=== PATIENT | female | born 1945 | race African-American/Black ===

== ENCOUNTER → 2018-01-24 | Outpatient (CLI) | payer MEDICARE, OTHER | LOC: HRSP 13:49 | PROVIDERS: ATTEND Specialist | DX: J44.9 Chronic obstructive pulmonary disease, unspecified (principal); R09.02 Hypoxemia; R06.00 Dyspnea, unspecified | CPT/HCPCS: 94060; 94726; 94729 ==

== ENCOUNTER 2018-04-10 17:54 | Inpatient (IN) | payer MEDICARE, MEDICAID ==
[2018-04-10] VITALS (7 sets, daily range): BP systolic 147–222; BP diastolic 67–115; PULSE 74–100; RESP 15–30; TEMP 98.8; O2SAT 93–100
[~2018-04-10] VITALS: Ht 167.6 cm; Wt 116.4 kg
[2018-04-10] MEDS ORDERED: HYDR25TA5 PO (18:05)
[2018-04-10] MEDS ORDERED: MECL-62 PO (18:05)
[2018-04-10] MEDS ORDERED: METF1000 PO (18:05)
[2018-04-10] MEDS ORDERED: ENOX100I SQ (18:05)
[2018-04-10] MEDS ORDERED: METO25TA3 PO (18:05)
[2018-04-10] MEDS ORDERED: OMEP40CA2 (18:05)
[2018-04-10] MEDS ORDERED: COLC1CAP3 PO (18:05)
[2018-04-10] MEDS ORDERED: AMLO2.5T PO (18:05)
[2018-04-10] MEDS ORDERED: LOSA100T PO (18:05)
[2018-04-10] MEDS ORDERED: LORazepam 2 MG/ML VIAL ONE (18:38)
--- NOTE | 2018-04-10 18:54 | PD ---
HPI Chief Complaint: Seizure Time Seen by Provider: 17:56 Travel History International Travel<30 days: No (unable to obtain) Contact w/Intl Traveler<30days: No Traveled to known affect area: No History of Present Illness HPI The patient was seen and examined in the presence of the nurse. This patient is brought in by paramedics after experiencing a seizure at home. This was witnessed by her daughter. She arrives appearing postictal and can provide no history or review of systems. According to the history provided H this is a first seizure and she has no history of this and takes no medications for it. She cannot provide any history or review of systems. PFSH Past Medical History Cardiovascular Problems: Yes High Cholesterol: Yes Diabetes: Yes Patient Takes Glucophage: Yes Hypertension: Yes Tetanus Vaccination: Unknown Past Surgical History Surgical History: Unable to Obtain Other Surgery: Yes (ivc filter) Social History Alcohol Use: No (unable to obtain) Tobacco Use: No (unable to obtain) Substance Use: No (unable to obtain) Allergies-Medications (Allergen,Severity, Reaction): Coded Allergies: Penicillins (Verified Allergy, Unknown, 04/10/18) Reported Meds & Prescriptions Reported Meds & Active Scripts Active Reported Omeprazole 40 Mg Cap 40 Mg Hydrochlorothiazide 25 Mg Tab 25 Mg PO Losartan (Losartan Potassium) 100 Mg Tab 100 Mg PO DAILY Meclizine (Meclizine HCl) 25 Mg Tab 25 Mg PO DIRECTED PRN Colchicine 0.6 Mg Cap 0.6 Mg PO Enoxaparin Inj (Enoxaparin Sodium) 100 Mg/Ml Syr 100 Mg SQ Amlodipine (Amlodipine Besylate) 2.5 Mg Tab 2.5 Mg PO DAILY Metoprolol Tartrate 25 Mg Tab 25 Mg PO Metformin (Metformin HCl) 1,000 Mg Tab 1,000 Mg PO BIDPC Review of Systems ROS Limitations: Clinical Condition, Unresponsive Physical Exam Narrative GENERAL: Well-nourished, well-developed patient in no apparent distress. SKIN: Focused skin assessment reveals no rash and nodules. Skin is Warm and dry. HEAD: Atraumatic. Normocephalic. EYES: Pupils equal and round. No scleral icterus. No injection or drainage. ENT: No nasal bleeding or discharge. Mucous membranes pink and moist. NECK: Trachea midline. No JVD. CARDIOVASCULAR: Regular rate and rhythm. No murmur appreciated. RESPIRATORY: No accessory muscle use. Clear to auscultation. Breath sounds equal bilaterally. GASTROINTESTINAL: Abdomen soft, non-tender, nondistended. Hepatic and splenic margins not palpable. MUSCULOSKELETAL: No obvious deformities. No clubbing. No cyanosis. No edema. NEUROLOGICAL: Obtunded, does not follow commands. Impossible to test motor strength or sensation given her limited participation. She looks postictal PSYCHIATRIC: Impossible to test mood and affect; insight and judgment poor . Data Data Last Documented VS Vital Signs Date Time Temp Pulse Resp B/P (MAP) Pulse Ox O2 Delivery O2 Flow Rate FiO2 04/10/18 18:44 100 30 222/115 (150) 100 Non-Rebreather 15.00 04/10/18 17:55 98.8 Orders Orders Lorazepam Inj (Ativan Inj) (04/10/18 18:38) Lorazepam Inj (Ativan Inj) (04/10/18 19:00) Iv Access Insert/Monitor (04/10/18 18:48) Complete Blood Count With Diff (04/10/18 18:48) Comprehensive Metabolic Panel (04/10/18 18:48) Ct Brain W/O Iv Contrast(Rout) (04/10/18 ) Drug Screen, Random Urine (04/10/18 18:48) Alcohol (Ethanol) (04/10/18 18:48) MDM Medical Decision Making Medical Screen Exam Complete: Yes Emergency Medical Condition: Yes Medical Record Reviewed: Yes Differential Diagnosis Postictal state, new onset seizure, intracranial hemorrhage Narrative Course I have reviewed the patient's electronic medical record. I have ordered extensive workup. I gave her 2 mg IV Ativan. 2 IVs are placed. On oxygen mask she saturates at 99% at this time Is checked out to Dr. Bhakta at 7 PM Tha Jones MD Apr 10, 2018 18:54
[2018-04-10] MEDS ORDERED: LORazepam 2 MG/ML VIAL IV PUSH ONE (19:00)
--- NOTE | 2018-04-10 19:18 | PD ---
Physical Exam Date Seen by Provider: Apr 10, 2018 Time Seen by Provider: 19:12 Narrative Accepted in transfer of care from Dr. Jones GENERAL: Well-developed well-nourished obese female in no acute respiratory distress with nonrebreather mask in place GCS 5 after Ativan 2 mg IV SKIN: Warm and dry. HEAD: Normocephalic. EYES: No scleral icterus. Bilateral pupils equal 3 mm round reactive to light no injection or drainage. NECK: Supple, trachea midline. No JVD or lymphadenopathy. CARDIOVASCULAR: Regular rate and rhythm without murmurs, gallops, or rubs. RESPIRATORY: Breath sounds equal bilaterally. No accessory muscle use. GASTROINTESTINAL: Abdomen soft, non-tender, nondistended. Data Data Last Documented VS Vital Signs Date Time Temp Pulse Resp B/P (MAP) Pulse Ox O2 Delivery O2 Flow Rate FiO2 04/10/18 18:44 100 30 222/115 (150) 100 Non-Rebreather 15.00 04/10/18 17:55 98.8 Orders Orders Lorazepam Inj (Ativan Inj) (04/10/18 18:38) Lorazepam Inj (Ativan Inj) (04/10/18 19:00) Iv Access Insert/Monitor (04/10/18 18:48) Complete Blood Count With Diff (04/10/18 18:48) Comprehensive Metabolic Panel (04/10/18 18:48) Ct Brain W/O Iv Contrast(Rout) (04/10/18 ) Drug Screen, Random Urine (04/10/18 18:48) Alcohol (Ethanol) (04/10/18 18:48) Lorazepam Inj (Ativan Inj) (04/10/18 19:30) Fosphenytoin Inj (Cerebyx Inj) (04/10/18 20:00) Nicardipine Inj (Cardene Inj) (04/10/18 20:00) Etomidate Inj (Amidate Inj) (04/10/18 20:15) Midazolam Inj (Versed Inj) (04/10/18 20:15) Rocuronium Inj (Zemuron Inj) (04/10/18 20:15) Succinylcholine Inj (Quelicin Inj) (04/10/18 20:09) Midazolam Inj (Versed Inj) (04/10/18 20:19) Propofol 500 Mg/50 Ml Inj (Diprivan 500 (04/10/18 20:21) Protamine Sulfate Inj (Protamine Sulfate (04/10/18 20:30) Admit To Inpatient (04/10/18 ) Code Status (04/10/18 20:20) Vital Signs (Adult) RIGOBERTO.Q1H (04/10/18 20:20) Activity Bed Rest (04/10/18 20:20) Elevate Head Of Bed (04/10/18 20:20) Neuro Checks . ORDERED (04/10/18 20:20) Intake + Output Q1H (04/10/18 20:20) Bedside Glucose RIGOBERTO.BGM (04/10/18 20:20) Insert Ng Tube (04/10/18 20:20) Diet Npo (04/11/18 Breakfast) Sodium Chlor 0.9% 1000 Ml Inj (Ns 1000 M (04/10/18 20:20) Sodium Chloride 0.9% Flush (Ns Flush) (04/10/18 20:30) Sodium Chloride 0.9% Flush (Ns Flush) (04/10/18 21:00) Lansoprazole Odt (Prevacid Odt) (04/11/18 09:00) Artificial Tears Opth Soln (Tears Natura (04/11/18 09:00) Ondansetron Inj (Zofran Inj) (04/10/18 20:30) Albuterol-Ipratropium Neb (Duoneb Neb) (04/11/18 00:00) Albuterol Neb (Albuterol Neb) (04/10/18 20:30) Complete Blood Count With Diff (04/11/18 04:00) Comprehensive Metabolic Panel (04/11/18 04:00) Creatine Kinase (Cpk) (04/11/18 06:00) Troponin I (04/10/18 20:20) Troponin I (04/11/18 02:20) Act Partial Throm Time (Ptt) (04/11/18 04:00) Prothrombin Time / Inr (Pt) (04/11/18 04:00) Magnesium (Mg) (04/11/18 04:00) Phosphorus (Po4) (04/11/18 04:00) Chest, Single Ap (04/11/18 ) Electrocardiogram (04/10/18 ) Portable Eeg (04/10/18 ) Type Photography Supervisor / Telemetry RIGOBERTO.Q8H (04/10/18 20:20) Scd Bilateral/Knee High RGIOBERTO.BID (04/10/18 20:20) Pharmacologic Contraindication (04/10/18 20:20) ^ Initiate Protocol (04/10/18 20:20) Instruction (04/10/18 20:20) Nursing Information ([facility] [place] Nursing Inform (04/10/18 20:30) Chlorhexidine 2% Cloth (Chlorhexidine 2% (04/11/18 04:00) Chlorhexidine 2% Cloth (Chlorhexidine 2% (04/10/18 20:30) Mrsa Pcr Surveillance (04/10/18 20:20) Docusate Sodium-Senna (Breanna-Colace) (04/10/18 21:00) Magnesium Hydroxide Liq (Milk Of Magnesi (04/10/18 20:30) Sennosides (Senokot) (04/10/18 20:30) Bisacodyl Supp (Dulcolax Supp) (04/10/18 20:30) Lactulose Liq (Lactulose Liq) (04/10/18 20:30) Elevate Head Of Bed (04/10/18 20:20) Chlorhexidine 0.12% Liq (Peridex 0.12% L (04/11/18 08:00) Oral Hygiene Kit (04/11/18 00:00) Resp Ventilation- Pressure (04/10/18 ) Restraints Non-Violent RIGOBERTO.Q3H (04/10/18 20:20) Ventilator Weaning Readiness RIGOBERTO.DAILY@0800 (04/10/18 20:20) Arterial Blood Gas (Abg) (04/11/18 06:00) Propofol 1000 Mg/100 Ml Inj (Diprivan 10 (04/10/18 20:30) Fentanyl Drip (Fentanyl Drip) (04/10/18 20:30) Inpatient Certification (04/10/18 ) Labs Laboratory Tests Test 04/10/18 19:16 White Blood Count 10.3 TH/MM3 Red Blood Count 4.24 MIL/MM3 Hemoglobin 12.7 GM/DL Hematocrit 39.2 % Mean Corpuscular Volume 92.6 FL Mean Corpuscular Hemoglobin 30.1 PG Mean Corpuscular Hemoglobin Concent 32.5 % Red Cell Distribution Width 14.2 % Platelet Count 154 TH/MM3 Mean Platelet Volume 11.9 FL Neutrophils (%) (Auto) 52.8 % Lymphocytes (%) (Auto) 34.1 % Monocytes (%) (Auto) 8.5 % Eosinophils (%) (Auto) 3.9 % Basophils (%) (Auto) 0.7 % Neutrophils # (Auto) 5.4 TH/MM3 Lymphocytes # (Auto) 3.5 TH/MM3 Monocytes # (Auto) 0.9 TH/MM3 Eosinophils # (Auto) 0.4 TH/MM3 Basophils # (Auto) 0.1 TH/MM3 CBC Comment DIFF FINAL Differential Comment Blood Urea Nitrogen 21 MG/DL Creatinine 1.20 MG/DL Random Glucose 177 MG/DL Total Protein 8.7 GM/DL Albumin 3.8 GM/DL Calcium Level 10.0 MG/DL Alkaline Phosphatase 101 U/L Aspartate Amino Transf (AST/SGOT) 46 U/L Alanine Aminotransferase (ALT/SGPT) 37 U/L Total Bilirubin 0.3 MG/DL Sodium Level 139 MEQ/L Potassium Level 4.1 MEQ/L Chloride Level 101 MEQ/L Carbon Dioxide Level 26.7 MEQ/L Anion Gap 11 MEQ/L Estimat Glomerular Filtration Rate 54 ML/MIN Ethyl Alcohol Level LESS THAN 3 MG/DL MDM Medical Record Reviewed: Yes Supervised Visit with LUKE: No Interpretation(s) Last Impressions Head CT 04/10/18 0000 Signed Impressions: CONCLUSION: 1. There is acute intra-axial hemorrhage in the right frontal lobe measuring u p to 3.1 cm with surrounding vasogenic edema. There is very mild local mass eff ect with approximately 3 mm of [id number] midline shift anteriorly. 2. Chronic brain findings include mild generalized atrophy and chronic appeari ng periventricular white matter change. 3. The above findings were telephoned to Dr. Bhakta at 7:58 PM. CBC & BMP Diagram 04/10/18 19:16 Total Protein 8.7 H, Albumin 3.8, Calcium Level 10.0, Alkaline Phosphatase 101, Aspartate Amino Transf (AST/SGOT) 46 H, Alanine Aminotransferase (ALT/SGPT) 37, Total Bilirubin 0.3 Vital Signs Date Time Temp Pulse Resp B/P (MAP) Pulse Ox O2 Delivery O2 Flow Rate FiO2 04/10/18 18:44 100 30 222/115 (150) 100 Non-Rebreather 15.00 04/10/18 18:06 90 20 69 Room Air 04/10/18 17:55 98.8 94 15 196/87 [phone]) 93 Differential Diagnosis Accepted in transfer of care from Dr. Jones; please refer to his dictation Narrative Course Accepted in transfer of care from Dr. Jones; follow up CT labs and disposition It is 7:13 PM patient's daughter Dulce Fofana is at the bedside reports patient has a history of diabetes hypertension dyslipidemia prior sepsis PE DVT Vanesa filter currently on Lovenox twice daily and this is new onset seizure. According to the patient daughter the patient's son spoke to her around 2:30 PM and patient was reportedly fine and daughter came to visit her mother at approximately 5:20 PM found her sitting in the dark and a stair unresponsive to verbal or tactile stimulation so the daughter immediately called EMS upon tax services manager arrival patient reportedly had approximately 4 generalized tonic-clonic seizures and then patient was transported from the house. Upon arrival here daughter states that patient was witnessed to have approximately 2 minute episode of seizure activity and patient did receive 2 mg of Ativan IV. According to daughter patient has been compliant with her medications gives herself her medications low-salt by herself and is very independent. Patient has had no recent febrile illness but has had some earache and a cough. No known fever. No known trauma or injury. According to the patient's daughter she is a full code and does NOT have any prior advanced directive for DO NOT RESUSCITATE or DO NOT INTUBATE. @ 7:27 BP_: 179/[address] appearing post ictal E 4, V: 1; M: 4; Ativan 2 mg ordered to go with RN w/ patient to be administered prn recurrent TC seizure Patient has returned from CT did receive Ativan [address] due to agitation and inability obtained study due to patient's movement not because of seizure activity additional 1 mg Ativan held and not administered. Call placed from radiologist identifies patient has an acute right frontal intra-axial hemorrhage 3 cm; call placed to neurosurgery Dr. Parson who will see the patient in consultation is aware patient is already received Ativan and fosphenytoin is on a nicardipine infusion to keep blood pressure less than 140/90 and plan for intubation request patient to be admitted to offset printer to [facility] does not recall recommend mannitol at this time; call placed to offset printer discussed with Dr. Yanet Holt is at bedside is aware patient is in the process of being prepared for intubation at this time patient is awake answers questions appropriately yes no notes are name acknowledges that she has been diagnosed with a bleed in her head and seizure and is aware of plan for intubation. Patient has good right- sided direct service provider strength and movement of the right lower extremity demonstrates neglect for the left upper extremity and left lower extremity no display of direct service provider strength or movement of the left foot to command but does spontaneously move left upper extremity and left lower extremity. Patient intubated emergently using etomidate 20 mg IV rocuronium 70 mg IV and Versed 2.5 mg IV please refer to procedure note stat post chest x-ray ordered; Dr. Holt at bedside reports he will enter remaining orders for this patient and is except patient to ICU Postintubation x-ray shows tip of endotracheal tube at the tristan endotracheal tube reposition to 22 cm had been secured at 24 cm; repeat chest x-ray post repositioning of endotracheal tube ordered 9 PM family at bedside daughter is aware of imaging study results diagnosis and plan for admission to [facility] to the offset printer with consult to neurosurgery. Critical Care Narrative Aggregate critical care time was 35 minutes. Time to perform other separately billable procedures was not included in the critical care time. My time did not include minutes spent treating any other patients simultaneously or on activities that did not directly contribute to the patient's treatment. The services I provided to this patient were to treat and/or prevent clinically significant deterioration that could result in: Status epilepticus, expanding intracranial bleed, anoxic encephalopathy, I provided critical care services requiring my management, as noted below: Chart data review, documentation time, medication orders and management, vital sign assessments/reviewing monitor data, ordering and reviewing lab tests, ordering and interpreting/reviewing x-rays and diagnostic studies, care of the patient and discussion of the patient with the admitting physicians. Procedures Procedure Narrative Emergently the following procedure was performed: INTUBATION: The patient was put in optimal position for the procedure. Rapid sequence intubation was initiated by me using 20 milligrams of etomidate IV and 70 milligrams of rocuronium IV and 2.5 mg of Versed IV. The patient was intubated with a 8-0 cuffed endotracheal tube. Tube placement was confirmed by visualization of the tube and balloon passing through the cords, capnometry and subsequent chest x-ray. Breath sounds were equal and well aerated bilaterally postintubation. No breath sounds over stomach. Patient tolerated procedure well. Physician Communication Physician Communication @ 7:[address] Pan patient has acute hemorrhage right frontal lobe 3 cm inside with no significant midline shift or herniation appears to be intra-axial; call placed to Dr. Parson neurosurgeon signals collection technician; discussed with Dr Holt Diagnosis Primary Impression: Right frontal intra-axial hemorrhage Additional Impressions: Essential hypertension New onset seizure Admitting Information Admitting Physician Requests: Admit Debbie Bhakta MD Apr 10, 2018 19:18
[2018-04-10] MEDS ORDERED: LORazepam 2 MG/ML VIAL IV PUSH PRN (19:30)
[2018-04-10 19:44] LABS: AUTOMATED NEUTROPHIL # 5.4 TH/MM3 (1.8-7.7); BASOPHIL # 0.1 TH/MM3 (0-0.2); BASOPHIL % 0.7 % (0.0-2.0); EOSINOPHIL # 0.4 TH/MM3 (0-0.4); EOSINOPHIL % 3.9 % (0.0-4.0); HEMATOCRIT 39.2 % (35.0-46.0); HEMOGLOBIN 12.7 GM/DL (11.6-15.3); LYMPH % 34.1 % (9.0-44.0); LYMPHOCYTE # 3.5 TH/MM3 (1.0-4.8); MEAN CELL VOLUME 92.6 FL (80.0-100.0); MEAN CORPUSCULAR HEMOGLOBIN 30.1 PG (27.0-34.0); MEAN CORPUSCULAR HGB CONC 32.5 % (32.0-36.0); MEAN PLATELET VOLUME 11.9 FL (7.0-11.0); MONO % 8.5 % (0.0-8.0); MONOCYTE # 0.9 TH/MM3 (0-0.9); NEUT % 52.8 % (16.0-70.0); PLATELET COUNT 154 TH/MM3 (150-450); RED BLOOD COUNT 4.24 MIL/MM3 (4.00-5.30); RED CELL DISTRIBUTION WIDTH 14.2 % (11.6-17.2); WHITE BLOOD COUNT 10.3 TH/MM3 (4.0-11.0)
[2018-04-10] MEDS ORDERED: niCARdipine INJ 25 MG in SODIUM CHLOR 0.9% 250 ML INJ 250 ML IV PRN (20:00)
[2018-04-10] MEDS ORDERED: FOSPHENYTOIN INJ 1,500 MGPE in SODIUM CHLORIDE 0.9% INJ 100 ML IV ONE (20:00)
--- NOTE | 2018-04-10 20:01 | RADRPT ---
EXAM DATE: 04/10/2018 7:54 PM EDT AGE/SEX: 73 years / Female INDICATIONS: Seizure lasting 5-8 minutes. CLINICAL DATA: This is the patient's initial encounter. Patient reports that signs and symptoms have been present for 1 day and indicates a pain score of Nonresponsive. MEDICAL/SURGICAL HISTORY: Hypertension. Diabetes. IVC Filter placement. RADIATION DOSE: 56.35 CTDI (mGy) ; Patient motion COMPARISON: No prior exams available for comparison. TECHNIQUE: CT of the head without contrast. Using automated exposure control and adjustment of the mA and/or kV according to patient size, radiation dose was kept as low as reasonably achievable to ob tain optimal diagnostic quality images. FINDINGS: Cerebrum: There is mild generalized atrophy and ventricles are normal given the degree of atrophy. M ild periventricular white matter change is present. There are acute intra-axial blood products in th e right frontal lobe measuring 3.1 x 2.7 cm. There is surrounding vasogenic edema. No other acute blo od products are present. There is no downward herniation. Minimal midline shift is present anteriorly measuring approximately 3 mm. Posterior Fossa: The cerebellum and brainstem demonstrate no acute abnormality. The 4th ventricle is midline. The cerebellopontine angle is within normal limits. Extracranial: There is a mucous retention cyst in the right maxillary sinus Skull: The calvaria is intact. No skull fracture. CONCLUSION: 1. There is acute intra-axial hemorrhage in the right frontal lobe measuring up to 3.1 cm with surro unding vasogenic edema. There is very mild local mass effect with approximately 3 mm of [id number] midline shift anteriorly. 2. Chronic brain findings include mild generalized atrophy and chronic appearing periventricular whi te matter change. 3. The above findings were telephoned to Dr. Bhakta at 7:58 PM. Electronically signed by: David Sandra MD 04/10/2018 7:59 PM EDT
[2018-04-10 20:06] LABS: ALBUMIN 3.8 GM/DL (3.4-5.0); AST (GOT) 46 U/L (15-37); BICARBONATE 26.7 MEQ/L (21.0-32.0); BLOOD UREA NITROGEN 21 MG/DL (7-18); CHLORIDE 101 MEQ/L (98-107); GLOMERULAR FILTRATION RATE 54 ML/MIN (>89); GLUCOSE,RANDOM 177 MG/DL (74-106); SODIUM (NA) 139 MEQ/L (136-145)
[2018-04-10 20:07] LABS: ALT (GPT) 37 U/L (10-53)
[2018-04-10 20:09] LABS: ALKALINE PHOSPHATASE 101 U/L (45-117); TOTAL BILIRUBIN ADULT 0.3 MG/DL (0.2-1.0); TOTAL PROTEIN 8.7 GM/DL (6.4-8.2)
[2018-04-10] MEDS ORDERED: SUCCINYLCHOLINE CHLORIDE 200 MG/10 ML VIAL ONE (20:09)
[2018-04-10] MEDS ORDERED: ETOMIDATE 20 MG/10 ML VIAL IV PUSH ONE (20:15)
[2018-04-10] MEDS ORDERED: ROCURONIUM INJ 100 MG/10 ML VIAL IV ONE (20:15)
[2018-04-10] MEDS ORDERED: MIDAZOLAM HCL 5 MG/5 ML VIAL IV PUSH ONE (20:15)
[2018-04-10] MEDS ORDERED: MIDAZOLAM HCL 5 MG/ML VIAL (1 ML) ONE (20:19)
[2018-04-10] MEDS ORDERED: PROPOFOL 500 MG/50 ML INJ 50 ML ONE (20:21)
[2018-04-10] MEDS ORDERED: CHLORHEXIDINE GLUCONATE 2 % 1 PACK (2 CLOTHS) TOP PRN (20:30)
[2018-04-10] MEDS ORDERED: MAGNESIUM OXIDE 400 MG TAB PO PRN (20:30)
[2018-04-10] MEDS ORDERED: POTASSIUM CHLORIDE 25 MEQ EFFERVESCENT TAB PO PRN (20:30)
[2018-04-10] MEDS ORDERED: ONDANSETRON HCL 4 MG/2 ML VIAL IV PUSH PRN (20:30)
[2018-04-10] MEDS ORDERED: MAGNESIUM HYDROXIDE SUSP 30 ML CUP PO PRN (20:30)
[2018-04-10] MEDS ORDERED: POTASSIUM CHLOR 20 MEQ PREMIX 100 ML IV PRN ×2 (20:30)
[2018-04-10] MEDS ORDERED: SODIUM CHLORIDE 0.9% FLUSH 10 ML FLUSH IV FLUSH PRN ×2 (20:30→23:00)
[2018-04-10] MEDS ORDERED: POTASSIUM PHOSPHATE MONOBASIC 500 MG TAB PO/TUBE PRN (20:30)
[2018-04-10] MEDS ORDERED: POTASSIUM PHOSPHATE INJ 30 MMOL in SODIUM CHLOR 0.9% 250 ML INJ 250 ML IV PRN (20:30)
[2018-04-10] MEDS ORDERED: MAGNESIUM SULFATE INJ 2 GM in SODIUM CHLORIDE 0.9% INJ 96 ML IV PRN (20:30)
[2018-04-10] MEDS ORDERED: RESP: ALBUTEROL 2.5 MG/3 ML NEB (PRN) INH (20:30)
[2018-04-10] MEDS ORDERED: POTASSIUM PHOSPHATE MONOBASIC 500 MG TAB PO PRN (20:30)
[2018-04-10] MEDS ORDERED: BISACODYL 10 MG SUPP RECTAL PRN (20:30)
[2018-04-10] MEDS ORDERED: MAGNESIUM SULFATE INJ 4 GM in SODIUM CHLORIDE 0.9% INJ 92 ML IV PRN (20:30)
[2018-04-10] MEDS ORDERED: NURSING INFORMATION XX SCH (20:30)
[2018-04-10] MEDS ORDERED: SENNOSIDES 8.6 MG TAB PO PRN (20:30)
[2018-04-10] MEDS ORDERED: PROTAMINE SULFATE 50 MG/5 ML VIAL IV PUSH ONE (20:30)
[2018-04-10] MEDS ORDERED: LACTULOSE SYRUP 20 GM/30 ML CUP PO PRN (20:30)
[2018-04-10] MEDS ORDERED: POTASSIUM CHLOR 40 MEQ PREMIX 100 ML IV PRN ×2 (20:30)
[2018-04-10] MEDS ORDERED: DEXTROSE 50% IN WATER 50 ML VIAL(D50) IV PUSH PRN (20:30)
[2018-04-10] MEDS ORDERED: GLUCAGON 1 MG/ML VIAL OTHER PRN (20:30)
[2018-04-10] MEDS ORDERED: SODIUM PHOSPHATE INJ 30 MMOL in SODIUM CHLOR 0.9% 250 ML INJ 240 ML IV PRN (20:30)
--- NOTE | 2018-04-10 20:34 | HHI.HP ---
HPI Service Critical Care Medicine Primary Care Physician Jim Vázquez M.D. Admission Diagnosis Right frontal intra-axial hemorrhage Diagnosis: (1) Right frontal intra-axial hemorrhage Diagnosis: Principal (2) Essential hypertension Diagnosis: Principal (3) Acute respiratory failure Diagnosis: Principal (4) New onset seizure Diagnosis: Principal (5) Gastroesophageal reflux disease Diagnosis: Secondary (6) Diabetes mellitus Diagnosis: Secondary (7) BMI 40.0-44.9, adult Diagnosis: Principal (8) Hyperlipidemia Diagnosis: Secondary (9) Chronic anticoagulation Diagnosis: Principal Chief Complaint: Admission with seizure with right frontal intra-axial hemorrhage Travel History International Travel<30 Days: No (unable to obtain) Contact w/Intl Traveler <30 Da: No Traveled to Known Affected Are: No History of Present Illness This is a 73-year-old AA female. Admission 04/10/2018. Please note no family is available and all information is obtained by reviewing the medical record from ED physician. Past medical history includes hypertension, hyperlipidemia, gastroesophageal disease, diabetes mellitus, elevated BMI and gout. 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 She presented to [facility] with the following history. At approximately 2:30 PM and patient was reportedly fine and daughter came to visit her mother. Then at approximately 5:20 PM found her sitting in the dark by the stair unresponsive. EMS upon grove worker arrival patient reportedly had approximately 4 generalized tonic-clonic seizures and then patient was transported from the house. Upon arrival here daughter states that patient was witnessed to have approximately 2 minute episode of seizure activity and patient did receive 2 mg of lorazepam IV. According to daughter patient has been compliant with her medications gives herself her medications low-salt by herself and is very independent. after being found home by daughter with new onset seizure. No prior history of seizure activity. Denies any trauma at home to the brain. CT brain revealed 3.1 cm right frontal intra-axial hemorrhage with a 3 mm right to left shift. She received 2 mg lorazepam IV 1 was loaded with fosphenytoin 1 g. Neurosurgery was consulted/Dr. Parson. Recommended blood pressure control with inpatient admission to ICU with consultation to neurosurgery. Patient was intubated in the ED by physician after receiving etomidate and rocuronium... Review of Systems ROS Limitations: Intubated Past Family Social History Allergies: Coded Allergies: Penicillins (Verified Allergy, Unknown, 6/7/18) Past Medical History Chronic anticoagulation Essential hypertension Hyperlipidemia Gastroesophageal reflux disease Diabetes mellitus Elevated BMI Gout Past Surgical History IVC filter Total hip replacement 2 Reported Medications Metoprolol tartrate 25 mg by mouth twice daily Amlodipine 2.5 mg by mouth daily Losartan 100 mg by mouth daily Enoxaparin 100 mg subcu twice daily Metformin 1000 mg by mouth twice daily colchicine 0.6 mg by mouth daily Omeprazole 40 mg mouth daily Meclizine 25 mg every 6 hours as needed Active Ordered Medications Reviewed in EMR Family History Not defined/unknown. Son-in-law at bedside did not know Social History Unknown alcohol, tobacco or IV drug use per son-in-law at bedside Physical Exam Vital Signs Vital Signs Date Time Temp Pulse Resp B/P (MAP) Pulse Ox O2 Delivery O2 Flow Rate FiO2 04/10/18 18:44 100 30 222/115 (150) 100 Non-Rebreather 15.00 04/10/18 18:06 90 20 69 Room Air 04/10/18 17:55 98.8 94 15 196/87 (123) 93 Physical Exam GENERAL: 73-year-old AA female currently resting in bed orotracheally intubated SKIN: Warm and dry. HEAD: Atraumatic. Normocephalic. EYES: Pupils equal and round about 3 mm bilaterally reactive to. Disconjugate gaze to left.. No scleral icterus. No injection or drainage. ENT: No nasal bleeding or discharge. Mucous membranes pink and moist. NECK: Trachea midline. No JVD. CARDIOVASCULAR: Regular rate and rhythm. S1, S2. No S4. Without murmur RESPIRATORY: Diminished. Symmetrical excursion. Breath sounds equal bilaterally. GASTROINTESTINAL: Abdomen soft, non-tender, obese. Hypoactive bowel sounds appreciated. MUSCULOSKELETAL: Extremities trace bilateral lower extremity nonpitting edema. No obvious deformities. NEUROLOGICAL: Alert intubation, arousable. GCS 9. [id number]. Spontaneous movement right and upper lower extremity. Did not move left upper extremity for me but did for ED physician. Withdrew to left lower extremity. Current with positive cough and gag. Positive corneal reflex. Laboratory Laboratory Tests Test 04/10/18 19:16 White Blood Count 10.3 Red Blood Count 4.24 Hemoglobin 12.7 Hematocrit 39.2 Mean Corpuscular Volume 92.6 Mean Corpuscular Hemoglobin 30.1 Mean Corpuscular Hemoglobin Concent 32.5 Red Cell Distribution Width 14.2 Platelet Count 154 Mean Platelet Volume 11.9 Neutrophils (%) (Auto) 52.8 Lymphocytes (%) (Auto) 34.1 Monocytes (%) (Auto) 8.5 Eosinophils (%) (Auto) 3.9 Basophils (%) (Auto) 0.7 Neutrophils # (Auto) 5.4 Lymphocytes # (Auto) 3.5 Monocytes # (Auto) 0.9 Eosinophils # (Auto) 0.4 Basophils # (Auto) 0.1 CBC Comment DIFF FINAL Differential Comment Blood Urea Nitrogen 21 Creatinine 1.20 Random Glucose 177 Total Protein 8.7 Albumin 3.8 Calcium Level 10.0 Alkaline Phosphatase 101 Aspartate Amino Transf (AST/SGOT) 46 Alanine Aminotransferase (ALT/SGPT) 37 Total Bilirubin 0.3 Sodium Level 139 Potassium Level 4.1 Chloride Level 101 Carbon Dioxide Level 26.7 Anion Gap 11 Estimat Glomerular Filtration Rate 54 Ethyl Alcohol Level LESS THAN 3 Result Diagram: 04/10/18191504/10/18 1916 Imaging Last Impressions Head CT 04/10/18 0000 Signed Impressions: CONCLUSION: 1. There is acute intra-axial hemorrhage in the right frontal lobe measuring u p to 3.1 cm with surrounding vasogenic edema. There is very mild local mass eff ect with approximately 3 mm of [id number] midline shift anteriorly. 2. Chronic brain findings include mild generalized atrophy and chronic appeari ng periventricular white matter change. 3. The above findings were telephoned to Dr. Bhakta at 7:58 PM. Septic Shock Reassessment Septic shock perfusion: reassessment completed Caprini VTE Risk Assessment Caprini VTE Risk Assessment: Mod/High Risk (score >= 2) VTE Pharm Contraindication: Active bleeding Caprini Risk Assessment Model Point Value = 1 Point Value = 2 Point Value = 3 Point Value = 5 Age 41-60 Minor surgery BMI > 25 kg/m2 Swollen legs Varicose veins or History of unexplained or recurrent spontaneous Oral contraceptives or hormone replacement Sepsis (< 1 month) Serious lung disease, including pneumonia (< 1 month) Abnormal pulmonary function Acute myocardial infarction Congestive heart failure (< 1 month) History of inflammatory bowel disease Medical patient at bed rest Age 61-74 Arthroscopic surgery Major open surgery (> 45 min) Laparoscopic surgery (> 45 min) Malignancy Confined to bed (> 72 hours) Immobilizing plaster cast Central venous access Age >= 75 History of VTE Family history of VTE Factor V Leiden Prothrombin [id number] Lupus anticoagulant Anticardiolipin antibodies Elevated serum homocysteine Heparin-induced thrombocytopenia Other congenital or acquired thrombophilia Stroke (< 1 month) Elective arthroplasty Hip, pelvis, or leg fracture Acute spinal cord injury (< 1 month) Prophylaxis Regimen Total Risk Factor Score Risk Level Prophylaxis Regimen 0-1 Low Early ambulation 2 Moderate Order ONE of the following: *Sequential Compression Device (SCD) *Heparin 5000 units SQ BID 3-4 Higher Order ONE of the following medications: *Heparin 5000 units SQ TID *Enoxaparin/Lovenox 40 mg SQ daily (WT < 150 kg, CrCl > 30 mL/min) *Enoxaparin/Lovenox 30 mg SQ daily (WT < 150 kg, CrCl > 10-29 mL/min) *Enoxaparin/Lovenox 30 mg SQ BID (WT < 150 kg, CrCl > 30 mL/min) AND/OR *Sequential Compression Device (SCD) 5 or more Highest Order ONE of the following medications: *Heparin 5000 units SQ TID (Preferred with Epidurals) *Enoxaparin/Lovenox 40 mg SQ daily (WT < 150 kg, CrCl > 30 mL/min) *Enoxaparin/Lovenox 30 mg SQ daily (WT < 150 kg, CrCl > 10-29 mL/min) *Enoxaparin/Lovenox 30 mg SQ BID (WT < 150 kg, CrCl > 30 mL/min) AND *Sequential Compression Device (SCD) Assessment and Plan Assessment and Plan Neuro/Psych: Acute right frontal intra-axial hemorrhage 3.1 cm at the right to left shift of 3 mm New onset seizure Currently on propofol/fentanyl drips for sedation/analgesia while intubated Goal of RA SS -2 Daily sedation vacation Acetaminophen 650 mg by tube every 6 hours as needed fever Follow-up brain CT in a.m. 04/11 Neurosurgery/Dr. Parson to follow Keep systolic blood pressure was 140 Replacement 2% saline at 40 cc an hour with serial sodiums every 6 hours No mannitol per neurosurgery Seizure with fosphenytoin 100 mg every 8 hours. Loaded in ED. Check phenytoin level in a.m. EEG ordered CV: Essential hypertension Hyperlipidemia Currently on nicardipine drip to keep systolic blood pressure less than 140 As needed labetalol On home metoprolol 25 mg twice daily, amlodipine 2.5 mg a day, hydrochlorthiazide 20 mg daily losartan 100 mg daily. Follow-up on EKG Resp: Acute respiratory failure [facility] / Ventilator bundle Albuterol/ipratropium aerosols every 6 hours with albuterol aerosols every 2 hours as needed dyspnea Spontaneous breathing trials when clinically indicated Follow-up on post intubation chest x-ray and ABG GI: Gastroesophageal reflux disease Elevated AST N.p.o. status NGT to LIWS Lansoprazole 30 mg daily for GI prophylaxis. On omeprazole 40 mg daily at home Docusate sodium/senna 1 tablet twice daily for bowel regimen : Krishna catheter has been placed for accurate I's and O's in a critically ill patient Endo: Diabetes mellitus History of gout Holding metformin thousand grams twice daily/home medication Novulog medium protocol Accu-Cheks every 6 hours to maintain euglycemia Holding colchicine 0.6 mg. Resume clinically indicated Renal: Acute kidney injury? Versus chronic kidney disease stage III a baseline Monitor urine output Accurate I's and O's Avoid nephrotoxic medications Follow-up on creatinine in a.m. 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 Holding anticoagulation in light of acute brain hemorrhage ID: Monitor for signs and symptomatology of infection MSK: Elevated BMI Weight loss encouraged PT evaluate and treat FEN: Replace electrolytes as clinically indicated Access -Utilize peripheral IV. Central line if indicated Prophylaxis -GI -lansoprazole -DVT -SCD/holding pharmacological prophylaxis light of acute right frontal intracranial hemorrhage Level 3 H&P Code Status Full code Discussed Condition With ED physician Dr. Bhakta. Care plan discussed and all questions answered Problem Qualifiers (1) Acute respiratory failure: Qualified Codes: J96.00 - Acute respiratory failure, unspecified whether with hypoxia or hypercapnia (2) Gastroesophageal reflux disease: Qualified Codes: K21.9 - Gastro-esophageal reflux disease without esophagitis (3) Diabetes mellitus: Qualified Codes: E11.8 - Type 2 diabetes mellitus with unspecified complications (4) Hyperlipidemia: Qualified Codes: E78.5 - Hyperlipidemia, unspecified Ty Holt MD Apr 10, 2018 20:34
[2018-04-10] MEDS: PROPOFOL 1000 MG/100 ML INJ 100 ML IV PRN (20:39)
[2018-04-10] MEDS ORDERED: PILL SPLITTER OTHER PRN (20:45)
[2018-04-10] MEDS: DOCUSATE SODIUM 50 MG/SENNA 8.6 MG TAB PO SCH (21:00)
[2018-04-10] MEDS ORDERED: SODIUM CHLORIDE 0.9% FLUSH 10 ML FLUSH IV FLUSH SCH (21:00)
--- NOTE | 2018-04-10 21:03 | RADRPT ---
EXAM DATE: 04/10/2018 8:55 PM EDT AGE/SEX: 73 years / Female INDICATIONS: Post intubation. CLINICAL DATA: This is the patient's initial encounter. Patient reports that signs and symptoms have been present for 1 day and indicates a pain score of Nonresponsive. MEDICAL/SURGICAL HISTORY: Hypercholesterolemia. Hypertension. Diabetes. . IVC Filter. Right h ip replacement. COMPARISON: [facility], XR CHEST PA AND LAT, 01/17/2018. . FINDINGS: Portable AP expiratory view of the chest demonstrates a normal-sized cardiac silhouette. Distal tip o f the endotracheal tube is not well visualized but is estimated to measure approximately 1.8 cm from the tristan. NG tube courses beyond the GE junction. Multiple EKG lines overlie the patient. Lungs are underinflated with mild right basilar airspace opacity. No pneumothorax is identified. There is oste oarthritis at the left glenohumeral joint. CONCLUSION: 1. The distal tip of the endotracheal tube is not well visualized but is estimated to measure 1.8 cm from the tristan. 2. There is mild right basilar airspace opacity, which could represent atelectasis given the expirat ory technique. Airspace consolidation could also have this appearance. Electronically signed by: David Sandra MD 04/10/2018 9:01 PM EDT
[2018-04-10] MEDS ORDERED: ACETAMINOPHEN 650 MG/20.3 ML UDC PO PRN (21:15)
--- NOTE | 2018-04-10 21:23 | RADRPT ---
EXAM DATE: 04/10/2018 9:20 PM EDT AGE/SEX: 73 years / Female INDICATIONS: Post intubation. CLINICAL DATA: This is the patient's sequela encounter. Patient reports that signs and symptoms have been present for 1 day and indicates a pain score of Nonresponsive. MEDICAL/SURGICAL HISTORY: . Hypercholesterolemia. Hypertension. Diabetes. Non-responsive. IV C Filter. Right hip replacement. COMPARISON: [facility] [place]ST SINGLE AP, 04/10/2018. . FINDINGS: Portable AP view of the chest is rotated and mildly degraded by motion artifact. Cardiac silhouette s ize is within normal limits. Endotracheal tube distal tip measures 4 cm from the tristan and nasogastr ic tube courses beyond the GE junction. No pneumothorax or definite pulmonary abnormality is identifi ed. There is osteoarthritis at the left glenohumeral joint. CONCLUSION: 1. Endotracheal tube tip measures 4 cm from the tristan. 2. Exam quality degraded by rotation and motion. Lungs demonstrate no definite abnormality. Electronically signed by: David Sandra MD 04/10/2018 9:21 PM EDT
--- NOTE | 2018-04-10 21:52 | PD.CONS ---
HPI Consult Requested By Primary Care Physician Jim Vázquez M.D. History of Present Illness Chief Complaint: Admission with seizure with right frontal intra-axial hemorrhage This is a 73-year-old Black female. with history includes hypertension, hyperlipidemia, gastroesophageal disease, diabetes mellitus, elevated BMI and gout. 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 She presented to [facility] with altered mental status. At approximately 5:20 PM found her sitting in the dark by the stair unresponsive. EMS upon hairspring inspector arrival patient reportedly had approximately 4 generalized tonic-clonic seizures and then patient was transported from the house. Upon arrival here daughter states that patient was witnessed to have approximately 2 minute episode of seizure activity and patient did receive 2 mg of lorazepam IV. According to daughter patient has been compliant with her medications. No prior history of seizure activity. Denies any trauma at home to the brain. CT brain revealed 3.1 cm right frontal intra-axial hemorrhage with a 3 mm right to left shift. She received 2 mg lorazepam IV 1 was loaded with fosphenytoin 1 g. Neurosurgery consultation was requestedThe patient was intubated in the ED by physician for airway protection and acute respiratory failure Past Family Social History Allergies: Coded Allergies: Penicillins (Verified Allergy, Unknown, 04/10/18) Past Medical History Chronic anticoagulation Essential hypertension Hyperlipidemia Gastroesophageal reflux disease Diabetes mellitus Elevated BMI Gout Past Surgical History IVC filter Total hip replacement 2 Reported Medications Metoprolol tartrate 25 mg by mouth twice daily Amlodipine 2.5 mg by mouth daily Losartan 100 mg by mouth daily Enoxaparin 100 mg subcu twice daily Metformin 1000 mg by mouth twice daily colchicine 0.6 mg by mouth daily Omeprazole 40 mg mouth daily Meclizine 25 mg every 6 hours as needed Family History unknown. Social History Unknown alcohol, tobacco or IV drug use per son-in-law at bedside Physical Exam Vital Signs Vital Signs Date Time Temp Pulse Resp B/P (MAP) Pulse Ox O2 Delivery O2 Flow Rate FiO2 04/10/18 21:33 100 04/10/18 21:00 100 100 04/10/18 20:50 74 16 147/67 (93) 100 Ventilator 6/7/18 20:48 100 04/10/18 20:20 100 100 04/10/18 18:44 100 30 222/115 (150) 100 Non-Rebreather 15.00 04/10/18 18:06 90 20 69 Room Air 04/10/18 17:55 98.8 94 15 196/87 (123) 93 Physical Exam GENERAL: 73-year-old AA female currently resting in bed orotracheally intubated SKIN: Warm and dry. HEAD: Atraumatic. Normocephalic. EYES: Pupils equal and round about 3 mm bilaterally reactive to. Disconjugate gaze to left.. No scleral icterus. No injection or drainage. ENT: No nasal bleeding or discharge. Mucous membranes pink and moist. NECK: Trachea midline. No JVD. CARDIOVASCULAR: Regular rate and rhythm. S1, S2. No S4. Without murmur RESPIRATORY: Diminished. Symmetrical excursion. Breath sounds equal bilaterally. GASTROINTESTINAL: Abdomen soft, non-tender, obese. Hypoactive bowel sounds appreciated. MUSCULOSKELETAL: Extremities trace bilateral lower extremity nonpitting edema. No obvious deformities. NEUROLOGICAL: Alert intubation, arousable. GCS 9. [id number]. Spontaneous movement right and upper lower extremity. Did not move left upper extremity for me but did for ED physician. Withdrew to left lower extremity. Current with positive cough and gag. Positive corneal reflex. Laboratory Laboratory Tests Test 04/10/18 19:16 04/10/18 20:54 04/10/18 20:58 White Blood Count 10.3 Red Blood Count 4.24 Hemoglobin 12.7 Hematocrit 39.2 Mean Corpuscular Volume 92.6 Mean Corpuscular Hemoglobin 30.1 Mean Corpuscular Hemoglobin Concent 32.5 Red Cell Distribution Width 14.2 Platelet Count 154 Mean Platelet Volume 11.9 Neutrophils (%) (Auto) 52.8 Lymphocytes (%) (Auto) 34.1 Monocytes (%) (Auto) 8.5 Eosinophils (%) (Auto) 3.9 Basophils (%) (Auto) 0.7 Neutrophils # (Auto) 5.4 Lymphocytes # (Auto) 3.5 Monocytes # (Auto) 0.9 Eosinophils # (Auto) 0.4 Basophils # (Auto) 0.1 CBC Comment DIFF FINAL Differential Comment Blood Urea Nitrogen 21 Creatinine 1.20 Random Glucose 177 Total Protein 8.7 Albumin 3.8 Calcium Level 10.0 Alkaline Phosphatase 101 Aspartate Amino Transf (AST/SGOT) 46 Alanine Aminotransferase (ALT/SGPT) 37 Total Bilirubin 0.3 Sodium Level 139 Potassium Level 4.1 Chloride Level 101 Carbon Dioxide Level 26.7 Anion Gap 11 Estimat Glomerular Filtration Rate 54 Ethyl Alcohol Level LESS THAN 3 Blood Gas Puncture Site LT RADIAL Blood Gas Patient Temperature 98.6 Blood Gas HCO3 27 Blood Gas Base Excess 1.5 Blood Gas Oxygen Saturation 97 Arterial Blood pH 7.33 Arterial Blood Partial Pressure CO2 52 Arterial Blood Partial Pressure O2 135 Arterial Blood Oxygen Content 17.6 Arterial Blood Carboxyhemoglobin 0.9 Arterial Blood Methemoglobin 0.5 Blood Gas Hemoglobin 12.7 Oxygen Delivery Device VENT Blood Gas Ventilator Setting COMMENT Blood Gas Inspired Oxygen 100 Result Diagram: 04/10/18191504/10/181915 Attending Statement (1) Right frontal intra-axial hemorrhage Diagnosis: Principal (2) Essential hypertension Diagnosis: Principal (3) Acute respiratory failure Diagnosis: Principal (4) New onset seizure Diagnosis: Principal (5) Gastroesophageal reflux disease Diagnosis: Secondary (6) Diabetes mellitus Diagnosis: Secondary (7) BMI 40.0-44.9, adult Diagnosis: Principal (8) Hyperlipidemia Diagnosis: Secondary (9) Chronic anticoagulation Diagnosis: Principal I reviewed her clinical and radiological studies Chest X-Ray 04/11/18 0000 Signed Impressions: CONCLUSION: Support apparatus unchanged. Stable bilateral airspace disease, left greater th an right. Chest X-Ray 04/10/18 2250 Signed Impressions: CONCLUSION: Support apparatus in good position. Patchy airspace disease in both lungs. Head CT 04/10/18 0000 Signed Impressions: CONCLUSION: 1. There is acute intra-axial hemorrhage in the right frontal lobe measuring u p to 3.1 cm with surrounding vasogenic edema. There is very mild local mass eff ect with approximately 3 mm of [id number] midline shift anteriorly. 2. Chronic brain findings include mild generalized atrophy and chronic appeari ng periventricular white matter change. 3. The above findings were telephoned to Dr. Bhakta at 7:58 PM. Chest X-Ray 04/10/18 0000 Signed Impressions: CONCLUSION: 1. Endotracheal tube tip measures 4 cm from the tristan. 2. Exam quality degraded by rotation and motion. Lungs demonstrate no definite abnormality. Chest X-Ray 04/10/18 0000 Signed Impressions: CONCLUSION: 1. The distal tip of the endotracheal tube is not well visualized but is estim ated to measure 1.8 cm from the tristan. 2. There is mild right basilar airspace opacity, which could represent atelect asis given the expiratory technique. Airspace consolidation could also have thi s appearance. Acute right frontal intra-axial hemorrhage 3.1 cm at the right to left shift of 3 mm New onset seizure Currently on propofol/fentanyl drips for sedation/analgesia while intubated Goal of RA SS -2 Daily sedation vacation Acetaminophen 650 mg by tube every 6 hours as needed fever Follow-up brain CT in a.m. 04/11 Neurosurgery/Dr. Parson to follow Keep systolic blood pressure was 140 Replacement 2% saline at 40 cc an hour with serial sodiums every 6 hours No mannitol per neurosurgery Seizure with fosphenytoin 100 mg every 8 hours. Loaded in ED. Check phenytoin level in a.m. EEG ordered CV: Essential hypertension Hyperlipidemia Currently on nicardipine drip to keep systolic blood pressure less than 140 As needed labetalol On home metoprolol 25 mg twice daily, amlodipine 2.5 mg a day, hydrochlorthiazide 20 mg daily losartan 100 mg daily. Follow-up on EKG Resp: Acute respiratory failure [facility] 16/525/ Ventilator bundle Albuterol/ipratropium aerosols every 6 hours with albuterol aerosols every 2 hours as needed dyspnea Spontaneous breathing trials when clinically indicated Follow-up on post intubation chest x-ray and ABG GI: Gastroesophageal reflux disease Elevated AST N.p.o. status NGT to LIWS Lansoprazole 30 mg daily for GI prophylaxis. On omeprazole 40 mg daily at home Docusate sodium/senna 1 tablet twice daily for bowel regimen : Krishna catheter has been placed for accurate I's and O's in a critically ill patient Endo: Diabetes mellitus History of gout Holding metformin thousand grams twice daily/home medication Novulog medium protocol Accu-Cheks every 6 hours to maintain euglycemia Holding colchicine 0.6 mg. Resume clinically indicated Renal: Acute kidney injury? Versus chronic kidney disease stage III a baseline Monitor urine output Accurate I's and O's Avoid nephrotoxic medications Follow-up on creatinine in a.m. 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 Holding anticoagulation in light of acute brain hemorrhage ID: Monitor for signs and symptomatology of infection MSK: Elevated BMI Weight loss encouraged PT evaluate and treat FEN: Replace electrolytes as clinically indicated Access -Utilize peripheral IV. Central line if indicated Prophylaxis -GI -lansoprazole -DVT -SCD/holding pharmacological prophylaxis light of acute right frontal intracranial hemorrhage Caprini VTE Risk Assessment: Mod/High Risk (score >= 2) VTE Pharm Contraindication: Active bleeding Caprini Risk Assessment Model Point Value = 1 Point Value = 2 Point Value = 3 Point Value = 5 Age 41-60 Minor surgery BMI > 25 kg/m2 Swollen legs Varicose veins or History of unexplained or recurrent spontaneous Oral contraceptives or hormone replacement Sepsis (< 1 month) Serious lung disease, including pneumonia (< 1 month) Abnormal pulmonary function Acute myocardial infarction Congestive heart failure (< 1 month) History of inflammatory bowel disease Medical patient at bed rest Age 61-74 Arthroscopic surgery Major open surgery (> 45 min) Laparoscopic surgery (> 45 min) Malignancy Confined to bed (> 72 hours) Immobilizing plaster cast Central venous access Age >= 75 History of VTE Family history of VTE Factor V Leiden Prothrombin [id number] Lupus anticoagulant Anticardiolipin antibodies Elevated serum homocysteine Heparin-induced thrombocytopenia Other congenital or acquired thrombophilia Stroke (< 1 month) Elective arthroplasty Hip, pelvis, or leg fracture Acute spinal cord injury (< 1 month) Prophylaxis Regimen Total Risk Factor Score Risk Level Prophylaxis Regimen 0-1 Low Early ambulation 2 Moderate Order ONE of the following: *Sequential Compression Device (SCD) *Heparin 5000 units SQ BID 3-4 Higher Order ONE of the following medications: *Heparin 5000 units SQ TID *Enoxaparin/Lovenox 40 mg SQ daily (WT < 150 kg, CrCl > 30 mL/min) *Enoxaparin/Lovenox 30 mg SQ daily (WT < 150 kg, CrCl > 10-29 mL/min) *Enoxaparin/Lovenox 30 mg SQ BID (WT < 150 kg, CrCl > 30 mL/min) AND/OR *Sequential Compression Device (SCD) 5 or more Highest Order ONE of the following medications: *Heparin 5000 units SQ TID (Preferred with Epidurals) *Enoxaparin/Lovenox 40 mg SQ daily (WT < 150 kg, CrCl > 30 mL/min) *Enoxaparin/Lovenox 30 mg SQ daily (WT < 150 kg, CrCl > 10-29 mL/min) *Enoxaparin/Lovenox 30 mg SQ BID (WT < 150 kg, CrCl > 30 mL/min) AND *Sequential Compression Device (SCD) Harrison Parson MD Apr 10, 2018 21:52
[2018-04-10] MEDS ORDERED: SODIUM CHLORIDE 23.4% INJ 188 MEQ in SODIUM CHLOR 0.9% 1000 ML INJ 1,000 ML IV SCH (22:00)
[2018-04-10] MEDS: RESP: ALBUTEROL 2.5 MG/IPRATROPIUM 0.5 MG NEB (SCH) INH (22:00)
[2018-04-10] MEDS: FOSPHENYTOIN SODIUM 100 MG PE/2 ML VIAL IV SCH (22:25)
[2018-04-10] MEDS: SODIUM CHLOR 0.9% 1000 ML INJ 1,000 ML IV SCH (22:26)
[2018-04-10 22:28] LABS: INTERNATIONAL NORMALIZED RATIO 1.1 RATIO; PROTHROMBIN TIME - PATIENT 11.3 SEC (9.8-11.6)
[2018-04-10] MEDS ORDERED: NOREPINEPHRINE 4 MG/4 ML AMP ONE (22:33)
--- NOTE | 2018-04-10 22:53 | PD.PROCEDR ---
Procedure Note Procedure DATE: 04/10/2018 CENTRAL LINE PLACEMENT: Left internal jugular vein. Ultrasound-guided INDICATION: Central venous access CONSENT Informed consent for procedure was obtained. DESCRIPTION OF THE PROCEDURE The patient was placed in supine position. The skin was cleansed with Chloraprep. Additional barrier precautions included large sterile drape, sterile gloves, sterile gown, face mask, and hat. 1 % lidocaine was used for local anesthesia. Under direct ultrasound guidance and on initial attempt, the vein was accessed with an introducer needle. The guide wire was advanced and the tract was dilated. Using Seldinger technique a 7 Burmese 20 cm antimicrobial coated triple-lumen catheter was advanced to a depth of 20 centimeters. The guide wire was removed. All ports had good return of dark venous blood and flushed easily with saline. The central line was secured with 2.0 silk secondary to body habitus/StatLock not adequately securing central line. A sterile dressing with antibiotic disc was applied. ESTIMATED BLOOD LOSS: Minimal COMPLICATIONS: No apparent complications. STAT chest x-ray pending at time of dictation Ty Holt MD Apr 10, 2018 22:53
[2018-04-10] MEDS ORDERED: MIDAZOLAM 100 MG/100 ML INJ 100 ML IV PRN (23:00)
[2018-04-10] MEDS ORDERED: TERBUTALINE INJ 1 MG/ML AMP SQ PRN (23:00)
[2018-04-10] MEDS: fentaNYL DRIP 250 ML IV PRN (23:10)
[2018-04-10] MEDS: 3% SALINE INJ 500 ML IV SCH (23:10)
[2018-04-10] MEDS: NOREPINEPHRINE INJ 4 MG in SODIUM CHLOR 0.9% 250 ML INJ 246 ML IV PRN (23:11)
[2018-04-10] MEDS: CHLORHEXIDINE GLUCONATE 2 % 1 PACK (2 CLOTHS) TOP SCH (23:11)
--- NOTE | 2018-04-10 23:36 | RADRPT ---
EXAM DATE: 04/10/2018 11:16 PM EDT AGE/SEX: 73 years / Female INDICATIONS: Confirm central line placement. CLINICAL DATA: This is the patient's initial encounter. Patient reports that signs and symptoms have been present for 1 day and indicates a pain score of Nonresponsive. MEDICAL/SURGICAL HISTORY: Hypercholesterolemia. Hypertension. Diabetes. . IVC Filter. Right h ip replacement. COMPARISON: No prior exams available for comparison. FINDINGS: Endotracheal tube in good position. NG enters stomach. Left central line in superior vena cava. Patch y airspace disease in both lungs. No significant effusion. No pneumothorax. CONCLUSION: Support apparatus in good position. Patchy airspace disease in both lungs. Electronically signed by: Jarrod Barr MD 04/10/2018 11:35 PM EDT
[2018-04-11] VITALS (24 sets, daily range): BP systolic 109–172; BP diastolic 48–70; PULSE 73–102; RESP 16–19; TEMP 98.6–102.3; O2SAT 94–100
[2018-04-11] MEDS ORDERED: RESP: ALBUTEROL 2.5 MG/IPRATROPIUM 0.5 MG NEB (SCH) INH
[2018-04-11] MEDS: INSULIN ASPART SUPPLEMENTAL SCALE SQ SCH ×6 (01:16→21:15)
[2018-04-11] MEDS: RESP: ALBUTEROL 2.5 MG/IPRATROPIUM 0.5 MG NEB (SCH) INH ×4 (03:09→19:57)
[2018-04-11] MEDS: PROPOFOL 1000 MG/100 ML INJ 100 ML IV PRN ×3 (04:15→23:03)
[2018-04-11 04:18] LABS: AUTOMATED NEUTROPHIL # 9.5 TH/MM3 (1.8-7.7); BASOPHIL # 0.1 TH/MM3 (0-0.2); BASOPHIL % 0.8 % (0.0-2.0); EOSINOPHIL % 0.2 % (0.0-4.0); HEMATOCRIT 36.3 % (35.0-46.0); HEMOGLOBIN 11.8 GM/DL (11.6-15.3); LYMPH % 18.4 % (9.0-44.0); LYMPHOCYTE # 2.4 TH/MM3 (1.0-4.8); MEAN CELL VOLUME 91.2 FL (80.0-100.0); MEAN CORPUSCULAR HEMOGLOBIN 29.8 PG (27.0-34.0); MEAN CORPUSCULAR HGB CONC 32.6 % (32.0-36.0); MEAN PLATELET VOLUME 10.4 FL (7.0-11.0); MONO % 8.1 % (0.0-8.0); MONOCYTE # 1.1 TH/MM3 (0-0.9); NEUT % 72.5 % (16.0-70.0); PLATELET COUNT 185 TH/MM3 (150-450); RED BLOOD COUNT 3.98 MIL/MM3 (4.00-5.30); RED CELL DISTRIBUTION WIDTH 14.3 % (11.6-17.2); WHITE BLOOD COUNT 13.1 TH/MM3 (4.0-11.0)
[2018-04-11 04:34] LABS: INTERNATIONAL NORMALIZED RATIO 1.2 RATIO; PROTHROMBIN TIME - PATIENT 11.7 SEC (9.8-11.6)
--- NOTE | 2018-04-11 05:01 | RADRPT ---
EXAM DATE: 04/11/2018 4:51 AM EDT AGE/SEX: 73 years / Female INDICATIONS: Short of breath. CLINICAL DATA: This is the patient's subsequent encounter. Patient reports that signs and symptoms h ave been present for 2 days and indicates a pain score of Nonresponsive. MEDICAL/SURGICAL HISTORY: Non-responsive. Non-responsive. COMPARISON: C, CHEST SINGLE AP, 04/10/2018. . FINDINGS: Endotracheal tube, nasogastric tube and left central line unchanged. Patchy bilateral airspace diseas e, left greater than right is also stable. Small left effusion. No pneumothorax. CONCLUSION: Support apparatus unchanged. Stable bilateral airspace disease, left greater than right. Electronically signed by: Jarrod Barr MD 04/11/2018 4:59 AM EDT
[2018-04-11 05:06] LABS: ALBUMIN 3.3 GM/DL (3.4-5.0); ALKALINE PHOSPHATASE 85 U/L (45-117); ALT (GPT) 31 U/L (10-53); AST (GOT) 39 U/L (15-37); BICARBONATE 24.4 MEQ/L (21.0-32.0); BLOOD UREA NITROGEN 16 MG/DL (7-18); CALCIUM 8.7 MG/DL (8.5-10.1); CHLORIDE 104 MEQ/L (98-107); CHOLESTEROL 137 MG/DL (120-200); CHOLESTEROL/ HDL RATIO 2.52 RATIO; CREATININE 1.14 MG/DL (0.50-1.00); GLOMERULAR FILTRATION RATE 57 ML/MIN (>89); GLUCOSE,RANDOM 213 MG/DL (74-106); HDL CHOLESTEROL 54.2 MG/DL (40.0-60.0); LDL CHOLESTEROL 55 MG/DL (0-99); PHENYTOIN (DILANTIN) 13.9 MCG/ML (10.0-20.0); PHOSPHORUS 2.3 MG/DL (2.5-4.9); SODIUM (NA) 140 MEQ/L (136-145); TOTAL BILIRUBIN ADULT 0.5 MG/DL (0.2-1.0); TOTAL PROTEIN 7.8 GM/DL (6.4-8.2); TRIGLYCERIDES 137 MG/DL (42-150)
[2018-04-11] MEDS: FOSPHENYTOIN SODIUM 100 MG PE/2 ML VIAL IV SCH ×3 (05:33→20:53)
[2018-04-11] MEDS: NOREPINEPHRINE INJ 4 MG in SODIUM CHLOR 0.9% 250 ML INJ 246 ML IV PRN (06:18)
[2018-04-11] MEDS: CHLORHEXIDINE 0.12% (ORAL KIT) 15 ML CUP MT SCH ×2 (08:00→20:00)
[2018-04-11] MEDS: SODIUM CHLOR 0.9% 1000 ML INJ 1,000 ML IV SCH (08:15)
[2018-04-11] MEDS: amLODIPine BESYLATE 5 MG TAB PO SCH (09:00)
[2018-04-11] MEDS: DOCUSATE SODIUM 50 MG/SENNA 8.6 MG TAB PO SCH (09:00)
[2018-04-11] MEDS: LANSOPRAZOLE SOLUTAB 30 MG TAB G-TUBE SCH (09:00)
[2018-04-11] MEDS: ARTIFICIAL TEARS OPTH SOLN 15 ML BTL EACH EYE SCH ×3 (09:00→17:47)
[2018-04-11] MEDS: SODIUM CHLORIDE 0.9% FLUSH 10 ML FLUSH IV FLUSH SCH (09:00)
--- NOTE | 2018-04-11 09:19 | RADRPT ---
EXAM DATE: 04/11/2018 9:02 AM EDT AGE/SEX: 73 years / Female INDICATIONS: F/U frontal hemorrhage. CLINICAL DATA: This is the patient's subsequent encounter. Patient reports that signs and symptoms h ave been present for 1 day and indicates a pain score of Nonresponsive. MEDICAL/SURGICAL HISTORY: Cardiovascular disease. Hypertension. Diabetes mellitus type I. . RADIATION DOSE: 56.35 CTDI (mGy) COMPARISON: [facility] [place], 04/10/2018. . TECHNIQUE: CT of the head without contrast. Using automated exposure control and adjustment of the mA and/or kV according to patient size, radiation dose was kept as low as reasonably achievable to ob tain optimal diagnostic quality images. FINDINGS: Right frontal lobe intraparenchymal hemorrhage has enlarged measures 3.4 cm, it measured 3.1 cm maxim um dimension on the prior study from one day ago. There is mild surrounding vasogenic edema and mass effect on the anterior falx. Chronic changes of the right maxillary sinus are again seen and there ar e no other changes. CONCLUSION: 1. Enlarging right frontal lobe hemorrhage with very mild mass effect on the anterior falx. Electronically signed by: Florencio Moncada MD 04/11/2018 9:18 AM EDT
[2018-04-11] MEDS ORDERED: GADODIAMIDE PF 287 MG/ML 5 ML VIAL (for RAD MRI) IV PUSH ONE (10:46)
[2018-04-11] MEDS ORDERED: LIDOCAINE 1%/EPINEPHrine 1:100,000 SOLN 30 ML VIAL ONE (11:03)
[2018-04-11] MEDS ORDERED: BACITRACIN OPHT OINT 3.5 GM TUBO ONE (11:03)
[2018-04-11] MEDS ORDERED: VANCOMYCIN HCL 1000 MG VIAL ONE (11:03)
[2018-04-11] MEDS ORDERED: THROMBIN (TOPICAL) 5,000 UNIT VIAL ONE (11:03)
[2018-04-11] MEDS ORDERED: MICROFIBRILLAR COLLAGEN HEMOSTAT 70 X 35 MM BANDAGE ONE (11:03)
[2018-04-11] MEDS ORDERED: levETIRAcetam 500 MG/5 ML VIAL IV ONE (11:04)
[2018-04-11] MEDS ORDERED: MANNITOL INJ 0 ML ONE (11:04)
[2018-04-11] MEDS ORDERED: FUROSEMIDE 40 MG/4 ML VIAL ONE (11:04)
[2018-04-11] MEDS ORDERED: GELFOAM SIZE 100 ONE (11:04)
[2018-04-11] MEDS ORDERED: GENTAMICIN SULFATE 80 MG/2 ML VIAL ONE (11:04)
--- NOTE | 2018-04-11 11:09 | RADRPT ---
EXAM DATE: 04/11/2018 10:53 AM EDT AGE/SEX: 73 years / Female INDICATIONS: Mass. Bleed. Seizure. CLINICAL DATA: This is the patient's initial encounter. Patient reports that signs and symptoms have been present for 1 day and indicates a pain score of 0/10. MEDICAL/SURGICAL HISTORY: Hypertension. Diabetes mellitus type II. IVC Filter placement. Bilat eral hip replacement. COMPARISON: [facility] [place], [place] BRAIN W/O CONTRAST, 04/11/2018.. . TECHNIQUE: Multiplanar, multisequence examination of the brain was performed without and with 25 ml O mniscan (gadodiamide) contrast as a single exam dose. FINDINGS: Again seen is an intraparenchymal hemorrhage involving the right frontal lobe. This measures 4.0 x 2. 8 x 2.7 cm. It is heterogeneous in signal. No underlying mass appreciated. There is a small focus of blooming artifact involving the left frontal lobe adjacent to the anterior horn suggesting a small fo cus of intraparenchymal hemorrhage involving the contralateral frontal lobe. This is occult on the ot her imaging. Periventricular high FLAIR signal involving both cerebral hemispheres. No diffusion-weig hted abnormality. Ventricles are normal in size. Fluid signal within the mastoid air cells bilaterall y but more pronounced on the right. Mucosal thickening with small air-fluid level within the right ma xillary sinus. Remaining paranasal sinuses are clear.. Orbital structures are unremarkable. CONCLUSION: 1. 4 cm intraparenchymal hemorrhage involving the right frontal lobe without underlying mass. 2. Tiny focus of blooming artifact involving the left frontal lobe likely relating to a small focus of intraparenchymal hemorrhage on that side. 3. Chronic small vessel ischemic change. 4. Fluid signal within the mastoid air cells bilaterally. Clinical evaluation for any signs of acute mastoiditis suggested. 5. Right maxillary sinusitis. Electronically signed by: Romeo Betancur MD 04/11/2018 11:08 AM EDT
--- NOTE | 2018-04-11 11:20 | RADRPT ---
EXAM DATE: 04/11/2018 10:50 AM EDT AGE/SEX: 73 years / Female INDICATIONS: Seizures. Bleed. Mass. CLINICAL DATA: This is the patient's initial encounter. Patient reports that signs and symptoms have been present for 1 day and indicates a pain score of 0/10. MEDICAL/SURGICAL HISTORY: Hypertension. Diabetes mellitus type II. IVC Filter placement. COMPARISON: No prior exams available for comparison. TECHNIQUE: 3D [id number] MRA was performed. Source images, multiplanar STS MIP, and 3D volum e MIP reconstructions were reviewed. FINDINGS: Anterior circulation: Internal carotid arteries have a normal appearance without significant narrowin g. A1 segments are symmetric. Anterior cerebral arteries and middle cerebral arteries demonstrate sym metric flow related enhancement. There is mild leftward deviation of the anterior cerebral artery bra nches secondary to the mass effect from the right frontal lobe hemorrhage. Posterior circulation: Vertebral arteries are symmetric. Basilar artery demonstrates no significant n arrowing or aneurysm. There are posterior communicating arteries bilaterally. Posterior cerebral erasmo lina are symmetric. CONCLUSION: Intracranial arterial vasculature has a normal appearance. Electronically signed by: David Sandra MD 04/11/2018 11:18 AM EDT
[2018-04-11] MEDS ORDERED: ceFAZolin 2 GM PREMIX 50 ML ONE (14:03)
--- NOTE | 2018-04-11 14:04 | MG ---
cc: Pietro Dacosta MD, PhD DATE OF STUDY: 04/11/2018 REFERRING PHYSICIAN: [id number] TECHNIQUE: This is a 17-channel EEG. DESCRIPTION: The background rhythm is comprised of a relatively slow rhythm in the theta frequency at 5-6 Hz. Amplitude is 10-20 microvolts. Occasional muscle artifact is identified. There are no epileptiform discharges. There are no lateralizing features present. Later in the tracing, there does appear to be some sleep activity in terms of sleep spindles. Photic stimulation was done, but no significant driving response was elicited. INTERPRETATION: Mildly abnormal study, consistent with a mild to moderate encephalopathy. Pietro Dacosta MD, PhD TORSTEN/THOMAS , 01:50 PM , 02:02 PM
--- NOTE | 2018-04-11 14:40 | PD.OP ---
Operative Report Date of Surgery: Apr 11, 2018 Preoperative Diagnosis: Intracerebral hemorrhage Postoperative Diagnosis: Intracerebral hemorrhage Procedure: Left frontal ruth hole, placement of intracranial pressure monitor Anesthesia: general Surgeon: Harrison Parson Lens Silverer(s): ARETHA Operation and Findings: Right frontal ruth hole, placement of bur hole with placement of intracranial pressure monitor. Anesthesia: Local Surgeon: Harrison Parson Lens Silverer(s): ARETHA Operation and Findings: INDICATIONS FOR THE PROCEDURE The patient is an adult, 73 year old female who was brought to [facility] with an intracerebral emorrhage. She was seizing and comatose CT of the brain showed a large right frontal intracerebral hematoma. Placement of ICP monitor was indicated as recommended by the [employer] DETAILS OF THE SURGICAL PROCEDURE The left frontal area was shaved, prepped and draped in the usual sterile fashion. An entry point was selected behind the hairline, approximately 30 mm lateral to the midline. The incision was infiltrated with 1% lidocaine with epinephrine 1:100,000 dilution. A small incision was made with a 15 blade down to the level of the periosteum. Using a twist drill a ruth hole was made. The dura was opened with a blunt stylet, and a [place] bolt was secured to the bone. A fiberoptic transducer was calibrated according to the pot fluxer's instructions, and advanced into the parenchyma of the frontal lobe through the bolt. An intracranial pressure of 8 mmHg was achieved with a good waveform. A Betadine sterile dressing was applied. The patient tolerated the procedure well. There were no intraoperative complications. Blood loss was minimal. Harrison Parson MD Apr 11, 2018 14:39
[2018-04-11] MEDS ORDERED: BISACODYL 10 MG SUPP RECTAL PRN (14:45)
[2018-04-11] MEDS ORDERED: MAGNESIUM SULFATE INJ 4 GM in SODIUM CHLORIDE 0.9% INJ 100 ML IV PRN (14:45)
[2018-04-11] MEDS ORDERED: MORPHINE SULFATE 4 MG/ML INJ IV PUSH PRN ×2 (14:45)
[2018-04-11] MEDS ORDERED: CALCIUM GLUCONATE 10% 1 GM/10 ML VIAL IV PRN (14:45)
[2018-04-11] MEDS ORDERED: ACETAMINOPHEN/HYDROcodone 325 MG/10 MG TAB PO PRN ×2 (14:45)
[2018-04-11] MEDS ORDERED: ONDANSETRON ODT 4 MG TAB PO PRN (14:45)
[2018-04-11] MEDS ORDERED: POTASSIUM CHLOR 20 MEQ PREMIX 100 ML IV PRN (14:45)
[2018-04-11] MEDS ORDERED: ATOR40TA16 PO (14:46)
[2018-04-11] MEDS ORDERED: VENTAER INH (14:46)
[2018-04-11] MEDS ORDERED: FURO40TA PO (14:46)
--- NOTE | 2018-04-11 15:26 | EKG ---
Date Performed: 04/10/2018 Time Performed: 21:05:46 PTAGE: 73 years EKG: Sinus rhythm POSSIBLE LEFT ATRIAL ENLARGEMENT LEFT VENTRICULAR HYPERTROPHY AND ST-T CHANGE ABNORMAL ECG NO PREVIOUS TRACING DOCTOR: Gamal Corona Interpretating Date/Time 04/11/2018 15:24:26
[2018-04-11] MEDS: ceFAZolin 2 GM PREMIX 50 ML IV SCH ×2 (16:34→23:58)
[2018-04-11] MEDS: NS + KCL 20 MEQ INJ 1,000 ML IV SCH (16:34)
[2018-04-11 16:36] LABS: HEMOGLOBIN A1C 7.9 % (4.3-6.0)
--- NOTE | 2018-04-11 17:05 | PD.OP ---
Operative Report Date of Surgery: Apr 11, 2018 Preoperative Diagnosis: Right frontal intracerebral hematoma Postoperative Diagnosis: Right frontal intracerebral hematoma Procedure: Right frontal craniotomy, evacuation of intracerebral hematoma Anesthesia: general Surgeon: Harrison Parson School Office Assistant(s): Pricila Gates Operation and Findings: INDICATIONS FOR THE SURGICAL PROCEDURE Ms Amaya is a 73-year-old female who presented with altered mental status and epileptic seizures, as well as mental status changes with coma. She was found to have a large intracerebral hemorrhage on her right frontal lobe causing mass-effect. A surgical decompression was recommended as the most appropriate form of treatment. I have discussed with her family the details including the dsxc-xe-[id number] details of the surgical procedure, its indications, alternatives, risks, and potential complications. Risks and potential complications include, but are not limited to, infection, blood loss, CSF leak, partial or complete loss of sight in one or both eyes, paresis, paralysis, permanent pain or difficulty swallowing, loss of bowel or bladder function, complications from anesthesia, blood clot, stroke , myocardial infarction, or even . They understood. All the questions were answered. No guarantees were given. They provided informed consent DETAILS OF THE SURGICAL PROCEDURE Ms Amaya was endotracheally intubated and mechanically ventilated. A Krishna catheter, bilateral LEONARDO hose and sequential compression devices were placed and kept throughout the procedure. She was positioned supine on a 3080 table over a soft mattress. The head was placed on a gel doughnut. All pressure points were carefully padded with egg crate mattress. The eyes were tapped shut after ointment was applied by the anesthesiologist to prevent corneal abrasion. A Boyd hugger was placed over the exposed lower body to maintain control of the core body temperature. The frontotemporal parietal area was shaved, prepped and draped in the usual sterile fashion. A standard inverted question sandra incision was outlined on the right scalp and infiltrated with 1% lidocaine with epinephrine. The skin incision was made with a #10 blade down to the level of the periosteum in the frontoparietal region and to the temporalis fascia in the temporal region. Rhett clips were applied to the scalp. Using a Bovie, the temporalis fascia and muscle were incised and a subperiosteal dissection was performed reflecting the scalp flap anteriorly. The scalp was covered with a moist sponge and held in position using fish hooks. The TPS Marcus Ryan was brought to the field and a bur hole was made in the fronto temporal region using the craniotome attachment. Then, using the footplate attachment, a right frontalotemporoparietal craniotomy flap was elevated. The dura was bulging, tense with underlying mass effect. The dura was opened with a 15 blade and metzembaun sissors and retracted with 4-0 Neurolon sutures attached to the fascia. A large intracerebral hematoma was readily localized using an angiocath. At this point of the procedure the operative microscope was draped in the usual sterile fashion and brought to the field. The rest of the surgical procedure was performed using microdissection technique with the exception of the closure. Under the operative microscope a small corticotomy was performed and the mass was ressected using microsurgical dissection technique, with the micro-bipolar forceps, microscissors, micro-suction, and gentle irrigation. The specimen was sent to the lab for histological analysis. Appropriate hemostasis was then secured using the bipolar manual writer. A 7mm drain was left in the hematoma cavity and externalized through a stab incision. Then the incision was again irrigated with saline solution. The dural edges were tacked to the bone. The craniotomy flap was then repositioned and secured in place using plates and screws. A 7 millimeter Jett-Sellers drain was then left in the subgaleal space and externalized through a separate stab incision. The incision was then closed in layers. 0 Vicryl in interrupted sutures were used to close the temporalis fascia. The galea was closed with interrupted 3- 0 Vicryl. David were applied to the skin. The drain was secured with a 3-0 nylon. At the end of the procedure, the sponge, needle and instrument counts were all correct. Estimated blood loss was less than 80-100 cc. No blood transfusion was given. No intraoperative complications occurred. The patient received prophylactic antibiotics. The patient was then transferred to the recovery room in stable condition. Harrison Parson MD Apr 11, 2018 17:05
[2018-04-11 17:33] LABS: CALCIUM 8.2 MG/DL (8.5-10.1); CREATININE 1.14 MG/DL (0.50-1.00); MAGNESIUM 1.9 MG/DL (1.5-2.5)
--- NOTE | 2018-04-11 18:04 | HHI.CCPN ---
Subjective Remarks/Hospital Course Hospital Course: This is a 73-year-old AA female. Admission 04/10/2018. Please note no family is available and all information is obtained by reviewing the medical record from ED physician. Past medical history includes hypertension, hyperlipidemia, gastroesophageal disease, diabetes mellitus, elevated BMI and gout. 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 She presented to [facility] with the following history. At approximately 2:30 PM and patient was reportedly fine and daughter came to visit her mother. Then at approximately 5:20 PM found her sitting in the dark by the stair unresponsive. EMS upon manager diabetes arrival patient reportedly had approximately 4 generalized tonic-clonic seizures and then patient was transported from the house. Upon arrival here daughter states that patient was witnessed to have approximately 2 minute episode of seizure activity and patient did receive 2 mg of lorazepam IV. According to daughter patient has been compliant with her medications gives herself her medications low-salt by herself and is very independent. after being found home by daughter with new onset seizure. No prior history of seizure activity. Denies any trauma at home to the brain. CT brain revealed 3.1 cm right frontal intra-axial hemorrhage with a 3 mm right to left shift. She received 2 mg lorazepam IV 1 was loaded with fosphenytoin 1 g. Neurosurgery was consulted/Dr. Parson. Recommended blood pressure control with inpatient admission to ICU with consultation to neurosurgery. Patient was intubated in the ED by physician after receiving etomidate and rocuronium... Subjective: 04/11: remains on the vent, in critical condition. hypoxic. Objective Vital Signs Date Time Temp Pulse Resp B/P (MAP) Pulse Ox O2 Delivery O2 Flow Rate FiO2 04/11/18 15:55 95 50 04/11/18 08:00 84 04/11/18 06:18 120/58 04/11/18 04:00 98.6 17 04/10/18 20:50 Ventilator 04/10/18 18:44 15.00 Intake and Output 04/11/18 04/11/18 04/12/18 08:00 16:00 00:00 Intake Total 1204 ml 710 ml Output Total 1900 ml 450 ml Balance -696 ml 260 ml Result Diagram: 04/11/18 0400 04/11/18 1310 Other Results Laboratory Tests Test 04/10/18 20:54 04/11/18 04:17 Blood Gas Puncture Site LT RADIAL LT RADIAL Blood Gas Patient Temperature 98.6 98.6 Blood Gas HCO3 27 mmol/L (22-26) 26 mmol/L (22-26) Blood Gas Base Excess 1.5 mmol/L (-2-2) 1.5 mmol/L (-2-2) Blood Gas Oxygen Saturation 97 % (90-100) 96 % (90-100) Arterial Blood pH 7.33 (7.380-7.420) 7.39 (7.380-7.420) Arterial Blood Partial Pressure CO2 52 mmHg (38-42) 44 mmHg (38-42) Arterial Blood Partial Pressure O2 135 mmHG (61-120) 95 mmHg (61-120) Arterial Blood Oxygen Content 17.6 Vol % (12.0-20.0) 15.9 Vol % (12.0-20.0) Arterial Blood Carboxyhemoglobin 0.9 % (0-4) 1.0 % (0-4) Arterial Blood Methemoglobin 0.5 % (0-2) 1.1 % (0-2) Blood Gas Hemoglobin 12.7 G/DL (12.0-16.0) 11.8 G/DL (12.0-16.0) Oxygen Delivery Device VENT VENTILATOR Blood Gas Ventilator Setting COMMENT PRVC/AC Blood Gas Inspired Oxygen 100 % 60 % Imaging Last Impressions Head CT 04/10/18 0000 Signed Impressions: CONCLUSION: 1. There is acute intra-axial hemorrhage in the right frontal lobe measuring u p to 3.1 cm with surrounding vasogenic edema. There is very mild local mass eff ect with approximately 3 mm of pwycv-yu-[id number] midline shift anteriorly. 2. Chronic brain findings include mild generalized atrophy and chronic appeari ng periventricular white matter change. 3. The above findings were telephoned to Dr. Bhakta at 7:58 PM. Objective Remarks GENERAL: 73-year-old AA female currently resting in bed orotracheally intubated SKIN: Warm and dry. HEAD: bolt exits from head, wrapped in Kerlix. EYES: Pupils equal and round about 3 mm bilaterally reactive to. Disconjugate gaze to left.. No scleral icterus. No injection or drainage. ENT: No nasal bleeding or discharge. Mucous membranes pink and moist. NECK: Trachea midline. No JVD. CARDIOVASCULAR: Regular rate and rhythm. sinus. RESPIRATORY: Diminished. Symmetrical excursion. Breath sounds equal bilaterally. GASTROINTESTINAL: Abdomen soft, non-tender, obese. no guarding. MUSCULOSKELETAL: Extremities trace bilateral lower extremity nonpitting edema. No obvious deformities. NEUROLOGICAL: Alert intubation, arousable. GCS 9. [id number]. Spontaneous movement right and upper lower extremity. Withdrew to left lower extremity. Current with positive cough and gag. Positive corneal reflex. A/P Assessment and Plan Neuro/Psych: Acute right frontal intra-axial hemorrhage 3.1 cm at the right to left shift of 3 mm New onset seizure Currently on propofol/fentanyl drips for sedation/analgesia while intubated Goal of RASS -2 Daily sedation vacation Acetaminophen 650 mg by tube every 6 hours as needed fever Follow-up brain CT in a.m. 04/11: slight increase in frontal hemorrhage Neurosurgery/Dr. Parson to follow Keep systolic blood pressure < 140 Replacement 2% saline at 40 cc an hour with serial sodiums every 6 hours No mannitol per neurosurgery Seizure with fosphenytoin 100 mg every 8 hours. Loaded in ED. phenytoin level 13. CV: Hypertensive Emergency Hyperlipidemia Currently on nicardipine drip to keep systolic blood pressure less than 140 As needed labetalol On home metoprolol 25 mg twice daily, amlodipine 2.5 mg a day, hydrochlorthiazide 20 mg daily losartan 100 mg daily. Follow-up on EKG Resp: Acute hypoxic and hypercarbic respiratory failure [facility] 16/525/ Ventilator bundle Albuterol/ipratropium aerosols every 6 hours with albuterol aerosols every 2 hours as needed dyspnea Spontaneous breathing trials when clinically indicated repeat ABG. increase PEEP to 10 change I:E to 1:1.5 GI: Gastroesophageal reflux disease Elevated AST N.p.o. status NGT to LIWS Lansoprazole 30 mg daily for GI prophylaxis. On omeprazole 40 mg daily at home Docusate sodium/senna 1 tablet twice daily for bowel regimen : Krishna catheter has been placed for accurate I's and O's in a critically ill patient Endo: Diabetes mellitus History of gout Holding metformin thousand grams twice daily/home medication Novulog medium protocol Accu-Cheks every 6 hours to maintain euglycemia Holding colchicine 0.6 mg. Resume clinically indicated Renal: Acute kidney injury? 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 Holding anticoagulation in light of acute brain hemorrhage ID: Monitor for signs and symptomatology of infection MSK: Elevated BMI Weight loss encouraged PT evaluate and treat FEN: Replace electrolytes as clinically indicated Access -Utilize peripheral IV. Central line if indicated Prophylaxis -GI -lansoprazole -DVT -SCD/holding pharmacological prophylaxis light of acute right frontal intracranial hemorrhage OVERALL IMPRESSION: critically ill from spontaneous intraparenchymal hemorrhage and acute hypoxemia which is clearly life-threatening. minimal improvements and evidence of expanding hemorrhage. continue aggressive blood pressure management and increase mean airway pressures on the vent to achieve improved oxygenation. Critical care time: 31 minutes, exclusive of separately billable procedures. Mulugeta Baer MD Apr 11, 2018 18:03
[2018-04-11] MEDS: 3% SALINE INJ 500 ML IV SCH (18:38)
[2018-04-11] MEDS: fentaNYL DRIP 250 ML IV PRN (18:38)
[2018-04-11 20:48] LABS: BICARBONATE 24.5 MEQ/L (21.0-32.0); CALCIUM 8.4 MG/DL (8.5-10.1); CREATININE 1.18 MG/DL (0.50-1.00)
[2018-04-11] MEDS: DOCUSATE SODIUM 100 MG CAP PO SCH (20:53)
[2018-04-12] VITALS (15 sets, daily range): BP systolic 112–135; BP diastolic 54–72; PULSE 72–88; RESP 16–24; TEMP 98.2–99.5; O2SAT 100
[2018-04-12] MEDS: INSULIN ASPART SUPPLEMENTAL SCALE SQ SCH ×5 (00:03→16:00)
[2018-04-12 00:31] LABS: AUTOMATED NEUTROPHIL # 7.5 TH/MM3 (1.8-7.7); BASOPHIL % 0.3 % (0.0-2.0); EOSINOPHIL % 0.1 % (0.0-4.0); HEMATOCRIT 31.9 % (35.0-46.0); HEMOGLOBIN 10.6 GM/DL (11.6-15.3); LYMPH % 11.2 % (9.0-44.0); MEAN CORPUSCULAR HEMOGLOBIN 30.5 PG (27.0-34.0); MEAN CORPUSCULAR HGB CONC 33.2 % (32.0-36.0); MONO % 7.9 % (0.0-8.0); MONOCYTE # 0.7 TH/MM3 (0-0.9); NEUT % 80.5 % (16.0-70.0); PLATELET COUNT 147 TH/MM3 (150-450); RED BLOOD COUNT 3.47 MIL/MM3 (4.00-5.30); RED CELL DISTRIBUTION WIDTH 14.3 % (11.6-17.2); WHITE BLOOD COUNT 9.3 TH/MM3 (4.0-11.0)
[2018-04-12] MEDS: levETIRAcetam INJ 500 MG in SODIUM CHLORIDE 0.9% INJ 100 ML IV SCH ×2 (02:23→14:13)
[2018-04-12] MEDS: NS + KCL 20 MEQ INJ 1,000 ML IV SCH ×2 (02:23→10:33)
[2018-04-12] MEDS: CHLORHEXIDINE GLUCONATE 2 % 1 PACK (2 CLOTHS) TOP SCH (02:25)
[2018-04-12] MEDS: RESP: ALBUTEROL 2.5 MG/IPRATROPIUM 0.5 MG NEB (SCH) INH ×4 (03:42→21:05)
[2018-04-12] MEDS: PROPOFOL 1000 MG/100 ML INJ 100 ML IV PRN ×4 (04:03→20:42)
[2018-04-12 04:46] LABS: AUTOMATED NEUTROPHIL # 6.4 TH/MM3 (1.8-7.7); BASOPHIL % 0.3 % (0.0-2.0); EOSINOPHIL % 0.1 % (0.0-4.0); HEMATOCRIT 30.6 % (35.0-46.0); HEMOGLOBIN 10.2 GM/DL (11.6-15.3); LYMPH % 17.5 % (9.0-44.0); LYMPHOCYTE # 1.6 TH/MM3 (1.0-4.8); MEAN CELL VOLUME 91.4 FL (80.0-100.0); MEAN CORPUSCULAR HEMOGLOBIN 30.5 PG (27.0-34.0); MEAN CORPUSCULAR HGB CONC 33.4 % (32.0-36.0); MEAN PLATELET VOLUME 10.4 FL (7.0-11.0); MONO % 10.1 % (0.0-8.0); MONOCYTE # 0.9 TH/MM3 (0-0.9); PLATELET COUNT 138 TH/MM3 (150-450); RED BLOOD COUNT 3.35 MIL/MM3 (4.00-5.30); WHITE BLOOD COUNT 8.9 TH/MM3 (4.0-11.0)
[2018-04-12 05:03] LABS: BICARBONATE 22.9 MEQ/L (21.0-32.0); CALCIUM 8.6 MG/DL (8.5-10.1)
[2018-04-12] MEDS: FOSPHENYTOIN SODIUM 100 MG PE/2 ML VIAL IV SCH ×2 (06:47→14:12)
[2018-04-12] MEDS: CHLORHEXIDINE 0.12% (ORAL KIT) 15 ML CUP MT SCH ×2 (08:00→20:00)
[2018-04-12] MEDS: ARTIFICIAL TEARS OPTH SOLN 15 ML BTL EACH EYE SCH ×3 (08:46→17:31)
[2018-04-12] MEDS: ceFAZolin 2 GM PREMIX 50 ML IV SCH (08:46)
[2018-04-12] MEDS: PANTOPRAZOLE SOD 40 MG DELAYED RELEASE TAB PO SCH (08:47)
[2018-04-12] MEDS: PANTOPRAZOLE SODIUM 40 MG VIAL IVP SCH (08:47)
[2018-04-12] MEDS: amLODIPine BESYLATE 5 MG TAB PO SCH (08:47)
[2018-04-12] MEDS: DOCUSATE SODIUM 100 MG CAP PO SCH ×2 (08:47→21:00)
[2018-04-12] MEDS: LANSOPRAZOLE SOLUTAB 30 MG TAB G-TUBE SCH (08:48)
[2018-04-12] MEDS: SODIUM CHLORIDE 0.9% FLUSH 10 ML FLUSH IV FLUSH SCH (08:48)
[2018-04-12] MEDS: NOREPINEPHRINE INJ 4 MG in SODIUM CHLOR 0.9% 250 ML INJ 246 ML IV PRN ×2 (09:00→18:23)
--- NOTE | 2018-04-12 09:00 | RADRPT ---
EXAM DATE: 04/12/2018 8:51 AM EDT AGE/SEX: 73 years / Female INDICATIONS: Bilateral leg swelling. CLINICAL DATA: This is the patient's initial encounter. Patient reports that signs and symptoms have been present for 2 days and indicates a pain score of Nonresponsive. MEDICAL/SURGICAL HISTORY: Hypercholesterolemia. Hypertension. Diabetes. . Right hip replaceme nt x2. IVC filter. COMPARISON: No prior exams available for comparison. TECHNIQUE: Venous ultrasound of both lower extremities was performed from the inguinal ligament to t he proximal calf. Real-time, color Doppler and spectral tracing, compression and augmentation techni ques were used. FINDINGS: On the right, the common femoral vein, greater saphenous vein, popliteal and peroneal veins are paten t as well as the right iliac vein. The femoral vein is not clearly visualized due to soft tissue swel ling and body habitus. The posterior tibial vein is also not clearly seen. On the left, the posterior tibial vein is not clearly visualized. The popliteal, peroneal, iliac, common femoral, greater saphe nous vein, and femoral veins are patent. CONCLUSION: 1. Visualized veins are patent without evidence for DVT. 2. The right femoral and posterior tibial vein and the left posterior tibial vein are not clearly vi sualized. Electronically signed by: Jorge A Self MD 04/12/2018 8:59 AM EDT
[2018-04-12] MEDS: 3% SALINE INJ 500 ML IV SCH (10:24)
[2018-04-12] MEDS: fentaNYL DRIP 250 ML IV PRN (14:09)
--- NOTE | 2018-04-12 21:32 | HHI.CCPN ---
Subjective Remarks/Hospital Course Hospital Course: This is a 73-year-old AA female. Admission 04/10/2018. Please note no family is available and all information is obtained by reviewing the medical record from ED physician. Past medical history includes hypertension, hyperlipidemia, gastroesophageal disease, diabetes mellitus, elevated BMI and gout. 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 She presented to [facility] with the following history. At approximately 2:30 PM and patient was reportedly fine and daughter came to visit her mother. Then at approximately 5:20 PM found her sitting in the dark by the stair unresponsive. EMS upon junior web designer arrival patient reportedly had approximately 4 generalized tonic-clonic seizures and then patient was transported from the house. Upon arrival here daughter states that patient was witnessed to have approximately 2 minute episode of seizure activity and patient did receive 2 mg of lorazepam IV. According to daughter patient has been compliant with her medications gives herself her medications low-salt by herself and is very independent. after being found home by daughter with new onset seizure. No prior history of seizure activity. Denies any trauma at home to the brain. CT brain revealed 3.1 cm right frontal intra-axial hemorrhage with a 3 mm right to left shift. She received 2 mg lorazepam IV 1 was loaded with fosphenytoin 1 g. Neurosurgery was consulted/Dr. Parson. Recommended blood pressure control with inpatient admission to ICU with consultation to neurosurgery. Patient was intubated in the ED by physician after receiving etomidate and rocuronium... Subjective: 04/11: remains on the vent, in critical condition. hypoxic. 04/12: hypoxia somewhat improving. following commands on the vent. per nsgy, can wean to extubate soon. some edema likely contributing to poor neuro exam, although slow improvements. Objective Vital Signs Date Time Temp Pulse Resp B/P (MAP) Pulse Ox O2 Delivery O2 Flow Rate FiO2 04/12/18 18:23 80 111/49 04/12/18 16:18 100 60 04/12/18 16:00 98.6 24 04/10/18 20:50 Ventilator 04/10/18 18:44 15.00 Intake and Output 04/12/18 04/12/18 04/13/18 08:00 16:00 00:00 Intake Total 1715 ml 50 ml 0 ml Output Total 830 ml 810 ml Balance 885 ml 50 ml -810 ml Result Diagram: 04/12/18 0410 04/12/18 1940 Imaging Last Impressions Head CT 04/10/18 0000 Signed Impressions: CONCLUSION: 1. There is acute intra-axial hemorrhage in the right frontal lobe measuring u p to 3.1 cm with surrounding vasogenic edema. There is very mild local mass eff ect with approximately 3 mm of rqdiu-dz-nrex midline shift anteriorly. 2. Chronic brain findings include mild generalized atrophy and chronic appeari ng periventricular white matter change. 3. The above findings were telephoned to Dr. Bhakta at 7:58 PM. Objective Remarks GENERAL: 73-year-old AA female currently resting in bed orotracheally intubated SKIN: Warm and dry. HEAD: bolt exits from head, wrapped in Kerlix. EYES: Pupils equal and round about 3 mm bilaterally reactive to. Disconjugate gaze to left.. No scleral icterus. No injection or drainage. ENT: No nasal bleeding or discharge. Mucous membranes pink and moist. NECK: Trachea midline. No JVD. CARDIOVASCULAR: Regular rate and rhythm. sinus. RESPIRATORY: Diminished. Symmetrical excursion. Breath sounds equal bilaterally. GASTROINTESTINAL: Abdomen soft, non-tender, obese. no guarding. MUSCULOSKELETAL: Extremities trace bilateral lower extremity nonpitting edema. No obvious deformities. NEUROLOGICAL: Alert intubation, arousable. Spontaneous movement right and upper lower extremity. Withdrew to left lower extremity. follows intermittent commands. Current with positive cough and gag. Positive corneal reflex. A/P Assessment and Plan Neuro/Psych: Acute right frontal intra-axial hemorrhage 3.1 cm at the right to left shift of 3 mm New onset seizure Currently on propofol/fentanyl drips for sedation/analgesia while intubated Goal of RASS -2 Daily sedation vacation Acetaminophen 650 mg by tube every 6 hours as needed fever Follow-up brain CT in a.m. 04/11: slight increase in frontal hemorrhage Neurosurgery/Dr. Parson to follow Keep systolic blood pressure < 140 Replacement 2% saline at 40 cc an hour with serial sodiums every 6 hours No mannitol per neurosurgery Seizure with fosphenytoin 100 mg every 8 hours. Loaded in ED. phenytoin level 13. CV: Hypertensive Emergency Hyperlipidemia Currently on nicardipine drip to keep systolic blood pressure less than 140 As needed labetalol On home metoprolol 25 mg twice daily, amlodipine 2.5 mg a day, hydrochlorthiazide 20 mg daily losartan 100 mg daily. Follow-up on EKG Resp: Acute hypoxic and hypercarbic respiratory failure Ventilator bundle Albuterol/ipratropium aerosols every 6 hours with albuterol aerosols every 2 hours as needed dyspnea Spontaneous breathing trials when clinically indicated slow weaning of mechanical ventilation. if fio2 improving, start SBTs tomorrow. GI: Gastroesophageal reflux disease Elevated AST start TF. Lansoprazole 30 mg daily for GI prophylaxis. On omeprazole 40 mg daily at home Docusate sodium/senna 1 tablet twice daily for bowel regimen : Krishna catheter has been placed for accurate I's and O's in a critically ill patient Endo: Diabetes mellitus History of gout Holding metformin thousand grams twice daily/home medication Novulog medium protocol Accu-Cheks every 6 hours to maintain euglycemia Holding colchicine 0.6 mg. Resume clinically indicated Renal: Acute kidney injury? 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 Holding anticoagulation in light of acute brain hemorrhage ID: Monitor for signs and symptomatology of infection MSK: Elevated BMI Weight loss encouraged PT evaluate and treat FEN: Replace electrolytes as clinically indicated Access -Utilize peripheral IV. Prophylaxis -GI -lansoprazole -DVT -SCD/holding pharmacological prophylaxis light of acute right frontal intracranial hemorrhage OVERALL IMPRESSION: critically ill from spontaneous intraparenchymal hemorrhage and acute hypoxemia which is clearly life-threatening. minimal improvements and evidence of expanding hemorrhage. continue aggressive blood pressure management and increase mean airway pressures on the vent to achieve improved oxygenation. Mulugeta Baer MD Apr 12, 2018 21:32
[2018-04-12] MEDS ORDERED: MIDAZOLAM 50 MG/50 ML INJ 50 ML IV PRN (23:45)
[2018-04-13] VITALS (18 sets, daily range): BP systolic 116–135; BP diastolic 58–63; PULSE 76–101; RESP 16; TEMP 97.6–100.8; O2SAT 100
[2018-04-13] MEDS: INSULIN ASPART SUPPLEMENTAL SCALE SQ SCH ×7 (00:04→20:00)
[2018-04-13] MEDS: NS + KCL 20 MEQ INJ 1,000 ML IV SCH ×3 (00:04→16:33)
[2018-04-13] MEDS: FOSPHENYTOIN SODIUM 100 MG PE/2 ML VIAL IV SCH ×3 (00:05→13:26)
[2018-04-13] MEDS: RESP: ALBUTEROL 2.5 MG/IPRATROPIUM 0.5 MG NEB (SCH) INH ×4 (03:25→20:06)
[2018-04-13] MEDS: fentaNYL DRIP 250 ML IV PRN (04:00)
[2018-04-13] MEDS: CHLORHEXIDINE GLUCONATE 2 % 1 PACK (2 CLOTHS) TOP SCH (04:00)
[2018-04-13 04:44] LABS: HEMATOCRIT 29.9 % (35.0-46.0); HEMOGLOBIN 9.9 GM/DL (11.6-15.3); MEAN CELL VOLUME 92.7 FL (80.0-100.0); MEAN CORPUSCULAR HEMOGLOBIN 30.7 PG (27.0-34.0); MEAN CORPUSCULAR HGB CONC 33.1 % (32.0-36.0); MEAN PLATELET VOLUME 9.7 FL (7.0-11.0); PLATELET COUNT 126 TH/MM3 (150-450); RED BLOOD COUNT 3.23 MIL/MM3 (4.00-5.30); RED CELL DISTRIBUTION WIDTH 14.8 % (11.6-17.2)
[2018-04-13 05:07] LABS: BICARBONATE 22.1 MEQ/L (21.0-32.0); CALCIUM 8.3 MG/DL (8.5-10.1)
[2018-04-13] MEDS: levETIRAcetam INJ 500 MG in SODIUM CHLORIDE 0.9% INJ 100 ML IV SCH ×2 (05:24→13:27)
[2018-04-13] MEDS: PROPOFOL 1000 MG/100 ML INJ 100 ML IV PRN ×2 (05:49→09:49)
[2018-04-13] MEDS: CHLORHEXIDINE 0.12% (ORAL KIT) 15 ML CUP MT SCH ×2 (08:00→20:00)
--- NOTE | 2018-04-13 08:31 | RADRPT ---
EXAM DATE: 04/13/2018 8:28 AM EDT AGE/SEX: 73 years / Female INDICATIONS: Aspiration. CLINICAL DATA: This is the patient's initial encounter. Patient reports that signs and symptoms have been present for 1 day and indicates a pain score of 0/10. MEDICAL/SURGICAL HISTORY: . : Hypercholesterolemia. Hypertension. Diabetes. . IVC Filter. Ri ght hip replacement. COMPARISON: C, CHEST SINGLE AP, 04/11/2018. . FINDINGS: Cardiomegaly. Endotracheal tube tip at the inferior margin of the clavicles. Enteric tube courses ez eath the diaphragm. Left jugular line tip overlies the expected location of the SVC. There is air bro nchogram formation in the left lower lobe. CONCLUSION: Left lower lobe airspace disease. Electronically signed by: Jorge A Self MD 04/13/2018 8:29 AM EDT
[2018-04-13] MEDS: ARTIFICIAL TEARS OPTH SOLN 15 ML BTL EACH EYE SCH ×3 (09:00→17:50)
[2018-04-13] MEDS: PANTOPRAZOLE SOD 40 MG DELAYED RELEASE TAB PO SCH (09:00)
[2018-04-13] MEDS: SODIUM CHLORIDE 0.9% FLUSH 10 ML FLUSH IV FLUSH SCH (09:00)
[2018-04-13] MEDS: LANSOPRAZOLE SOLUTAB 30 MG TAB G-TUBE SCH (09:50)
[2018-04-13] MEDS: PANTOPRAZOLE SODIUM 40 MG VIAL IVP SCH (09:50)
[2018-04-13] MEDS: DOCUSATE SODIUM 100 MG CAP PO SCH ×2 (09:50→21:00)
[2018-04-13] MEDS: amLODIPine BESYLATE 5 MG TAB PO SCH (09:51)
--- NOTE | 2018-04-13 09:56 | HHI.CCPN ---
Subjective Remarks/Hospital Course Hospital Course: This is a 73-year-old AA female. Admission 04/10/2018. Please note no family is available and all information is obtained by reviewing the medical record from ED physician. Past medical history includes hypertension, hyperlipidemia, gastroesophageal disease, diabetes mellitus, elevated BMI and gout. 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 She presented to [facility] with the following history. At approximately 2:30 PM and patient was reportedly fine and daughter came to visit her mother. Then at approximately 5:20 PM found her sitting in the dark by the stair unresponsive. EMS upon heater helper forge arrival patient reportedly had approximately 4 generalized tonic-clonic seizures and then patient was transported from the house. Upon arrival here daughter states that patient was witnessed to have approximately 2 minute episode of seizure activity and patient did receive 2 mg of lorazepam IV. According to daughter patient has been compliant with her medications gives herself her medications low-salt by herself and is very independent. after being found home by daughter with new onset seizure. No prior history of seizure activity. Denies any trauma at home to the brain. CT brain revealed 3.1 cm right frontal intra-axial hemorrhage with a 3 mm right to left shift. She received 2 mg lorazepam IV 1 was loaded with fosphenytoin 1 g. Neurosurgery was consulted/Dr. Parson. Recommended blood pressure control with inpatient admission to ICU with consultation to neurosurgery. Patient was intubated in the ED by physician after receiving etomidate and rocuronium... Subjective: 04/11: remains on the vent, in critical condition. hypoxic. 04/12: hypoxia somewhat improving. following commands on the vent. per nsgy, can wean to extubate soon. some edema likely contributing to poor neuro exam, although slow improvements. 04/13: following commands. however, remains hypoxic on 60% fio2. tube feeds initiated this AM and concern over aspiration of tube feeds out endotracheal tube. CXR demonstrates adequate placement of gastric tube and ETT. ICPs remain controlled, and appropriate hypernatremia. Objective Vital Signs Date Time Temp Pulse Resp B/P (MAP) Pulse Ox O2 Delivery O2 Flow Rate FiO2 04/13/18 07:23 100 60 04/13/18 06:00 81 04/13/18 04:00 97.6 16 133/61 (85) 04/10/18 20:50 Ventilator 6/7/18 18:44 15.00 Intake and Output 04/13/18 04/13/18 04/14/18 08:00 16:00 00:00 Intake Total 240 ml Output Total 695 ml Balance -455 ml Result Diagram: 04/13/18 0415 04/13/18 0415 Imaging Last Impressions Head CT 04/10/18 0000 Signed Impressions: CONCLUSION: 1. There is acute intra-axial hemorrhage in the right frontal lobe measuring u p to 3.1 cm with surrounding vasogenic edema. There is very mild local mass eff ect with approximately 3 mm of [id number] midline shift anteriorly. 2. Chronic brain findings include mild generalized atrophy and chronic appeari ng periventricular white matter change. 3. The above findings were telephoned to Dr. Bhakta at 7:58 PM. Objective Remarks GENERAL: 73-year-old AA female currently resting in bed orotracheally intubated SKIN: Warm and dry. HEAD: bolt exits from head, wrapped in Kerlix. EYES: Pupils equal and round about 3 mm bilaterally reactive to. Disconjugate gaze to left.. No scleral icterus. No injection or drainage. ENT: No nasal bleeding or discharge. Mucous membranes pink and moist. NECK: Trachea midline. No JVD. CARDIOVASCULAR: Regular rate and rhythm. sinus. RESPIRATORY: Diminished. Symmetrical excursion. Breath sounds equal bilaterally. GASTROINTESTINAL: Abdomen soft, non-tender, obese. no guarding. MUSCULOSKELETAL: Extremities trace bilateral lower extremity nonpitting edema. No obvious deformities. NEUROLOGICAL: Alert intubation, arousable. Spontaneous movement right and upper lower extremity. Withdrew to left lower extremity. follows intermittent commands. Current with positive cough and gag. Positive corneal reflex. A/P Assessment and Plan Neuro/Psych: Acute right frontal intra-axial hemorrhage 3.1 cm at the right to left shift of 3 mm New onset seizure Currently on propofol/fentanyl drips for sedation/analgesia while intubated Goal of RASS -2 Daily sedation vacation Acetaminophen 650 mg by tube every 6 hours as needed fever brain CT in a.m. 04/11: slight increase in frontal hemorrhage Neurosurgery/Dr. Parson to follow Keep systolic blood pressure < 140 Replacement 2% saline at 40 cc an hour with serial sodiums every 6 hours No mannitol per neurosurgery Seizure with fosphenytoin 100 mg every 8 hours. Loaded in ED. phenytoin level 13. CV: Hypertensive Emergency Hyperlipidemia As needed labetalol goal sbp < 140 On home metoprolol 25 mg twice daily, amlodipine 2.5 mg a day, hydrochlorthiazide 20 mg daily losartan 100 mg daily. Resp: Acute hypoxic and hypercarbic respiratory failure Ventilator bundle Albuterol/ipratropium aerosols every 6 hours with albuterol aerosols every 2 hours as needed dyspnea start SBTs. hypoxia concerning, possible aspiration, although afebrile with normal wbc. will avoid abx. aggressive suctioning. have increased PEEP. slow weaning of mechanical ventilation. wean fio2 for goal spo2 > 90% GI: Gastroesophageal reflux disease Elevated AST increase bowel regimen. can still safely trickle tube feeds. Lansoprazole 30 mg daily for GI prophylaxis. On omeprazole 40 mg daily at home Docusate sodium/senna 1 tablet twice daily for bowel regimen : does not require mayo catheter. Endo: Diabetes mellitus History of gout Holding metformin 1000mg twice daily/home medication Novulog medium protocol Accu-Cheks every 6 hours to maintain euglycemia Holding colchicine 0.6 mg. Resume clinically indicated Renal: Acute kidney injury? 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 Holding anticoagulation in light of acute brain hemorrhage ID: Monitor for signs and symptomatology of infection MSK: Elevated BMI Weight loss encouraged PT evaluate and treat FEN: Replace electrolytes as clinically indicated Access -Utilize peripheral IV. Prophylaxis -GI -lansoprazole -DVT -SCD/holding pharmacological prophylaxis light of acute right frontal intracranial hemorrhage OVERALL IMPRESSION: critically ill from spontaneous intraparenchymal hemorrhage and acute hypoxemia which is clearly life-threatening. minimal improvements and evidence of expanding hemorrhage. continue aggressive blood pressure management and increase mean airway pressures on the vent to achieve improved oxygenation. Critical care time: 31 minutes, exclusive of separately billable procedures. Mulugeta Baer MD Apr 13, 2018 09:56
--- NOTE | 2018-04-13 12:52 | HHI.NSPN ---
History Chief Complaint: Unable to obtain due to patient's clinical condition. Interval History 04/10: Admission with seizure with right frontal intra-axial hemorrhage This is a 73-year-old Black female. with history includes hypertension, hyperlipidemia, gastroesophageal disease, diabetes mellitus, elevated BMI and gout. 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 She presented to [facility] with altered mental status. At approximately 5:20 PM found her sitting in the dark by the stair unresponsive. EMS upon casino runner arrival patient reportedly had approximately 4 generalized tonic-clonic seizures and then patient was transported from the house. Upon arrival here daughter states that patient was witnessed to have approximately 2 minute episode of seizure activity and patient did receive 2 mg of lorazepam IV. According to daughter patient has been compliant with her medications. No prior history of seizure activity. Denies any trauma at home to the brain. CT brain revealed 3.1 cm right frontal intra-axial hemorrhage with a 3 mm right to left shift. She received 2 mg lorazepam IV 1 was loaded with fosphenytoin 1 g. Neurosurgery consultation was requestedThe patient was intubated in the ED by physician for airway protection and acute respiratory failure 04/11: To OR for a right frontal craniotomy, evacuation of intracerebral hematoma. Post-operatively to [facility] for further monitoring and care. 04/13: This afternoon the patient is asleep when seen. She opens her eyes to voice. She is intubated and mechanically ventilated. She does have propofol infusing for sedation. She moved the upper extremities to command and the lower extremities in anticipation of the command. The surgical scalp dressing and ICP monitoring bolt are in place. Her ICP was in the teens. Her son did say that she may be placed on CPAP later today. Exam Results 04/11/18 04/11/18 04/12/18 04/12/18 04/13/18 04/13/18 06:00 18:00 06:00 18:00 06: 18:00 Intake Total 1334 ml 710 ml 1815 ml 50 ml 240 ml Output Total 1900 ml 2235 ml 830 ml 810 ml 695 ml Balance -566 ml -1525 ml 985 ml -760 ml -455 ml Intake Oral 0 ml 0 ml 0 ml 0 ml IV Total 1324 ml 560 ml 1815 ml 50 ml Tube Feeding 40 ml Other 10 ml 150 ml 0 ml 0 ml 200 ml Output Urine Total 1800 ml 2050 ml 500 ml 650 ml 650 ml Stool Total 0 ml 0 ml 0 ml 0 ml Gastric Drainage Total 100 ml 150 ml 250 ml 100 ml 0 ml Drainage Total 35 ml 80 ml 60 ml 45 ml # Bowel Movements 0 Vital Signs Date Time Temp Pulse Resp B/P (MAP) Pulse Ox O2 Delivery O2 Flow Rate FiO2 04/13/18 11:14 100 50 04/13/18 07:23 100 60 04/13/18 06:00 81 04/13/18 04:44 100 60 04/13/18 04:00 60 04/13/18 04:00 97.6 88 16 133/61 (85) 100 04/13/18 04:00 88 04/13/18 02:24 100 60 04/13/18 02:00 80 04/13/18 00:00 97.7 83 16 116/59 (78) 100 04/13/18 00:00 83 04/13/18 00:00 60 04/12/18 22:00 88 04/12/18 21:30 100 60 04/12/18 20:00 98.7 77 16 135/64 (87) 100 04/12/18 20:00 77 04/12/18 20:00 60 04/12/18 18:23 80 111/49 04/12/18 18:00 80 04/12/18 16:18 100 60 04/12/18 16:00 60 04/12/18 16:00 98.6 72 24 125/54 (77) 100 04/12/18 16:00 72 04/12/18 14:00 74 04/12/18 12:00 60 04/12/18 12:00 98.5 72 16 112/72 (85) 100 04/12/18 12:00 72 04/12/18 10:00 77 04/12/18 09:03 100 60 04/12/18 09:00 74 107/58 04/12/18 08:00 72 04/12/18 08:00 98.2 72 16 126/70 (88) 100 04/12/18 08:00 60 04/12/18 06:00 75 04/12/18 04:00 99.1 75 16 117/61 (79) 100 04/12/18 04:00 60 04/12/18 04:00 75 04/12/18 02:00 75 04/12/18 00:00 77 04/12/18 00:00 99.5 77 16 129/66 (87) 100 04/12/18 00:00 70 04/11/18 23:58 100 70 04/11/18 22:00 81 04/11/18 20:00 85 04/11/18 20:00 102.3 85 16 127/59 (81) 100 04/11/18 20:00 80 04/11/18 19:53 100 80 04/11/18 19:35 102.3 85 16 127/59 (81) 100 04/11/18 18:37 93 117/50 6 18:35 97 16 118/51 (73) 100 04/11/18 18:00 97 04/11/18 17:35 102 16 164/50 (88) 95 18 16:35 99.9 94 19 160/48 (85) 97 04/11/18 16:00 60 04/11/18 16:00 99.9 94 19 164/50 (88) 97 04/11/18 16:00 94 04/11/18 15:55 95 50 04/11/18 15:35 84 16 172/54 (93) 94 04/11/18 11:26 98 50 04/11/18 10:15 100 100 04/11/18 10:00 82 04/11/18 08:45 100 100 04/11/18 08:00 98.9 84 16 109/70 (83) 99 04/11/18 08:00 60 04/11/18 08:00 84 04/11/18 07:25 100 50 04/11/18 06:18 79 120/58 04/11/18 06:00 80 04/11/18 04:44 99 60 04/11/18 04:00 98.6 88 17 139/69 (92) 100 04/11/18 04:00 60 04/11/18 04:00 88 04/11/18 03:45 88 139/68 04/11/18 02:00 73 6/8/18 01:35 99 60 04/11/18 00:00 99.6 80 16 115/49 (71) 98 04/11/18 00:00 80 04/11/18 00:00 60 04/10/18 23:11 90 121/60 04/10/18 23:00 60 04/10/18 22:19 04/10/18 22:12 96 60 04/10/18 22:00 100 100 04/10/18 21:33 100 04/10/18 21:00 100 100 04/10/18 20:50 74 16 147/67 (93) 100 Ventilator 04/10/18 20:48 100 04/10/18 20:20 100 100 04/10/18 18:44 100 30 222/115 (150) 100 Non-Rebreather 15.00 04/10/18 18:06 90 20 69 Room Air 04/10/18 17:55 98.8 94 15 196/87 (123) 93 Physical Examination GENERAL: The patient is asleep but opens her eyes to voice. She is intubated and on PRVC settings. She has propofol 25 mcg/kg/min for sedation. Fentanyl is infusing at 100 mcg/hr for pain control. No apparent distress. HEAD: Normocephalic, atraumatic. Intact surgical dressing to scalp w/ICP monitoring bolt in place. PERRLA 2-3 mm. Orally intubated. OGT. MUSCULOSKELETAL: Moves BUE to command & BLE in anticipation of command. No obvious clubbing or deformities. NEUROLOGICAL: Asleep but opens eyes to voice. PERRLA 2-3 mm. Nonverbal, intubated. Moves BUE extremities to command & BLE in anticipation of command. ICP range 11 to 17 mm Hg w/good waverform when seen. Lab, Micro, Other Results Recent Impressions Chest X-Ray 04/13/18 0000 Signed Impressions: CONCLUSION: Left lower lobe airspace disease. Lower Extremity Ultrasound 04/12/18 0000 Signed Impressions: On the right, the common femoral vein, greater saphenous vein, popliteal and pe roneal veins are patent as well as the right iliac vein. The femoral vein is no t clearly visualized due to soft tissue swelling and body habitus. The posterio r tibial vein is also not clearly seen. On the left, the posterior tibial vein is not clearly visualized. The popliteal, peroneal, iliac, common femoral, grea ter saphenous vein, and femoral veins are patent. CONCLUSION: 1. Visualized veins are patent without evidence for DVT. 2. The right femoral and posterior tibial vein and the left posterior tibial v ein are not clearly visualized. Brain MRI 04/11/18 0903 Signed Impressions: CONCLUSION: 1. 4 cm intraparenchymal hemorrhage involving the right frontal lobe without u nderlying mass. 2. Tiny focus of blooming artifact involving the left frontal lobe likely rela ting to a small focus of intraparenchymal hemorrhage on that side. 3. Chronic small vessel ischemic change. 4. Fluid signal within the mastoid air cells bilaterally. Clinical evaluation for any signs of acute mastoiditis suggested. 5. Right maxillary sinusitis. Head CT 04/11/18 0800 Signed Impressions: CONCLUSION: 1. Enlarging right frontal lobe hemorrhage with very mild mass effect on the a nterior falx. Head Magnetic Resonance Angiography 04/11/18 0000 Signed Impressions: CONCLUSION: Intracranial arterial vasculature has a normal appearance. Chest X-Ray 04/11/18 0000 Signed Impressions: CONCLUSION: Support apparatus unchanged. Stable bilateral airspace disease, left greater th an right. Chest X-Ray 04/10/18 2250 Signed Impressions: CONCLUSION: Support apparatus in good position. Patchy airspace disease in both lungs. Laboratory Tests Test 04/10/18 19:16 04/10/18 20:54 04/10/18 20:58 04/10/18 21:04 White Blood Count 10.3 TH/MM3 Red Blood Count 4.24 MIL/MM3 Hemoglobin 12.7 GM/DL Hematocrit 39.2 % Mean Corpuscular Volume 92.6 FL Mean Corpuscular Hemoglobin 30.1 PG Mean Corpuscular Hemoglobin Concent 32.5 % Red Cell Distribution Width 14.2 % Platelet Count 154 TH/MM3 Mean Platelet Volume 11.9 FL Neutrophils (%) (Auto) 52.8 % Lymphocytes (%) (Auto) 34.1 % Monocytes (%) (Auto) 8.5 % Eosinophils (%) (Auto) 3.9 % Basophils (%) (Auto) 0.7 % Neutrophils # (Auto) 5.4 TH/MM3 Lymphocytes # (Auto) 3.5 TH/MM3 Monocytes # (Auto) 0.9 TH/MM3 Eosinophils # (Auto) 0.4 TH/MM3 Basophils # (Auto) 0.1 TH/MM3 CBC Comment DIFF FINAL Differential Comment Blood Urea Nitrogen 21 MG/DL Creatinine 1.20 MG/DL Random Glucose 177 MG/DL Total Protein 8.7 GM/DL Albumin 3.8 GM/DL Calcium Level 10.0 MG/DL Alkaline Phosphatase 101 U/L Aspartate Amino Transf (AST/SGOT) 46 U/L Alanine Aminotransferase (ALT/SGPT) 37 U/L Total Bilirubin 0.3 MG/DL Sodium Level 139 MEQ/L Potassium Level 4.1 MEQ/L Chloride Level 101 MEQ/L Carbon Dioxide Level 26.7 MEQ/L Anion Gap 11 MEQ/L Estimat Glomerular Filtration Rate 54 ML/MIN Ethyl Alcohol Level LESS THAN 3 MG/DL Blood Gas Puncture Site LT RADIAL Blood Gas Patient Temperature 98.6 Blood Gas HCO3 27 mmol/L Blood Gas Base Excess 1.5 mmol/L Blood Gas Oxygen Saturation 97 % Arterial Blood pH 7.33 Arterial Blood Partial Pressure CO2 52 mmHg Arterial Blood Partial Pressure O2 135 mmHG Arterial Blood Oxygen Content 17.6 Vol % Arterial Blood Carboxyhemoglobin 0.9 % Arterial Blood Methemoglobin 0.5 % Blood Gas Hemoglobin 12.7 G/DL Oxygen Delivery Device VENT Blood Gas Ventilator Setting COMMENT Blood Gas Inspired Oxygen 100 % Troponin I LESS THAN 0.02 NG/ML Prothrombin Time 11.3 SEC Prothromb Time International Ratio 1.1 RATIO Activated Partial Thromboplast Time 27.5 SEC Fibrinogen 368 mg/dL Test 04/10/18 21:52 04/10/18 22:15 04/11/18 00:51 04/11/18 04:00 Urine Opiates Screen NEG Urine Barbiturates Screen NEG Urine Amphetamines Screen NEG Urine Benzodiazepines Screen POS Urine Cocaine Screen NEG Urine Cannabinoids Screen NEG Nasal Screen MRSA (PCR) MRSA NOT DETECTED Sodium Level 139 MEQ/L 140 MEQ/L White Blood Count 13.1 TH/MM3 Red Blood Count 3.98 MIL/MM3 Hemoglobin 11.8 GM/DL Hematocrit 36.3 % Mean Corpuscular Volume 91.2 FL Mean Corpuscular Hemoglobin 29.8 PG Mean Corpuscular Hemoglobin Concent 32.6 % Red Cell Distribution Width 14.3 % Platelet Count 185 TH/MM3 Mean Platelet Volume 10.4 FL Neutrophils (%) (Auto) 72.5 % Lymphocytes (%) (Auto) 18.4 % Monocytes (%) (Auto) 8.1 % Eosinophils (%) (Auto) 0.2 % Basophils (%) (Auto) 0.8 % Neutrophils # (Auto) 9.5 TH/MM3 Lymphocytes # (Auto) 2.4 TH/MM3 Monocytes # (Auto) 1.1 TH/MM3 Eosinophils # (Auto) 0.0 TH/MM3 Basophils # (Auto) 0.1 TH/MM3 CBC Comment DIFF FINAL Differential Comment Prothrombin Time 11.7 SEC Prothromb Time International Ratio 1.2 RATIO Activated Partial Thromboplast Time 25.4 SEC Blood Urea Nitrogen 16 MG/DL Creatinine 1.14 MG/DL Random Glucose 213 MG/DL Total Protein 7.8 GM/DL Albumin 3.3 GM/DL Calcium Level 8.7 MG/DL Phosphorus Level 2.3 MG/DL Magnesium Level 1.0 MG/DL Alkaline Phosphatase 85 U/L Aspartate Amino Transf (AST/SGOT) 39 U/L Alanine Aminotransferase (ALT/SGPT) 31 U/L Lactate Dehydrogenase 255 U/L Total Bilirubin 0.5 MG/DL Potassium Level 3.4 MEQ/L Chloride Level 104 MEQ/L Carbon Dioxide Level 24.4 MEQ/L Anion Gap 12 MEQ/L Estimat Glomerular Filtration Rate 57 ML/MIN Hemoglobin A1c 7.9 % Serum Osmolality 301 MOSM/KG Lactic Acid Level 2.5 mmol/L Ammonia 16 MCMOL/L Total Creatine Kinase 673 U/L Creatine Kinase MB 3.7 NG/ML Creatine Kinase MB % 0.5 % Troponin I 0.30 NG/ML Triglycerides Level 137 MG/DL Cholesterol Level 137 MG/DL LDL Cholesterol 55 MG/DL HDL Cholesterol 54.2 MG/DL Cholesterol/HDL Ratio 2.52 RATIO Amylase Level 50 U/L Thyroid Stimulating Hormone 3rd Gen 1.390 uIU/ML Phenytoin (Dilantin) Level 13.9 MCG/ML Test 04/11/18 04:17 04/11/18 13:10 04/11/18 18:14 04/11/18 19:20 Blood Gas Puncture Site LT RADIAL ART LINE Blood Gas Patient Temperature 98.6 98.6 Blood Gas HCO3 26 mmol/L 24 mmol/L Blood Gas Base Excess 1.5 mmol/L -0.4 mmol/L Blood Gas Oxygen Saturation 96 % 97 % Arterial Blood pH 7.39 7.38 Arterial Blood Partial Pressure CO2 44 mmHg 42 mmHg Arterial Blood Partial Pressure O2 95 mmHg 124 mmHg Arterial Blood Oxygen Content 15.9 Vol % 15.1 Vol % Arterial Blood Carboxyhemoglobin 1.0 % 1.0 % Arterial Blood Methemoglobin 1.1 % 1.1 % Blood Gas Hemoglobin 11.8 G/DL 11.0 G/DL Oxygen Delivery Device VENTILATOR VENTILATOR Blood Gas Ventilator Setting PRVC/AC Blood Gas Inspired Oxygen 60 % 90 % Blood Urea Nitrogen 13 MG/DL 12 MG/DL Creatinine 1.14 MG/DL 1.18 MG/DL Random Glucose 151 MG/DL 219 MG/DL Calcium Level 8.2 MG/DL 8.4 MG/DL Magnesium Level 1.9 MG/DL Sodium Level 142 MEQ/L 143 MEQ/L Potassium Level 3.7 MEQ/L 4.2 MEQ/L Chloride Level 107 MEQ/L 108 MEQ/L Carbon Dioxide Level 24.0 MEQ/L 24.5 MEQ/L Anion Gap 11 MEQ/L 11 MEQ/L Estimat Glomerular Filtration Rate 57 ML/MIN 55 ML/MIN Test 04/12/18 00:16 04/12/18 04:10 04/12/18 11:58 04/12/18 19:40 White Blood Count 9.3 TH/MM3 8.9 TH/MM3 Red Blood Count 3.47 MIL/MM3 3.35 MIL/MM3 Hemoglobin 10.6 GM/DL 10.2 GM/DL Hematocrit 31.9 % 30.6 % Mean Corpuscular Volume 92.0 FL 91.4 FL Mean Corpuscular Hemoglobin 30.5 PG 30.5 PG Mean Corpuscular Hemoglobin Concent 33.2 % 33.4 % Red Cell Distribution Width 14.3 % 14.0 % Platelet Count 147 TH/MM3 138 TH/MM3 Mean Platelet Volume 10.0 FL 10.4 FL Neutrophils (%) (Auto) 80.5 % 72.0 % Lymphocytes (%) (Auto) 11.2 % 17.5 % Monocytes (%) (Auto) 7.9 % 10.1 % Eosinophils (%) (Auto) 0.1 % 0.1 % Basophils (%) (Auto) 0.3 % 0.3 % Neutrophils # (Auto) 7.5 TH/MM3 6.4 TH/MM3 Lymphocytes # (Auto) 1.0 TH/MM3 1.6 TH/MM3 Monocytes # (Auto) 0.7 TH/MM3 0.9 TH/MM3 Eosinophils # (Auto) 0.0 TH/MM3 0.0 TH/MM3 Basophils # (Auto) 0.0 TH/MM3 0.0 TH/MM3 CBC Comment DIFF FINAL DIFF FINAL Differential Comment Sodium Level 144 MEQ/L 145 MEQ/L 147 MEQ/L 147 MEQ/L Blood Urea Nitrogen 11 MG/DL Creatinine 1.00 MG/DL Random Glucose 142 MG/DL Calcium Level 8.6 MG/DL Potassium Level 3.9 MEQ/L Chloride Level 112 MEQ/L Carbon Dioxide Level 22.9 MEQ/L Anion Gap 10 MEQ/L Estimat Glomerular Filtration Rate 66 ML/MIN Test 04/13/18 04:15 White Blood Count 9.0 TH/MM3 Red Blood Count 3.23 MIL/MM3 Hemoglobin 9.9 GM/DL Hematocrit 29.9 % Mean Corpuscular Volume 92.7 FL Mean Corpuscular Hemoglobin 30.7 PG Mean Corpuscular Hemoglobin Concent 33.1 % Red Cell Distribution Width 14.8 % Platelet Count 126 TH/MM3 Mean Platelet Volume 9.7 FL Blood Urea Nitrogen 8 MG/DL Creatinine 1.00 MG/DL Random Glucose 139 MG/DL Calcium Level 8.3 MG/DL Sodium Level 148 MEQ/L Potassium Level 4.1 MEQ/L Chloride Level 117 MEQ/L Carbon Dioxide Level 22.1 MEQ/L Anion Gap 9 MEQ/L Estimat Glomerular Filtration Rate 66 ML/MIN Medical Decision Making Impression and Plan Impression: Postoperative Diagnosis: Right frontal intracerebral hematoma Right frontal craniotomy, evacuation of intracerebral hematoma The patient is doing fairly well when seen. She opened her eyes to voice. She followed commands w/the upper extremities and the lower extremities in anticipation of the command. Her ICPs were in the teens. Sodium 148 this morning. Plan: Primary & critical care management per Pumper Gager. Neuro checks. Stat CT brain for any decline in neuro status. Hold pharmacologic DVT prophylaxis. Mechanical DVT prophylaxis. Physical & Occupational Therapy eval & tx. Seizure prophylaxis w/levetiracetam & fosphenytoin. Stress ulcer prophylaxis. 3% hypertonic saline. Jaylon Lafleur Apr 13, 2018 12:52
[2018-04-13] MEDS: POLYETHYLENE GLYCOL 17 GM PKG PO SCH (13:23)
[2018-04-13] MEDS: LACTULOSE SYRUP 20 GM/30 ML CUP PO SCH (13:24)
[2018-04-13] MEDS: 3% SALINE INJ 500 ML IV SCH (18:40)
[2018-04-13] MEDS: MAGNESIUM HYDROXIDE SUSP 30 ML CUP PO SCH (21:00)
[2018-04-14] VITALS (19 sets, daily range): BP systolic 110–180; BP diastolic 58–86; PULSE 1–98; RESP 16; TEMP 98.6–99.3; O2SAT 96–100
[2018-04-14] MEDS: LACTULOSE SYRUP 20 GM/30 ML CUP PO SCH ×3 (00:06→17:28)
[2018-04-14] MEDS: POLYETHYLENE GLYCOL 17 GM PKG PO SCH ×3 (00:06→20:43)
[2018-04-14] MEDS: DOCUSATE SODIUM 50 MG/SENNA 8.6 MG TAB PO SCH ×2 (00:07→08:21)
[2018-04-14] MEDS: FOSPHENYTOIN SODIUM 100 MG PE/2 ML VIAL IV SCH ×3 (00:08→14:00)
[2018-04-14] MEDS: CHLORHEXIDINE GLUCONATE 2 % 1 PACK (2 CLOTHS) TOP SCH (00:08)
[2018-04-14] MEDS: levETIRAcetam INJ 500 MG in SODIUM CHLORIDE 0.9% INJ 100 ML IV SCH ×2 (02:00→14:00)
[2018-04-14] MEDS: PROPOFOL 1000 MG/100 ML INJ 100 ML IV PRN ×5 (02:20→20:56)
[2018-04-14] MEDS: NS + KCL 20 MEQ INJ 1,000 ML IV SCH ×2 (02:33→15:51)
[2018-04-14] MEDS: RESP: ALBUTEROL 2.5 MG/IPRATROPIUM 0.5 MG NEB (SCH) INH ×4 (02:42→20:02)
--- NOTE | 2018-04-14 03:57 | RADRPT ---
EXAM DATE: 04/14/2018 3:47 AM EDT AGE/SEX: 73 years / Female INDICATIONS: Congestion. CLINICAL DATA: This is the patient's subsequent encounter. Patient reports that signs and symptoms h ave been present for 4 - 6 days and indicates a pain score of Nonresponsive. MEDICAL/SURGICAL HISTORY: . Hypercholesterolemia. Hypertension. Diabetes. . IVC Filter None. COMPARISON: [facility] [place], CHEST SINGLE AP, 04/13/2018. . FINDINGS: Single AP view of the chest. Endotracheal tube, nasogastric tube and left IJ central venous catheter remain in place. Patchy opacity left lung base unchanged. Mild patchy opacity now seen in the right l laury base. No evidence of pleural effusion or pneumothorax. Cardiomediastinal silhouette unchanged. CONCLUSION: Persistent mild patchy left lung base opacity. New mild patchy right lung base opacity. Electronically signed by: Maged Monroy MD 04/14/2018 3:55 AM EDT
[2018-04-14 05:03] LABS: HEMOGLOBIN 9.8 GM/DL (11.6-15.3); MEAN CELL VOLUME 93.5 FL (80.0-100.0); MEAN CORPUSCULAR HEMOGLOBIN 30.5 PG (27.0-34.0); MEAN CORPUSCULAR HGB CONC 32.7 % (32.0-36.0); PLATELET COUNT 127 TH/MM3 (150-450); RED BLOOD COUNT 3.21 MIL/MM3 (4.00-5.30); WHITE BLOOD COUNT 7.2 TH/MM3 (4.0-11.0)
[2018-04-14 05:15] LABS: BICARBONATE 22.7 MEQ/L (21.0-32.0); CALCIUM 8.4 MG/DL (8.5-10.1); CREATININE 0.92 MG/DL (0.50-1.00)
[2018-04-14] MEDS: INSULIN ASPART SUPPLEMENTAL SCALE SQ SCH ×6 (05:53→20:52)
[2018-04-14] MEDS: fentaNYL DRIP 250 ML IV PRN (06:49)
[2018-04-14] MEDS: CHLORHEXIDINE 0.12% (ORAL KIT) 15 ML CUP MT SCH ×2 (08:00→20:43)
[2018-04-14] MEDS: PANTOPRAZOLE SOD 40 MG DELAYED RELEASE TAB PO SCH (08:13)
[2018-04-14] MEDS: LANSOPRAZOLE SOLUTAB 30 MG TAB G-TUBE SCH (08:21)
[2018-04-14] MEDS: amLODIPine BESYLATE 5 MG TAB PO SCH (08:21)
[2018-04-14] MEDS: DOCUSATE SODIUM 100 MG CAP PO SCH ×2 (08:21→20:43)
[2018-04-14] MEDS: MAGNESIUM HYDROXIDE SUSP 30 ML CUP PO SCH (08:21)
[2018-04-14] MEDS: SODIUM CHLORIDE 0.9% FLUSH 10 ML FLUSH IV FLUSH SCH (08:22)
[2018-04-14] MEDS: BISACODYL 10 MG SUPP RECTAL SCH (08:22)
[2018-04-14] MEDS: PANTOPRAZOLE SODIUM 40 MG VIAL IVP SCH (08:22)
[2018-04-14] MEDS: ARTIFICIAL TEARS OPTH SOLN 15 ML BTL EACH EYE SCH ×3 (08:22→17:22)
--- NOTE | 2018-04-14 09:50 | HHI.NSPN ---
(Mary Grace Roman) Note Status Status: Progress Note (Mary Grace Roman) Interval History Interval History This is a 73-year-old Black female. with history includes hypertension, hyperlipidemia, gastroesophageal disease, diabetes mellitus, elevated BMI and gout. 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 She presented to [facility] with altered mental status. At approximately 5:20 PM found her sitting in the dark by the stair unresponsive. EMS upon hardware engineer arrival patient reportedly had approximately 4 generalized tonic-clonic seizures and then patient was transported from the house. Upon arrival here daughter states that patient was witnessed to have approximately 2 minute episode of seizure activity and patient did receive 2 mg of lorazepam IV. According to daughter patient has been compliant with her medications. No prior history of seizure activity. Denies any trauma at home to the brain. CT brain revealed 3.1 cm right frontal intra-axial hemorrhage with a 3 mm right to left shift. She received 2 mg lorazepam IV 1 was loaded with fosphenytoin 1 g. Neurosurgery consultation was requestedThe patient was intubated in the ED by physician for airway protection and acute respiratory failure Ms. Amaya underwent a right frontal craniotomy for evacuation of hemorrhagic mass, and with placement of ICP monitor 04/11/18. 04/14: intubated, mildly sedated but opens eyes when stimulated, followed simple commands. ICPs controlled. (Mary Grace Roman) Labs, Micro, & Vital Signs Results Date Time Temp Pulse Resp B/P (MAP) Pulse Ox O2 Delivery O2 Flow Rate FiO2 04/14/18 08:28 98 40 04/14/18 06:00 76 04/14/18 04:00 82 04/14/18 04:00 99.3 80 16 131/86 (101) 99 04/14/18 04:00 40 04/14/18 03:00 99 40 04/14/18 02:00 80 04/14/18 00:24 100 40 04/14/18 00:00 40 04/14/18 00:00 98.8 79 16 110/58 (75) 100 04/14/18 00:00 80 04/13/18 22:00 80 04/13/18 20:04 100 40 04/13/18 20:00 60 04/13/18 20:00 98.4 86 16 119/58 (78) 100 04/13/18 20:00 82 04/13/18 18:00 101 04/13/18 16:00 40 04/13/18 16:00 80 04/13/18 16:00 100.4 80 16 135/63 (87) 100 04/13/18 15:24 100 40 04/13/18 15:24 40 04/13/18 14:00 76 04/13/18 12:00 99.6 78 16 124/63 (83) 100 04/13/18 12:00 78 04/13/18 12:00 60 04/13/18 11:14 100 50 04/13/18 10:00 82 Constitutional Vital Signs Date Time Temp Pulse Resp B/P (MAP) Pulse Ox O2 Delivery O2 Flow Rate FiO2 04/14/18 08:28 98 40 04/14/18 06:00 76 04/14/18 04:00 82 04/14/18 04:00 99.3 80 16 131/86 (101) 99 04/14/18 04:00 40 04/14/18 03:00 99 40 04/14/18 02:00 80 04/14/18 00:24 100 40 04/14/18 00:00 40 04/14/18 00:00 98.8 79 16 110/58 (75) 100 04/14/18 00:00 80 04/13/18 22:00 80 04/13/18 20:04 100 40 04/13/18 20:00 60 04/13/18 20:00 98.4 86 16 119/58 (78) 100 04/13/18 20:00 82 04/13/18 18:00 101 04/13/18 16:00 40 04/13/18 16:00 80 04/13/18 16:00 100.4 80 16 135/63 (87) 100 04/13/18 15:24 100 40 04/13/18 15:24 40 04/13/18 14:00 76 04/13/18 12:00 99.6 78 16 124/63 (83) 100 04/13/18 12:00 78 04/13/18 12:00 60 04/13/18 11:14 100 50 04/13/18 10:00 82 (Mary Grace Roman) Review of Systems ROS Limitations: Intubated (Mary Grace Roman) Physical Exam Ms. Amaya is intubated and mildly sedated She opens eyes and followed few simple commands. Cranial Nerves: Pupils equal ICP monitor in place, ICPs controlled Wound clean and dry, TIFFANIE drains in place. Motor: squeezed both hands and moved both legs to commands (Mary Grace Roman) Medications Current Medications Current Medications Medications (Trade) Dose Ordered Sig/J Carlos Route PRN Reason Start Time Stop Time Status Last Admin Dose Admin Lorazepam (Ativan Inj) 2 mg ONCE PRN IV PUSH SEIZURES 04/10/18 19:30 04/10/18 20:01 Nicardipine HCl 25 mg/Sodium Chloride 260 ml @ 52 mls/hr TITRATE PRN IV Blood pressure management 04/10/18 20:00 04/11/18 18:37 Lansoprazole (Prevacid Odt) 30 mg DAILY G-TUBE 04/11/18 09:00 04/14/18 08:21 Artificial Tears (Tears Naturale Opth Soln) 1 drop TID EACH EYE 04/11/18 09:00 04/14/18 08:22 Albuterol Sulfate (Albuterol Neb) 2.5 mg Q2HR NEB PRN INH SOB/WHEEZING 04/10/18 20:30 Miscellaneous Information ([facility]) 1 [id number] XX 04/10/18 20:30 04/10/18 20:30 Chlorhexidine Gluconate (Chlorhexidine 2% Cloth) 3 pack Taper DAILY@04 TOP 04/11/18 04:00 04/07/19 03:59 04/14/18 00:08 Chlorhexidine Gluconate (Chlorhexidine 2% Cloth) 3 pack UNSCH PRN TOP HYGIENIC CARE 04/10/18 20:30 Sennosides (Senokot) 17.2 mg Q12H PRN PO Moderate constipation 04/10/18 20:30 Bisacodyl (Dulcolax Supp) 10 mg DAILY PRN RECTAL SEVERE CONSITIPATION 04/10/18 20:30 Chlorhexidine Gluconate (Peridex 0.12% Liq) 15 ml BID@08,20 MT 04/11/18 08:00 04/14/18 08:00 Propofol 100 ml @ 3.6 mls/hr TITRATE PRN IV SEDATION 04/10/18 20:30 04/14/18 08:20 Fentanyl Citrate 250 ml @ 5 mls/hr TITRATE PRN IV SEDATION 04/10/18 20:30 04/14/18 06:49 Potassium Chloride 100 ml @ 50 mls/hr Q2H PRN IV For Potassium 2.8 - 3.2 mEq/L 04/10/18 20:30 Potassium Chloride 100 ml @ 50 mls/hr Q2H PRN IV For Potassium 2.8 - 3.2 mEq/L 04/10/18 20:30 Potassium Bicarb/ Potassium Chloride (K-Lyte Cl Eff) 50 meq UNSCH PRN PO For Potassium 3.3 - 3.5 mEq/L 04/10/18 20:30 Potassium Chloride 100 ml @ 25 mls/hr UNSCH PRN IV For Potassium 3.3 - 3.5 mEq/L 04/10/18 20:30 Potassium Chloride 100 ml @ 50 mls/hr Q2H PRN IV For Potassium 3.3 - 3.5 mEq/L 04/10/18 20:30 Magnesium Sulfate 4 gm/Sodium Chloride 100 ml @ 50 mls/hr UNSCH PRN IV For Magnesium 0.9 - 1.1 mg/dL 04/10/18 20:30 04/11/18 06:38 Magnesium Oxide (Mag-Ox) 800 mg UNSCH PRN PO For Magnesium 1.2 - 1.6 mg/dL 04/10/18 20:30 Magnesium Sulfate 2 gm/Sodium Chloride 100 ml @ 50 mls/hr UNSCH PRN IV For Magnesium 1.2 - 1.6 mg/dL 04/10/18 20:30 Potassium Phosphate (K-Phos) 2,000 mg Q4H PRN PO For Phosphorus < 2.5 mg/dL 04/10/18 20:30 Sodium Phosphate 30 mmol/Sodium Chloride 250 ml @ 42 mls/hr UNSCH PRN IV For Phosphorus < 2.5 mg/dL 04/10/18 20:30 Potassium Phosphate (K-Phos) 2,000 mg UNSCH PRN PO/TUBE SEE LABEL COMMENTS 04/10/18 20:30 Potassium Phosphate 30 mmol/ Sodium Chloride 260 ml @ 42 mls/hr UNSCH PRN IV SEE LABEL COMMENTS 04/10/18 20:30 04/11/18 06:38 Dextrose (D50w (Vial) Inj) 50 ml UNSCH PRN IV PUSH HYPOGLYCEMIA-SEE COMMENTS 04/10/18 20:30 Glucagon (Glucagon Inj) 1 mg UNSCH PRN OTHER HYPOGLYCEMIA-SEE COMMENTS 04/10/18 20:30 Insulin Aspart (NovoLOG SUPPLEMENTAL SCALE) 1 Q4HR SQ 04/11/18 00:00 04/14/18 08:00 Fosphenytoin Sodium (Cerebyx Inj) 100 mgpe Q8HR IV 04/10/18 22:00 04/14/18 05:53 Labetalol HCl (Trandate Inj) 10 mg Q1HR PRN IV PUSH SBP>140, DBP>90, HR>65 04/10/18 20:30 Amlodipine Besylate (Norvasc) 2.5 mg DAILY PO 04/11/18 09:00 04/14/18 08:21 Miscellaneous (Pill Splitter) 1 ea UNSCH PRN OTHER SEE LABEL COMMENTS 04/10/18 20:45 Albuterol/ Ipratropium (Duoneb Neb) 1 ampule Q6HR NEB INH 04/10/18 22:00 04/14/18 08:28 Sodium Chloride 500 ml @ 30 mls/hr CONTINUOUS IV 04/10/18 22:30 04/13/18 18:40 Sodium Chloride (NS Flush) DAILY IV FLUSH 04/11/18 09:00 04/14/18 08:22 Sodium Chloride (NS Flush) UNSCH PRN IV FLUSH SEE PROTOCOL 04/10/18 23:00 Norepinephrine Bitartrate 4 mg/ Sodium Chloride 250 ml @ 7.5 mls/hr TITRATE PRN IV Blood pressure management 04/10/18 23:00 04/12/18 18:23 Terbutaline Sulfate (Brethine Inj) 1 mg UNSCH PRN SQ For Extravasation 04/10/18 23:00 Potassium Chloride/Sodium Chloride 1,000 ml @ 100 mls/hr Q10H IV 04/11/18 14:33 04/14/18 02:33 Levetriacetam 500 mg/Sodium Chloride 105 ml @ 400 mls/hr Q12H IV 04/12/18 02:00 04/14/18 02:00 Docusate Sodium (Colace) 100 mg BID PO 04/11/18 21:00 04/14/18 08:21 Pantoprazole Sodium (Protonix) 40 mg DAILY PO 04/12/18 09:00 Pantoprazole Sodium (Protonix Inj) 40 mg DAILY IVP 04/12/18 09:00 04/14/18 08:22 Ondansetron HCl (Zofran Odt) 4 mg Q6H PRN PO NAUSEA OR VOMITING 04/11/18 14:45 Calcium Gluconate (Calcium Gluconate Inj) 1 gm UNSCH PRN IV SEE LABEL COMMENTS 04/11/18 14:45 Potassium Chloride 100 ml @ 50 mls/hr UNSCH PRN IV POTASSIUM LESS THAN 4 04/11/18 14:45 Magnesium Sulfate 4 gm/Sodium Chloride 108 ml @ 108 mls/hr UNSCH PRN IV MAGNESIUM LESS THAN 2 04/11/18 14:45 Morphine Sulfate (Morphine Inj) 2 mg Q2H PRN IV PUSH PAIN SCALE 1 TO 6 04/11/18 14:45 Morphine Sulfate (Morphine Inj) 4 mg Q2H PRN IV PUSH PAIN SCALE 7 TO 10 04/11/18 14:45 04/11/18 16:57 Acetaminophen (Tylenol) 650 mg Q4H PRN PO TEMPERATURE > 101.5 F 04/11/18 14:45 Lactulose (Lactulose Liq) 30 ml BID PO 04/13/18 11:00 04/14/18 08:21 Magnesium Hydroxide (Milk Of Magnesia Liq) 30 ml Q12H PO 04/13/18 21:00 04/14/18 08:21 Polyethylene Glycol (Miralax) 17 gm BID PO 04/13/18 10:00 04/14/18 08:21 Bisacodyl (Dulcolax Supp) 10 mg DAILY RECTAL 04/14/18 09:00 04/14/18 08:22 Senna/Docusate Sodium (Breanna-Colace) 2 tab BID PO 04/13/18 21:00 04/14/18 08:21 (Mary Grace Roman) Medical Decision Making MDM Remarks 73 y/o female presented with AMS and seizures, CT brain revealed 3.1 cm right frontal intra-axial hemorrhage with a 3 mm right to left shift. MRI Brain w/wo contrast showed no underlying mass, MRA Head unremarkable Ms. Amaya underwent a right frontal craniotomy for evacuation of hemorrhagic mass, and with placement of ICP monitor 04/11/18 EEG 04/11/18 reports no epileptiform discharges, mild to moderate encephalopathy (Mary Grace Roman) Plan Plan Remarks ICP monitor removed, obtain f/u CT Brain today cont neuro check f/u pathology AEDs, seizure precautions cont critical care management (Mary Grace Roman) Attending Statement The exam, history, and the medical decision-making described in the above note were completed with the assistance of the mid-level provider. I reviewed and agree with the findings presented. I attest that I had a [id number] encounter with the patient on the same day, and personally performed and documented my assessment and findings in the medical record. (Harrison Parson MD) Mary Grace Roman Apr 14, 2018 09:50 Harrison Parson MD Apr 16, 2018 08:53
[2018-04-14] MEDS ORDERED: ROCURONIUM INJ 100 MG/10 ML VIAL IV ONE (12:00)
[2018-04-14] MEDS ORDERED: DEXAMETHASONE SOD PHOS 4 MG/ML VIAL IV ONE (12:00)
[2018-04-14] MEDS ORDERED: PROPOFOL 200 MG/20 ML AMP IV ONE (12:00)
[2018-04-14] MEDS ORDERED: PHENYLEPH/NS 1000 MCG/10 ML SYR IV ONE (12:00)
[2018-04-14] MEDS ORDERED: LIDOCAINE HCL 1% PF 5 ML SYRINGE OTHER ONE (12:00)
[2018-04-14] MEDS ORDERED: SODIUM CHLORID 0.9% 500 ML INJ 500 ML IV ONE (12:00)
[2018-04-14] MEDS: 3% SALINE INJ 500 ML IV SCH (13:13)
--- NOTE | 2018-04-14 15:23 | RADRPT ---
EXAM DATE: 04/14/2018 3:17 PM EDT AGE/SEX: 73 years / Female INDICATIONS: Follow up bleed CLINICAL DATA: This is the patient's initial encounter. Patient reports that signs and symptoms have been present for 1 week and indicates a pain score of Nonresponsive. MEDICAL/SURGICAL HISTORY: Hypertension. Diabetes. IVC Filter placement. Craniotomy. RADIATION DOSE: 56.35 CTDI (mGy) [place] [facility] [place]. . TECHNIQUE: CT of the head without contrast. Using automated exposure control and adjustment of the mA and/or kV according to patient size, radiation dose was kept as low as reasonably achievable to ob tain optimal diagnostic quality images. FINDINGS: Surgical drain evident right orbital frontal region. Interval improvement with no residual hemorrhage . Ventricular size is appropriate Posterior fossa unremarkable midline fourth ventricle. There are no extra-axial fluid collections appreciated. CONCLUSION: 1. Interval improvement following drainage of a right orbital frontal hemorrhage. 2. Ventricular size is appropriate. 3. No extra-axial fluid remains. Electronically signed by: Miles Ruffin MD 04/14/2018 3:22 PM EDT
[2018-04-14] MEDS: LABETALOL HCL 100 MG/20 ML VIAL IV PUSH PRN ×2 (16:10→17:22)
[2018-04-14] MEDS ORDERED: METHYLNALTREXONE BROMIDE 12 MG/0.6 ML VIAL SQ ONE (17:00)
[2018-04-14] MEDS ORDERED: MINERAL OIL EMULSION 55% PO ONE (17:00)
[2018-04-14] MEDS ORDERED: GLYCERIN ADULT 2 GM SUPP RECTAL ONE (17:00)
--- NOTE | 2018-04-14 17:07 | HHI.CCPN ---
Subjective Remarks/Hospital Course This is a 73-year-old AA female. Admission 04/10/2018. Please note no family is available and all information is obtained by reviewing the medical record from ED physician. Past medical history includes hypertension, hyperlipidemia, gastroesophageal disease, diabetes mellitus, elevated BMI and gout. 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 She presented to [facility] with the following history. At approximately 2:30 PM and patient was reportedly fine and daughter came to visit her mother. Then at approximately 5:20 PM found her sitting in the dark by the stair unresponsive. EMS upon felt washing machine tender arrival patient reportedly had approximately 4 generalized tonic-clonic seizures and then patient was transported from the house. Upon arrival here daughter states that patient was witnessed to have approximately 2 minute episode of seizure activity and patient did receive 2 mg of lorazepam IV. According to daughter patient has been compliant with her medications gives herself her medications low-salt by herself and is very independent. after being found home by daughter with new onset seizure. No prior history of seizure activity. Denies any trauma at home to the brain. CT brain revealed 3.1 cm right frontal intra-axial hemorrhage with a 3 mm right to left shift. She received 2 mg lorazepam IV 1 was loaded with fosphenytoin 1 g. Neurosurgery was consulted/Dr. Parson. Recommended blood pressure control with inpatient admission to ICU with consultation to neurosurgery. Patient was intubated in the ED by physician after receiving etomidate and rocuronium... 04/11: remains on the vent, in critical condition. hypoxic. 04/12: hypoxia somewhat improving. following commands on the vent. per nsgy, can wean to extubate soon. some edema likely contributing to poor neuro exam, although slow improvements. 04/13: following commands. however, remains hypoxic on 60% fio2. tube feeds initiated this AM and concern over aspiration of tube feeds out endotracheal tube. CXR demonstrates adequate placement of gastric tube and ETT. ICPs remain controlled, and appropriate hypernatremia. Subjective: 04/14: Repeat CT brain today revealed improved right frontal intrapedicle hemorrhage. Patient status post right bur hole for ICP monitoring. T-max 100.9. Currently 99. Objective Vital Signs Date Time Temp Pulse Resp B/P (MAP) Pulse Ox O2 Delivery O2 Flow Rate FiO2 04/14/18 15:45 98 40 04/14/18 10:00 78 04/14/18 08:00 99.0 16 115/75 (88) 04/10/18 20:50 Ventilator 04/10/18 18:44 15.00 Intake and Output 04/14/18 04/14/18 04/14/18 07:59 15:59 23:59 Intake Total 800 ml Output Total 110 ml 0 ml Balance 690 ml 0 ml Result Diagram: 04/14/18 0430 04/14/18 1330 Imaging Last Impressions Head CT 04/14/18 0000 Signed Impressions: CONCLUSION: 1. Interval improvement following drainage of a right orbital frontal hemorrha ge. 2. Ventricular size is appropriate. 3. No extra-axial fluid remains. Chest X-Ray 04/14/18 Signed Impressions: CONCLUSION: Persistent mild patchy left lung base opacity. New mild patchy right lung base opacity. Lower Extremity Ultrasound 04/12/18 Signed Impressions: On the right, the common femoral vein, greater saphenous vein, popliteal and pe roneal veins are patent as well as the right iliac vein. The femoral vein is no t clearly visualized due to soft tissue swelling and body habitus. The posterio r tibial vein is also not clearly seen. On the left, the posterior tibial vein is not clearly visualized. The popliteal, peroneal, iliac, common femoral, grea ter saphenous vein, and femoral veins are patent. CONCLUSION: 1. Visualized veins are patent without evidence for DVT. 2. The right femoral and posterior tibial vein and the left posterior tibial v ein are not clearly visualized. Brain MRI 04/11/18 0903 Signed Impressions: CONCLUSION: 1. 4 cm intraparenchymal hemorrhage involving the right frontal lobe without u nderlying mass. 2. Tiny focus of blooming artifact involving the left frontal lobe likely rela ting to a small focus of intraparenchymal hemorrhage on that side. 3. Chronic small vessel ischemic change. 4. Fluid signal within the mastoid air cells bilaterally. Clinical evaluation for any signs of acute mastoiditis suggested. 5. Right maxillary sinusitis. Head Magnetic Resonance Angiography 04/11/18 0000 Signed Impressions: CONCLUSION: Intracranial arterial vasculature has a normal appearance. Objective Remarks GENERAL: 73-year-old AA female currently resting in bed orotracheally intubated SKIN: Warm and dry. HEAD: bolt exits from head, wrapped in Kerlix. EYES: Pupils equal and round about 3 mm bilaterally reactive to. Disconjugate gaze to left.. No scleral icterus. No injection or drainage. ENT: No nasal bleeding or discharge. Mucous membranes pink and moist. NECK: Trachea midline. No JVD. CARDIOVASCULAR: Regular rate and rhythm. sinus. RESPIRATORY: Diminished. Symmetrical excursion. Breath sounds equal bilaterally. GASTROINTESTINAL: Abdomen soft, non-tender, obese. no guarding. MUSCULOSKELETAL: Extremities trace bilateral lower extremity nonpitting edema. No obvious deformities. NEUROLOGICAL: Alert intubation, arousable. Spontaneous movement right and upper lower extremity. Withdrew to left lower extremity. follows intermittent commands. Current with positive cough and gag. Positive corneal reflex. Urinary Catheter: No Assessment to: Continue Vascular Central Line Catheter: No Assessment to: Continue A/P Assessment and Plan Neuro/Psych: Acute right frontal intra-axial hemorrhage 3.1 cm at the right to left shift of 3 mm New onset seizure Status post right frontal craniotomy 04/11 with right bur hole with ICP monitor placement Currently on propofol drip at 30 mcg/kg/min/fentanyl drips at 100 mcg an hour for sedation/analgesia while intubated Goal of RASS -2 Daily sedation vacation Acetaminophen 650 mg by tube every 6 hours as needed fever brain CT in a.m. 04/11: slight increase in frontal hemorrhage. Brain CT 6 abdomen reveals improvement/status post evacuation hematoma Neurosurgery/Dr. Parson to follow Keep systolic blood pressure < 140 Replacement 3% saline currently at 10 cc an hour No mannitol per neurosurgery Seizure with fosphenytoin 100 mg every 8 hours. Loaded in ED. phenytoin level 13. Currently discontinued Switch to levetiracetam 500 IV twice daily EEG 04/11 revealed moderate encephalopathy. No epileptiform activity TIFFANIE -120 cc SS CV: Hypertensive Emergency Hyperlipidemia As needed labetalol and nicardipine drip goal sbp < 140 On home metoprolol tartrate 25 mg twice daily, amlodipine 2.5 mg a day, hydrochlorthiazide 25 mg daily losartan 100 mg daily. Resume amlodipine 2.5 mg daily and losartan 100 mg daily. Resume furosemide 40 mg daily Resp: Acute hypoxic and hypercarbic respiratory failure PRVC 16/600/1.3/10/40 Ventilator bundle Albuterol/ipratropium aerosols every 6 hours with albuterol aerosols every 2 hours as needed dyspnea start SBTs. hypoxia concerning, possible aspiration, although afebrile with normal wbc. will avoid abx. aggressive suctioning. have increased PEEP. slow weaning of mechanical ventilation. wean fio2 for goal spo2 > 90% GI: Gastroesophageal reflux disease Elevated AST increase bowel regimen. Currently on vital high-protein goal 70 cc an hour. Currently Jevity 1.5 at 30 cc an hour Lansoprazole 30 mg daily for GI prophylaxis. On omeprazole 40 mg daily at home Docusate sodium/senna 1 tablet twice daily for bowel regimen. Add polythene glycol 17 g twice daily and lactulose 30 cc 4 times daily. 1 dose of methylnaltrexone 12 mg subcu 1 and mineral oil 30 cc 1 now. Check KUB : does not require mayo catheter. Endo: Diabetes mellitus History of gout Holding metformin 1000mg twice daily/home medication Novulog medium protocol Accu-Cheks every 6 hours to maintain euglycemia Holding colchicine 0.6 mg. Resume clinically indicated Renal: Acute kidney injury? 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 Holding anticoagulation in light of acute brain hemorrhage ID: Monitor for signs and symptomatology of infection MSK: Elevated BMI Weight loss encouraged PT evaluate and treat FEN: Hypernatremia Replace electrolytes as clinically indicated Access -Utilize peripheral IV. Prophylaxis -GI -lansoprazole -DVT -SCD/holding pharmacological prophylaxis light of acute right frontal intracranial hemorrhage Critical care time: 31 minutes, exclusive of separately billable procedures. Ty Holt MD Apr 14, 2018 17:07
--- NOTE | 2018-04-14 20:56 | RADRPT ---
EXAM DATE: 04/14/2018 8:26 PM EDT AGE/SEX: 73 years / Female INDICATIONS: Abdominal distention. CLINICAL DATA: This is the patient's initial encounter. Patient reports that signs and symptoms have been present for 4 - 6 days and indicates a pain score of Nonresponsive. MEDICAL/SURGICAL HISTORY: . Hypertension. Diabetes . IVC Filter placement. Craniotomy COMPARISON: No prior exams available for comparison. FINDINGS: The bowel gas is nonspecific. There are no signs of obstruction or free air for technique. No definite calcified stones are identified for technique. NG tube is present with tip in the stomac h. Total hip arthroplasty is seen on the right. CONCLUSION: Unremarkable study. Electronically signed by: Florencio Moncada MD 04/14/2018 8:54 PM EDT
[2018-04-15] VITALS (18 sets, daily range): BP systolic 113–176; BP diastolic 57–78; PULSE 78–100; RESP 16–17; TEMP 97.7–99.5; O2SAT 92–100
[2018-04-15] MEDS: LACTULOSE SYRUP 20 GM/30 ML CUP PO SCH ×4 (00:29→12:00)
[2018-04-15] MEDS: INSULIN ASPART SUPPLEMENTAL SCALE SQ SCH ×6 (00:29→20:00)
[2018-04-15] MEDS: PROPOFOL 1000 MG/100 ML INJ 100 ML IV PRN ×9 (00:51→22:54)
[2018-04-15] MEDS: levETIRAcetam INJ 500 MG in SODIUM CHLORIDE 0.9% INJ 100 ML IV SCH ×2 (01:51→13:18)
[2018-04-15] MEDS: RESP: ALBUTEROL 2.5 MG/IPRATROPIUM 0.5 MG NEB (SCH) INH ×4 (03:40→21:01)
--- NOTE | 2018-04-15 03:54 | RADRPT ---
EXAM DATE: 04/15/2018 3:42 AM EDT AGE/SEX: 73 years / Female INDICATIONS: Respiratory failure. CLINICAL DATA: This is the patient's subsequent encounter. Patient reports that signs and symptoms h ave been present for 1 week and indicates a pain score of Nonresponsive. MEDICAL/SURGICAL HISTORY: . Hypercholesterolemia. Hypertension. Diabetes. . IVC Filter None. COMPARISON: [facility] [place], CHEST SINGLE AP, 04/14/2018. . FINDINGS: Single AP view of the chest. Endotracheal tube, nasogastric tube, left IJ central venous catheter rem ain in place. Increased bilateral perihilar pulmonary opacity indicating increased pulmonary edema. C ardiac silhouette remains enlarged. No evidence of pleural effusion or pneumothorax. CONCLUSION: Increased bilateral perihilar pulmonary parenchymal opacity suggesting increased pulmonary edema. Electronically signed by: Maged Monroy MD 04/15/2018 3:52 AM EDT
[2018-04-15] MEDS: CHLORHEXIDINE GLUCONATE 2 % 1 PACK (2 CLOTHS) TOP SCH (04:00)
[2018-04-15 05:19] LABS: HEMATOCRIT 30.2 % (35.0-46.0); HEMOGLOBIN 9.9 GM/DL (11.6-15.3); MEAN CELL VOLUME 93.1 FL (80.0-100.0); MEAN CORPUSCULAR HEMOGLOBIN 30.5 PG (27.0-34.0); MEAN CORPUSCULAR HGB CONC 32.7 % (32.0-36.0); MEAN PLATELET VOLUME 10.2 FL (7.0-11.0); PLATELET COUNT 126 TH/MM3 (150-450); RED BLOOD COUNT 3.24 MIL/MM3 (4.00-5.30); RED CELL DISTRIBUTION WIDTH 14.9 % (11.6-17.2)
[2018-04-15 05:24] LABS: BICARBONATE 21.3 MEQ/L (21.0-32.0); CALCIUM 8.7 MG/DL (8.5-10.1); CREATININE 0.85 MG/DL (0.50-1.00); MAGNESIUM 1.7 MG/DL (1.5-2.5); PHOSPHORUS 2.1 MG/DL (2.5-4.9)
[2018-04-15] MEDS: 3% SALINE INJ 500 ML IV SCH (06:40)
[2018-04-15] MEDS: CHLORHEXIDINE 0.12% (ORAL KIT) 15 ML CUP MT SCH ×2 (08:00→20:00)
[2018-04-15] MEDS: LABETALOL HCL 100 MG/20 ML VIAL IV PUSH PRN ×2 (08:15→23:09)
[2018-04-15] MEDS: fentaNYL DRIP 250 ML IV PRN (08:21)
[2018-04-15] MEDS: DOCUSATE SODIUM 100 MG CAP PO SCH ×2 (09:00→20:19)
[2018-04-15] MEDS: BISACODYL 10 MG SUPP RECTAL SCH (09:00)
[2018-04-15] MEDS: ARTIFICIAL TEARS OPTH SOLN 15 ML BTL EACH EYE SCH ×3 (09:00→17:52)
[2018-04-15] MEDS: POLYETHYLENE GLYCOL 17 GM PKG PO SCH (09:00)
[2018-04-15] MEDS: amLODIPine BESYLATE 5 MG TAB PO SCH (09:24)
[2018-04-15] MEDS: LANSOPRAZOLE SOLUTAB 30 MG TAB G-TUBE SCH (09:24)
[2018-04-15] MEDS: LOSARTAN 50 MG TAB PO SCH (09:24)
[2018-04-15] MEDS: FUROSEMIDE 40 MG TAB PO SCH (09:25)
[2018-04-15] MEDS: SODIUM CHLORIDE 0.9% FLUSH 10 ML FLUSH IV FLUSH SCH (09:25)
--- NOTE | 2018-04-15 13:47 | HHI.CCPN ---
Subjective Remarks/Hospital Course This is a 73-year-old AA female. Admission 04/10/2018. Please note no family is available and all information is obtained by reviewing the medical record from ED physician. Past medical history includes hypertension, hyperlipidemia, gastroesophageal disease, diabetes mellitus, elevated BMI and gout. 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 She presented to [facility] with the following history. At approximately 2:30 PM and patient was reportedly fine and daughter came to visit her mother. Then at approximately 5:20 PM found her sitting in the dark by the stair unresponsive. EMS upon ceo arrival patient reportedly had approximately 4 generalized tonic-clonic seizures and then patient was transported from the house. Upon arrival here daughter states that patient was witnessed to have approximately 2 minute episode of seizure activity and patient did receive 2 mg of lorazepam IV. According to daughter patient has been compliant with her medications gives herself her medications low-salt by herself and is very independent. after being found home by daughter with new onset seizure. No prior history of seizure activity. Denies any trauma at home to the brain. CT brain revealed 3.1 cm right frontal intra-axial hemorrhage with a 3 mm right to left shift. She received 2 mg lorazepam IV 1 was loaded with fosphenytoin 1 g. Neurosurgery was consulted/Dr. Parson. Recommended blood pressure control with inpatient admission to ICU with consultation to neurosurgery. Patient was intubated in the ED by physician after receiving etomidate and rocuronium... 04/11: remains on the vent, in critical condition. hypoxic. 04/12: hypoxia somewhat improving. following commands on the vent. per nsgy, can wean to extubate soon. some edema likely contributing to poor neuro exam, although slow improvements. 04/13: following commands. however, remains hypoxic on 60% fio2. tube feeds initiated this AM and concern over aspiration of tube feeds out endotracheal tube. CXR demonstrates adequate placement of gastric tube and ETT. ICPs remain controlled, and appropriate hypernatremia. 04/14: Repeat CT brain today revealed improved right frontal intraparenchymal hemorrhage. Patient status post right bur hole for ICP monitoring. T-max 100.9. Currently 99. Subjective: 04/15: TIFFANIE x 2 was removed today. Currently on propofol 50 mcg/kg an hour and fentanyl drip at 250 mcg an hour. Follows commands. Worsening oxygenation status today. Coarse breath sounds with thick greenish secretions noted. Sample will be sent today. Objective Vital Signs Date Time Temp Pulse Resp B/P (MAP) Pulse Ox O2 Delivery O2 Flow Rate FiO2 04/15/18 11:36 98 40 04/15/18 10:00 78 04/15/18 08:00 97.7 16 176/78 (110) Intake and Output 04/15/18 04/15/18 04/16/18 08:00 16:00 00:00 Intake Total 860 ml Output Total 970 ml Balance -110 ml Result Diagram: 04/15/18 0430 04/15/18 1220 Imaging Last Impressions Chest X-Ray 04/15/18 0600 Signed Impressions: CONCLUSION: Increased bilateral perihilar pulmonary parenchymal opacity suggesting increase d pulmonary edema. Head CT 04/14/18 0000 Signed Impressions: CONCLUSION: 1. Interval improvement following drainage of a right orbital frontal hemorrha ge. 2. Ventricular size is appropriate. 3. No extra-axial fluid remains. Abdomen X-Ray 04/14/18 0000 Signed Impressions: CONCLUSION: Unremarkable study. Lower Extremity Ultrasound 04/12/18 0000 Signed Impressions: On the right, the common femoral vein, greater saphenous vein, popliteal and pe roneal veins are patent as well as the right iliac vein. The femoral vein is no t clearly visualized due to soft tissue swelling and body habitus. The posterio r tibial vein is also not clearly seen. On the left, the posterior tibial vein is not clearly visualized. The popliteal, peroneal, iliac, common femoral, grea ter saphenous vein, and femoral veins are patent. CONCLUSION: 1. Visualized veins are patent without evidence for DVT. 2. The right femoral and posterior tibial vein and the left posterior tibial v ein are not clearly visualized. Brain MRI 04/11/18 0903 Signed Impressions: CONCLUSION: 1. 4 cm intraparenchymal hemorrhage involving the right frontal lobe without u nderlying mass. 2. Tiny focus of blooming artifact involving the left frontal lobe likely rela ting to a small focus of intraparenchymal hemorrhage on that side. 3. Chronic small vessel ischemic change. 4. Fluid signal within the mastoid air cells bilaterally. Clinical evaluation for any signs of acute mastoiditis suggested. 5. Right maxillary sinusitis. Head Magnetic Resonance Angiography 6/8/18 0000 Signed Impressions: CONCLUSION: Intracranial arterial vasculature has a normal appearance. Objective Remarks GENERAL: 73-year-old AA female currently resting in bed orotracheally intubated SKIN: Warm and dry. HEAD: bolt exits from head, wrapped in Kerlix. EYES: Pupils equal and round about 3 mm bilaterally reactive to. Disconjugate gaze to left.. No scleral icterus. No injection or drainage. ENT: No nasal bleeding or discharge. Mucous membranes pink and moist. NECK: Trachea midline. No JVD. CARDIOVASCULAR: Regular rate and rhythm. sinus. RESPIRATORY: Diminished. Symmetrical excursion. Breath sounds equal bilaterally. GASTROINTESTINAL: Abdomen soft, non-tender, obese. no guarding. MUSCULOSKELETAL: Extremities trace bilateral lower extremity nonpitting edema. No obvious deformities. NEUROLOGICAL: Alert intubation, arousable. Spontaneous movement right and upper lower extremity. Withdrew to left lower extremity. follows intermittent commands. Current with positive cough and gag. Positive corneal reflex. Urinary Catheter: No Assessment to: Continue Vascular Central Line Catheter: Yes Assessment to: Continue Date of Insertion: Apr 10, 2018 Line: Central Venous Catheter Side: Left Location: Internal, Jugular A/P Assessment and Plan Neuro/Psych: Acute right frontal intra-axial hemorrhage 3.1 cm at the right to left shift of 3 mm New onset seizure Status post right frontal craniotomy 04/11 with right bur hole with ICP monitor placement Currently on propofol drip at 50 mcg/kg/min/fentanyl drips at 250 mcg an hour for sedation/analgesia while intubated Goal of RASS -2 Daily sedation vacation Acetaminophen 650 mg by tube every 6 hours as needed fever brain CT in a.m. 04/11: slight increase in frontal hemorrhage. Brain CT 6 abdomen reveals improvement/status post evacuation hematoma Neurosurgery/Dr. Parson to follow Keep systolic blood pressure < 140 Replacement 3% saline currently at 10 cc an hour No mannitol per neurosurgery Seizure with fosphenytoin 100 mg every 8 hours. Loaded in ED. phenytoin level 13. Currently discontinued Switch to levetiracetam 500 IV twice daily EEG 04/11 revealed moderate encephalopathy. No epileptiform activity TIFFANIE -85 cc SS removed 04/15 CV: Hypertensive Emergency Hyperlipidemia As needed labetalol and nicardipine drip goal sbp < 140 On home metoprolol tartrate 25 mg twice daily, amlodipine 2.5 mg a day, hydrochlorthiazide 25 mg daily losartan 100 mg daily. Resume amlodipine 2.5 mg daily and losartan 100 mg daily. Resume furosemide 40 mg daily 1 dose of Diuril today 500 mg IV 1 Resp: Acute hypoxic and hypercarbic respiratory failure [facility] 16/600/1.01/11/40 Ventilator bundle Albuterol/ipratropium aerosols every 6 hours with albuterol aerosols every 2 hours as needed dyspnea start SBTs. hypoxia concerning, possible aspiration, although afebrile with normal wbc. will avoid abx. aggressive suctioning. have increased PEEP. slow weaning of mechanical ventilation. wean fio2 for goal spo2 > 90% GI: Gastroesophageal reflux disease Elevated AST increase bowel regimen. Currently on vital high-protein goal 70 cc an hour. Lansoprazole 30 mg daily for GI prophylaxis. On omeprazole 40 mg daily at home Docusate sodium/senna 1 tablet twice daily for bowel regimen. Add polythene glycol 17 g twice daily and lactulose 30 cc 4 times daily. 1 dose of methylnaltrexone 12 mg subcu 1 and mineral oil 30 cc 1 now. Check KUB : does not require mayo catheter. Endo: Diabetes mellitus History of gout Holding metformin 1000mg twice daily/home medication Novulog medium protocol Accu-Cheks every 6 hours to maintain euglycemia Holding colchicine 0.6 mg. Resume clinically indicated Renal: Acute kidney injury? 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 Holding anticoagulation in light of acute brain hemorrhage ID: Monitor for signs and symptomatology of infection MSK: Elevated BMI Weight loss encouraged PT evaluate and treat FEN: Hypernatremia Replace electrolytes as clinically indicated Access -Utilize peripheral IV. Prophylaxis -GI -lansoprazole -DVT -SCD/holding pharmacological prophylaxis light of acute right frontal intracranial hemorrhage Critical care time: 32 minutes, exclusive of separately billable procedures. Ty Holt MD Apr 15, 2018 13:47
--- NOTE | 2018-04-15 14:12 | HHI.NSPN ---
(Mary Grace Roman) Note Status Status: Progress Note (Mary Grace Roman) Interval History Interval History This is a 73-year-old Black female. with history includes hypertension, hyperlipidemia, gastroesophageal disease, diabetes mellitus, elevated BMI and gout. 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 She presented to [facility] with altered mental status. At approximately 5:20 PM found her sitting in the dark by the stair unresponsive. EMS upon egg breaker arrival patient reportedly had approximately 4 generalized tonic-clonic seizures and then patient was transported from the house. Upon arrival here daughter states that patient was witnessed to have approximately 2 minute episode of seizure activity and patient did receive 2 mg of lorazepam IV. According to daughter patient has been compliant with her medications. No prior history of seizure activity. Denies any trauma at home to the brain. CT brain revealed 3.1 cm right frontal intra-axial hemorrhage with a 3 mm right to left shift. She received 2 mg lorazepam IV 1 was loaded with fosphenytoin 1 g. Neurosurgery consultation was requestedThe patient was intubated in the ED by physician for airway protection and acute respiratory failure Ms. Amaya underwent a right frontal craniotomy for evacuation of hemorrhagic mass, and with placement of ICP monitor 04/11/18. 04/14: intubated, mildly sedated but opens eyes when stimulated, followed simple commands. ICPs controlled. 04/15: intubated, sedated. nrs reports blood pressure elevates when sedation lowered. continues to follow commands (Mary Grace Roman) Labs, Micro, & Vital Signs Results Date Time Temp Pulse Resp B/P (MAP) Pulse Ox O2 Delivery O2 Flow Rate FiO2 04/15/18 14:00 81 04/15/18 12:00 82 04/15/18 12:00 40 04/15/18 12:00 98.9 82 17 135/63 (87) 94 04/15/18 11:36 98 40 04/15/18 10:00 78 04/15/18 09:32 100 40 04/15/18 08:00 97.7 100 16 176/78 (110) 92 04/15/18 08:00 96 04/15/18 08:00 40 04/15/18 06:00 86 04/15/18 04:00 85 04/15/18 04:00 99.5 85 16 160/71 (100) 96 04/15/18 04:00 40 04/15/18 03:41 95 40 04/15/18 02:00 81 04/15/18 00:01 97 40 04/15/18 00:00 98.8 79 16 113/59 (77) 98 04/15/18 00:00 40 04/15/18 00:00 79 04/14/18 22:00 81 04/14/18 20:02 97 35 04/14/18 20:00 40 04/14/18 20:00 98.7 81 16 142/70 (94) 96 04/14/18 20:00 81 04/14/18 18:00 76 04/14/18 16:00 40 04/14/18 16:00 99.2 98 16 180/81 (114) 97 04/14/18 16:00 98 04/14/18 15:45 98 40 04/14/18 15:00 100 100 Constitutional Vital Signs Date Time Temp Pulse Resp B/P (MAP) Pulse Ox O2 Delivery O2 Flow Rate FiO2 04/15/18 14:00 81 04/15/18 12:00 82 04/15/18 12:00 40 04/15/18 12:00 98.9 82 17 135/63 (87) 94 04/15/18 11:36 98 40 04/15/18 10:00 78 04/15/18 09:32 100 40 04/15/18 08:00 97.7 100 16 176/78 (110) 92 04/15/18 08:00 96 04/15/18 08:00 40 04/15/18 06:00 86 04/15/18 04:00 85 04/15/18 04:00 99.5 85 16 160/71 (100) 96 04/15/18 04:00 40 04/15/18 03:41 95 40 04/15/18 02:00 81 04/15/18 00:01 97 40 04/15/18 00:00 98.8 79 16 113/59 (77) 98 04/15/18 00:00 40 04/15/18 00:00 79 04/14/18 22:00 81 04/14/18 20:02 97 35 04/14/18 20:00 40 04/14/18 20:00 98.7 81 16 142/70 (94) 96 04/14/18 20:00 81 04/14/18 18:00 76 04/14/18 16:00 40 04/14/18 16:00 99.2 98 16 180/81 (114) 97 04/14/18 16:00 98 04/14/18 15:45 98 40 04/14/18 15:00 100 100 (Mary Grace Roman) Review of Systems ROS Limitations: Intubated (Mary Grace Roman) Physical Exam Ms. Amaya is intubated and sedated She opens eyes and followed few simple commands. Cranial Nerves: Pupils equal. Wound healing well, no redness, drainage, or other signs of infection, clean and dry, TIFFANIE drains in place. Motor: squeezed both hands and moved both legs to commands (Mary Grace Roman) Medications Current Medications Current Medications Medications (Trade) Dose Ordered Sig/J Carlos Route PRN Reason Start Time Stop Time Status Last Admin Dose Admin Lorazepam (Ativan Inj) 2 mg ONCE PRN IV PUSH SEIZURES 04/10/18 19:30 04/10/18 20:01 Nicardipine HCl 25 mg/Sodium Chloride 260 ml @ 52 mls/hr TITRATE PRN IV Blood pressure management 04/10/18 20:00 04/11/18 18:37 Lansoprazole (Prevacid Odt) 30 mg DAILY G-TUBE 04/11/18 09:00 04/15/18 09:24 Artificial Tears (Tears Naturale Opth Soln) 1 drop TID EACH EYE 04/11/18 09:00 04/15/18 13:00 Albuterol Sulfate (Albuterol Neb) 2.5 mg Q2HR NEB PRN INH SOB/WHEEZING 04/10/18 20:30 Miscellaneous Information ([facility] 1 [id number] XX 04/10/18 20:30 04/10/18 20:30 Chlorhexidine Gluconate (Chlorhexidine 2% Cloth) 3 pack Taper DAILY@04 TOP 04/11/18 04:00 04/07/19 03:59 04/15/18 04:00 Chlorhexidine Gluconate (Chlorhexidine 2% Cloth) 3 pack UNSCH PRN TOP HYGIENIC CARE 04/10/18 20:30 Sennosides (Senokot) 17.2 mg Q12H PRN PO Moderate constipation 04/10/18 20:30 Bisacodyl (Dulcolax Supp) 10 mg DAILY PRN RECTAL SEVERE CONSITIPATION 04/10/18 20:30 Chlorhexidine Gluconate (Peridex 0.12% Liq) 15 ml BID@08,20 MT 04/11/18 08:00 04/15/18 08:00 Propofol 100 ml @ 3.6 mls/hr TITRATE PRN IV SEDATION 04/10/18 20:30 04/15/18 07:01 Fentanyl Citrate 250 ml @ 5 mls/hr TITRATE PRN IV SEDATION 04/10/18 20:30 04/15/18 08:21 Potassium Chloride 100 ml @ 50 mls/hr Q2H PRN IV For Potassium 2.8 - 3.2 mEq/L 04/10/18 20:30 Potassium Chloride 100 ml @ 50 mls/hr Q2H PRN IV For Potassium 2.8 - 3.2 mEq/L 04/10/18 20:30 Potassium Bicarb/ Potassium Chloride (K-Lyte Cl Eff) 50 meq UNSCH PRN PO For Potassium 3.3 - 3.5 mEq/L 04/10/18 20:30 Potassium Chloride 100 ml @ 25 mls/hr UNSCH PRN IV For Potassium 3.3 - 3.5 mEq/L 04/10/18 20:30 Potassium Chloride 100 ml @ 50 mls/hr Q2H PRN IV For Potassium 3.3 - 3.5 mEq/L 04/10/18 20:30 Magnesium Sulfate 4 gm/Sodium Chloride 100 ml @ 50 mls/hr UNSCH PRN IV For Magnesium 0.9 - 1.1 mg/dL 04/10/18 20:30 04/11/18 06:38 Magnesium Oxide (Mag-Ox) 800 mg UNSCH PRN PO For Magnesium 1.2 - 1.6 mg/dL 04/10/18 20:30 Magnesium Sulfate 2 gm/Sodium Chloride 100 ml @ 50 mls/hr UNSCH PRN IV For Magnesium 1.2 - 1.6 mg/dL 04/10/18 20:30 Potassium Phosphate (K-Phos) 2,000 mg Q4H PRN PO For Phosphorus < 2.5 mg/dL 04/10/18 20:30 Sodium Phosphate 30 mmol/Sodium Chloride 250 ml @ 42 mls/hr UNSCH PRN IV For Phosphorus < 2.5 mg/dL 04/10/18 20:30 Potassium Phosphate (K-Phos) 2,000 mg UNSCH PRN PO/TUBE SEE LABEL COMMENTS 04/10/18 20:30 Potassium Phosphate 30 mmol/ Sodium Chloride 260 ml @ 42 mls/hr UNSCH PRN IV SEE LABEL COMMENTS 04/10/18 20:30 04/11/18 06:38 Dextrose (D50w (Vial) Inj) 50 ml UNSCH PRN IV PUSH HYPOGLYCEMIA-SEE COMMENTS 04/10/18 20:30 Glucagon (Glucagon Inj) 1 mg UNSCH PRN OTHER HYPOGLYCEMIA-SEE COMMENTS 04/10/18 20:30 Insulin Aspart (NovoLOG SUPPLEMENTAL SCALE) 1 Q4HR SQ 04/11/18 00:00 04/15/18 12:00 Labetalol HCl (Trandate Inj) 10 mg Q1HR PRN IV PUSH SBP>140, DBP>90, HR>65 04/10/18 20:30 04/15/18 08:15 Amlodipine Besylate (Norvasc) 2.5 mg DAILY PO 04/11/18 09:00 04/15/18 09:24 Miscellaneous (Pill Splitter) 1 ea UNSCH PRN OTHER SEE LABEL COMMENTS 04/10/18 20:45 Sodium Chloride 500 ml @ 30 mls/hr CONTINUOUS IV 04/10/18 22:30 04/15/18 06:40 Sodium Chloride (NS Flush) DAILY IV FLUSH 04/11/18 09:00 04/15/18 09:25 Sodium Chloride (NS Flush) UNSCH PRN IV FLUSH SEE PROTOCOL 04/10/18 23:00 Norepinephrine Bitartrate 4 mg/ Sodium Chloride 250 ml @ 7.5 mls/hr TITRATE PRN IV Blood pressure management 04/10/18 23:00 04/12/18 18:23 Terbutaline Sulfate (Brethine Inj) 1 mg UNSCH PRN SQ For Extravasation 04/10/18 23:00 Levetriacetam 500 mg/Sodium Chloride 105 ml @ 400 mls/hr Q12H IV 04/12/18 02:00 04/15/18 13:18 Docusate Sodium (Colace) 100 mg BID PO 04/11/18 21:00 04/14/18 20:43 Ondansetron HCl (Zofran Odt) 4 mg Q6H PRN PO NAUSEA OR VOMITING 04/11/18 14:45 Calcium Gluconate (Calcium Gluconate Inj) 1 gm UNSCH PRN IV SEE LABEL COMMENTS 04/11/18 14:45 Potassium Chloride 100 ml @ 50 mls/hr UNSCH PRN IV POTASSIUM LESS THAN 4 04/11/18 14:45 Magnesium Sulfate 4 gm/Sodium Chloride 108 ml @ 108 mls/hr UNSCH PRN IV MAGNESIUM LESS THAN 2 04/11/18 14:45 Acetaminophen (Tylenol) 650 mg Q4H PRN PO TEMPERATURE > 101.5 F 04/11/18 14:45 Polyethylene Glycol (Miralax) 17 gm BID PO 04/13/18 10:00 04/14/18 20:43 Bisacodyl (Dulcolax Supp) 10 mg DAILY RECTAL 04/14/18 09:00 04/14/18 08:22 Albuterol/ Ipratropium (Duoneb Neb) 1 ampule Q6HR NEB INH 04/14/18 22:00 04/15/18 09:26 Albuterol Sulfate (Albuterol Neb) 2.5 mg Q2HR NEB PRN NEB dyspnea 04/14/18 17:00 Lactulose (Lactulose Liq) 30 ml Q6HR PO 04/14/18 18:00 04/15/18 00:29 Furosemide (Lasix) 40 mg DAILY PO 04/15/18 09:00 04/15/18 09:25 Losartan Potassium (Cozaar) 100 mg DAILY PO 04/15/18 09:00 04/15/18 09:24 (Mary Grace Roman) Medical Decision Making MDM Remarks 73 y/o female presented with AMS and seizures, CT brain revealed 3.1 cm right frontal intra-axial hemorrhage with a 3 mm right to left shift. MRI Brain w/wo contrast showed no underlying mass, MRA Head unremarkable Ms. Amaya underwent a right frontal craniotomy for evacuation of hemorrhagic mass, and with placement of ICP monitor 04/11/18, ICP monitor removed 04/14/18 EEG 04/11/18 reports no epileptiform discharges, mild to moderate encephalopathy Head CT 04/14/18 Impressions: CONCLUSION: 1. Interval improvement following drainage of a right orbital frontal hemorrhage. 2. Ventricular size is appropriate. 3. No extra-axial fluid remains (Mary Grace Roman) Plan Plan Remarks f/u CT Brain reviewed, TIFFANIE drains x 2 removed, cont neuro check clear to start sedation and vent weaning per NRS standpoint f/u pathology cont AEDs, seizure precautions cont critical care management dw family in room clear to start Lovenox for dvt prophylaxis (Mary Grace Roman) Attending Statement The exam, history, and the medical decision-making described in the above note were completed with the assistance of the mid-level provider. I reviewed and agree with the findings presented. I attest that I had a [id number] encounter with the patient on the same day, and personally performed and documented my assessment and findings in the medical record. (Harrison Parson MD) Mary Grace Roman Apr 15, 2018 14:12 Harrison Parson MD Apr 16, 2018 15:02
[2018-04-15] MEDS: POTASSIUM PHOSPHATE/SODIUM PHOSPHATE 250 MG TAB PO ONE ×2 (14:30→20:18)
[2018-04-15] MEDS ORDERED: CHLOROTHIAZIDE SOD 500 MG VIAL IV ONE (14:45)
[2018-04-15] MEDS: RESP: SODIUM CHLORIDE 3% 4 ML NEB NEB SCH ×2 (16:00→21:02)
[2018-04-15] MEDS: MAGNESIUM SULFATE 1 GM PREMIX 100 ML IV SCH ×2 (16:21→17:52)
[2018-04-16] VITALS (19 sets, daily range): BP systolic 111–159; BP diastolic 25–102; PULSE 80–87; RESP 16–20; TEMP 98.9–100.4; O2SAT 92–98
[2018-04-16] MEDS: INSULIN ASPART SUPPLEMENTAL SCALE SQ SCH ×6 (00:25→20:00)
[2018-04-16] MEDS: levETIRAcetam INJ 500 MG in SODIUM CHLORIDE 0.9% INJ 100 ML IV SCH ×2 (01:08→13:47)
[2018-04-16] MEDS: LABETALOL HCL 100 MG/20 ML VIAL IV PUSH PRN (01:13)
[2018-04-16] MEDS: PROPOFOL 1000 MG/100 ML INJ 100 ML IV PRN ×9 (01:15→22:02)
[2018-04-16] MEDS: fentaNYL DRIP 250 ML IV PRN (02:06)
[2018-04-16] MEDS: RESP: ALBUTEROL 2.5 MG/IPRATROPIUM 0.5 MG NEB (SCH) INH ×4 (03:39→19:54)
[2018-04-16] MEDS: RESP: SODIUM CHLORIDE 3% 4 ML NEB NEB SCH ×4 (03:39→19:54)
[2018-04-16] MEDS: CHLORHEXIDINE GLUCONATE 2 % 1 PACK (2 CLOTHS) TOP SCH (03:48)
--- NOTE | 2018-04-16 05:18 | RADRPT ---
EXAM DATE: 04/16/2018 5:11 AM EDT AGE/SEX: 73 years / Female INDICATIONS: Shortness of breath. CLINICAL DATA: This is the patient's subsequent encounter. Patient reports that signs and symptoms h ave been present for 4 - 6 days and indicates a pain score of Nonresponsive. MEDICAL/SURGICAL HISTORY: . Hypercholesterolemia. Hypertension. Diabetes . Right hip replacem ent x2. IVC filter. COMPARISON: [facility] [place], CHEST SINGLE AP, 04/15/2018. . FINDINGS: Single AP view the chest. Endotracheal tube, nasogastric tube, left IJ central venous catheter remain in place. Persistent bilateral pulmonary opacity with perihilar predominance. No significant interva l change. No evidence of pleural effusion or pneumothorax. Cardiomediastinal silhouette unchanged. CONCLUSION: No significant interval change with persistent bilateral pulmonary opacity with perihilar predominanc e. Electronically signed by: Maged Monroy MD 04/16/2018 5:16 AM EDT
[2018-04-16 05:45] LABS: HEMATOCRIT 28.5 % (35.0-46.0); HEMOGLOBIN 9.4 GM/DL (11.6-15.3); MEAN CELL VOLUME 93.1 FL (80.0-100.0); MEAN CORPUSCULAR HEMOGLOBIN 30.8 PG (27.0-34.0); MEAN CORPUSCULAR HGB CONC 33.1 % (32.0-36.0); MEAN PLATELET VOLUME 9.4 FL (7.0-11.0); PLATELET COUNT 137 TH/MM3 (150-450); RED BLOOD COUNT 3.05 MIL/MM3 (4.00-5.30); RED CELL DISTRIBUTION WIDTH 14.9 % (11.6-17.2); WHITE BLOOD COUNT 6.5 TH/MM3 (4.0-11.0)
[2018-04-16 05:57] LABS: BICARBONATE 23.7 MEQ/L (21.0-32.0); CALCIUM 8.8 MG/DL (8.5-10.1); CREATININE 1.06 MG/DL (0.50-1.00); MAGNESIUM 1.8 MG/DL (1.5-2.5)
[2018-04-16 05:58] LABS: PHOSPHORUS 2.6 MG/DL (2.5-4.9)
[2018-04-16] MEDS: CHLORHEXIDINE 0.12% (ORAL KIT) 15 ML CUP MT SCH ×2 (08:52→20:00)
[2018-04-16] MEDS: LOSARTAN 50 MG TAB PO SCH (08:53)
[2018-04-16] MEDS: LANSOPRAZOLE SOLUTAB 30 MG TAB G-TUBE SCH (08:53)
[2018-04-16] MEDS: amLODIPine BESYLATE 5 MG TAB PO SCH (08:53)
[2018-04-16] MEDS: DOCUSATE SODIUM 100 MG CAP PO SCH ×2 (08:53→20:32)
[2018-04-16] MEDS: FUROSEMIDE 40 MG TAB PO SCH (08:53)
[2018-04-16] MEDS: ARTIFICIAL TEARS OPTH SOLN 15 ML BTL EACH EYE SCH ×3 (08:53→18:00)
[2018-04-16] MEDS: ENOXAPARIN SODIUM 40 MG/0.4 ML SYRINGE SQ SCH (08:54)
[2018-04-16] MEDS: BISACODYL 10 MG SUPP RECTAL SCH (08:54)
[2018-04-16] MEDS: SODIUM CHLORIDE 0.9% FLUSH 10 ML FLUSH IV FLUSH SCH (09:27)
--- NOTE | 2018-04-16 12:13 | HHI.CCPN ---
Subjective Remarks/Hospital Course This is a 73-year-old AA female. Admission 04/10/2018. Please note no family is available and all information is obtained by reviewing the medical record from ED physician. Past medical history includes hypertension, hyperlipidemia, gastroesophageal disease, diabetes mellitus, elevated BMI and gout. 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 She presented to [facility] with the following history. At approximately 2:30 PM and patient was reportedly fine and daughter came to visit her mother. Then at approximately 5:20 PM found her sitting in the dark by the stair unresponsive. EMS upon marketing designer arrival patient reportedly had approximately 4 generalized tonic-clonic seizures and then patient was transported from the house. Upon arrival here daughter states that patient was witnessed to have approximately 2 minute episode of seizure activity and patient did receive 2 mg of lorazepam IV. According to daughter patient has been compliant with her medications gives herself her medications low-salt by herself and is very independent. after being found home by daughter with new onset seizure. No prior history of seizure activity. Denies any trauma at home to the brain. CT brain revealed 3.1 cm right frontal intra-axial hemorrhage with a 3 mm right to left shift. She received 2 mg lorazepam IV 1 was loaded with fosphenytoin 1 g. Neurosurgery was consulted/Dr. Parson. Recommended blood pressure control with inpatient admission to ICU with consultation to neurosurgery. Patient was intubated in the ED by physician after receiving etomidate and rocuronium... 04/11: remains on the vent, in critical condition. hypoxic. 04/12: hypoxia somewhat improving. following commands on the vent. per nsgy, can wean to extubate soon. some edema likely contributing to poor neuro exam, although slow improvements. 04/13: following commands. however, remains hypoxic on 60% fio2. tube feeds initiated this AM and concern over aspiration of tube feeds out endotracheal tube. CXR demonstrates adequate placement of gastric tube and ETT. ICPs remain controlled, and appropriate hypernatremia. 04/14: Repeat CT brain today revealed improved right frontal intraparenchymal hemorrhage. Patient status post right bur hole for ICP monitoring. T-max 100.9. Currently 99. Subjective: 04/15: TIFFANIE x 2 was removed today. Currently on propofol 50 mcg/kg an hour and fentanyl drip at 250 mcg an hour. Follows commands. Worsening oxygenation status today. Coarse breath sounds with thick greenish secretions noted. Sample will be sent today. 04/16: CXR with diffuse interstitial edema. Tolerating weaning of PEEP to 8 but increased MAP still required. No new seizures. Objective Vital Signs Date Time Temp Pulse Resp B/P (MAP) Pulse Ox O2 Delivery O2 Flow Rate FiO2 04/16/18 10:00 87 04/16/18 09:02 93 40 04/16/18 08:00 99.0 20 111/25 (53) Intake and Output 04/16/18 04/16/18 04/16/18 07:59 15:59 23:59 Intake Total 2530 ml 90 ml Output Total 250 ml Balance 2280 ml 90 ml Result Diagram: 04/16/18 0504/16/18 05 Imaging Last Impressions Chest X-Ray 04/15/18 0600 Signed Impressions: CONCLUSION: Increased bilateral perihilar pulmonary parenchymal opacity suggesting increase d pulmonary edema. Head CT 04/14/18 0000 Signed Impressions: CONCLUSION: 1. Interval improvement following drainage of a right orbital frontal hemorrha ge. 2. Ventricular size is appropriate. 3. No extra-axial fluid remains. Abdomen X-Ray 04/14/18 0000 Signed Impressions: CONCLUSION: Unremarkable study. Lower Extremity Ultrasound 04/12/18 0000 Signed Impressions: On the right, the common femoral vein, greater saphenous vein, popliteal and pe roneal veins are patent as well as the right iliac vein. The femoral vein is no t clearly visualized due to soft tissue swelling and body habitus. The posterio r tibial vein is also not clearly seen. On the left, the posterior tibial vein is not clearly visualized. The popliteal, peroneal, iliac, common femoral, grea ter saphenous vein, and femoral veins are patent. CONCLUSION: 1. Visualized veins are patent without evidence for DVT. 2. The right femoral and posterior tibial vein and the left posterior tibial v ein are not clearly visualized. Brain MRI 04/11/18 0903 Signed Impressions: CONCLUSION: 1. 4 cm intraparenchymal hemorrhage involving the right frontal lobe without u nderlying mass. 2. Tiny focus of blooming artifact involving the left frontal lobe likely rela ting to a small focus of intraparenchymal hemorrhage on that side. 3. Chronic small vessel ischemic change. 4. Fluid signal within the mastoid air cells bilaterally. Clinical evaluation for any signs of acute mastoiditis suggested. 5. Right maxillary sinusitis. Head Magnetic Resonance Angiography 04/11/18 0000 Signed Impressions: CONCLUSION: Intracranial arterial vasculature has a normal appearance. Objective Remarks GENERAL: 73-year-old AA female currently resting in bed orotracheally intubated SKIN: Warm and dry. HEAD: bolt exits from head, wrapped in Kerlix. EYES: Pupils equal and round 2 mm bilaterally reactive to. Disconjugate gaze to left.. No scleral icterus. No injection or drainage. ENT: No nasal bleeding or discharge. Mucous membranes pink and moist. NECK: Trachea midline. Orally intubated. CARDIOVASCULAR: Regular rate and rhythm. sinus. No JVD. RESPIRATORY: Diminished. Symmetrical excursion. Breath sounds equal bilaterally. GASTROINTESTINAL: Abdomen soft, non-tender, obese. no guarding. BS active, no guarding. MUSCULOSKELETAL: Extremities trace bilateral lower extremity nonpitting edema. No obvious deformities. NEUROLOGICAL: Spontaneous movement right and upper lower extremity. Withdrew to left lower extremity. Positive cough and gag. Date of Insertion: Apr 10, 2018 Line: Central Venous Catheter Side: Left Location: Internal, Jugular A/P Assessment and Plan Neuro/Psych: Acute right frontal intra-axial hemorrhage 3.1 cm at the right to left shift of 3 mm New onset seizure Status post right frontal craniotomy 04/11 with right bur hole with ICP monitor placement Currently on propofol drip at 50 mcg/kg/min/fentanyl drips at 250 mcg an hour for sedation/analgesia while intubated Goal of RASS -2 Daily sedation vacation Acetaminophen 650 mg by tube every 6 hours as needed fever brain CT in a.m. 04/11: slight increase in frontal hemorrhage. Brain CT 6 abdomen reveals improvement/status post evacuation hematoma Neurosurgery/Dr. Parson to follow Keep systolic blood pressure < 140 Replacement 3% saline currently at 10 cc an hour No mannitol per neurosurgery Seizure with fosphenytoin 100 mg every 8 hours. Loaded in ED. phenytoin level 13. Currently discontinued Switch to levetiracetam 500 IV twice daily EEG 04/11 revealed moderate encephalopathy. No epileptiform activity TIFFANIE -85 cc SS removed 04/15 CV: Hypertensive Emergency Hyperlipidemia As needed labetalol and nicardipine drip goal sbp < 140 On home metoprolol tartrate 25 mg twice daily, amlodipine 2.5 mg a day, hydrochlorthiazide 25 mg daily losartan 100 mg daily. Resume amlodipine 2.5 mg daily and losartan 100 mg daily. Continue furosemide 40 mg daily Resp: Acute hypoxic and hypercarbic respiratory failure [facility] [address]50/1.01/10/40 Ventilator bundle Albuterol/ipratropium aerosols every 6 hours with albuterol aerosols every 2 hours as needed dyspnea start SBTs. hypoxia concerning, possible aspiration, although afebrile with normal wbc. will avoid abx. aggressive suctioning. have increased PEEP. slow weaning of mechanical ventilation. wean fio2 for goal spo2 > 90% GI: Gastroesophageal reflux disease Elevated AST increase bowel regimen. Currently on vital high-protein goal 70 cc an hour. Lansoprazole 30 mg daily for GI prophylaxis. On omeprazole 40 mg daily at home Docusate sodium/senna 1 tablet twice daily for bowel regimen. Add polythene glycol 17 g twice daily and lactulose 30 cc 4 times daily. 1 dose of methylnaltrexone 12 mg subcu 1 and mineral oil 30 cc 1 now. : does not require mayo catheter. Endo: Diabetes mellitus History of gout Holding metformin 1000mg twice daily/home medication Novulog medium protocol Accu-Cheks every 6 hours to maintain euglycemia Holding colchicine 0.6 mg. Resume clinically indicated Add Levemir 8 units every 12 hours Renal: Acute kidney injury? 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 Holding anticoagulation in light of acute brain hemorrhage ID: Monitor for signs and symptomatology of infection MSK: Elevated BMI Weight loss encouraged PT evaluate and treat FEN: Hypernatremia Replace electrolytes as clinically indicated Access -Utilize peripheral IV. Prophylaxis -GI -lansoprazole -DVT -SCD/holding pharmacological prophylaxis light of acute right frontal intracranial hemorrhage Overall impression: Remains critically ill and ventilator dependent following surgical treatment for acute right frontal lobe hemorrhage. Glucose intolerance and fluid accumulation remain problematic. Unable to separate from ventilator. Critical care time 40 minutes aside from procedures. Jonathon Ramos MD Apr 16, 2018 12:13
[2018-04-16] MEDS: INSULIN DETEMIR 100 UNITS/ML VIAL SQ SCH ×2 (12:18→21:38)
[2018-04-16] MEDS: 3% SALINE INJ 500 ML IV SCH (13:48)
[2018-04-17] VITALS (16 sets, daily range): BP systolic 113–135; BP diastolic 55–63; PULSE 82–92; RESP 16–23; TEMP 99.6–100.8; O2SAT 92–96
[2018-04-17] MEDS: PROPOFOL 1000 MG/100 ML INJ 100 ML IV PRN ×6 (00:55→23:02)
[2018-04-17] MEDS: levETIRAcetam INJ 500 MG in SODIUM CHLORIDE 0.9% INJ 100 ML IV SCH ×2 (00:55→12:56)
[2018-04-17] MEDS: RESP: ALBUTEROL 2.5 MG/IPRATROPIUM 0.5 MG NEB (SCH) INH ×4 (03:08→19:58)
[2018-04-17] MEDS: RESP: SODIUM CHLORIDE 3% 4 ML NEB NEB SCH ×3 (03:08→19:58)
[2018-04-17] MEDS: INSULIN ASPART SUPPLEMENTAL SCALE SQ SCH ×7 (04:00→23:49)
[2018-04-17] MEDS: CHLORHEXIDINE GLUCONATE 2 % 1 PACK (2 CLOTHS) TOP SCH (04:00)
[2018-04-17] MEDS: fentaNYL DRIP 250 ML IV PRN (04:06)
[2018-04-17 05:58] LABS: HEMATOCRIT 29.5 % (35.0-46.0); HEMOGLOBIN 9.7 GM/DL (11.6-15.3); MEAN CELL VOLUME 92.3 FL (80.0-100.0); MEAN CORPUSCULAR HEMOGLOBIN 30.3 PG (27.0-34.0); MEAN CORPUSCULAR HGB CONC 32.8 % (32.0-36.0); MEAN PLATELET VOLUME 9.5 FL (7.0-11.0); PLATELET COUNT 149 TH/MM3 (150-450); RED CELL DISTRIBUTION WIDTH 14.6 % (11.6-17.2); WHITE BLOOD COUNT 7.9 TH/MM3 (4.0-11.0)
[2018-04-17 06:22] LABS: BICARBONATE 26.1 MEQ/L (21.0-32.0); CALCIUM 9.2 MG/DL (8.5-10.1); CREATININE 0.91 MG/DL (0.50-1.00); MAGNESIUM 1.5 MG/DL (1.5-2.5); PHOSPHORUS 2.3 MG/DL (2.5-4.9)
[2018-04-17] MEDS: CHLORHEXIDINE 0.12% (ORAL KIT) 15 ML CUP MT SCH ×2 (08:00→20:00)
[2018-04-17] MEDS: LANSOPRAZOLE SOLUTAB 30 MG TAB G-TUBE SCH (08:56)
[2018-04-17] MEDS: ENOXAPARIN SODIUM 40 MG/0.4 ML SYRINGE SQ SCH (08:56)
[2018-04-17] MEDS: amLODIPine BESYLATE 5 MG TAB PO SCH (08:57)
[2018-04-17] MEDS: FUROSEMIDE 40 MG TAB PO SCH ×2 (08:57→20:35)
[2018-04-17] MEDS: LOSARTAN 50 MG TAB PO SCH (08:57)
[2018-04-17] MEDS: DOCUSATE SODIUM 100 MG CAP PO SCH ×2 (08:57→20:35)
[2018-04-17] MEDS: SODIUM CHLORIDE 0.9% FLUSH 10 ML FLUSH IV FLUSH SCH (08:58)
[2018-04-17] MEDS: BISACODYL 10 MG SUPP RECTAL SCH (08:58)
[2018-04-17] MEDS: ARTIFICIAL TEARS OPTH SOLN 15 ML BTL EACH EYE SCH ×3 (08:58→18:00)
[2018-04-17] MEDS: INSULIN DETEMIR 100 UNITS/ML VIAL SQ SCH ×2 (08:59→20:35)
--- NOTE | 2018-04-17 11:25 | HHI.CCPN ---
Subjective Remarks/Hospital Course This is a 73-year-old AA female. Admission 04/10/2018. Please note no family is available and all information is obtained by reviewing the medical record from ED physician. Past medical history includes hypertension, hyperlipidemia, gastroesophageal disease, diabetes mellitus, elevated BMI and gout. 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 She presented to [facility] with the following history. At approximately 2:30 PM and patient was reportedly fine and daughter came to visit her mother. Then at approximately 5:20 PM found her sitting in the dark by the stair unresponsive. EMS upon computer animator arrival patient reportedly had approximately 4 generalized tonic-clonic seizures and then patient was transported from the house. Upon arrival here daughter states that patient was witnessed to have approximately 2 minute episode of seizure activity and patient did receive 2 mg of lorazepam IV. According to daughter patient has been compliant with her medications gives herself her medications low-salt by herself and is very independent. after being found home by daughter with new onset seizure. No prior history of seizure activity. Denies any trauma at home to the brain. CT brain revealed 3.1 cm right frontal intra-axial hemorrhage with a 3 mm right to left shift. She received 2 mg lorazepam IV 1 was loaded with fosphenytoin 1 g. Neurosurgery was consulted/Dr. Parson. Recommended blood pressure control with inpatient admission to ICU with consultation to neurosurgery. Patient was intubated in the ED by physician after receiving etomidate and rocuronium... 04/11: remains on the vent, in critical condition. hypoxic. 04/12: hypoxia somewhat improving. following commands on the vent. per nsgy, can wean to extubate soon. some edema likely contributing to poor neuro exam, although slow improvements. 04/13: following commands. however, remains hypoxic on 60% fio2. tube feeds initiated this AM and concern over aspiration of tube feeds out endotracheal tube. CXR demonstrates adequate placement of gastric tube and ETT. ICPs remain controlled, and appropriate hypernatremia. 04/14: Repeat CT brain today revealed improved right frontal intraparenchymal hemorrhage. Patient status post right bur hole for ICP monitoring. T-max 100.9. Currently 99. Subjective: 04/15: TIFFANIE x 2 was removed today. Currently on propofol 50 mcg/kg an hour and fentanyl drip at 250 mcg an hour. Follows commands. Worsening oxygenation status today. Coarse breath sounds with thick greenish secretions noted. Sample will be sent today. 04/16: CXR with diffuse interstitial edema. Tolerating weaning of PEEP to 8 but increased MAP still required. No new seizures. 04/17: Good response to diuresis yesterday, need to increase to twice daily Lasix. Tolerating CPAP today on spontaneous breathing trial pressure 15/8. Osmolality acceptable but will not allow to decline any further. Objective Vital Signs Date Time Temp Pulse Resp B/P (MAP) Pulse Ox O2 Delivery O2 Flow Rate FiO2 04/17/18 07:45 45 04/17/18 07:45 93 04/17/18 06:00 86 04/17/18 04:00 99.7 18 128/63 (84) Intake and Output 04/17/18 04/17/18 04/18/18 08:00 16:00 00:00 Intake Total 1152 ml Output Total 1150 ml Balance 2 ml Result Diagram: 04/17/18 0530 04/17/18 0530 Imaging Last Impressions Chest X-Ray 04/15/18 0600 Signed Impressions: CONCLUSION: Increased bilateral perihilar pulmonary parenchymal opacity suggesting increase d pulmonary edema. Head CT 04/14/18 0000 Signed Impressions: CONCLUSION: 1. Interval improvement following drainage of a right orbital frontal hemorrha ge. 2. Ventricular size is appropriate. 3. No extra-axial fluid remains. Abdomen X-Ray 04/14/18 0000 Signed Impressions: CONCLUSION: Unremarkable study. Lower Extremity Ultrasound 04/12/18 0000 Signed Impressions: On the right, the common femoral vein, greater saphenous vein, popliteal and pe roneal veins are patent as well as the right iliac vein. The femoral vein is no t clearly visualized due to soft tissue swelling and body habitus. The posterio r tibial vein is also not clearly seen. On the left, the posterior tibial vein is not clearly visualized. The popliteal, peroneal, iliac, common femoral, grea ter saphenous vein, and femoral veins are patent. CONCLUSION: 1. Visualized veins are patent without evidence for DVT. 2. The right femoral and posterior tibial vein and the left posterior tibial v ein are not clearly visualized. Brain MRI 04/11/18 0903 Signed Impressions: CONCLUSION: 1. 4 cm intraparenchymal hemorrhage involving the right frontal lobe without u nderlying mass. 2. Tiny focus of blooming artifact involving the left frontal lobe likely rela ting to a small focus of intraparenchymal hemorrhage on that side. 3. Chronic small vessel ischemic change. 4. Fluid signal within the mastoid air cells bilaterally. Clinical evaluation for any signs of acute mastoiditis suggested. 5. Right maxillary sinusitis. Head Magnetic Resonance Angiography 04/11/18 0000 Signed Impressions: CONCLUSION: Intracranial arterial vasculature has a normal appearance. Objective Remarks GENERAL: 73-year-old AA female currently resting in bed orotracheally intubated SKIN: Warm and dry. HEAD: bolt exits from head, wrapped in Kerlix. EYES: Pupils equal and round 2 mm bilaterally reactive to. Disconjugate gaze to left. No scleral icterus. No injection or drainage. ENT: No nasal bleeding or discharge. Mucous membranes pink and moist. NECK: Trachea midline. Orally intubated. CARDIOVASCULAR: Regular rate and rhythm. Remains sinus. No JVD. RESPIRATORY: Diminished. Symmetrical excursion. Breath sounds equal bilaterally. Scattered rhonchi. GASTROINTESTINAL: Abdomen soft, non-tender, obese. no guarding. BS active, no guarding. MUSCULOSKELETAL: Extremities trace bilateral lower extremity nonpitting edema. No obvious deformities. NEUROLOGICAL: Spontaneous movement right and upper lower extremity. Withdrew to left lower extremity. Positive cough and gag. Date of Insertion: Apr 10, 2018 Line: Central Venous Catheter Side: Left Location: Internal, Jugular A/P Assessment and Plan Neuro/Psych: Acute right frontal intra-axial hemorrhage 3.1 cm at the right to left shift of 3 mm New onset seizure Status post right frontal craniotomy 04/11 with right bur hole with ICP monitor placement Currently on propofol drip at 50 mcg/kg/min/fentanyl drips at 250 mcg an hour for sedation/analgesia while intubated Goal of RASS -2 Daily sedation vacation Acetaminophen 650 mg by tube every 6 hours as needed fever brain CT in a.m. 04/11: slight increase in frontal hemorrhage. Brain CT 6 abdomen reveals improvement/status post evacuation hematoma Neurosurgery/Dr. Parson to follow Keep systolic blood pressure < 140 Replacement 3% saline currently at 10 cc an hour No mannitol per neurosurgery Seizure with fosphenytoin 100 mg every 8 hours. Loaded in ED. phenytoin level 13. Currently discontinued Switch to levetiracetam 500 IV twice daily EEG 04/11 revealed moderate encephalopathy. No epileptiform activity TIFFANIE -85 cc SS removed 04/15 CV: Hypertensive Emergency Hyperlipidemia As needed labetalol and nicardipine drip goal sbp < 140 On home metoprolol tartrate 25 mg twice daily, amlodipine 2.5 mg a day, hydrochlorthiazide 25 mg daily losartan 100 mg daily. Resume amlodipine 2.5 mg daily and losartan 100 mg daily. Continue furosemide 40 mg daily Resp: Acute hypoxic and hypercarbic respiratory failure [facility] 16//1.01/10/40 Ventilator bundle Albuterol/ipratropium aerosols every 6 hours with albuterol aerosols every 2 hours as needed dyspnea start SBTs. hypoxia concerning, possible aspiration, although afebrile with normal wbc. will avoid abx. aggressive suctioning. have increased PEEP. slow weaning of mechanical ventilation. wean fio2 for goal spo2 > 90% GI: Gastroesophageal reflux disease Elevated AST increase bowel regimen. Currently on vital high-protein goal 70 cc an hour. Lansoprazole 30 mg daily for GI prophylaxis. On omeprazole 40 mg daily at home Docusate sodium/senna 1 tablet twice daily for bowel regimen. Add polythene glycol 17 g twice daily and lactulose 30 cc 4 times daily. 1 dose of methylnaltrexone 12 mg subcu 1 and mineral oil 30 cc 1 now. : does not require mayo catheter. Endo: Diabetes mellitus History of gout Holding metformin 1000mg twice daily/home medication Novulog medium protocol Accu-Cheks every 6 hours to maintain euglycemia Holding colchicine 0.6 mg. Resume clinically indicated Add Levemir 8 units every 12 hours, increased today to 10 units twice daily Renal: Acute kidney injury? 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 Holding anticoagulation in light of acute brain hemorrhage ID: Monitor for signs and symptomatology of infection MSK: Elevated BMI Weight loss encouraged PT evaluate and treat FEN: Hypernatremia Replace electrolytes as clinically indicated Access -Utilize peripheral IV. Prophylaxis -GI -lansoprazole -DVT -SCD/holding pharmacological prophylaxis light of acute right frontal intracranial hemorrhage Overall impression: Remains critically ill and ventilator dependent following surgical treatment for acute right frontal lobe hemorrhage. Glucose intolerance and fluid accumulation remain problematic. Unable to separate from ventilator. Requiring very aggressive antihypertensive therapy still. Critical care time 38 minutes aside from procedures. Jonathon Ramos MD Apr 17, 2018 11:25
--- NOTE | 2018-04-17 13:51 | HHI.NSPN ---
(Mary Grace Roman) Note Status Status: Progress Note (Mary Grace Roman) Interval History Interval History This is a 73-year-old Black female. with history includes hypertension, hyperlipidemia, gastroesophageal disease, diabetes mellitus, elevated BMI and gout. 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 She presented to [facility] with altered mental status. At approximately 5:20 PM found her sitting in the dark by the stair unresponsive. EMS upon insurance solicitor arrival patient reportedly had approximately 4 generalized tonic-clonic seizures and then patient was transported from the house. Upon arrival here daughter states that patient was witnessed to have approximately 2 minute episode of seizure activity and patient did receive 2 mg of lorazepam IV. According to daughter patient has been compliant with her medications. No prior history of seizure activity. Denies any trauma at home to the brain. CT brain revealed 3.1 cm right frontal intra-axial hemorrhage with a 3 mm right to left shift. She received 2 mg lorazepam IV 1 was loaded with fosphenytoin 1 g. Neurosurgery consultation was requestedThe patient was intubated in the ED by physician for airway protection and acute respiratory failure Ms. Amaya underwent a right frontal craniotomy for evacuation of hemorrhagic mass, and with placement of ICP monitor 04/11/18. 04/14: intubated, mildly sedated but opens eyes when stimulated, followed simple commands. ICPs controlled. 04/15: intubated, sedated. nrs reports blood pressure elevates when sedation lowered. continues to follow commands 04/17: remains intubated, sedated, undergoing CPAP trials. (Mary Grace Roman) Labs, Micro, & Vital Signs Results Date Time Temp Pulse Resp B/P (MAP) Pulse Ox O2 Delivery O2 Flow Rate FiO2 04/17/18 12:00 45 04/17/18 11:49 92 45 04/17/18 08:00 45 04/17/18 07:45 45 04/17/18 07:45 93 45 04/17/18 06:00 86 04/17/18 04:00 86 04/17/18 04:00 45 04/17/18 04:00 99.7 86 18 128/63 (84) 93 04/17/18 03:09 96 45 04/17/18 02:00 92 04/17/18 00:00 45 04/17/18 00:00 99.8 84 16 135/63 (87) 96 04/17/18 00:00 84 04/16/18 23:58 96 45 04/16/18 22:00 84 04/16/18 20:00 100.4 82 20 123/58 (79) 96 04/16/18 20:00 82 04/16/18 20:00 45 04/16/18 19:54 97 45 04/16/18 18:00 86 04/16/18 16:13 96 45 04/16/18 16:00 45 04/16/18 16:00 86 04/16/18 16:00 99.0 86 18 144/65 (91) 95 04/16/18 14:00 86 Constitutional Vital Signs Date Time Temp Pulse Resp B/P (MAP) Pulse Ox O2 Delivery O2 Flow Rate FiO2 04/17/18 12:00 45 04/17/18 11:49 92 45 04/17/18 08:00 45 04/17/18 07:45 45 04/17/18 07:45 93 45 04/17/18 06:00 86 04/17/18 04:00 86 04/17/18 04:00 45 04/17/18 04:00 99.7 86 18 128/63 (84) 93 04/17/18 03:09 96 45 04/17/18 02:00 92 04/17/18 00:00 45 04/17/18 00:00 99.8 84 16 135/63 (87) 96 04/17/18 00:00 84 04/16/18 23:58 96 45 04/16/18 22:00 84 04/16/18 20:00 100.4 82 20 123/58 (79) 96 04/16/18 20:00 82 04/16/18 20:00 45 04/16/18 19:54 97 45 04/16/18 18:00 86 04/16/18 16:13 96 45 04/16/18 16:00 45 04/16/18 16:00 86 04/16/18 16:00 99.0 86 18 144/65 (91) 95 04/16/18 14:00 86 (Mary Grace Roman) Review of Systems ROS Limitations: Intubated (Mary Grace Roman) Physical Exam Ms. Amaya is intubated and sedated She opens eyes and followed few simple commands. Cranial Nerves: Pupils equal. Wound healing well, no redness, drainage, or other signs of infection, clean and dry Motor: squeezed both hands and moved both legs to commands (Mary Grace Roman) Medications Current Medications Current Medications Medications (Trade) Dose Ordered Sig/J Carlos Route PRN Reason Start Time Stop Time Status Last Admin Dose Admin Lorazepam (Ativan Inj) 2 mg ONCE PRN IV PUSH SEIZURES 04/10/18 19:30 04/10/18 20:01 Nicardipine HCl 25 mg/Sodium Chloride 260 ml @ 52 mls/hr TITRATE PRN IV Blood pressure management 04/10/18 20:00 04/11/18 18:37 Lansoprazole (Prevacid Odt) 30 mg DAILY G-TUBE 04/11/18 09:00 04/17/18 08:56 Artificial Tears (Tears Naturale Opth Soln) 1 drop TID EACH EYE 04/11/18 09:00 04/17/18 12:56 Miscellaneous Information ([facility] [place] [facility]) 1 [id number] XX 04/10/18 20:30 04/10/18 20:30 Chlorhexidine Gluconate (Chlorhexidine 2% Cloth) Taper DAILY@04 TOP 04/11/18 04:00 04/07/19 03:59 04/17/18 04:00 Chlorhexidine Gluconate (Chlorhexidine 2% Cloth) 3 pack UNSCH PRN TOP HYGIENIC CARE 04/10/18 20:30 Sennosides (Senokot) 17.2 mg Q12H PRN PO Moderate constipation 04/10/18 20:30 Bisacodyl (Dulcolax Supp) 10 mg DAILY PRN RECTAL SEVERE CONSITIPATION 04/10/18 20:30 Chlorhexidine Gluconate (Peridex 0.12% Liq) 15 ml BID@08,20 MT 04/11/18 08:00 04/17/18 08:00 Propofol 100 ml @ 3.6 mls/hr TITRATE PRN IV SEDATION 04/10/18 20:30 04/17/18 12:01 Fentanyl Citrate 250 ml @ 5 mls/hr TITRATE PRN IV SEDATION 04/10/18 20:30 04/17/18 04:06 Potassium Chloride 100 ml @ 50 mls/hr Q2H PRN IV For Potassium 2.8 - 3.2 mEq/L 04/10/18 20:30 Potassium Chloride 100 ml @ 50 mls/hr Q2H PRN IV For Potassium 2.8 - 3.2 mEq/L 04/10/18 20:30 Potassium Bicarb/ Potassium Chloride (K-Lyte Cl Eff) 50 meq UNSCH PRN PO For Potassium 3.3 - 3.5 mEq/L 04/10/18 20:30 Potassium Chloride 100 ml @ 25 mls/hr UNSCH PRN IV For Potassium 3.3 - 3.5 mEq/L 04/10/18 20:30 Potassium Chloride 100 ml @ 50 mls/hr Q2H PRN IV For Potassium 3.3 - 3.5 mEq/L 04/10/18 20:30 Magnesium Sulfate 4 gm/Sodium Chloride 100 ml @ 50 mls/hr UNSCH PRN IV For Magnesium 0.9 - 1.1 mg/dL 04/10/18 20:30 04/11/18 06:38 Magnesium Oxide (Mag-Ox) 800 mg UNSCH PRN PO For Magnesium 1.2 - 1.6 mg/dL 04/10/18 20:30 Magnesium Sulfate 2 gm/Sodium Chloride 100 ml @ 50 mls/hr UNSCH PRN IV For Magnesium 1.2 - 1.6 mg/dL 04/10/18 20:30 Potassium Phosphate (K-Phos) 2,000 mg Q4H PRN PO For Phosphorus < 2.5 mg/dL 04/10/18 20:30 Sodium Phosphate 30 mmol/Sodium Chloride 250 ml @ 42 mls/hr UNSCH PRN IV For Phosphorus < 2.5 mg/dL 04/10/18 20:30 Potassium Phosphate (K-Phos) 2,000 mg UNSCH PRN PO/TUBE SEE LABEL COMMENTS 04/10/18 20:30 Potassium Phosphate 30 mmol/ Sodium Chloride 260 ml @ 42 mls/hr UNSCH PRN IV SEE LABEL COMMENTS 04/10/18 20:30 04/11/18 06:38 Dextrose (D50w (Vial) Inj) 50 ml UNSCH PRN IV PUSH HYPOGLYCEMIA-SEE COMMENTS 04/10/18 20:30 Glucagon (Glucagon Inj) 1 mg UNSCH PRN OTHER HYPOGLYCEMIA-SEE COMMENTS 04/10/18 20:30 Insulin Aspart (NovoLOG SUPPLEMENTAL SCALE) 1 Q4HR SQ 04/11/18 00:00 04/17/18 12:00 Labetalol HCl (Trandate Inj) 10 mg Q1HR PRN IV PUSH SBP>140, DBP>90, HR>65 04/10/18 20:30 04/16/18 01:13 Amlodipine Besylate (Norvasc) 2.5 mg DAILY PO 04/11/18 09:00 04/17/18 08:57 Miscellaneous (Pill Splitter) 1 ea UNSCH PRN OTHER SEE LABEL COMMENTS 04/10/18 20:45 Sodium Chloride 500 ml @ 30 mls/hr CONTINUOUS IV 04/10/18 22:30 04/16/18 13:48 Sodium Chloride (NS Flush) DAILY IV FLUSH 04/11/18 09:00 04/17/18 08:58 Sodium Chloride (NS Flush) UNSCH PRN IV FLUSH SEE PROTOCOL 04/10/18 23:00 Norepinephrine Bitartrate 4 mg/ Sodium Chloride 250 ml @ 7.5 mls/hr TITRATE PRN IV Blood pressure management 04/10/18 23:00 04/12/18 18:23 Terbutaline Sulfate (Brethine Inj) 1 mg UNSCH PRN SQ For Extravasation 04/10/18 23:00 Levetriacetam 500 mg/Sodium Chloride 105 ml @ 400 mls/hr Q12H IV 04/12/18 02:00 04/17/18 12:56 Docusate Sodium (Colace) 100 mg BID PO 04/11/18 21:00 04/17/18 08:57 Ondansetron HCl (Zofran Odt) 4 mg Q6H PRN PO NAUSEA OR VOMITING 04/11/18 14:45 Calcium Gluconate (Calcium Gluconate Inj) 1 gm UNSCH PRN IV SEE LABEL COMMENTS 04/11/18 14:45 Potassium Chloride 100 ml @ 50 mls/hr UNSCH PRN IV POTASSIUM LESS THAN 4 04/11/18 14:45 Magnesium Sulfate 4 gm/Sodium Chloride 108 ml @ 108 mls/hr UNSCH PRN IV MAGNESIUM LESS THAN 2 04/11/18 14:45 Acetaminophen (Tylenol) 650 mg Q4H PRN PO TEMPERATURE > 101.5 F 04/11/18 14:45 Bisacodyl (Dulcolax Supp) 10 mg DAILY RECTAL 04/14/18 09:00 04/17/18 08:58 Albuterol/ Ipratropium (Duoneb Neb) 1 ampule Q6HR NEB INH 04/14/18 22:00 04/17/18 08:01 Albuterol Sulfate (Albuterol Neb) 2.5 mg Q2HR NEB PRN NEB dyspnea 04/14/18 17:00 Losartan Potassium (Cozaar) 100 mg DAILY PO 04/15/18 09:00 04/17/18 08:57 Sodium Chloride (Sodium Chloride 3% Neb) 2 ml Q6HR NEB NEB 04/15/18 16:00 04/20/18 15:59 04/17/18 03:08 Enoxaparin Sodium (Lovenox Inj) 40 mg Q24H SQ 04/16/18 09:00 04/17/18 08:56 Furosemide (Lasix) 40 mg Q12H PO 04/17/18 21:00 Insulin Detemir (Levemir Inj) 10 units Q12HR SQ 04/17/18 21:00 (Mary Grace Roman) Medical Decision Making MDM Remarks 73 y/o female presented with AMS and seizures, CT brain revealed 3.1 cm right frontal intra-axial hemorrhage with a 3 mm right to left shift. MRI Brain w/wo contrast showed no underlying mass, MRA Head unremarkable Ms. Amaya underwent a right frontal craniotomy for evacuation of hemorrhagic mass, and with placement of ICP monitor 04/11/18, ICP monitor removed 04/14/18 final pathology reports hematoma EEG 04/11/18 reports no epileptiform discharges, mild to moderate encephalopathy Head CT 04/14/18 Impressions: CONCLUSION: 1. Interval improvement following drainage of a right orbital frontal hemorrhage. 2. Ventricular size is appropriate. 3. No extra-axial fluid remains (Mary Grace Roman) Plan Plan Remarks cont neuro checks cont sedation wean cont CPAP trials and vent weaning per critical care cont AEDs, seizure precautions cont critical care management (Mary Grace Roman) Attending Statement The exam, history, and the medical decision-making described in the above note were completed with the assistance of the mid-level provider. I reviewed and agree with the findings presented. I attest that I had a [id number] encounter with the patient on the same day, and personally performed and documented my assessment and findings in the medical record. (Harrison Parson MD) Mary Grace Roman Apr 17, 2018 13:51 Harrison Parson MD Apr 26, 2018 18:10
[2018-04-18] VITALS (18 sets, daily range): BP systolic 122–141; BP diastolic 58–69; PULSE 5–95; RESP 16–32; TEMP 98.9–103; O2SAT 91–100
[2018-04-18] MEDS: levETIRAcetam INJ 500 MG in SODIUM CHLORIDE 0.9% INJ 100 ML IV SCH ×2 (01:21→12:21)
[2018-04-18] MEDS: ACETAMINOPHEN 325 MG TAB PO PRN ×2 (01:21→12:46)
[2018-04-18] MEDS: PROPOFOL 1000 MG/100 ML INJ 100 ML IV PRN ×7 (03:08→23:49)
[2018-04-18] MEDS: RESP: SODIUM CHLORIDE 3% 4 ML NEB NEB SCH ×4 (03:17→19:49)
[2018-04-18] MEDS: RESP: ALBUTEROL 2.5 MG/IPRATROPIUM 0.5 MG NEB (SCH) INH ×3 (03:17→19:49)
[2018-04-18] MEDS: CHLORHEXIDINE GLUCONATE 2 % 1 PACK (2 CLOTHS) TOP SCH (04:00)
[2018-04-18] MEDS: INSULIN ASPART SUPPLEMENTAL SCALE SQ SCH ×5 (04:00→20:25)
[2018-04-18] MEDS: fentaNYL DRIP 250 ML IV PRN ×2 (06:25→20:24)
[2018-04-18 06:53] LABS: HEMATOCRIT 28.9 % (35.0-46.0); HEMOGLOBIN 9.6 GM/DL (11.6-15.3); MEAN CORPUSCULAR HEMOGLOBIN 30.5 PG (27.0-34.0); MEAN CORPUSCULAR HGB CONC 33.2 % (32.0-36.0); MEAN PLATELET VOLUME 9.8 FL (7.0-11.0); PLATELET COUNT 147 TH/MM3 (150-450); RED BLOOD COUNT 3.14 MIL/MM3 (4.00-5.30); RED CELL DISTRIBUTION WIDTH 14.3 % (11.6-17.2); WHITE BLOOD COUNT 6.7 TH/MM3 (4.0-11.0)
[2018-04-18 07:24] LABS: BICARBONATE 27.1 MEQ/L (21.0-32.0); CALCIUM 9.4 MG/DL (8.5-10.1); CREATININE 1.02 MG/DL (0.50-1.00)
[2018-04-18] MEDS: ENOXAPARIN SODIUM 40 MG/0.4 ML SYRINGE SQ SCH (08:37)
[2018-04-18] MEDS: amLODIPine BESYLATE 5 MG TAB PO SCH (08:38)
[2018-04-18] MEDS: LANSOPRAZOLE SOLUTAB 30 MG TAB G-TUBE SCH (08:38)
[2018-04-18] MEDS: DOCUSATE SODIUM 100 MG CAP PO SCH ×2 (08:38→20:24)
[2018-04-18] MEDS: LOSARTAN 50 MG TAB PO SCH (08:38)
[2018-04-18] MEDS: INSULIN DETEMIR 100 UNITS/ML VIAL SQ SCH ×2 (08:38→20:25)
[2018-04-18] MEDS: FUROSEMIDE 40 MG TAB PO SCH ×2 (08:38→20:24)
[2018-04-18] MEDS: ARTIFICIAL TEARS OPTH SOLN 15 ML BTL EACH EYE SCH ×3 (08:39→17:34)
[2018-04-18] MEDS: BISACODYL 10 MG SUPP RECTAL SCH (08:39)
[2018-04-18] MEDS: CHLORHEXIDINE 0.12% (ORAL KIT) 15 ML CUP MT SCH ×2 (08:39→20:25)
[2018-04-18] MEDS: SODIUM CHLORIDE 0.9% FLUSH 10 ML FLUSH IV FLUSH SCH (08:39)
--- NOTE | 2018-04-18 10:19 | HHI.CCPN ---
Subjective Remarks/Hospital Course This is a 73-year-old AA female. Admission 04/10/2018. Please note no family is available and all information is obtained by reviewing the medical record from ED physician. Past medical history includes hypertension, hyperlipidemia, gastroesophageal disease, diabetes mellitus, elevated BMI and gout. 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 She presented to [facility] with the following history. At approximately 2:30 PM and patient was reportedly fine and daughter came to visit her mother. Then at approximately 5:20 PM found her sitting in the dark by the stair unresponsive. EMS upon machine tool electrician arrival patient reportedly had approximately 4 generalized tonic-clonic seizures and then patient was transported from the house. Upon arrival here daughter states that patient was witnessed to have approximately 2 minute episode of seizure activity and patient did receive 2 mg of lorazepam IV. According to daughter patient has been compliant with her medications gives herself her medications low-salt by herself and is very independent. after being found home by daughter with new onset seizure. No prior history of seizure activity. Denies any trauma at home to the brain. CT brain revealed 3.1 cm right frontal intra-axial hemorrhage with a 3 mm right to left shift. She received 2 mg lorazepam IV 1 was loaded with fosphenytoin 1 g. Neurosurgery was consulted/Dr. Parson. Recommended blood pressure control with inpatient admission to ICU with consultation to neurosurgery. Patient was intubated in the ED by physician after receiving etomidate and rocuronium... 04/11: remains on the vent, in critical condition. hypoxic. 04/12: hypoxia somewhat improving. following commands on the vent. per nsgy, can wean to extubate soon. some edema likely contributing to poor neuro exam, although slow improvements. 04/13: following commands. however, remains hypoxic on 60% fio2. tube feeds initiated this AM and concern over aspiration of tube feeds out endotracheal tube. CXR demonstrates adequate placement of gastric tube and ETT. ICPs remain controlled, and appropriate hypernatremia. 04/14: Repeat CT brain today revealed improved right frontal intraparenchymal hemorrhage. Patient status post right bur hole for ICP monitoring. T-max 100.9. Currently 99. Subjective: 04/15: TIFFANIE x 2 was removed today. Currently on propofol 50 mcg/kg an hour and fentanyl drip at 250 mcg an hour. Follows commands. Worsening oxygenation status today. Coarse breath sounds with thick greenish secretions noted. Sample will be sent today. 04/16: CXR with diffuse interstitial edema. Tolerating weaning of PEEP to 8 but increased MAP still required. No new seizures. 04/17: Good response to diuresis yesterday, need to increase to twice daily Lasix. Tolerating CPAP today on spontaneous breathing trial pressure 15/8. Osmolality acceptable but will not allow to decline any further. 04/18: Requiring increased pressure support to breathe spontaneously today. Tapering sedation. Objective Vital Signs Date Time Temp Pulse Resp B/P (MAP) Pulse Ox O2 Delivery O2 Flow Rate FiO2 04/18/18 08:00 45 04/18/18 07:59 94 04/18/18 06:00 90 04/18/18 04:00 99.6 16 126/62 (83) Intake and Output 04/18/18 04/18/18 04/18/18 07:59 15:59 23:59 Intake Total 1109 ml Output Total 2175 ml Balance -1066 ml Result Diagram: 04/18/18 0549 04/18/18 0549 Imaging Last Impressions Chest X-Ray 04/15/18 0600 Signed Impressions: CONCLUSION: Increased bilateral perihilar pulmonary parenchymal opacity suggesting increase d pulmonary edema. Head CT 04/14/18 0000 Signed Impressions: CONCLUSION: 1. Interval improvement following drainage of a right orbital frontal hemorrha ge. 2. Ventricular size is appropriate. 3. No extra-axial fluid remains. Abdomen X-Ray 04/14/18 0000 Signed Impressions: CONCLUSION: Unremarkable study. Lower Extremity Ultrasound 04/12/18 0000 Signed Impressions: On the right, the common femoral vein, greater saphenous vein, popliteal and pe roneal veins are patent as well as the right iliac vein. The femoral vein is no t clearly visualized due to soft tissue swelling and body habitus. The posterio r tibial vein is also not clearly seen. On the left, the posterior tibial vein is not clearly visualized. The popliteal, peroneal, iliac, common femoral, grea ter saphenous vein, and femoral veins are patent. CONCLUSION: 1. Visualized veins are patent without evidence for DVT. 2. The right femoral and posterior tibial vein and the left posterior tibial v ein are not clearly visualized. Brain MRI 04/11/18 0903 Signed Impressions: CONCLUSION: 1. 4 cm intraparenchymal hemorrhage involving the right frontal lobe without u nderlying mass. 2. Tiny focus of blooming artifact involving the left frontal lobe likely rela ting to a small focus of intraparenchymal hemorrhage on that side. 3. Chronic small vessel ischemic change. 4. Fluid signal within the mastoid air cells bilaterally. Clinical evaluation for any signs of acute mastoiditis suggested. 5. Right maxillary sinusitis. Head Magnetic Resonance Angiography 04/11/18 0000 Signed Impressions: CONCLUSION: Intracranial arterial vasculature has a normal appearance. Objective Remarks GENERAL: 73-year-old AA female currently resting in bed orotracheally intubated SKIN: Warm and dry. HEAD: bolt exits from head, wrapped in Kerlix. EYES: Pupils equal and round 2 mm bilaterally reactive to. Disconjugate gaze to left. No scleral icterus. No injection or drainage. ENT: No nasal bleeding or discharge. Mucous membranes pink and moist. NECK: Trachea midline. Orally intubated. CARDIOVASCULAR: Regular rate and rhythm. Remains sinus. No JVD. RESPIRATORY: Diminished. Symmetrical excursion. Breath sounds equal bilaterally. Scattered rhonchi. GASTROINTESTINAL: Abdomen soft, non-tender, obese. no guarding. BS active, no guarding. MUSCULOSKELETAL: Extremities trace bilateral lower extremity nonpitting edema. No obvious deformities. NEUROLOGICAL: Spontaneous movement right and upper lower extremity. Withdrew to left lower extremity. Positive cough and gag. Date of Insertion: Apr 10, 2018 Line: Central Venous Catheter Side: Left Location: Internal, Jugular A/P Assessment and Plan Neuro/Psych: Acute right frontal intra-axial hemorrhage 3.1 cm at the right to left shift of 3 mm New onset seizure Status post right frontal craniotomy 04/11 with right bur hole with ICP monitor placement Currently on propofol drip at 50 mcg/kg/min/fentanyl drips at 250 mcg an hour for sedation/analgesia while intubated Goal of RASS -2 Daily sedation vacation Acetaminophen 650 mg by tube every 6 hours as needed fever brain CT in a.m. 04/11: slight increase in frontal hemorrhage. Brain CT 6 abdomen reveals improvement/status post evacuation hematoma Neurosurgery/Dr. Parson to follow Keep systolic blood pressure < 140 Replacement 3% saline currently at 10 cc an hour No mannitol per neurosurgery Seizure with fosphenytoin 100 mg every 8 hours. Loaded in ED. phenytoin level 13. Currently discontinued Switch to levetiracetam 500 IV twice daily EEG 04/11 revealed moderate encephalopathy. No epileptiform activity TIFFANIE -85 cc SS removed 04/15 CV: Hypertensive Emergency Hyperlipidemia As needed labetalol and nicardipine drip goal sbp < 140 On home metoprolol tartrate 25 mg twice daily, amlodipine 2.5 mg a day, hydrochlorthiazide 25 mg daily losartan 100 mg daily. Resume amlodipine 2.5 mg daily and losartan 100 mg daily. Continue furosemide 40 mg daily Resp: Acute hypoxic and hypercarbic respiratory failure PRVC 16/550/1.01/10/40 Ventilator bundle Albuterol/ipratropium aerosols every 6 hours with albuterol aerosols every 2 hours as needed dyspnea start SBTs. hypoxia concerning, possible aspiration, although afebrile with normal wbc. will avoid abx. aggressive suctioning. have increased PEEP. slow weaning of mechanical ventilation. wean fio2 for goal spo2 > 90% GI: Gastroesophageal reflux disease Elevated AST increase bowel regimen. Currently on vital high-protein goal 70 cc an hour. Lansoprazole 30 mg daily for GI prophylaxis. On omeprazole 40 mg daily at home Docusate sodium/senna 1 tablet twice daily for bowel regimen. Add polythene glycol 17 g twice daily and lactulose 30 cc 4 times daily. 1 dose of methylnaltrexone 12 mg subcu 1 and mineral oil 30 cc 1 now. : does not require mayo catheter. Endo: Diabetes mellitus History of gout Holding metformin 1000mg twice daily/home medication Novulog medium protocol Accu-Cheks every 6 hours to maintain euglycemia Holding colchicine 0.6 mg. Resume clinically indicated Add Levemir 8 units every 12 hours, increased today to 10 units twice daily Renal: Acute kidney injury? 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 Holding anticoagulation in light of acute brain hemorrhage ID: Monitor for signs and symptomatology of infection MSK: Elevated BMI Weight loss encouraged PT evaluate and treat FEN: Hypernatremia Replace electrolytes as clinically indicated Access -Utilize peripheral IV. Prophylaxis -GI -lansoprazole -DVT -SCD/holding pharmacological prophylaxis light of acute right frontal intracranial hemorrhage Overall impression: Remains critically ill and ventilator dependent following surgical treatment for acute right frontal lobe hemorrhage. Glucose intolerance and fluid accumulation remain problematic. Unable to separate from ventilator. Requiring very aggressive antihypertensive therapy still and will need increased intravenous diuretic therapy. Neurologically unstable. Critical care time 36 minutes aside from procedures. Jonathon Ramos MD Apr 18, 2018 10:19
[2018-04-18] MEDS ORDERED: FUROSEMIDE 100 MG/10 ML VIAL IV PUSH ONE (10:30)
[2018-04-18] MEDS ORDERED: DEXTROSE 50% IN WATER 50 ML VIAL(D50) IV PUSH PRN (12:15)
[2018-04-18] MEDS ORDERED: GLUCAGON 1 MG/ML VIAL OTHER PRN (12:15)
[2018-04-18] MEDS: 3% SALINE INJ 500 ML IV SCH (13:07)
--- NOTE | 2018-04-18 14:16 | HHI.NSPN ---
(Mary Grace Roman) Note Status Status: Progress Note (Mary Grace Roman) Interval History Interval History This is a 73-year-old Black female. with history includes hypertension, hyperlipidemia, gastroesophageal disease, diabetes mellitus, elevated BMI and gout. 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 She presented to [facility] with altered mental status. At approximately 5:20 PM found her sitting in the dark by the stair unresponsive. EMS upon search engine optimization manager arrival patient reportedly had approximately 4 generalized tonic-clonic seizures and then patient was transported from the house. Upon arrival here daughter states that patient was witnessed to have approximately 2 minute episode of seizure activity and patient did receive 2 mg of lorazepam IV. According to daughter patient has been compliant with her medications. No prior history of seizure activity. Denies any trauma at home to the brain. CT brain revealed 3.1 cm right frontal intra-axial hemorrhage with a 3 mm right to left shift. She received 2 mg lorazepam IV 1 was loaded with fosphenytoin 1 g. Neurosurgery consultation was requestedThe patient was intubated in the ED by physician for airway protection and acute respiratory failure Ms. Amaya underwent a right frontal craniotomy for evacuation of hemorrhagic mass, and with placement of ICP monitor 04/11/18. 04/14: intubated, mildly sedated but opens eyes when stimulated, followed simple commands. ICPs controlled. 04/15: intubated, sedated. nrs reports blood pressure elevates when sedation lowered. continues to follow commands 04/17: remains intubated, sedated, undergoing CPAP trials. 04/18: no changes remains intubated and sedated. opening eyes, and followed simple commands. On CPAP. (Mary Grace Roman) Labs, Micro, & Vital Signs Results Date Time Temp Pulse Resp B/P (MAP) Pulse Ox O2 Delivery O2 Flow Rate FiO2 04/18/18 12:00 95 04/18/18 12:00 103.0 95 32 136/61 (86) 91 04/18/18 12:00 50 04/18/18 11:47 93 45 04/18/18 10:00 92 04/18/18 08:00 45 04/18/18 08:00 98.9 88 21 141/69 (93) 94 04/18/18 08:00 45 04/18/18 08:00 88 04/18/18 07:59 94 45 04/18/18 06:00 90 04/18/18 04:08 94 45 04/18/18 04:00 99.6 82 16 126/62 (83) 95 04/18/18 04:00 45 04/18/18 04:00 82 04/18/18 02:00 84 04/18/18 01:08 94 45 04/18/18 00:00 86 04/18/18 00:00 101.2 86 16 139/64 (89) 94 04/18/18 00:00 45 04/17/18 22:00 88 04/17/18 20:00 86 04/17/18 20:00 100.8 86 18 135/62 (86) 92 04/17/18 20:00 45 04/17/18 19:58 92 45 04/17/18 16:00 86 04/17/18 16:00 45 04/17/18 16:00 100.1 86 16 113/55 (74) 92 04/17/18 15:06 92 45 04/17/18 14:00 82 04/19/18 07:00 Intake Total 666 ml Balance 666 ml Constitutional Vital Signs Date Time Temp Pulse Resp B/P (MAP) Pulse Ox O2 Delivery O2 Flow Rate FiO2 04/18/18 12:00 95 04/18/18 12:00 103.0 95 32 136/61 (86) 91 04/18/18 12:00 50 04/18/18 11:47 93 45 04/18/18 10:00 92 04/18/18 08:00 45 04/18/18 08:00 98.9 88 21 141/69 (93) 94 04/18/18 08:00 45 04/18/18 08:00 88 04/18/18 07:59 94 45 04/18/18 06:00 90 04/18/18 04:08 94 45 04/18/18 04:00 99.6 82 16 126/62 (83) 95 04/18/18 04:00 45 04/18/18 04:00 82 04/18/18 02:00 84 04/18/18 01:08 94 45 04/18/18 00:00 86 04/18/18 00:00 101.2 86 16 139/64 (89) 94 04/18/18 00:00 45 04/17/18 22:00 88 04/17/18 20:00 86 04/17/18 20:00 100.8 86 18 135/62 (86) 92 04/17/18 20:00 45 04/17/18 19:58 92 45 04/17/18 16:00 86 04/17/18 16:00 45 04/17/18 16:00 100.1 86 16 113/55 (74) 92 04/17/18 15:06 92 45 04/17/18 14:00 82 04/19/18 07:00 Intake Total 666 ml Balance 666 ml (Mary Grace Roman) Review of Systems ROS Limitations: Intubated (Mary Grace Roman) Physical Exam Ms. Amaya is intubated and sedated She opens eyes and followed few simple commands. Cranial Nerves: Pupils equal. Wound healing well, no redness, drainage, or other signs of infection, clean and dry. Motor: moved both legs to commands (Mary Grace Roman) Medications Current Medications Current Medications Medications (Trade) Dose Ordered Sig/J Carlos Route PRN Reason Start Time Stop Time Status Last Admin Dose Admin Lorazepam (Ativan Inj) 2 mg ONCE PRN IV PUSH SEIZURES 04/10/18 19:30 04/10/18 20:01 Nicardipine HCl 25 mg/Sodium Chloride 260 ml @ 52 mls/hr TITRATE PRN IV Blood pressure management 04/10/18 20:00 04/11/18 18:37 Lansoprazole (Prevacid Odt) 30 mg DAILY G-TUBE 04/11/18 09:00 04/18/18 08:38 Artificial Tears (Tears Naturale Opth Soln) 1 drop TID EACH EYE 04/11/18 09:00 04/18/18 12:21 Miscellaneous Information ([facility] Information) 1 [id number] XX 04/10/18 20:30 04/10/18 20:30 Chlorhexidine Gluconate (Chlorhexidine 2% Cloth) Taper DAILY@04 TOP 04/11/18 04:00 04/07/19 03:59 04/18/18 04:00 Chlorhexidine Gluconate (Chlorhexidine 2% Cloth) 3 pack UNSCH PRN TOP HYGIENIC CARE 04/10/18 20:30 Sennosides (Senokot) 17.2 mg Q12H PRN PO Moderate constipation 04/10/18 20:30 Bisacodyl (Dulcolax Supp) 10 mg DAILY PRN RECTAL SEVERE CONSITIPATION 04/10/18 20:30 Chlorhexidine Gluconate (Peridex 0.12% Liq) 15 ml BID@08,20 MT 04/11/18 08:00 04/18/18 08:39 Propofol 100 ml @ 3.6 mls/hr TITRATE PRN IV SEDATION 04/10/18 20:30 04/18/18 08:37 Fentanyl Citrate 250 ml @ 5 mls/hr TITRATE PRN IV SEDATION 04/10/18 20:30 04/18/18 06:25 Potassium Chloride 100 ml @ 50 mls/hr Q2H PRN IV For Potassium 2.8 - 3.2 mEq/L 04/10/18 20:30 Potassium Chloride 100 ml @ 50 mls/hr Q2H PRN IV For Potassium 2.8 - 3.2 mEq/L 04/10/18 20:30 Potassium Bicarb/ Potassium Chloride (K-Lyte Cl Eff) 50 meq UNSCH PRN PO For Potassium 3.3 - 3.5 mEq/L 04/10/18 20:30 Potassium Chloride 100 ml @ 25 mls/hr UNSCH PRN IV For Potassium 3.3 - 3.5 mEq/L 04/10/18 20:30 Potassium Chloride 100 ml @ 50 mls/hr Q2H PRN IV For Potassium 3.3 - 3.5 mEq/L 04/10/18 20:30 Magnesium Sulfate 4 gm/Sodium Chloride 100 ml @ 50 mls/hr UNSCH PRN IV For Magnesium 0.9 - 1.1 mg/dL 04/10/18 20:30 04/11/18 06:38 Magnesium Oxide (Mag-Ox) 800 mg UNSCH PRN PO For Magnesium 1.2 - 1.6 mg/dL 04/10/18 20:30 Magnesium Sulfate 2 gm/Sodium Chloride 100 ml @ 50 mls/hr UNSCH PRN IV For Magnesium 1.2 - 1.6 mg/dL 04/10/18 20:30 Potassium Phosphate (K-Phos) 2,000 mg Q4H PRN PO For Phosphorus < 2.5 mg/dL 04/10/18 20:30 Sodium Phosphate 30 mmol/Sodium Chloride 250 ml @ 42 mls/hr UNSCH PRN IV For Phosphorus < 2.5 mg/dL 04/10/18 20:30 Potassium Phosphate (K-Phos) 2,000 mg UNSCH PRN PO/TUBE SEE LABEL COMMENTS 04/10/18 20:30 Potassium Phosphate 30 mmol/ Sodium Chloride 260 ml @ 42 mls/hr UNSCH PRN IV SEE LABEL COMMENTS 04/10/18 20:30 04/11/18 06:38 Labetalol HCl (Trandate Inj) 10 mg Q1HR PRN IV PUSH SBP>140, DBP>90, HR>65 04/10/18 20:30 04/16/18 01:13 Amlodipine Besylate (Norvasc) 2.5 mg DAILY PO 04/11/18 09:00 04/18/18 08:38 Miscellaneous (Pill Splitter) 1 ea UNSCH PRN OTHER SEE LABEL COMMENTS 04/10/18 20:45 Sodium Chloride 500 ml @ 40 mls/hr CONTINUOUS IV 04/10/18 22:30 04/18/18 13:07 Sodium Chloride (NS Flush) DAILY IV FLUSH 04/11/18 09:00 04/18/18 08:39 Sodium Chloride (NS Flush) UNSCH PRN IV FLUSH SEE PROTOCOL 04/10/18 23:00 Norepinephrine Bitartrate 4 mg/ Sodium Chloride 250 ml @ 7.5 mls/hr TITRATE PRN IV Blood pressure management 04/10/18 23:00 04/12/18 18:23 Terbutaline Sulfate (Brethine Inj) 1 mg UNSCH PRN SQ For Extravasation 04/10/18 23:00 Levetriacetam 500 mg/Sodium Chloride 105 ml @ 400 mls/hr Q12H IV 04/12/18 02:00 04/18/18 12:21 Docusate Sodium (Colace) 100 mg BID PO 04/11/18 21:00 04/18/18 08:38 Ondansetron HCl (Zofran Odt) 4 mg Q6H PRN PO NAUSEA OR VOMITING 04/11/18 14:45 Calcium Gluconate (Calcium Gluconate Inj) 1 gm UNSCH PRN IV SEE LABEL COMMENTS 04/11/18 14:45 Potassium Chloride 100 ml @ 50 mls/hr UNSCH PRN IV POTASSIUM LESS THAN 4 04/11/18 14:45 Magnesium Sulfate 4 gm/Sodium Chloride 108 ml @ 108 mls/hr UNSCH PRN IV MAGNESIUM LESS THAN 2 04/11/18 14:45 Acetaminophen (Tylenol) 650 mg Q4H PRN PO TEMPERATURE > 101.5 F 04/11/18 14:45 04/18/18 12:46 Bisacodyl (Dulcolax Supp) 10 mg DAILY RECTAL 04/14/18 09:00 04/17/18 08:58 Albuterol/ Ipratropium (Duoneb Neb) 1 ampule Q6HR NEB INH 04/14/18 22:00 04/18/18 03:17 Albuterol Sulfate (Albuterol Neb) 2.5 mg Q2HR NEB PRN NEB dyspnea 04/14/18 17:00 Losartan Potassium (Cozaar) 100 mg DAILY PO 04/15/18 09:00 04/18/18 08:38 Sodium Chloride (Sodium Chloride 3% Neb) 2 ml Q6HR NEB NEB 04/15/18 16:00 04/20/18 15:59 04/18/18 08:01 Enoxaparin Sodium (Lovenox Inj) 40 mg Q24H SQ 04/16/18 09:00 04/18/18 08:37 Furosemide (Lasix) 40 mg Q12H PO 04/17/18 21:00 04/18/18 08:38 Insulin Detemir (Levemir Inj) 20 units Q12HR SQ 04/18/18 21:00 Dextrose (D50w (Vial) Inj) 50 ml UNSCH PRN IV PUSH HYPOGLYCEMIA-SEE COMMENTS 04/18/18 12:15 Glucagon (Glucagon Inj) 1 mg UNSCH PRN OTHER HYPOGLYCEMIA-SEE COMMENTS 04/18/18 12:15 Insulin Aspart (NovoLOG SUPPLEMENTAL SCALE) 1 Q4H SQ 04/18/18 12:00 04/18/18 12:21 (Mary Grace Roman) Medical Decision Making MDM Remarks 73 y/o female presented with AMS and seizures, CT brain revealed 3.1 cm right frontal intra-axial hemorrhage with a 3 mm right to left shift. MRI Brain w/wo contrast showed no underlying mass, MRA Head unremarkable Ms. Amaya underwent a right frontal craniotomy for evacuation of hemorrhagic mass, and with placement of ICP monitor 04/11/18, ICP monitor removed 04/14/18 final pathology reports hematoma EEG 04/11/18 reports no epileptiform discharges, mild to moderate encephalopathy Head CT 04/14/18 Impressions: CONCLUSION: 1. Interval improvement following drainage of a right orbital frontal hemorrhage. 2. Ventricular size is appropriate. 3. No extra-axial fluid remains (Mary Grace Roman) Plan Plan Remarks cont neuro checks, follow up exam cont CPAP trials and vent weaning per critical care cont AEDs, seizure precautions dc surgical cristobal 04/23/18 (Mary Grace Roman) Attending Statement The exam, history, and the medical decision-making described in the above note were completed with the assistance of the mid-level provider. I reviewed and agree with the findings presented. I attest that I had a [id number] encounter with the patient on the same day, and personally performed and documented my assessment and findings in the medical record. (Harrison Parson MD) Mary Grace Roman Apr 18, 2018 14:16 Harrison Parson MD Apr 26, 2018 18:26
[2018-04-19] VITALS (18 sets, daily range): BP systolic 113–149; BP diastolic 56–69; PULSE 6–88; RESP 13–17; TEMP 99.2–100.2; O2SAT 93–97
[2018-04-19] MEDS: levETIRAcetam INJ 500 MG in SODIUM CHLORIDE 0.9% INJ 100 ML IV SCH ×2 (00:12→12:35)
[2018-04-19] MEDS: INSULIN ASPART SUPPLEMENTAL SCALE SQ SCH ×6 (00:13→19:37)
[2018-04-19] MEDS: PROPOFOL 1000 MG/100 ML INJ 100 ML IV PRN ×7 (01:07→22:19)
[2018-04-19] MEDS: 3% SALINE INJ 500 ML IV SCH (01:08)
[2018-04-19] MEDS: RESP: SODIUM CHLORIDE 3% 4 ML NEB NEB SCH ×4 (03:23→20:08)
[2018-04-19] MEDS: RESP: ALBUTEROL 2.5 MG/3 ML NEB (PRN) NEB (03:23)
[2018-04-19] MEDS: CHLORHEXIDINE GLUCONATE 2 % 1 PACK (2 CLOTHS) TOP SCH (03:58)
[2018-04-19 06:35] LABS: HEMATOCRIT 27.3 % (35.0-46.0); MEAN CORPUSCULAR HEMOGLOBIN 30.3 PG (27.0-34.0); MEAN CORPUSCULAR HGB CONC 32.9 % (32.0-36.0); MEAN PLATELET VOLUME 9.5 FL (7.0-11.0); PLATELET COUNT 186 TH/MM3 (150-450); RED BLOOD COUNT 2.97 MIL/MM3 (4.00-5.30); RED CELL DISTRIBUTION WIDTH 14.1 % (11.6-17.2); WHITE BLOOD COUNT 8.2 TH/MM3 (4.0-11.0)
[2018-04-19 07:03] LABS: BICARBONATE 30.8 MEQ/L (21.0-32.0); CALCIUM 9.1 MG/DL (8.5-10.1); CREATININE 1.09 MG/DL (0.50-1.00)
--- NOTE | 2018-04-19 07:20 | HHI.NSPN ---
(Clint Gan) History Chief Complaint: Unable to obtain due to patient's clinical condition. (Clint Gan) Interval History This is a 73-year-old Black female. with history includes hypertension, hyperlipidemia, gastroesophageal disease, diabetes mellitus, elevated BMI and gout. 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 She presented to [facility] with altered mental status. At approximately 5:20 PM found her sitting in the dark by the stair unresponsive. EMS upon presentation manager arrival patient reportedly had approximately 4 generalized tonic-clonic seizures and then patient was transported from the house. Upon arrival here daughter states that patient was witnessed to have approximately 2 minute episode of seizure activity and patient did receive 2 mg of lorazepam IV. According to daughter patient has been compliant with her medications. No prior history of seizure activity. Denies any trauma at home to the brain. CT brain revealed 3.1 cm right frontal intra-axial hemorrhage with a 3 mm right to left shift. She received 2 mg lorazepam IV 1 was loaded with fosphenytoin 1 g. Neurosurgery consultation was requestedThe patient was intubated in the ED by physician for airway protection and acute respiratory failure Ms. Amaya underwent a right frontal craniotomy for evacuation of hemorrhagic mass, and with placement of ICP monitor 04/11/18. 04/14: intubated, mildly sedated but opens eyes when stimulated, followed simple commands. ICPs controlled. 04/15: intubated, sedated. nrs reports blood pressure elevates when sedation lowered. continues to follow commands 04/17: remains intubated, sedated, undergoing CPAP trials. 04/18: no changes remains intubated and sedated. opening eyes, and followed simple commands. On CPAP. 04/19: Pt sedated and intubated. She follows commands when sedation held by RN. She moves all 4 extremities but difficulty to assess strength secondary to clinical condition. (Clint Gan) System Review Comments Not able to obtain given clinical condition. (Clint Gan) Exam Results Vital Signs Date Time Temp Pulse Resp B/P (MAP) Pulse Ox O2 Delivery O2 Flow Rate FiO2 04/19/18 06:00 84 04/19/18 04:06 95 50 04/19/18 04:00 99.6 14 125/67 (86) Intake and Output 04/19/18 04/19/18 04/20/18 08:00 16:00 00:00 Intake Total 1475 ml Output Total 800 ml Balance 675 ml (Clint Gan) Physical Examination General: Pt sedated and intubated in ICU with stable vitals. Eyes: Pupils equal. Sclera anicteric. Resp: Coarse breath sounds bilaterally. Intubated. PRVC A/C rate 9 Peep 8. FiO2 50%. Heart: IRINEO no murmurs Abd: Soft positive bs. OG TFs at 50ml/hr. Skin: SCDs inplace. Incision clean and dry. No signs of infection. [place] in place. Muscle: Moves all 4 extremities to command. Cannot assess strength secondary to clinical condition. Neuro: Pt opens eyes to voice, with sedation of Fentanyl and Diprivan drip. Follows simple commands when sedation held. Pupils equal. (Clint Gan) Lab, Micro, Other Results Last Impressions Chest X-Ray 04/16/18 0600 Signed Impressions: CONCLUSION: No significant interval change with persistent bilateral pulmonary opacity with perihilar predominance. Head CT 04/14/18 Signed Impressions: CONCLUSION: 1. Interval improvement following drainage of a right orbital frontal hemorrha ge. 2. Ventricular size is appropriate. 3. No extra-axial fluid remains. Abdomen X-Ray 04/14/18 Signed Impressions: CONCLUSION: Unremarkable study. Lower Extremity Ultrasound 04/12/18 Signed Impressions: On the right, the common femoral vein, greater saphenous vein, popliteal and pe roneal veins are patent as well as the right iliac vein. The femoral vein is no t clearly visualized due to soft tissue swelling and body habitus. The posterio r tibial vein is also not clearly seen. On the left, the posterior tibial vein is not clearly visualized. The popliteal, peroneal, iliac, common femoral, grea ter saphenous vein, and femoral veins are patent. CONCLUSION: 1. Visualized veins are patent without evidence for DVT. 2. The right femoral and posterior tibial vein and the left posterior tibial v ein are not clearly visualized. Brain MRI 04/11/18 0903 Signed Impressions: CONCLUSION: 1. 4 cm intraparenchymal hemorrhage involving the right frontal lobe without u nderlying mass. 2. Tiny focus of blooming artifact involving the left frontal lobe likely rela ting to a small focus of intraparenchymal hemorrhage on that side. 3. Chronic small vessel ischemic change. 4. Fluid signal within the mastoid air cells bilaterally. Clinical evaluation for any signs of acute mastoiditis suggested. 5. Right maxillary sinusitis. Head Magnetic Resonance Angiography 04/11/18 0000 Signed Impressions: CONCLUSION: Intracranial arterial vasculature has a normal appearance. Laboratory Tests Test 04/18/18 13:12 04/18/18 18:05 04/19/18 00:00 04/19/18 06:15 Sodium Level 137 MEQ/L 141 MEQ/L 143 MEQ/L 143 MEQ/L Serum Osmolality 310 MOSM/KG 313 MOSM/KG 310 MOSM/KG 313 MOSM/KG White Blood Count 8.2 TH/MM3 Red Blood Count 2.97 MIL/MM3 Hemoglobin 9.0 GM/DL Hematocrit 27.3 % Mean Corpuscular Volume 92.0 FL Mean Corpuscular Hemoglobin 30.3 PG Mean Corpuscular Hemoglobin Concent 32.9 % Red Cell Distribution Width 14.1 % Platelet Count 186 TH/MM3 Mean Platelet Volume 9.5 FL Blood Urea Nitrogen 20 MG/DL Creatinine 1.09 MG/DL Random Glucose 212 MG/DL Calcium Level 9.1 MG/DL Potassium Level 3.6 MEQ/L Chloride Level 105 MEQ/L Carbon Dioxide Level 30.8 MEQ/L Anion Gap 7 MEQ/L Estimat Glomerular Filtration Rate 60 ML/MIN (Clint Gan) Medical Decision Making Impression and Plan A: 73 y/o female presented with AMS and seizures, CT brain revealed 3.1 cm right frontal intra-axial hemorrhage with a 3 mm right to left shift. MRI Brain w/wo contrast showed no underlying mass, MRA Head unremarkable Ms. Aamya underwent a right frontal craniotomy for evacuation of hemorrhagic mass, and with placement of ICP monitor 04/11/18, ICP monitor removed 04/14/18 final pathology reports hematoma EEG 04/11/18 reports no epileptiform discharges, mild to moderate encephalopathy Head CT 04/14/18 Impressions: CONCLUSION: 1. Interval improvement following drainage of a right orbital frontal hemorrhage. 2. Ventricular size is appropriate. 3. No extra-axial fluid remains Plan Plan Plan Remarks cont neuro checks, follow up exam cont CPAP trials and vent weaning per critical care cont AEDs, seizure precautions dc surgical cristobal 04/23/18 (Clint Gan) Attending Statement The exam, history, and the medical decision-making described in the above note were completed with the assistance of the mid-level provider. I reviewed and agree with the findings presented. I attest that I had a [id number] encounter with the patient on the same day, and personally performed and documented my assessment and findings in the medical record. (Cliff Mejia MD) Clint Gan Apr 19, 2018 07:20 Cliff Mejia MD Apr 19, 2018 11:42
[2018-04-19] MEDS: BISACODYL 10 MG SUPP RECTAL SCH (08:40)
[2018-04-19] MEDS: CHLORHEXIDINE 0.12% (ORAL KIT) 15 ML CUP MT SCH ×2 (09:25→19:38)
[2018-04-19] MEDS: ENOXAPARIN SODIUM 40 MG/0.4 ML SYRINGE SQ SCH (09:26)
[2018-04-19] MEDS: DOCUSATE SODIUM 100 MG CAP PO SCH ×2 (09:26→19:37)
[2018-04-19] MEDS: INSULIN DETEMIR 100 UNITS/ML VIAL SQ SCH ×2 (09:26→19:38)
[2018-04-19] MEDS: FUROSEMIDE 40 MG TAB PO SCH ×2 (09:26→19:37)
[2018-04-19] MEDS: LOSARTAN 50 MG TAB PO SCH (09:26)
[2018-04-19] MEDS: LANSOPRAZOLE SOLUTAB 30 MG TAB G-TUBE SCH (09:27)
[2018-04-19] MEDS: SODIUM CHLORIDE 0.9% FLUSH 10 ML FLUSH IV FLUSH SCH (09:27)
[2018-04-19] MEDS: ARTIFICIAL TEARS OPTH SOLN 15 ML BTL EACH EYE SCH ×3 (09:27→16:19)
[2018-04-19] MEDS: amLODIPine BESYLATE 5 MG TAB PO SCH (09:27)
--- NOTE | 2018-04-19 12:51 | HHI.CCPN ---
Subjective Remarks/Hospital Course This is a 73-year-old AA female. Admission 04/10/2018. Please note no family is available and all information is obtained by reviewing the medical record from ED physician. Past medical history includes hypertension, hyperlipidemia, gastroesophageal disease, diabetes mellitus, elevated BMI and gout. 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 She presented to [facility] with the following history. At approximately 2:30 PM and patient was reportedly fine and daughter came to visit her mother. Then at approximately 5:20 PM found her sitting in the dark by the stair unresponsive. 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 Upon arrival here daughter states that patient was witnessed to have approximately 2 minute episode of seizure activity and patient did receive 2 mg of lorazepam IV. According to daughter patient has been compliant with her medications gives herself her medications low-salt by herself and is very independent. after being found home by daughter with new onset seizure. No prior history of seizure activity. Denies any trauma at home to the brain. CT brain revealed 3.1 cm right frontal intra-axial hemorrhage with a 3 mm right to left shift. She received 2 mg lorazepam IV 1 was loaded with fosphenytoin 1 g. Neurosurgery was consulted/Dr. Parson. Recommended blood pressure control with inpatient admission to ICU with consultation to neurosurgery. Patient was intubated in the ED by physician after receiving etomidate and rocuronium... 04/11: remains on the vent, in critical condition. hypoxic. 04/12: hypoxia somewhat improving. following commands on the vent. per nsgy, can wean to extubate soon. some edema likely contributing to poor neuro exam, although slow improvements. 04/13: following commands. however, remains hypoxic on 60% fio2. tube feeds initiated this AM and concern over aspiration of tube feeds out endotracheal tube. CXR demonstrates adequate placement of gastric tube and ETT. ICPs remain controlled, and appropriate hypernatremia. 04/14: Repeat CT brain today revealed improved right frontal intraparenchymal hemorrhage. Patient status post right bur hole for ICP monitoring. T-max 100.9. Currently 99. Subjective: 04/15: TIFFANIE x 2 was removed today. Currently on propofol 50 mcg/kg an hour and fentanyl drip at 250 mcg an hour. Follows commands. Worsening oxygenation status today. Coarse breath sounds with thick greenish secretions noted. Sample will be sent today. 04/16: CXR with diffuse interstitial edema. Tolerating weaning of PEEP to 8 but increased MAP still required. No new seizures. 04/17: Good response to diuresis yesterday, need to increase to twice daily Lasix. Tolerating CPAP today on spontaneous breathing trial pressure 15/8. Osmolality acceptable but will not allow to decline any further. 04/18: Requiring increased pressure support to breathe spontaneously today. Tapering sedation. 04/19: Osmolality in a good range. Spontaneous breathing trials are requiring increased pressure support. We will try to progress to a trial extubation however this woman may well require a tracheostomy for a month or 2. Objective Vital Signs Date Time Temp Pulse Resp B/P (MAP) Pulse Ox O2 Delivery O2 Flow Rate FiO2 04/19/18 12:32 95 40 04/19/18 10:00 87 04/19/18 08:00 99.7 13 113/56 (75) Intake and Output 04/19/18 04/19/18 04/20/18 08:00 16:00 00:00 Intake Total 1475 ml 100 ml Output Total 800 ml Balance 675 ml 100 ml Result Diagram: 04/19/18 0615 04/19/18 0615 Imaging Last Impressions Chest X-Ray 04/15/18 0600 Signed Impressions: CONCLUSION: Increased bilateral perihilar pulmonary parenchymal opacity suggesting increase d pulmonary edema. Head CT 04/14/18 0000 Signed Impressions: CONCLUSION: 1. Interval improvement following drainage of a right orbital frontal hemorrha ge. 2. Ventricular size is appropriate. 3. No extra-axial fluid remains. Abdomen X-Ray 04/14/18 0000 Signed Impressions: CONCLUSION: Unremarkable study. Lower Extremity Ultrasound 04/12/18 0000 Signed Impressions: On the right, the common femoral vein, greater saphenous vein, popliteal and pe roneal veins are patent as well as the right iliac vein. The femoral vein is no t clearly visualized due to soft tissue swelling and body habitus. The posterio r tibial vein is also not clearly seen. On the left, the posterior tibial vein is not clearly visualized. The popliteal, peroneal, iliac, common femoral, grea ter saphenous vein, and femoral veins are patent. CONCLUSION: 1. Visualized veins are patent without evidence for DVT. 2. The right femoral and posterior tibial vein and the left posterior tibial v ein are not clearly visualized. Brain MRI 04/11/18 0903 Signed Impressions: CONCLUSION: 1. 4 cm intraparenchymal hemorrhage involving the right frontal lobe without u nderlying mass. 2. Tiny focus of blooming artifact involving the left frontal lobe likely rela ting to a small focus of intraparenchymal hemorrhage on that side. 3. Chronic small vessel ischemic change. 4. Fluid signal within the mastoid air cells bilaterally. Clinical evaluation for any signs of acute mastoiditis suggested. 5. Right maxillary sinusitis. Head Magnetic Resonance Angiography 04/11/18 0000 Signed Impressions: CONCLUSION: Intracranial arterial vasculature has a normal appearance. Objective Remarks GENERAL: 73-year-old AA female, orotracheally intubated SKIN: Warm and dry. HEAD: bolt exits from head, wrapped in dry dressing. EYES: Pupils equal and round 2 mm bilaterally reactive to. Disconjugate gaze to left. No conjunctival icterus. No injection or drainage. ENT: No nasal bleeding or discharge. Mucous membranes pink and moist. NECK: Trachea midline. Orally intubated. CARDIOVASCULAR: Regular rate and rhythm. Remains sinus. No JVD. RESPIRATORY: Diminished in bases, symmetrical excursion. Scattered rhonchi persist. GASTROINTESTINAL: Abdomen soft, non-tender, obese. BS active, no guarding. MUSCULOSKELETAL: Extremities trace bilateral lower extremity nonpitting edema. No obvious deformities. NEUROLOGICAL: Spontaneous movement right and upper lower extremities. Withdrew to left and right lower extremity. Positive cough and gag. Date of Insertion: Apr 10, 2018 Line: Central Venous Catheter Side: Left Location: Internal, Jugular A/P Assessment and Plan Neuro/Psych: Acute right frontal intra-axial hemorrhage 3.1 cm at the right to left shift of 3 mm New onset seizure Status post right frontal craniotomy 04/11 with right bur hole with ICP monitor placement Currently on propofol drip at 50 mcg/kg/min/fentanyl drips at 250 mcg an hour for sedation/analgesia while intubated Goal of RASS -2 Daily sedation vacation Acetaminophen 650 mg by tube every 6 hours as needed fever brain CT in a.m. 04/11: slight increase in frontal hemorrhage. Brain CT 6 abdomen reveals improvement/status post evacuation hematoma Neurosurgery/Dr. Parson to follow Keep systolic blood pressure < 140 Replacement 3% saline currently at 10 cc an hour No mannitol per neurosurgery Seizure with fosphenytoin 100 mg every 8 hours. Loaded in ED. phenytoin level 13. Currently discontinued Switch to levetiracetam 500 IV twice daily EEG 04/11 revealed moderate encephalopathy. No epileptiform activity CV: Hypertensive Emergency Hyperlipidemia As needed labetalol and nicardipine drip goal sbp < 140 On home metoprolol tartrate 25 mg twice daily, amlodipine 2.5 mg a day, hydrochlorthiazide 25 mg daily losartan 100 mg daily. Resume amlodipine 2.5 mg daily and losartan 100 mg daily. Continue furosemide 40 mg daily Resp: Acute hypoxic and hypercarbic respiratory failure PRVC 16/550/1./ Ventilator bundle Albuterol/ipratropium aerosols every 6 hours with albuterol aerosols every 2 hours as needed dyspnea start SBTs. hypoxia concerning, possible aspiration, although afebrile with normal wbc. will avoid abx. aggressive suctioning. have increased PEEP. slow weaning of mechanical ventilation. wean fio2 for goal spo2 > 90% Still requiring increased pressure support, may well require a tracheostomy GI: Gastroesophageal reflux disease Elevated AST increase bowel regimen. Currently on vital high-protein goal 70 cc an hour. Lansoprazole 30 mg daily for GI prophylaxis. On omeprazole 40 mg daily at home Docusate sodium/senna 1 tablet twice daily for bowel regimen. Add polythene glycol 17 g twice daily and lactulose 30 cc 4 times daily. 1 dose of methylnaltrexone 12 mg subcu 1 and mineral oil 30 cc 1 now. : does not require mayo catheter. Endo: Diabetes mellitus History of gout Holding metformin 1000mg twice daily/home medication Novulog medium protocol Accu-Cheks every 6 hours to maintain euglycemia Holding colchicine 0.6 mg. Resume clinically indicated Add Levemir 24 units every 12 hours, Renal: Acute kidney injury? 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 Holding anticoagulation in light of acute brain hemorrhage ID: Monitor for signs and symptomatology of infection MSK: Elevated BMI Weight loss encouraged PT evaluate and treat FEN: Hypernatremia Replace electrolytes as clinically indicated Access -Utilize peripheral IV. Prophylaxis -GI -lansoprazole -DVT -SCD/holding pharmacological prophylaxis light of acute right frontal intracranial hemorrhage Overall impression: Remains critically ill and ventilator dependent following surgical treatment for acute right frontal lobe hemorrhage. Glucose intolerance and fluid accumulation remain problematic. Unable to separate from ventilator. Requiring very aggressive antihypertensive therapy still and will need increased intravenous diuretic therapy. Anticipate need for prolonged ventilatory support via tracheostomy with daily weaning exercises and nighttime ventilator support. Critical care time 42 minutes. Jonathon Ramos MD Apr 19, 2018 12:51
[2018-04-19] MEDS: SODIUM CHLORIDE 23.4% INJ 188 MEQ in SODIUM CHLOR 0.9% 1000 ML INJ 1,000 ML IV SCH (14:23)
[2018-04-19] MEDS: fentaNYL DRIP 250 ML IV PRN (17:59)
[2018-04-20] VITALS (17 sets, daily range): BP systolic 109–153; BP diastolic 57–70; PULSE 73–96; RESP 12–20; TEMP 99–100.8; O2SAT 92–100
[2018-04-20] MEDS: PROPOFOL 1000 MG/100 ML INJ 100 ML IV PRN ×7 (00:08→22:00)
[2018-04-20] MEDS: levETIRAcetam INJ 500 MG in SODIUM CHLORIDE 0.9% INJ 100 ML IV SCH ×2 (00:08→14:19)
[2018-04-20] MEDS: INSULIN ASPART SUPPLEMENTAL SCALE SQ SCH ×6 (00:12→20:16)
[2018-04-20] MEDS: RESP: SODIUM CHLORIDE 3% 4 ML NEB NEB SCH ×3 (03:45→15:57)
[2018-04-20] MEDS: CHLORHEXIDINE GLUCONATE 2 % 1 PACK (2 CLOTHS) TOP SCH (04:00)
[2018-04-20] MEDS: CHLORHEXIDINE 0.12% (ORAL KIT) 15 ML CUP MT SCH ×2 (07:44→20:00)
[2018-04-20] MEDS: INSULIN DETEMIR 100 UNITS/ML VIAL SQ SCH ×2 (07:45→20:16)
[2018-04-20] MEDS: ENOXAPARIN SODIUM 40 MG/0.4 ML SYRINGE SQ SCH (07:45)
[2018-04-20] MEDS: LOSARTAN 50 MG TAB PO SCH (07:45)
[2018-04-20] MEDS: SODIUM CHLORIDE 0.9% FLUSH 10 ML FLUSH IV FLUSH SCH (07:45)
[2018-04-20] MEDS: DOCUSATE SODIUM 100 MG CAP PO SCH ×2 (07:46→20:15)
[2018-04-20] MEDS: amLODIPine BESYLATE 5 MG TAB PO SCH (07:46)
[2018-04-20] MEDS: FUROSEMIDE 40 MG TAB PO SCH ×2 (07:46→20:15)
[2018-04-20] MEDS: LANSOPRAZOLE SOLUTAB 30 MG TAB G-TUBE SCH (07:46)
[2018-04-20] MEDS: BISACODYL 10 MG SUPP RECTAL SCH (07:46)
[2018-04-20] MEDS: ARTIFICIAL TEARS OPTH SOLN 15 ML BTL EACH EYE SCH ×3 (07:46→16:29)
--- NOTE | 2018-04-20 08:09 | HHI.NSPN ---
(Clint Gan) History Chief Complaint: Unable to obtain due to patient's clinical condition. (Clint Gan) Interval History This is a 73-year-old Black female. with history includes hypertension, hyperlipidemia, gastroesophageal disease, diabetes mellitus, elevated BMI and gout. 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 She presented to [facility] with altered mental status. At approximately 5:20 PM found her sitting in the dark by the stair unresponsive. 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 Upon arrival here daughter states that patient was witnessed to have approximately 2 minute episode of seizure activity and patient did receive 2 mg of lorazepam IV. According to daughter patient has been compliant with her medications. No prior history of seizure activity. Denies any trauma at home to the brain. CT brain revealed 3.1 cm right frontal intra-axial hemorrhage with a 3 mm right to left shift. She received 2 mg lorazepam IV 1 was loaded with fosphenytoin 1 g. Neurosurgery consultation was requestedThe patient was intubated in the ED by physician for airway protection and acute respiratory failure Ms. Amaya underwent a right frontal craniotomy for evacuation of hemorrhagic mass, and with placement of ICP monitor 04/11/18. 04/14: intubated, mildly sedated but opens eyes when stimulated, followed simple commands. ICPs controlled. 04/15: intubated, sedated. nrs reports blood pressure elevates when sedation lowered. continues to follow commands 04/17: remains intubated, sedated, undergoing CPAP trials. 04/18: no changes remains intubated and sedated. opening eyes, and followed simple commands. On CPAP. 04/19: Pt sedated and intubated. She follows commands when sedation held by RN. She moves all 4 extremities but difficulty to assess strength secondary to clinical condition. 04/20: Patient sedated on fentanyl and Diprivan drips. She is intubated on CPAP. She attempts to open her eyes. Pupils are 3 mm bilaterally reactive bilaterally. She is not following commands. (Clint Gan) System Review Comments Not able to obtain given clinical condition. (Clint Gan) Exam Results Vital Signs Date Time Temp Pulse Resp B/P (MAP) Pulse Ox O2 Delivery O2 Flow Rate FiO2 04/20/18 08:00 40 04/20/18 08:00 85 04/20/18 08:00 99.0 19 127/61 (83) 92 Intake and Output 04/20/18 04/20/18 04/21/18 08:00 16:00 00:00 Intake Total 1317 ml Output Total 900 ml Balance 417 ml (Clint Gan) Physical Examination General: Pt sedated and intubated in ICU with stable vitals. Eyes: Pupils equal. Sclera anicteric. Resp: Last coarse breath sounds bilaterally today. Intubated. CPAP Heart: IRINEO no murmurs Abd: Soft positive bs. OG TFs at 50ml/hr. Skin: SCDs inplace. Incision clean and dry. No signs of infection. [place] in place. Muscle: Moves all 4 extremities to command. Cannot assess strength secondary to clinical condition. Neuro: Pt attempt to opens eyes to voice sedation of Fentanyl and Diprivan drip. Not following commands. Pupils 3 mm bilaterally reactive bilaterally. (Clint Gan) Lab, Micro, Other Results Last Impressions Chest X-Ray 04/16/18 0600 Signed Impressions: CONCLUSION: No significant interval change with persistent bilateral pulmonary opacity with perihilar predominance. Head CT 04/14/18 Signed Impressions: CONCLUSION: 1. Interval improvement following drainage of a right orbital frontal hemorrha ge. 2. Ventricular size is appropriate. 3. No extra-axial fluid remains. Abdomen X-Ray 04/14/18 Signed Impressions: CONCLUSION: Unremarkable study. Lower Extremity Ultrasound 04/12/18 Signed Impressions: On the right, the common femoral vein, greater saphenous vein, popliteal and pe roneal veins are patent as well as the right iliac vein. The femoral vein is no t clearly visualized due to soft tissue swelling and body habitus. The posterio r tibial vein is also not clearly seen. On the left, the posterior tibial vein is not clearly visualized. The popliteal, peroneal, iliac, common femoral, grea ter saphenous vein, and femoral veins are patent. CONCLUSION: 1. Visualized veins are patent without evidence for DVT. 2. The right femoral and posterior tibial vein and the left posterior tibial v ein are not clearly visualized. Brain MRI 04/11/18 0903 Signed Impressions: CONCLUSION: 1. 4 cm intraparenchymal hemorrhage involving the right frontal lobe without u nderlying mass. 2. Tiny focus of blooming artifact involving the left frontal lobe likely rela ting to a small focus of intraparenchymal hemorrhage on that side. 3. Chronic small vessel ischemic change. 4. Fluid signal within the mastoid air cells bilaterally. Clinical evaluation for any signs of acute mastoiditis suggested. 5. Right maxillary sinusitis. Head Magnetic Resonance Angiography 04/11/18 0000 Signed Impressions: CONCLUSION: Intracranial arterial vasculature has a normal appearance. Laboratory Tests Test 04/19/18 12:33 04/19/18 18:32 04/20/18 01:19 04/20/18 04:51 Sodium Level 144 MEQ/L 145 MEQ/L 146 MEQ/L 144 MEQ/L Serum Osmolality 317 MOSM/KG 313 MOSM/KG 317 MOSM/KG 319 MOSM/KG 04/20/18 04/20/18 04/21/18 15:00 23:00 07:00 Intake Total 100 ml Balance 100 ml IV Total 100 ml (Clint Gan) Medical Decision Making Impression and Plan A: 73 y/o female presented with AMS and seizures, CT brain revealed 3.1 cm right frontal intra-axial hemorrhage with a 3 mm right to left shift. MRI Brain w/wo contrast showed no underlying mass, MRA Head unremarkable Ms. Amaya underwent a right frontal craniotomy for evacuation of hemorrhagic mass, and with placement of ICP monitor 04/11/18, ICP monitor removed 04/14/18 final pathology reports hematoma EEG 04/11/18 reports no epileptiform discharges, mild to moderate encephalopathy Head CT 04/14/18 Impressions: CONCLUSION: 1. Interval improvement following drainage of a right orbital frontal hemorrhage. 2. Ventricular size is appropriate. 3. No extra-axial fluid remains Plan Plan Plan Remarks cont neuro checks, follow up exam cont CPAP trials and vent weaning per critical care cont AEDs, seizure precautions dc surgical cristobal 04/23/18 (Piazza,Clint S. PA) Attending Statement The exam, history, and the medical decision-making described in the above note were completed with the assistance of the mid-level provider. I reviewed and agree with the findings presented. I attest that I had a [id number] encounter with the patient on the same day, and personally performed and documented my assessment and findings in the medical record. (Cliff Mejia MD) Clint Gan Apr 20, 2018 08:09 Cliff Mejia MD Apr 20, 2018 12:02
--- NOTE | 2018-04-20 10:51 | HHI.CCPN ---
Subjective Remarks/Hospital Course This is a 73-year-old AA female. Admission 04/10/2018. Please note no family is available and all information is obtained by reviewing the medical record from ED physician. Past medical history includes hypertension, hyperlipidemia, gastroesophageal disease, diabetes mellitus, elevated BMI and gout. 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 She presented to [facility] with the following history. At approximately 2:30 PM and patient was reportedly fine and daughter came to visit her mother. Then at approximately 5:20 PM found her sitting in the dark by the stair unresponsive. EMS upon hospital cleaning specialist arrival patient reportedly had approximately 4 generalized tonic-clonic seizures and then patient was transported from the house. Upon arrival here daughter states that patient was witnessed to have approximately 2 minute episode of seizure activity and patient did receive 2 mg of lorazepam IV. According to daughter patient has been compliant with her medications gives herself her medications low-salt by herself and is very independent. after being found home by daughter with new onset seizure. No prior history of seizure activity. Denies any trauma at home to the brain. CT brain revealed 3.1 cm right frontal intra-axial hemorrhage with a 3 mm right to left shift. She received 2 mg lorazepam IV 1 was loaded with fosphenytoin 1 g. Neurosurgery was consulted/Dr. Parson. Recommended blood pressure control with inpatient admission to ICU with consultation to neurosurgery. Patient was intubated in the ED by physician after receiving etomidate and rocuronium... 04/11: remains on the vent, in critical condition. hypoxic. 04/12: hypoxia somewhat improving. following commands on the vent. per nsgy, can wean to extubate soon. some edema likely contributing to poor neuro exam, although slow improvements. 04/13: following commands. however, remains hypoxic on 60% fio2. tube feeds initiated this AM and concern over aspiration of tube feeds out endotracheal tube. CXR demonstrates adequate placement of gastric tube and ETT. ICPs remain controlled, and appropriate hypernatremia. 04/14: Repeat CT brain today revealed improved right frontal intraparenchymal hemorrhage. Patient status post right bur hole for ICP monitoring. T-max 100.9. Currently 99. Subjective: 04/15: TIFFANIE x 2 was removed today. Currently on propofol 50 mcg/kg an hour and fentanyl drip at 250 mcg an hour. Follows commands. Worsening oxygenation status today. Coarse breath sounds with thick greenish secretions noted. Sample will be sent today. 04/16: CXR with diffuse interstitial edema. Tolerating weaning of PEEP to 8 but increased MAP still required. No new seizures. 04/17: Good response to diuresis yesterday, need to increase to twice daily Lasix. Tolerating CPAP today on spontaneous breathing trial pressure 15/8. Osmolality acceptable but will not allow to decline any further. 04/18: Requiring increased pressure support to breathe spontaneously today. Tapering sedation. 04/19: Osmolality in a good range. Spontaneous breathing trials are requiring increased pressure support. We will try to progress to a trial extubation however this woman may well require a tracheostomy for a month or 2. 04/20: Poor progress in weaning from ventilator. We should probably proceed directly to tracheostomy. Will discuss with family and neurosurgical service. Objective Vital Signs Date Time Temp Pulse Resp B/P (MAP) Pulse Ox O2 Delivery O2 Flow Rate FiO2 04/20/18 10:23 93 45 04/20/18 08:00 85 04/20/18 08:00 99.0 19 127/61 (83) Intake and Output 04/20/18 04/20/18 04/20/18 07:59 15:59 23:59 Intake Total 1317 ml Output Total 900 ml Balance 417 ml Result Diagram: 04/19/18 0615 04/20/18 0451 Imaging Last Impressions Chest X-Ray 04/15/18 0600 Signed Impressions: CONCLUSION: Increased bilateral perihilar pulmonary parenchymal opacity suggesting increase d pulmonary edema. Head CT 04/14/18 0000 Signed Impressions: CONCLUSION: 1. Interval improvement following drainage of a right orbital frontal hemorrha ge. 2. Ventricular size is appropriate. 3. No extra-axial fluid remains. Abdomen X-Ray 04/14/18 0000 Signed Impressions: CONCLUSION: Unremarkable study. Lower Extremity Ultrasound 04/12/18 0000 Signed Impressions: On the right, the common femoral vein, greater saphenous vein, popliteal and pe roneal veins are patent as well as the right iliac vein. The femoral vein is no t clearly visualized due to soft tissue swelling and body habitus. The posterio r tibial vein is also not clearly seen. On the left, the posterior tibial vein is not clearly visualized. The popliteal, peroneal, iliac, common femoral, grea ter saphenous vein, and femoral veins are patent. CONCLUSION: 1. Visualized veins are patent without evidence for DVT. 2. The right femoral and posterior tibial vein and the left posterior tibial v ein are not clearly visualized. Brain MRI 04/11/18 0903 Signed Impressions: CONCLUSION: 1. 4 cm intraparenchymal hemorrhage involving the right frontal lobe without u nderlying mass. 2. Tiny focus of blooming artifact involving the left frontal lobe likely rela ting to a small focus of intraparenchymal hemorrhage on that side. 3. Chronic small vessel ischemic change. 4. Fluid signal within the mastoid air cells bilaterally. Clinical evaluation for any signs of acute mastoiditis suggested. 5. Right maxillary sinusitis. Head Magnetic Resonance Angiography 04/11/18 0000 Signed Impressions: CONCLUSION: Intracranial arterial vasculature has a normal appearance. Objective Remarks GENERAL: 73-year-old AA female, orotracheally intubated SKIN: Warm and dry. HEAD: bolt exits from head, wrapped in dry dressing. EYES: Pupils equal and round 2 mm bilaterally reactive to. Disconjugate gaze to left. No conjunctival icterus. No injection or drainage. ENT: No nasal bleeding or discharge. Mucous membranes pink and moist. NECK: Trachea midline. Orally intubated. CARDIOVASCULAR: Regular rate and rhythm. No murmur or rub. No JVD obvious but difficult to evaluate due to body habitus.. RESPIRATORY: Diminished in bases, symmetrical excursion. Scattered rhonchi persist. GASTROINTESTINAL: Abdomen soft, non-tender, obese. BS active, no guarding. MUSCULOSKELETAL: Extremities trace bilateral lower extremity nonpitting edema. No obvious deformities. NEUROLOGICAL: Spontaneous movement right and upper lower extremities. Withdrew to left and right lower extremity. Positive cough and gag. Date of Insertion: Apr 10, 2018 Line: Central Venous Catheter Side: Left Location: Internal, Jugular A/P Assessment and Plan Neuro/Psych: Acute right frontal intra-axial hemorrhage 3.1 cm at the right to left shift of 3 mm New onset seizure Status post right frontal craniotomy 04/11 with right bur hole with ICP monitor placement Currently on propofol drip at 50 mcg/kg/min/fentanyl drips at 250 mcg an hour for sedation/analgesia while intubated Goal of RASS -2 Daily sedation vacation Acetaminophen 650 mg by tube every 6 hours as needed fever brain CT in a.m. 04/11: slight increase in frontal hemorrhage. Brain CT 6 abdomen reveals improvement/status post evacuation hematoma Neurosurgery/Dr. Parson to follow Keep systolic blood pressure < 140 Replacement 3% saline currently at 10 cc an hour No mannitol per neurosurgery Seizure with fosphenytoin 100 mg every 8 hours. Loaded in ED. phenytoin level 13. Currently discontinued Switch to levetiracetam 500 IV twice daily EEG 04/11 revealed moderate encephalopathy. No epileptiform activity CV: Hypertensive Emergency Hyperlipidemia As needed labetalol and nicardipine drip goal sbp < 140 On home metoprolol tartrate 25 mg twice daily, amlodipine 2.5 mg a day, hydrochlorthiazide 25 mg daily losartan 100 mg daily. Resume amlodipine 2.5 mg daily and losartan 100 mg daily. Continue furosemide 40 mg daily Resp: Acute hypoxic and hypercarbic respiratory failure [facility]/550/1./ Ventilator bundle Albuterol/ipratropium aerosols every 6 hours with albuterol aerosols every 2 hours as needed dyspnea start SBTs. hypoxia concerning, possible aspiration, although afebrile with normal wbc. will avoid abx. aggressive suctioning. have increased PEEP. slow weaning of mechanical ventilation. wean fio2 for goal spo2 > 90% Still requiring increased pressure support, may well require a tracheostomy GI: Gastroesophageal reflux disease Elevated AST increase bowel regimen. Currently on vital high-protein goal 70 cc an hour. Lansoprazole 30 mg daily for GI prophylaxis. On omeprazole 40 mg daily at home Docusate sodium/senna 1 tablet twice daily for bowel regimen. Add polythene glycol 17 g twice daily and lactulose 30 cc 4 times daily. 1 dose of methylnaltrexone 12 mg subcu 1 and mineral oil 30 cc 1 now. : does not require mayo catheter. Endo: Diabetes mellitus History of gout Holding metformin 1000mg twice daily/home medication Novulog medium protocol Accu-Cheks every 6 hours to maintain euglycemia Holding colchicine 0.6 mg. Resume clinically indicated Increase Levemir to 24 units every 12 hours, Renal: Acute kidney injury? 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 Holding anticoagulation in light of acute brain hemorrhage ID: Monitor for signs and symptomatology of infection MSK: Elevated BMI Weight loss encouraged PT evaluate and treat FEN: Hypernatremia Replace electrolytes as clinically indicated Access -Utilize peripheral IV. Prophylaxis -GI -lansoprazole -DVT -SCD/holding pharmacological prophylaxis light of acute right frontal intracranial hemorrhage Overall impression: Remains critically ill and ventilator dependent following surgical treatment for acute right frontal lobe hemorrhage. Glucose intolerance and fluid accumulation remain problematic. Unable to separate from ventilator. Requiring very aggressive antihypertensive therapy still and will need continue intravenous diuretic therapy. Anticipate need for prolonged ventilatory support via tracheostomy with daily weaning exercises and nighttime ventilator support. Will be best served probably add an LTAC. Critical care time 38 mins Jonathon Ramos MD Apr 20, 2018 10:51
[2018-04-20] MEDS: SODIUM CHLORIDE 23.4% INJ 188 MEQ in SODIUM CHLOR 0.9% 1000 ML INJ 1,000 ML IV SCH (14:19)
[2018-04-20] MEDS ORDERED: HYOSCYAMINE 0.125 MG TAB PO PRN (21:45)
[2018-04-20] MEDS: ACETAMINOPHEN 325 MG TAB PO PRN (22:02)
[2018-04-21] VITALS (15 sets, daily range): BP systolic 120–141; BP diastolic 56–65; PULSE 79–87; RESP 2–25; TEMP 99.2–100.8; O2SAT 91–99
[2018-04-21] MEDS: levETIRAcetam INJ 500 MG in SODIUM CHLORIDE 0.9% INJ 100 ML IV SCH ×2 (00:17→14:12)
[2018-04-21] MEDS: CHLORHEXIDINE GLUCONATE 2 % 1 PACK (2 CLOTHS) TOP SCH (00:17)
[2018-04-21] MEDS: INSULIN ASPART SUPPLEMENTAL SCALE SQ SCH ×6 (00:18→20:29)
[2018-04-21] MEDS: PROPOFOL 1000 MG/100 ML INJ 100 ML IV PRN (01:00)
--- NOTE | 2018-04-21 04:07 | RADRPT ---
EXAM DATE: 04/21/2018 3:45 AM EDT AGE/SEX: 73 years / Female INDICATIONS: Respiratory failure. CLINICAL DATA: This is the patient's subsequent encounter. Patient reports that signs and symptoms h ave been present for 1 week and indicates a pain score of Nonresponsive. MEDICAL/SURGICAL HISTORY: Hypertension. Hypercholesterolemia. Diabetes mellitus type II. None . [place] [facility] [place]. . FINDINGS: Single view chest some joints the endotracheal tube, nasogastric tube are both in good position. Mild perihilar infiltrates bilaterally. No pneumothorax. CONCLUSION: Stable single view chest. Mild perihilar vascular congestion Electronically signed by: Jose Bowers MD 04/21/2018 4:05 AM EDT
[2018-04-21] MEDS: CHLORHEXIDINE 0.12% (ORAL KIT) 15 ML CUP MT SCH ×2 (07:55→20:17)
[2018-04-21] MEDS: ARTIFICIAL TEARS OPTH SOLN 15 ML BTL EACH EYE SCH ×3 (08:29→17:46)
[2018-04-21] MEDS: SODIUM CHLORIDE 0.9% FLUSH 10 ML FLUSH IV FLUSH SCH (08:29)
[2018-04-21] MEDS: LANSOPRAZOLE SOLUTAB 30 MG TAB G-TUBE SCH (08:29)
[2018-04-21] MEDS: DOCUSATE SODIUM 100 MG CAP PO SCH ×2 (08:29→20:18)
[2018-04-21] MEDS: INSULIN DETEMIR 100 UNITS/ML VIAL SQ SCH ×2 (08:30→20:29)
[2018-04-21] MEDS: FUROSEMIDE 40 MG TAB PO SCH ×2 (08:30→20:18)
[2018-04-21] MEDS: BISACODYL 10 MG SUPP RECTAL SCH (08:30)
[2018-04-21] MEDS: LOSARTAN 50 MG TAB PO SCH (08:30)
[2018-04-21] MEDS: amLODIPine BESYLATE 5 MG TAB PO SCH (08:30)
[2018-04-21] MEDS: ENOXAPARIN SODIUM 40 MG/0.4 ML SYRINGE SQ SCH (08:31)
--- NOTE | 2018-04-21 14:26 | HHI.CCPN ---
Subjective Remarks/Hospital Course This is a 73-year-old AA female. Admission 04/10/2018. Please note no family is available and all information is obtained by reviewing the medical record from ED physician. Past medical history includes hypertension, hyperlipidemia, gastroesophageal disease, diabetes mellitus, elevated BMI and gout. 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 She presented to [facility] with the following history. At approximately 2:30 PM and patient was reportedly fine and daughter came to visit her mother. Then at approximately 5:20 PM found her sitting in the dark by the stair unresponsive. EMS upon wind tunnel engineer arrival patient reportedly had approximately 4 generalized tonic-clonic seizures and then patient was transported from the house. Upon arrival here daughter states that patient was witnessed to have approximately 2 minute episode of seizure activity and patient did receive 2 mg of lorazepam IV. According to daughter patient has been compliant with her medications gives herself her medications low-salt by herself and is very independent. after being found home by daughter with new onset seizure. No prior history of seizure activity. Denies any trauma at home to the brain. CT brain revealed 3.1 cm right frontal intra-axial hemorrhage with a 3 mm right to left shift. She received 2 mg lorazepam IV 1 was loaded with fosphenytoin 1 g. Neurosurgery was consulted/Dr. Parson. Recommended blood pressure control with inpatient admission to ICU with consultation to neurosurgery. Patient was intubated in the ED by physician after receiving etomidate and rocuronium... 04/11: remains on the vent, in critical condition. hypoxic. 04/12: hypoxia somewhat improving. following commands on the vent. per nsgy, can wean to extubate soon. some edema likely contributing to poor neuro exam, although slow improvements. 04/13: following commands. however, remains hypoxic on 60% fio2. tube feeds initiated this AM and concern over aspiration of tube feeds out endotracheal tube. CXR demonstrates adequate placement of gastric tube and ETT. ICPs remain controlled, and appropriate hypernatremia. 04/14: Repeat CT brain today revealed improved right frontal intraparenchymal hemorrhage. Patient status post right bur hole for ICP monitoring. T-max 100.9. Currently 99. 04/15: TIFFANIE x 2 was removed today. Currently on propofol 50 mcg/kg an hour and fentanyl drip at 250 mcg an hour. Follows commands. Worsening oxygenation status today. Coarse breath sounds with thick greenish secretions noted. Sample will be sent today. 04/16: CXR with diffuse interstitial edema. Tolerating weaning of PEEP to 8 but increased MAP still required. No new seizures. 04/17: Good response to diuresis yesterday, need to increase to twice daily Lasix. Tolerating CPAP today on spontaneous breathing trial pressure 15/8. Osmolality acceptable but will not allow to decline any further. 04/18: Requiring increased pressure support to breathe spontaneously today. Tapering sedation. 04/19: Osmolality in a good range. Spontaneous breathing trials are requiring increased pressure support. We will try to progress to a trial extubation however this woman may well require a tracheostomy for a month or 2. 04/20: Poor progress in weaning from ventilator. We should probably proceed directly to tracheostomy. Will discuss with family and neurosurgical service. Subjective: 04/21: hypernatremic to 160 this AM. held hypertonic saline. this far out from insult, likely does not need active hypertonic saline and can manage with oral sodium load. will need trach to progress care. no neuro improvements. Objective Vital Signs Date Time Temp Pulse Resp B/P (MAP) Pulse Ox O2 Delivery O2 Flow Rate FiO2 04/21/18 12:06 93 50 04/21/18 12:00 99.2 80 21 120/58 (78) Intake and Output 04/21/18 04/21/18 04/22/18 08:00 16:00 00:00 Intake Total 1027 ml Output Total 1000.0 ml 0 ml Balance 27.0 ml 0 ml Result Diagram: 04/19/18 0615 04/21/18 1003 Imaging Last Impressions Chest X-Ray 04/15/18 0600 Signed Impressions: CONCLUSION: Increased bilateral perihilar pulmonary parenchymal opacity suggesting increase d pulmonary edema. Head CT 04/14/18 0000 Signed Impressions: CONCLUSION: 1. Interval improvement following drainage of a right orbital frontal hemorrha ge. 2. Ventricular size is appropriate. 3. No extra-axial fluid remains. Abdomen X-Ray 04/14/18 0000 Signed Impressions: CONCLUSION: Unremarkable study. Lower Extremity Ultrasound 04/12/18 0000 Signed Impressions: On the right, the common femoral vein, greater saphenous vein, popliteal and pe roneal veins are patent as well as the right iliac vein. The femoral vein is no t clearly visualized due to soft tissue swelling and body habitus. The posterio r tibial vein is also not clearly seen. On the left, the posterior tibial vein is not clearly visualized. The popliteal, peroneal, iliac, common femoral, grea ter saphenous vein, and femoral veins are patent. CONCLUSION: 1. Visualized veins are patent without evidence for DVT. 2. The right femoral and posterior tibial vein and the left posterior tibial v ein are not clearly visualized. Brain MRI 04/11/18 0903 Signed Impressions: CONCLUSION: 1. 4 cm intraparenchymal hemorrhage involving the right frontal lobe without u nderlying mass. 2. Tiny focus of blooming artifact involving the left frontal lobe likely rela ting to a small focus of intraparenchymal hemorrhage on that side. 3. Chronic small vessel ischemic change. 4. Fluid signal within the mastoid air cells bilaterally. Clinical evaluation for any signs of acute mastoiditis suggested. 5. Right maxillary sinusitis. Head Magnetic Resonance Angiography 04/11/18 0000 Signed Impressions: CONCLUSION: Intracranial arterial vasculature has a normal appearance. Objective Remarks GENERAL: 73-year-old AA female, orotracheally intubated SKIN: Warm and dry. HEAD: bolt exits from head, wrapped in dry dressing. EYES: Pupils equal and round 2 mm bilaterally reactive to. Disconjugate gaze to left. No conjunctival icterus. No injection or drainage. ENT: No nasal bleeding or discharge. Mucous membranes pink and moist. NECK: Trachea midline. Orally intubated. CARDIOVASCULAR: Regular rate and rhythm. No JVD obvious but difficult to evaluate due to body habitus.. RESPIRATORY: Diminished in bases, symmetrical excursion. Scattered rhonchi persist. GASTROINTESTINAL: Abdomen soft, non-tender, obese. no guarding. MUSCULOSKELETAL: Extremities trace bilateral lower extremity nonpitting edema. No obvious deformities. NEUROLOGICAL: Spontaneous movement right and upper lower extremities. Withdrew to left and right lower extremity. Positive cough and gag. Date of Insertion: Apr 10, 2018 Line: Central Venous Catheter Side: Left Location: Internal, Jugular A/P Assessment and Plan Neuro/Psych: Acute right frontal intra-axial hemorrhage 3.1 cm at the right to left shift of 3 mm New onset seizure Status post right frontal craniotomy 04/11 with right bur hole with ICP monitor placement Currently on propofol/fentanyl drips for sedation/analgesia while intubated Goal of RASS -2 Daily sedation vacation Acetaminophen 650 mg by tube every 6 hours as needed fever brain CT in a.m. 04/11: slight increase in frontal hemorrhage. Brain CT 6 abdomen reveals improvement/status post evacuation hematoma Neurosurgery/Dr. Parson to follow Keep systolic blood pressure < 140 d/c 3% saline. start nacl tabs 1gm tid. No mannitol per neurosurgery Seizure with fosphenytoin 100 mg every 8 hours. Loaded in ED. phenytoin level 13. Currently discontinued Switch to levetiracetam 500 IV twice daily EEG 04/11 revealed moderate encephalopathy. No epileptiform activity CV: Hypertensive Emergency Hyperlipidemia As needed labetalol and nicardipine drip goal sbp < 140 On home metoprolol tartrate 25 mg twice daily, amlodipine 2.5 mg a day, hydrochlorthiazide 25 mg daily losartan 100 mg daily. amlodipine 2.5 mg daily and losartan 100 mg daily. Continue furosemide 40 mg daily Resp: Acute hypoxic and hypercarbic respiratory failure- becoming chronic. Ventilator bundle Albuterol/ipratropium aerosols every 6 hours with albuterol aerosols every 2 hours as needed dyspnea daily SBTs. hypoxia concerning, possible aspiration, although afebrile with normal wbc. will avoid abx. aggressive suctioning. have increased PEEP. slow weaning of mechanical ventilation. wean fio2 for goal spo2 > 90% Still requiring increased pressure support, may well require a tracheostomy GI: Gastroesophageal reflux disease Elevated AST bowel regimen. Currently on vital high-protein goal 70 cc an hour. Lansoprazole 30 mg daily for GI prophylaxis. On omeprazole 40 mg daily at home Docusate sodium/senna 1 tablet twice daily for bowel regimen. Add polythene glycol 17 g twice daily and lactulose 30 cc 4 times daily. : does not require mayo catheter. Endo: Diabetes mellitus History of gout Holding metformin 1000mg twice daily/home medication Novulog medium protocol Accu-Cheks every 6 hours to maintain euglycemia Holding colchicine 0.6 mg. Resume clinically indicated Levemir to 24 units every 12 hours, Renal: Acute kidney injury? 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 Holding anticoagulation in light of acute brain hemorrhage ID: Monitor for signs and symptomatology of infection MSK: Elevated BMI PT evaluate and treat FEN: Hypernatremia Replace electrolytes as clinically indicated Access -Utilize peripheral IV. Prophylaxis -GI -lansoprazole -DVT -SCD/holding pharmacological prophylaxis light of acute right frontal intracranial hemorrhage Overall impression: Remains critically ill and ventilator dependent following surgical treatment for acute right frontal lobe hemorrhage. Glucose intolerance and fluid accumulation remain problematic. Unable to separate from ventilator. Requiring very aggressive antihypertensive therapy still and will need continue intravenous diuretic therapy. Anticipate need for prolonged ventilatory support via tracheostomy with daily weaning exercises and nighttime ventilator support. Will be best served probably at LTAC level care. Critical care time 33 mins Mulugeta Baer MD Apr 21, 2018 14:26
[2018-04-21] MEDS: RESP: ALBUTEROL 2.5 MG/3 ML NEB (PRN) NEB (16:23)
[2018-04-21] MEDS: SODIUM CHLORIDE 1 GRAM TAB PO SCH (21:31)
[2018-04-22] VITALS (17 sets, daily range): BP systolic 111–160; BP diastolic 56–78; PULSE 76–85; RESP 14–23; TEMP 99.1–100.4; O2SAT 92–100
[2018-04-22] MEDS: CHLORHEXIDINE GLUCONATE 2 % 1 PACK (2 CLOTHS) TOP SCH (00:20)
[2018-04-22] MEDS: INSULIN ASPART SUPPLEMENTAL SCALE SQ SCH ×6 (00:20→20:25)
[2018-04-22] MEDS: levETIRAcetam INJ 500 MG in SODIUM CHLORIDE 0.9% INJ 100 ML IV SCH ×2 (01:04→13:42)
[2018-04-22] MEDS: SODIUM CHLORIDE 1 GRAM TAB PO SCH ×3 (04:30→20:24)
[2018-04-22 05:13] LABS: HEMATOCRIT 28.7 % (35.0-46.0); HEMOGLOBIN 9.2 GM/DL (11.6-15.3); MEAN CELL VOLUME 93.3 FL (80.0-100.0); MEAN CORPUSCULAR HGB CONC 32.1 % (32.0-36.0); PLATELET COUNT 225 TH/MM3 (150-450); RED BLOOD COUNT 3.08 MIL/MM3 (4.00-5.30); RED CELL DISTRIBUTION WIDTH 14.7 % (11.6-17.2); WHITE BLOOD COUNT 8.5 TH/MM3 (4.0-11.0)
[2018-04-22 05:36] LABS: CALCIUM 10.2 MG/DL (8.5-10.1); CREATININE 1.11 MG/DL (0.50-1.00)
[2018-04-22] MEDS: CHLORHEXIDINE 0.12% (ORAL KIT) 15 ML CUP MT SCH ×2 (08:00→20:25)
[2018-04-22] MEDS: BISACODYL 10 MG SUPP RECTAL SCH (08:26)
[2018-04-22] MEDS: ARTIFICIAL TEARS OPTH SOLN 15 ML BTL EACH EYE SCH ×3 (08:27→17:10)
--- NOTE | 2018-04-22 08:49 | HHI.NSPN ---
(Mary Grace Roman) Note Status Status: Progress Note (Mary Grace Roman) Interval History Interval History THIS NOTE IS FOR 04/21/18. PATIENT SEEN AND EXAMINED DURING MORNING ROUNDS. This is a 73-year-old Black female. with history includes hypertension, hyperlipidemia, gastroesophageal disease, diabetes mellitus, elevated BMI and gout. 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 She presented to [facility] with altered mental status. At approximately 5:20 PM found her sitting in the dark by the stair unresponsive. 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 Upon arrival here daughter states that patient was witnessed to have approximately 2 minute episode of seizure activity and patient did receive 2 mg of lorazepam IV. According to daughter patient has been compliant with her medications. No prior history of seizure activity. Denies any trauma at home to the brain. CT brain revealed 3.1 cm right frontal intra-axial hemorrhage with a 3 mm right to left shift. She received 2 mg lorazepam IV 1 was loaded with fosphenytoin 1 g. Neurosurgery consultation was requestedThe patient was intubated in the ED by physician for airway protection and acute respiratory failure Ms. Amaya underwent a right frontal craniotomy for evacuation of hemorrhagic mass, and with placement of ICP monitor 04/11/18. 04/14: intubated, mildly sedated but opens eyes when stimulated, followed simple commands. ICPs controlled. 04/15: intubated, sedated. nrs reports blood pressure elevates when sedation lowered. continues to follow commands 04/17: remains intubated, sedated, undergoing CPAP trials. 04/18: no changes remains intubated and sedated. opening eyes, and followed simple commands. On CPAP. 04/21: intubated and sedated, withdraws minimally in lower extremities. (Mary Grace Roman) Labs, Micro, & Vital Signs Results Date Time Temp Pulse Resp B/P (MAP) Pulse Ox O2 Delivery O2 Flow Rate FiO2 04/22/18 08:03 40 04/22/18 08:03 94 40 04/22/18 06:00 76 04/22/18 04:15 100 50 04/22/18 04:00 80 04/22/18 04:00 99.1 80 18 136/65 (88) 94 04/22/18 04:00 50 04/22/18 02:00 76 04/22/18 00:00 50 04/22/18 00:00 100.4 80 14 111/56 (74) 94 04/22/18 00:00 80 04/21/18 23:27 97 50 04/21/18 22:00 84 04/21/18 20:00 50 04/21/18 20:00 100.7 84 19 141/65 (90) 99 04/21/18 20:00 84 04/21/18 19:59 97 50 04/21/18 18:00 87 04/21/18 16:33 40 04/21/18 16:26 99 50 04/21/18 16:00 50 04/21/18 16:00 80 04/21/18 16:00 99.7 80 25 120/56 (77) 91 04/21/18 14:00 81 04/21/18 12:06 93 50 04/21/18 12:00 99.2 80 21 120/58 (78) 99 04/21/18 12:00 50 04/21/18 12:00 80 04/21/18 10:00 81 Constitutional Vital Signs Date Time Temp Pulse Resp B/P (MAP) Pulse Ox O2 Delivery O2 Flow Rate FiO2 04/22/18 08:03 40 04/22/18 08:03 94 40 04/22/18 06:00 76 04/22/18 04:15 100 50 04/22/18 04:00 80 04/22/18 04:00 99.1 80 18 136/65 (88) 94 04/22/18 04:00 50 04/22/18 02:00 76 04/22/18 00:00 50 04/22/18 00:00 100.4 80 14 111/56 (74) 94 04/22/18 00:00 80 04/21/18 23:27 97 50 04/21/18 22:00 84 04/21/18 20:00 50 04/21/18 20:00 100.7 84 19 141/65 (90) 99 04/21/18 20:00 84 04/21/18 19:59 97 50 04/21/18 18:00 87 04/21/18 16:33 40 04/21/18 16:26 99 50 04/21/18 16:00 50 04/21/18 16:00 80 04/21/18 16:00 99.7 80 25 120/56 (77) 91 04/21/18 14:00 81 04/21/18 12:06 93 50 04/21/18 12:00 99.2 80 21 120/58 (78) 99 04/21/18 12:00 50 04/21/18 12:00 80 04/21/18 10:00 81 (Mary Grace Roman) Review of Systems ROS Limitations: Intubated (Mary Grace Roman) Physical Exam THIS NOTE IS FOR 04/21/18. PATIENT SEEN AND EXAMINED DURING MORNING ROUNDS. General: Pt sedated and intubated in ICU with stable vitals. Eyes: Pupils equal. Diffuse dark hemorrhagic conjunctiva bilaterally. Resp: Last coarse breath sounds bilaterally today. Intubated. CPAP Heart: IRINEO no murmurs Abd: Soft. OG TFs at 50ml/hr. Skin: SCDs in place. Incision clean and dry. No signs of infection. [place] in place. Muscle: Cannot assess strength secondary to clinical condition. Neuro: No eye opening, currently not following commands. Minimal withdrawal to pain in both feet. Not following for motor testing. (Mary Grace Roman) Medical Decision Making MDM Remarks THIS NOTE IS FOR 04/21/18. PATIENT SEEN AND EXAMINED DURING MORNING ROUNDS. 73 y/o female presented with AMS and seizures, CT brain revealed 3.1 cm right frontal intra-axial hemorrhage with a 3 mm right to left shift. MRI Brain w/wo contrast showed no underlying mass, MRA Head unremarkable Ms. Amaya underwent a right frontal craniotomy for evacuation of hemorrhagic mass, and with placement of ICP monitor 04/11/18, ICP monitor removed 04/14/18 final pathology reports hematoma EEG 04/11/18 reports no epileptiform discharges, mild to moderate encephalopathy Head CT 04/14/18 Impressions: CONCLUSION: 1. Interval improvement following drainage of a right orbital frontal hemorrhage. 2. Ventricular size is appropriate. 3. No extra-axial fluid remains (Mary Grace Roman) Plan Plan Remarks THIS NOTE IS FOR 04/21/18. PATIENT SEEN AND EXAMINED DURING MORNING ROUNDS. cont neuro checks, follow up exam cont CPAP trials and vent weaning per critical care cont AEDs, seizure precautions dw nursing, recommend ophthalmology evaluation dc surgical cristobal 04/23/18 (Mary Grace Roman) Attending Statement The exam, history, and the medical decision-making described in the above note were completed with the assistance of the mid-level provider. I reviewed and agree with the findings presented. I attest that I had a [id number] encounter with the patient on the same day, and personally performed and documented my assessment and findings in the medical record. (Harrison Parson MD) Mary Grace Roman Apr 22, 2018 08:49 Harrison Parson MD Apr 26, 2018 18:36
--- NOTE | 2018-04-22 08:49 | HHI.NSPN ---
(Mary Grace Roman) Note Status Status: Progress Note (Mary Grace Roman) Interval History Interval History This is a 73-year-old Black female. with history includes hypertension, hyperlipidemia, gastroesophageal disease, diabetes mellitus, elevated BMI and gout. 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 She presented to [facility] with altered mental status. At approximately 5:20 PM found her sitting in the dark by the stair unresponsive. 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 Upon arrival here daughter states that patient was witnessed to have approximately 2 minute episode of seizure activity and patient did receive 2 mg of lorazepam IV. According to daughter patient has been compliant with her medications. No prior history of seizure activity. Denies any trauma at home to the brain. CT brain revealed 3.1 cm right frontal intra-axial hemorrhage with a 3 mm right to left shift. She received 2 mg lorazepam IV 1 was loaded with fosphenytoin 1 g. Neurosurgery consultation was requested. The patient was intubated in the ED by physician for airway protection and acute respiratory failure Ms. Amaya underwent a right frontal craniotomy for evacuation of hemorrhagic mass, and with placement of ICP monitor 04/11/18. 04/14: intubated, mildly sedated but opens eyes when stimulated, followed simple commands. ICPs controlled. 04/15: intubated, sedated. nrs reports blood pressure elevates when sedation lowered. continues to follow commands 04/17: remains intubated, sedated, undergoing CPAP trials. 04/18: no changes remains intubated and sedated. opening eyes, and followed simple commands. On CPAP. 04/21: intubated and sedated, withdraws minimally in lower extremities. 04/22: nursing reports following commands x 4 extremities, remains intubated. (Mary Grace Roman) Labs, Micro, & Vital Signs Results Date Time Temp Pulse Resp B/P (MAP) Pulse Ox O2 Delivery O2 Flow Rate FiO2 04/22/18 08:03 40 04/22/18 08:03 94 40 04/22/18 06:00 76 04/22/18 04:15 100 50 04/22/18 04:00 80 04/22/18 04:00 99.1 80 18 136/65 (88) 94 04/22/18 04:00 50 04/22/18 02:00 76 04/22/18 00:00 50 04/22/18 00:00 100.4 80 14 111/56 (74) 94 04/22/18 00:00 80 04/21/18 23:27 97 50 04/21/18 22:00 84 04/21/18 20:00 50 04/21/18 20:00 100.7 84 19 141/65 (90) 99 04/21/18 20:00 84 04/21/18 19:59 97 50 04/21/18 18:00 87 04/21/18 16:33 40 04/21/18 16:26 99 50 04/21/18 16:00 50 04/21/18 16:00 80 04/21/18 16:00 99.7 80 25 120/56 (77) 91 04/21/18 14:00 81 04/21/18 12:06 93 50 04/21/18 12:00 99.2 80 21 120/58 (78) 99 04/21/18 12:00 50 04/21/18 12:00 80 04/21/18 10:00 81 Constitutional Vital Signs Date Time Temp Pulse Resp B/P (MAP) Pulse Ox O2 Delivery O2 Flow Rate FiO2 04/22/18 08:03 40 04/22/18 08:03 94 40 04/22/18 06:00 76 04/22/18 04:15 100 50 04/22/18 04:00 80 04/22/18 04:00 99.1 80 18 136/65 (88) 94 04/22/18 04:00 50 04/22/18 02:00 76 04/22/18 00:00 50 04/22/18 00:00 100.4 80 14 111/56 (74) 94 04/22/18 00:00 80 04/21/18 23:27 97 50 04/21/18 22:00 84 04/21/18 20:00 50 04/21/18 20:00 100.7 84 19 141/65 (90) 99 04/21/18 20:00 84 04/21/18 19:59 97 50 04/21/18 18:00 87 04/21/18 16:33 40 04/21/18 16:26 99 50 04/21/18 16:00 50 04/21/18 16:00 80 04/21/18 16:00 99.7 80 25 120/56 (77) 91 04/21/18 14:00 81 04/21/18 12:06 93 50 04/21/18 12:00 99.2 80 21 120/58 (78) 99 04/21/18 12:00 50 04/21/18 12:00 80 04/21/18 10:00 81 (Mary Grace Roman) Review of Systems ROS Limitations: Intubated (Mary Grace Roman) Physical Exam General: Pt sedated and intubated, no acute distress Eyes: Pupils equal. Bilateral dark hemorrhagic conjunctiva. Resp: intubated, CPAP Heart: regular rate rhythm Skin: SCDs in place. Incision clean and dry, healing well. [place] in place. Muscle: Moves all 4 extremities to command. Cannot assess strength secondary to clinical condition. Neuro: Sedated. Reports to be following commands. Pupils 3 mm bilaterally reactive bilaterally. (Mary Grace Roman) Medications Current Medications Current Medications Medications (Trade) Dose Ordered Sig/J Carlos Route PRN Reason Start Time Stop Time Status Last Admin Dose Admin Lorazepam (Ativan Inj) 2 mg ONCE PRN IV PUSH SEIZURES 04/10/18 19:30 04/10/18 20:01 Nicardipine HCl 25 mg/Sodium Chloride 260 ml @ 52 mls/hr TITRATE PRN IV Blood pressure management 04/10/18 20:00 04/11/18 18:37 Lansoprazole (Prevacid Odt) 30 mg DAILY G-TUBE 04/11/18 09:00 04/21/18 08:29 Artificial Tears (Tears Naturale Opth Soln) 1 drop TID EACH EYE 04/11/18 09:00 04/22/18 08:27 Miscellaneous Information ([facility] Information) 1 [id number] XX 04/10/18 20:30 04/10/18 20:30 Chlorhexidine Gluconate (Chlorhexidine 2% Cloth) Taper DAILY@04 TOP 04/11/18 04:00 04/07/19 03:59 04/18/18 04:00 Chlorhexidine Gluconate (Chlorhexidine 2% Cloth) 3 pack UNSCH PRN TOP HYGIENIC CARE 04/10/18 20:30 Sennosides (Senokot) 17.2 mg Q12H PRN PO Moderate constipation 04/10/18 20:30 Bisacodyl (Dulcolax Supp) 10 mg DAILY PRN RECTAL SEVERE CONSITIPATION 04/10/18 20:30 Chlorhexidine Gluconate (Peridex 0.12% Liq) 15 ml BID@08,20 MT 04/11/18 08:00 04/22/18 08:00 Propofol 100 ml @ 3.6 mls/hr TITRATE PRN IV SEDATION 04/10/18 20:30 04/21/18 01:00 Fentanyl Citrate 250 ml @ 5 mls/hr TITRATE PRN IV SEDATION 04/10/18 20:30 04/19/18 17:59 Potassium Chloride 100 ml @ 50 mls/hr Q2H PRN IV For Potassium 2.8 - 3.2 mEq/L 04/10/18 20:30 Potassium Chloride 100 ml @ 50 mls/hr Q2H PRN IV For Potassium 2.8 - 3.2 mEq/L 04/10/18 20:30 Potassium Bicarb/ Potassium Chloride (K-Lyte Cl Eff) 50 meq UNSCH PRN PO For Potassium 3.3 - 3.5 mEq/L 04/10/18 20:30 Potassium Chloride 100 ml @ 25 mls/hr UNSCH PRN IV For Potassium 3.3 - 3.5 mEq/L 04/10/18 20:30 Potassium Chloride 100 ml @ 50 mls/hr Q2H PRN IV For Potassium 3.3 - 3.5 mEq/L 04/10/18 20:30 Magnesium Sulfate 4 gm/Sodium Chloride 100 ml @ 50 mls/hr UNSCH PRN IV For Magnesium 0.9 - 1.1 mg/dL 04/10/18 20:30 04/11/18 06:38 Magnesium Oxide (Mag-Ox) 800 mg UNSCH PRN PO For Magnesium 1.2 - 1.6 mg/dL 04/10/18 20:30 Magnesium Sulfate 2 gm/Sodium Chloride 100 ml @ 50 mls/hr UNSCH PRN IV For Magnesium 1.2 - 1.6 mg/dL 04/10/18 20:30 Potassium Phosphate (K-Phos) 2,000 mg Q4H PRN PO For Phosphorus < 2.5 mg/dL 04/10/18 20:30 Sodium Phosphate 30 mmol/Sodium Chloride 250 ml @ 42 mls/hr UNSCH PRN IV For Phosphorus < 2.5 mg/dL 04/10/18 20:30 Potassium Phosphate (K-Phos) 2,000 mg UNSCH PRN PO/TUBE SEE LABEL COMMENTS 04/10/18 20:30 Potassium Phosphate 30 mmol/ Sodium Chloride 260 ml @ 42 mls/hr UNSCH PRN IV SEE LABEL COMMENTS 04/10/18 20:30 04/11/18 06:38 Labetalol HCl (Trandate Inj) 10 mg Q1HR PRN IV PUSH SBP>140, DBP>90, HR>65 04/10/18 20:30 04/16/18 01:13 Amlodipine Besylate (Norvasc) 2.5 mg DAILY PO 04/11/18 09:00 04/21/18 08:30 Miscellaneous (Pill Splitter) 1 ea UNSCH PRN OTHER SEE LABEL COMMENTS 04/10/18 20:45 Sodium Chloride (NS Flush) DAILY IV FLUSH 04/11/18 09:00 04/21/18 08:29 Sodium Chloride (NS Flush) UNSCH PRN IV FLUSH SEE PROTOCOL 04/10/18 23:00 Norepinephrine Bitartrate 4 mg/ Sodium Chloride 250 ml @ 7.5 mls/hr TITRATE PRN IV Blood pressure management 04/10/18 23:00 04/12/18 18:23 Terbutaline Sulfate (Brethine Inj) 1 mg UNSCH PRN SQ For Extravasation 04/10/18 23:00 Levetriacetam 500 mg/Sodium Chloride 105 ml @ 400 mls/hr Q12H IV 04/12/18 02:00 04/22/18 01:04 Docusate Sodium (Colace) 100 mg BID PO 04/11/18 21:00 04/21/18 20:18 Ondansetron HCl (Zofran Odt) 4 mg Q6H PRN PO NAUSEA OR VOMITING 04/11/18 14:45 04/22/18 00:00 Calcium Gluconate (Calcium Gluconate Inj) 1 gm UNSCH PRN IV SEE LABEL COMMENTS 04/11/18 14:45 Potassium Chloride 100 ml @ 50 mls/hr UNSCH PRN IV POTASSIUM LESS THAN 4 04/11/18 14:45 Magnesium Sulfate 4 gm/Sodium Chloride 108 ml @ 108 mls/hr UNSCH PRN IV MAGNESIUM LESS THAN 2 04/11/18 14:45 Acetaminophen (Tylenol) 650 mg Q4H PRN PO TEMPERATURE > 101.5 F 04/11/18 14:45 04/20/18 22:02 Bisacodyl (Dulcolax Supp) 10 mg DAILY RECTAL 04/14/18 09:00 04/17/18 08:58 Albuterol Sulfate (Albuterol Neb) 2.5 mg Q2HR NEB PRN NEB dyspnea 04/14/18 17:00 04/21/18 16:23 Losartan Potassium (Cozaar) 100 mg DAILY PO 04/15/18 09:00 04/21/18 08:30 Enoxaparin Sodium (Lovenox Inj) 40 mg Q24H SQ 04/16/18 09:00 04/21/18 08:31 Furosemide (Lasix) 40 mg Q12H PO 04/17/18 21:00 04/21/18 20:18 Dextrose (D50w (Vial) Inj) 50 ml UNSCH PRN IV PUSH HYPOGLYCEMIA-SEE COMMENTS 04/18/18 12:15 Glucagon (Glucagon Inj) 1 mg UNSCH PRN OTHER HYPOGLYCEMIA-SEE COMMENTS 04/18/18 12:15 Insulin Aspart (NovoLOG SUPPLEMENTAL SCALE) 1 Q4H SQ 04/18/18 12:00 04/22/18 04:30 Insulin Detemir (Levemir Inj) 24 units Q12HR SQ 04/19/18 21:00 04/21/18 20:29 Hyoscyamine Sulfate (Levsin) 0.125 mg Q4H PRN PO SECRETIONS 04/20/18 21:45 04/20/18 21:44 Sodium Chloride (Sodium Chloride) 1 gm Q8H PO 04/21/18 21:00 04/22/18 04:30 (Mary Grace Roman) Medical Decision Making MDM Remarks 73 y/o female presented with AMS and seizures, CT brain revealed 3.1 cm right frontal intra-axial hemorrhage with a 3 mm right to left shift. MRI Brain w/wo contrast showed no underlying mass, MRA Head unremarkable Ms. Amaya underwent a right frontal craniotomy for evacuation of hemorrhagic mass, and with placement of ICP monitor 04/11/18, ICP monitor removed 04/14/18 final pathology reports hematoma EEG 04/11/18 reports no epileptiform discharges, mild to moderate encephalopathy Head CT 04/14/18 Impressions: CONCLUSION: 1. Interval improvement following drainage of a right orbital frontal hemorrhage. 2. Ventricular size is appropriate. 3. No extra-axial fluid remains (Mary Grace Roman) Plan Plan Remarks cont neuro checks and follow up exam cont CPAP trials and vent weaning per critical care cont AEDs, seizure precautions dc surgical cristobal tomorrow clear for trach/PEG from NRS standpoint (Mary Grace Roman) Attending Statement The exam, history, and the medical decision-making described in the above note were completed with the assistance of the mid-level provider. I reviewed and agree with the findings presented. I attest that I had a [id number] encounter with the patient on the same day, and personally performed and documented my assessment and findings in the medical record. (Harrison Parson MD) Mary Grace Roman Apr 22, 2018 08:49 Harrison Parson MD Apr 26, 2018 18:36
[2018-04-22] MEDS: SODIUM CHLORIDE 0.9% FLUSH 10 ML FLUSH IV FLUSH SCH (09:00)
--- NOTE | 2018-04-22 09:10 | PD.CONS ---
History of Present Illness Service Ophthalmology Consult Requested By Reason for Consult subconjunctival hemorrhages Primary Care Physician Jim Vázquez M.D. Diagnoses: History of Present Illness 73-year-old AA female with h/o HTN, hyperlipidemia, DM, IVC filter for thrombus on chronic enoxaparin presented to ED after having generalized tonic-clonic seizures. CT brain revealed 3.1 cm right frontal intra-axial hemorrhage with a 3 mm right to left shift. Status post right frontal craniotomy 04/11 with right bur hole with ICP monitor placement. Unknown ocular history. Ophthalmology consulted to evaluate "scleral hemorrhages." Pt currently intubated but not sedated. When asked if she is currently having any vision changes or pain in her eyes, she shakes her head "no." Past Family Social History Allergies: Coded Allergies: Penicillins (Verified Allergy, Unknown, 04/10/18) Physical Exam Vital Signs Vital Signs Date Time Temp Pulse Resp B/P (MAP) Pulse Ox O2 Delivery O2 Flow Rate FiO2 04/22/18 08:03 40 04/22/18 08:03 94 40 04/22/18 06:00 76 04/22/18 04:15 100 50 04/22/18 04:00 80 04/22/18 04:00 99.1 80 18 136/65 (88) 94 04/22/18 04:00 50 04/22/18 02:00 76 04/22/18 00:00 50 04/22/18 00:00 100.4 80 14 111/56 (74) 94 04/22/18 00:00 80 04/21/18 23:27 97 50 04/21/18 22:00 84 04/21/18 20:00 50 04/21/18 20:00 100.7 84 19 141/65 (90) 99 04/21/18 20:00 84 04/21/18 19:59 97 50 04/21/18 18:00 87 04/21/18 16:33 40 04/21/18 16:26 99 50 04/21/18 16:00 50 04/21/18 16:00 80 04/21/18 16:00 99.7 80 25 120/56 (77) 91 04/21/18 14:00 81 04/21/18 12:06 93 50 04/21/18 12:00 99.2 80 21 120/58 (78) 99 04/21/18 12:00 50 04/21/18 12:00 80 04/21/18 10:00 81 Physical Exam Va unable EOM full OU CVF unable Pupils 2-1 no APD OU IOP normal to palpation OU Anterior exam OD - normal eyelid, subconjunctival heme, K clear, AC deep, pupil round, lens clear OS - normal eyelid, subconjunctival heme, K clear, AC deep, pupil round, lens clear Laboratory Laboratory Tests Test 04/21/18 10:03 04/22/18 04:15 Sodium Level 146 146 White Blood Count 8.5 Red Blood Count 3.08 Hemoglobin 9.2 Hematocrit 28.7 Mean Corpuscular Volume 93.3 Mean Corpuscular Hemoglobin 30.0 Mean Corpuscular Hemoglobin Concent 32.1 Red Cell Distribution Width 14.7 Platelet Count 225 Mean Platelet Volume 10.0 Blood Urea Nitrogen 21 Creatinine 1.11 Random Glucose 160 Calcium Level 10.2 Potassium Level 3.9 Chloride Level 105 Carbon Dioxide Level 33.0 Anion Gap 8 Estimat Glomerular Filtration Rate 59 Result Diagram: 04/22/18 0415 04/22/18 0415 Assessment and Plan Problem List: (1) Subconjunctival hemorrhage of both eyes ICD Codes: H11.33 - Conjunctival hemorrhage, bilateral Plan: Unsure of etiology. Patient possibly rubbed her eyes prior to being restrained. Has been on chronic Lovenox. No treatment necessary - will resolve in 2-3 weeks. Phoebe Vázquez MD Apr 22, 2018 09:10
[2018-04-22] MEDS: DOCUSATE SODIUM 100 MG CAP PO SCH ×2 (09:28→20:24)
[2018-04-22] MEDS: LOSARTAN 50 MG TAB PO SCH (09:28)
[2018-04-22] MEDS: FUROSEMIDE 40 MG TAB PO SCH ×2 (09:28→20:24)
[2018-04-22] MEDS: LANSOPRAZOLE SOLUTAB 30 MG TAB G-TUBE SCH (09:29)
[2018-04-22] MEDS: amLODIPine BESYLATE 5 MG TAB PO SCH (09:32)
[2018-04-22] MEDS: INSULIN DETEMIR 100 UNITS/ML VIAL SQ SCH ×2 (09:32→20:25)
[2018-04-22] MEDS: ENOXAPARIN SODIUM 40 MG/0.4 ML SYRINGE SQ SCH (09:33)
--- NOTE | 2018-04-22 11:21 | HHI.CCPN ---
Subjective Remarks/Hospital Course This is a 73-year-old AA female. Admission 04/10/2018. Please note no family is available and all information is obtained by reviewing the medical record from ED physician. Past medical history includes hypertension, hyperlipidemia, gastroesophageal disease, diabetes mellitus, elevated BMI and gout. 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 She presented to [facility] with the following history. At approximately 2:30 PM and patient was reportedly fine and daughter came to visit her mother. Then at approximately 5:20 PM found her sitting in the dark by the stair unresponsive. 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 Upon arrival here daughter states that patient was witnessed to have approximately 2 minute episode of seizure activity and patient did receive 2 mg of lorazepam IV. According to daughter patient has been compliant with her medications gives herself her medications low-salt by herself and is very independent. after being found home by daughter with new onset seizure. No prior history of seizure activity. Denies any trauma at home to the brain. CT brain revealed 3.1 cm right frontal intra-axial hemorrhage with a 3 mm right to left shift. She received 2 mg lorazepam IV 1 was loaded with fosphenytoin 1 g. Neurosurgery was consulted/Dr. Parson. Recommended blood pressure control with inpatient admission to ICU with consultation to neurosurgery. Patient was intubated in the ED by physician after receiving etomidate and rocuronium... 04/11: remains on the vent, in critical condition. hypoxic. 04/12: hypoxia somewhat improving. following commands on the vent. per nsgy, can wean to extubate soon. some edema likely contributing to poor neuro exam, although slow improvements. 04/13: following commands. however, remains hypoxic on 60% fio2. tube feeds initiated this AM and concern over aspiration of tube feeds out endotracheal tube. CXR demonstrates adequate placement of gastric tube and ETT. ICPs remain controlled, and appropriate hypernatremia. 04/14: Repeat CT brain today revealed improved right frontal intraparenchymal hemorrhage. Patient status post right bur hole for ICP monitoring. T-max 100.9. Currently 99. 04/15: TIFFANIE x 2 was removed today. Currently on propofol 50 mcg/kg an hour and fentanyl drip at 250 mcg an hour. Follows commands. Worsening oxygenation status today. Coarse breath sounds with thick greenish secretions noted. Sample will be sent today. 04/16: CXR with diffuse interstitial edema. Tolerating weaning of PEEP to 8 but increased MAP still required. No new seizures. 04/17: Good response to diuresis yesterday, need to increase to twice daily Lasix. Tolerating CPAP today on spontaneous breathing trial pressure 15/8. Osmolality acceptable but will not allow to decline any further. 04/18: Requiring increased pressure support to breathe spontaneously today. Tapering sedation. 04/19: Osmolality in a good range. Spontaneous breathing trials are requiring increased pressure support. We will try to progress to a trial extubation however this woman may well require a tracheostomy for a month or 2. 04/20: Poor progress in weaning from ventilator. We should probably proceed directly to tracheostomy. Will discuss with family and neurosurgical service. Subjective: 04/21: hypernatremic to 160 this AM. held hypertonic saline. this far out from insult, likely does not need active hypertonic saline and can manage with oral sodium load. will need trach to progress care. no neuro improvements. 04/22: long discussion with family: they are agreeable to trach, but would prefer not to have PEG tube. discussed that with her level of functioning, not likely to be able to eat on her own, and will likely need long-term PEG and long -term nasogastric enteral access has significant complications. Objective Vital Signs Date Time Temp Pulse Resp B/P (MAP) Pulse Ox O2 Delivery O2 Flow Rate FiO2 04/22/18 10:00 79 04/22/18 08:03 40 04/22/18 08:03 94 04/22/18 08:00 99.5 20 134/64 (87) Intake and Output 04/22/18 04/22/18 04/23/18 08:00 16:00 00:00 Intake Total 820 ml Output Total 775.0 ml Balance 45.0 ml Result Diagram: 04/22/18 0415 04/22/18 0415 Imaging Last Impressions Chest X-Ray 04/15/18 0600 Signed Impressions: CONCLUSION: Increased bilateral perihilar pulmonary parenchymal opacity suggesting increase d pulmonary edema. Head CT 04/14/18 0000 Signed Impressions: CONCLUSION: 1. Interval improvement following drainage of a right orbital frontal hemorrha ge. 2. Ventricular size is appropriate. 3. No extra-axial fluid remains. Abdomen X-Ray 04/14/18 Signed Impressions: CONCLUSION: Unremarkable study. Lower Extremity Ultrasound 04/12/18 Signed Impressions: On the right, the common femoral vein, greater saphenous vein, popliteal and pe roneal veins are patent as well as the right iliac vein. The femoral vein is no t clearly visualized due to soft tissue swelling and body habitus. The posterio r tibial vein is also not clearly seen. On the left, the posterior tibial vein is not clearly visualized. The popliteal, peroneal, iliac, common femoral, grea ter saphenous vein, and femoral veins are patent. CONCLUSION: 1. Visualized veins are patent without evidence for DVT. 2. The right femoral and posterior tibial vein and the left posterior tibial v ein are not clearly visualized. Brain MRI 04/11/18902 Signed Impressions: CONCLUSION: 1. 4 cm intraparenchymal hemorrhage involving the right frontal lobe without u nderlying mass. 2. Tiny focus of blooming artifact involving the left frontal lobe likely rela ting to a small focus of intraparenchymal hemorrhage on that side. 3. Chronic small vessel ischemic change. 4. Fluid signal within the mastoid air cells bilaterally. Clinical evaluation for any signs of acute mastoiditis suggested. 5. Right maxillary sinusitis. Head Magnetic Resonance Angiography 04/11/18 Signed Impressions: CONCLUSION: Intracranial arterial vasculature has a normal appearance. Objective Remarks GENERAL: 73-year-old AA female, orotracheally intubated SKIN: Warm and dry. HEAD: bolt exits from head, wrapped in dry dressing. EYES: Pupils equal and round 2 mm bilaterally reactive to. Disconjugate gaze to left. No conjunctival icterus. No injection or drainage. ENT: No nasal bleeding or discharge. Mucous membranes pink and moist. NECK: Trachea midline. Orally intubated. CARDIOVASCULAR: Regular rate and rhythm. No JVD obvious but difficult to evaluate due to body habitus.. RESPIRATORY: Diminished in bases, symmetrical excursion. Scattered rhonchi persist. GASTROINTESTINAL: Abdomen soft, non-tender, obese. no guarding. MUSCULOSKELETAL: Extremities trace bilateral lower extremity nonpitting edema. No obvious deformities. NEUROLOGICAL: Spontaneous movement right and upper lower extremities. Withdrew to left and right lower extremity. Positive cough and gag. Date of Insertion: Apr 10, 2018 Line: Central Venous Catheter Side: Left Location: Internal, Jugular A/P Assessment and Plan Neuro/Psych: Acute right frontal intra-axial hemorrhage 3.1 cm at the right to left shift of 3 mm New onset seizure Status post right frontal craniotomy 04/11 with right bur hole with ICP monitor placement Currently on propofol/fentanyl drips for sedation/analgesia while intubated Goal of RASS -2 Daily sedation vacation Acetaminophen 650 mg by tube every 6 hours as needed fever brain CT in a.m. 04/11: slight increase in frontal hemorrhage. Brain CT 6 abdomen reveals improvement/status post evacuation hematoma Neurosurgery/Dr. Parson to follow Keep systolic blood pressure < 140 nacl tabs 1gm tid. No mannitol per neurosurgery Seizure with fosphenytoin 100 mg every 8 hours. Loaded in ED. phenytoin level 13. Currently discontinued Switch to levetiracetam 500 IV twice daily EEG 04/11 revealed moderate encephalopathy. No epileptiform activity CV: Hypertensive Emergency Hyperlipidemia As needed labetalol and nicardipine drip goal sbp < 140 On home metoprolol tartrate 25 mg twice daily, amlodipine 2.5 mg a day, hydrochlorthiazide 25 mg daily losartan 100 mg daily. amlodipine 2.5 mg daily and losartan 100 mg daily. Continue furosemide 40 mg daily Resp: Acute hypoxic and hypercarbic respiratory failure- becoming chronic. Ventilator bundle Albuterol/ipratropium aerosols every 6 hours with albuterol aerosols every 2 hours as needed dyspnea daily SBTs. hypoxia concerning, possible aspiration, although afebrile with normal wbc. will avoid abx. aggressive suctioning. slow weaning of mechanical ventilation. wean fio2 for goal spo2 > 90% Still requiring increased pressure support, may well require a tracheostomy GI: Gastroesophageal reflux disease Elevated AST bowel regimen. Currently on vital high-protein goal 70 cc an hour. Lansoprazole 30 mg daily for GI prophylaxis. On omeprazole 40 mg daily at home Docusate sodium/senna 1 tablet twice daily for bowel regimen. Add polythene glycol 17 g twice daily and lactulose 30 cc 4 times daily. : does not require mayo catheter. Endo: Diabetes mellitus History of gout Holding metformin 1000mg twice daily/home medication Novulog medium protocol Accu-Cheks every 6 hours to maintain euglycemia Holding colchicine 0.6 mg. Resume clinically indicated Levemir to 24 units every 12 hours, Renal: Acute kidney injury? 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 Holding anticoagulation in light of acute brain hemorrhage ID: Monitor for signs and symptomatology of infection MSK: Elevated BMI PT evaluate and treat FEN: Hypernatremia Replace electrolytes as clinically indicated Access -Utilize peripheral IV. Prophylaxis -GI -lansoprazole -DVT -SCD/holding pharmacological prophylaxis light of acute right frontal intracranial hemorrhage Overall impression: Remains critically ill and ventilator dependent following surgical treatment for acute right frontal lobe hemorrhage. Glucose intolerance and fluid accumulation remain problematic. Unable to separate from ventilator. Requiring very aggressive antihypertensive therapy still and will need continue intravenous diuretic therapy. Anticipate need for prolonged ventilatory support via tracheostomy with daily weaning exercises and nighttime ventilator support. Will be best served probably at LTAC level care. Mulugeta Baer MD Apr 22, 2018 11:21
[2018-04-22] MEDS: LABETALOL HCL 100 MG/20 ML VIAL IV PUSH PRN ×2 (18:35→22:10)
[2018-04-23] VITALS (18 sets, daily range): BP systolic 133–150; BP diastolic 61–67; PULSE 72–83; RESP 14–28; TEMP 98.6–100.1; O2SAT 92–100
[2018-04-23] MEDS: INSULIN ASPART SUPPLEMENTAL SCALE SQ SCH ×6 (00:57→20:16)
[2018-04-23] MEDS: LABETALOL HCL 100 MG/20 ML VIAL IV PUSH PRN ×2 (02:00→17:18)
[2018-04-23] MEDS: levETIRAcetam INJ 500 MG in SODIUM CHLORIDE 0.9% INJ 100 ML IV SCH ×2 (02:07→14:19)
[2018-04-23] MEDS: CHLORHEXIDINE GLUCONATE 2 % 1 PACK (2 CLOTHS) TOP SCH (04:00)
[2018-04-23] MEDS: SODIUM CHLORIDE 1 GRAM TAB PO SCH ×3 (04:41→20:17)
[2018-04-23 06:31] LABS: HEMATOCRIT 27.5 % (35.0-46.0); HEMOGLOBIN 8.8 GM/DL (11.6-15.3); MEAN CELL VOLUME 94.2 FL (80.0-100.0); MEAN CORPUSCULAR HEMOGLOBIN 30.1 PG (27.0-34.0); MEAN PLATELET VOLUME 9.6 FL (7.0-11.0); PLATELET COUNT 285 TH/MM3 (150-450); RED BLOOD COUNT 2.92 MIL/MM3 (4.00-5.30); RED CELL DISTRIBUTION WIDTH 14.6 % (11.6-17.2); WHITE BLOOD COUNT 9.9 TH/MM3 (4.0-11.0)
[2018-04-23 06:55] LABS: CALCIUM 9.7 MG/DL (8.5-10.1); CREATININE 0.99 MG/DL (0.50-1.00)
[2018-04-23] MEDS: BISACODYL 10 MG SUPP RECTAL SCH (07:20)
[2018-04-23] MEDS: amLODIPine BESYLATE 5 MG TAB PO SCH (07:50)
[2018-04-23] MEDS: LANSOPRAZOLE SOLUTAB 30 MG TAB G-TUBE SCH (07:50)
[2018-04-23] MEDS: ENOXAPARIN SODIUM 40 MG/0.4 ML SYRINGE SQ SCH (07:50)
[2018-04-23] MEDS: FUROSEMIDE 40 MG TAB PO SCH ×2 (07:50→20:17)
[2018-04-23] MEDS: INSULIN DETEMIR 100 UNITS/ML VIAL SQ SCH ×2 (07:50→20:17)
[2018-04-23] MEDS: ARTIFICIAL TEARS OPTH SOLN 15 ML BTL EACH EYE SCH ×3 (07:51→17:31)
[2018-04-23] MEDS: CHLORHEXIDINE 0.12% (ORAL KIT) 15 ML CUP MT SCH ×2 (08:00→20:16)
[2018-04-23] MEDS: RESP: ALBUTEROL 2.5 MG/3 ML NEB (PRN) NEB (08:06)
[2018-04-23] MEDS: SODIUM CHLORIDE 0.9% FLUSH 10 ML FLUSH IV FLUSH SCH (08:16)
[2018-04-23] MEDS: DOCUSATE SODIUM 100 MG CAP PO SCH ×2 (08:16→20:16)
[2018-04-23] MEDS: LOSARTAN 50 MG TAB PO SCH (08:24)
--- NOTE | 2018-04-23 17:45 | HHI.NSPN ---
Note Status Status: Progress Note Interval History Interval History This is a 73-year-old Black female. with history includes hypertension, hyperlipidemia, gastroesophageal disease, diabetes mellitus, elevated BMI and gout. 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 She presented to [facility] with altered mental status. At approximately 5:20 PM found her sitting in the dark by the stair unresponsive. 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 Upon arrival here daughter states that patient was witnessed to have approximately 2 minute episode of seizure activity and patient did receive 2 mg of lorazepam IV. According to daughter patient has been compliant with her medications. No prior history of seizure activity. Denies any trauma at home to the brain. CT brain revealed 3.1 cm right frontal intra-axial hemorrhage with a 3 mm right to left shift. She received 2 mg lorazepam IV 1 was loaded with fosphenytoin 1 g. Neurosurgery consultation was requested. The patient was intubated in the ED by physician for airway protection and acute respiratory failure Ms. Amaya underwent a right frontal craniotomy for evacuation of hemorrhagic mass, and with placement of ICP monitor 04/11/18. 04/14: intubated, mildly sedated but opens eyes when stimulated, followed simple commands. ICPs controlled. 04/15: intubated, sedated. nrs reports blood pressure elevates when sedation lowered. continues to follow commands 04/17: remains intubated, sedated, undergoing CPAP trials. 04/18: no changes remains intubated and sedated. opening eyes, and followed simple commands. On CPAP. 04/21: intubated and sedated, withdraws minimally in lower extremities. 04/22: nursing reports following commands x 4 extremities, remains intubated. 04/23: doing well for trach/PEG today Labs, Micro, & Vital Signs Results Date Time Temp Pulse Resp B/P (MAP) Pulse Ox O2 Delivery O2 Flow Rate FiO2 04/23/18 16:22 95 40 04/23/18 16:00 99.3 72 15 149/65 (93) 100 04/23/18 16:00 50 04/23/18 16:00 72 04/23/18 14:00 74 04/23/18 12:00 99.7 81 28 144/65 (91) 92 04/23/18 12:00 40 04/23/18 12:00 81 04/23/18 11:00 97 40 04/23/18 10:59 40 04/23/18 10:00 78 04/23/18 08:06 93 40 04/23/18 08:00 50 04/23/18 08:00 98.6 77 15 135/63 (87) 94 04/23/18 08:00 77 04/23/18 06:00 83 04/23/18 04:33 95 40 04/23/18 04:00 50 04/23/18 04:00 75 04/23/18 04:00 99.7 75 14 133/64 (87) 95 04/23/18 02:00 78 04/23/18 00:31 93 40 04/23/18 00:00 100.1 73 20 144/61 (88) 92 04/23/18 00:00 82 04/23/18 00:00 50 04/22/18 22:00 78 04/22/18 20:07 93 40 04/22/18 20:00 99.8 80 20 158/78 (104) 93 04/22/18 20:00 80 04/22/18 20:00 50 04/22/18 18:00 85 04/24/18 07:00 Output Total 0 ml Balance 0 ml Constitutional Vital Signs Date Time Temp Pulse Resp B/P (MAP) Pulse Ox O2 Delivery O2 Flow Rate FiO2 04/23/18 16:22 95 40 04/23/18 16:00 99.3 72 15 149/65 (93) 100 04/23/18 16:00 50 04/23/18 16:00 72 04/23/18 14:00 74 04/23/18 12:00 99.7 81 28 144/65 (91) 92 04/23/18 12:00 40 04/23/18 12:00 81 04/23/18 11:00 97 40 04/23/18 10:59 40 04/23/18 10:00 78 04/23/18 08:06 93 40 04/23/18 08:00 50 04/23/18 08:00 98.6 77 15 135/63 (87) 94 04/23/18 08:00 77 04/23/18 06:00 83 04/23/18 04:33 95 40 04/23/18 04:00 50 04/23/18 04:00 75 04/23/18 04:00 99.7 75 14 133/64 (87) 95 04/23/18 02:00 78 04/23/18 00:31 93 40 04/23/18 00:00 100.1 73 20 144/61 (88) 92 04/23/18 00:00 82 04/23/18 00:00 50 04/22/18 22:00 78 04/22/18 20:07 93 40 04/22/18 20:00 99.8 80 20 158/78 (104) 93 04/22/18 20:00 80 04/22/18 20:00 50 04/22/18 18:00 85 04/24/18 07:00 Output Total 0 ml Balance 0 ml Physical Exam General: Pt sedated and intubated, no acute distress Eyes: Pupils equal. Bilateral dark hemorrhagic conjunctiva. Resp: intubated, CPAP Heart: regular rate rhythm Skin: SCDs in place. Incision clean and dry, healing well. Dupo in place. Muscle: Moves all 4 extremities to command. Cannot assess strength secondary to clinical condition. Neuro: Sedated. Reports to be following commands. Pupils 3 mm bilaterally reactive bilaterally. Medications Current Medications Current Medications Medications (Trade) Dose Ordered Sig/J Carlos Route PRN Reason Start Time Stop Time Status Last Admin Dose Admin Lorazepam (Ativan Inj) 2 mg ONCE PRN IV PUSH SEIZURES 04/10/18 19:30 04/10/18 20:01 Nicardipine HCl 25 mg/Sodium Chloride 260 ml @ 52 mls/hr TITRATE PRN IV Blood pressure management 04/10/18 20:00 04/11/18 18:37 Lansoprazole (Prevacid Odt) 30 mg DAILY G-TUBE 04/11/18 09:00 04/23/18 07:50 Artificial Tears (Tears Naturale Opth Soln) 1 drop TID EACH EYE 04/11/18 09:00 04/23/18 17:31 Miscellaneous Information ([facility] Nursing Information) 1 [id number] XX 04/10/18 20:30 04/10/18 20:30 Chlorhexidine Gluconate (Chlorhexidine 2% Cloth) Taper DAILY@04 TOP 04/11/18 04:00 04/07/19 03:59 04/18/18 04:00 Chlorhexidine Gluconate (Chlorhexidine 2% Cloth) 3 pack UNSCH PRN TOP HYGIENIC CARE 04/10/18 20:30 Sennosides (Senokot) 17.2 mg Q12H PRN PO Moderate constipation 04/10/18 20:30 Bisacodyl (Dulcolax Supp) 10 mg DAILY PRN RECTAL SEVERE CONSITIPATION 04/10/18 20:30 Chlorhexidine Gluconate (Peridex 0.12% Liq) 15 ml BID@08,20 MT 04/11/18 08:00 04/23/18 08:00 Propofol 100 ml @ 3.6 mls/hr TITRATE PRN IV SEDATION 04/10/18 20:30 04/21/18 01:00 Fentanyl Citrate 250 ml @ 5 mls/hr TITRATE PRN IV SEDATION 04/10/18 20:30 04/19/18 17:59 Potassium Chloride 100 ml @ 50 mls/hr Q2H PRN IV For Potassium 2.8 - 3.2 mEq/L 04/10/18 20:30 Potassium Chloride 100 ml @ 50 mls/hr Q2H PRN IV For Potassium 2.8 - 3.2 mEq/L 04/10/18 20:30 Potassium Bicarb/ Potassium Chloride (K-Lyte Cl Eff) 50 meq UNSCH PRN PO For Potassium 3.3 - 3.5 mEq/L 04/10/18 20:30 Potassium Chloride 100 ml @ 25 mls/hr UNSCH PRN IV For Potassium 3.3 - 3.5 mEq/L 04/10/18 20:30 Potassium Chloride 100 ml @ 50 mls/hr Q2H PRN IV For Potassium 3.3 - 3.5 mEq/L 04/10/18 20:30 Magnesium Sulfate 4 gm/Sodium Chloride 100 ml @ 50 mls/hr UNSCH PRN IV For Magnesium 0.9 - 1.1 mg/dL 04/10/18 20:30 04/11/18 06:38 Magnesium Oxide (Mag-Ox) 800 mg UNSCH PRN PO For Magnesium 1.2 - 1.6 mg/dL 04/10/18 20:30 Magnesium Sulfate 2 gm/Sodium Chloride 100 ml @ 50 mls/hr UNSCH PRN IV For Magnesium 1.2 - 1.6 mg/dL 04/10/18 20:30 Potassium Phosphate (K-Phos) 2,000 mg Q4H PRN PO For Phosphorus < 2.5 mg/dL 04/10/18 20:30 Sodium Phosphate 30 mmol/Sodium Chloride 250 ml @ 42 mls/hr UNSCH PRN IV For Phosphorus < 2.5 mg/dL 04/10/18 20:30 Potassium Phosphate (K-Phos) 2,000 mg UNSCH PRN PO/TUBE SEE LABEL COMMENTS 04/10/18 20:30 Potassium Phosphate 30 mmol/ Sodium Chloride 260 ml @ 42 mls/hr UNSCH PRN IV SEE LABEL COMMENTS 04/10/18 20:30 04/11/18 06:38 Labetalol HCl (Trandate Inj) 10 mg Q1HR PRN IV PUSH SBP>140, DBP>90, HR>65 04/10/18 20:30 04/23/18 17:18 Amlodipine Besylate (Norvasc) 2.5 mg DAILY PO 04/11/18 09:00 04/23/18 07:50 Miscellaneous (Pill Splitter) 1 ea UNSCH PRN OTHER SEE LABEL COMMENTS 04/10/18 20:45 Sodium Chloride (NS Flush) DAILY IV FLUSH 04/11/18 09:00 04/21/18 08:29 Sodium Chloride (NS Flush) UNSCH PRN IV FLUSH SEE PROTOCOL 04/10/18 23:00 Norepinephrine Bitartrate 4 mg/ Sodium Chloride 250 ml @ 7.5 mls/hr TITRATE PRN IV Blood pressure management 04/10/18 23:00 04/12/18 18:23 Terbutaline Sulfate (Brethine Inj) 1 mg UNSCH PRN SQ For Extravasation 04/10/18 23:00 Levetriacetam 500 mg/Sodium Chloride 105 ml @ 400 mls/hr Q12H IV 04/12/18 02:00 04/23/18 14:19 Docusate Sodium (Colace) 100 mg BID PO 04/11/18 21:00 04/22/18 20:24 Ondansetron HCl (Zofran Odt) 4 mg Q6H PRN PO NAUSEA OR VOMITING 04/11/18 14:45 04/22/18 00:00 Calcium Gluconate (Calcium Gluconate Inj) 1 gm UNSCH PRN IV SEE LABEL COMMENTS 04/11/18 14:45 Potassium Chloride 100 ml @ 50 mls/hr UNSCH PRN IV POTASSIUM LESS THAN 4 04/11/18 14:45 Magnesium Sulfate 4 gm/Sodium Chloride 108 ml @ 108 mls/hr UNSCH PRN IV MAGNESIUM LESS THAN 2 04/11/18 14:45 Acetaminophen (Tylenol) 650 mg Q4H PRN PO TEMPERATURE > 101.5 F 04/11/18 14:45 04/20/18 22:02 Bisacodyl (Dulcolax Supp) 10 mg DAILY RECTAL 04/14/18 09:00 04/17/18 08:58 Albuterol Sulfate (Albuterol Neb) 2.5 mg Q2HR NEB PRN NEB dyspnea 04/14/18 17:00 04/23/18 08:06 Losartan Potassium (Cozaar) 100 mg DAILY PO 04/15/18 09:00 04/23/18 08:24 Enoxaparin Sodium (Lovenox Inj) 40 mg Q24H SQ 04/16/18 09:00 04/23/18 07:50 Furosemide (Lasix) 40 mg Q12H PO 04/17/18 21:00 04/23/18 07:50 Dextrose (D50w (Vial) Inj) 50 ml UNSCH PRN IV PUSH HYPOGLYCEMIA-SEE COMMENTS 04/18/18 12:15 Glucagon (Glucagon Inj) 1 mg UNSCH PRN OTHER HYPOGLYCEMIA-SEE COMMENTS 04/18/18 12:15 Insulin Aspart (NovoLOG SUPPLEMENTAL SCALE) 1 Q4H SQ 04/18/18 12:00 04/23/18 16:35 Insulin Detemir (Levemir Inj) 24 units Q12HR SQ 04/19/18 21:00 04/23/18 07:50 Hyoscyamine Sulfate (Levsin) 0.125 mg Q4H PRN PO SECRETIONS 04/20/18 21:45 04/20/18 21:44 Sodium Chloride (Sodium Chloride) 1 gm Q8H PO 04/21/18 21:00 04/23/18 12:43 Medical Decision Making MDM Remarks 73 y/o female presented with AMS and seizures, CT brain revealed 3.1 cm right frontal intra-axial hemorrhage with a 3 mm right to left shift. MRI Brain w/wo contrast showed no underlying mass, MRA Head unremarkable Ms. Amaya underwent a right frontal craniotomy for evacuation of hemorrhagic mass, and with placement of ICP monitor 04/11/18, ICP monitor removed 04/14/18 final pathology reports hematoma EEG 04/11/18 reports no epileptiform discharges, mild to moderate encephalopathy Head CT 04/14/18 Impressions: CONCLUSION: 1. Interval improvement following drainage of a right orbital frontal hemorrhage. 2. Ventricular size is appropriate. 3. No extra-axial fluid remains Plan Plan Remarks cont neuro exam improving, for trach/PEG today cont AEDs, seizure precautions dc surgical cristobal clear for trach/PEG from NRS standpoint Mary Grace Roman Apr 23, 2018 17:45
--- NOTE | 2018-04-23 20:45 | HHI.CCPN ---
Subjective Remarks/Hospital Course This is a 73-year-old AA female. Admission 04/10/2018. Please note no family is available and all information is obtained by reviewing the medical record from ED physician. Past medical history includes hypertension, hyperlipidemia, gastroesophageal disease, diabetes mellitus, elevated BMI and gout. 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 She presented to [facility] with the following history. At approximately 2:30 PM and patient was reportedly fine and daughter came to visit her mother. Then at approximately 5:20 PM found her sitting in the dark by the stair unresponsive. EMS upon control clerk food and beverage arrival patient reportedly had approximately 4 generalized tonic-clonic seizures and then patient was transported from the house. Upon arrival here daughter states that patient was witnessed to have approximately 2 minute episode of seizure activity and patient did receive 2 mg of lorazepam IV. According to daughter patient has been compliant with her medications gives herself her medications low-salt by herself and is very independent. after being found home by daughter with new onset seizure. No prior history of seizure activity. Denies any trauma at home to the brain. CT brain revealed 3.1 cm right frontal intra-axial hemorrhage with a 3 mm right to left shift. She received 2 mg lorazepam IV 1 was loaded with fosphenytoin 1 g. Neurosurgery was consulted/Dr. Parson. Recommended blood pressure control with inpatient admission to ICU with consultation to neurosurgery. Patient was intubated in the ED by physician after receiving etomidate and rocuronium... 04/11: remains on the vent, in critical condition. hypoxic. 04/12: hypoxia somewhat improving. following commands on the vent. per nsgy, can wean to extubate soon. some edema likely contributing to poor neuro exam, although slow improvements. 04/13: following commands. however, remains hypoxic on 60% fio2. tube feeds initiated this AM and concern over aspiration of tube feeds out endotracheal tube. CXR demonstrates adequate placement of gastric tube and ETT. ICPs remain controlled, and appropriate hypernatremia. 04/14: Repeat CT brain today revealed improved right frontal intraparenchymal hemorrhage. Patient status post right bur hole for ICP monitoring. T-max 100.9. Currently 99. 04/15: TIFFANIE x 2 was removed today. Currently on propofol 50 mcg/kg an hour and fentanyl drip at 250 mcg an hour. Follows commands. Worsening oxygenation status today. Coarse breath sounds with thick greenish secretions noted. Sample will be sent today. 04/16: CXR with diffuse interstitial edema. Tolerating weaning of PEEP to 8 but increased MAP still required. No new seizures. 04/17: Good response to diuresis yesterday, need to increase to twice daily Lasix. Tolerating CPAP today on spontaneous breathing trial pressure 15/8. Osmolality acceptable but will not allow to decline any further. 04/18: Requiring increased pressure support to breathe spontaneously today. Tapering sedation. 04/19: Osmolality in a good range. Spontaneous breathing trials are requiring increased pressure support. We will try to progress to a trial extubation however this woman may well require a tracheostomy for a month or 2. 04/20: Poor progress in weaning from ventilator. We should probably proceed directly to tracheostomy. Will discuss with family and neurosurgical service. Subjective: 04/21: hypernatremic to 160 this AM. held hypertonic saline. this far out from insult, likely does not need active hypertonic saline and can manage with oral sodium load. will need trach to progress care. no neuro improvements. 04/22: long discussion with family: they are agreeable to trach, but would prefer not to have PEG tube. discussed that with her level of functioning, not likely to be able to eat on her own, and will likely need long-term PEG and long -term nasogastric enteral access has significant complications. 04/23: plan for trach/peg soon. no other changes. no improvements. Objective Vital Signs Date Time Temp Pulse Resp B/P (MAP) Pulse Ox O2 Delivery O2 Flow Rate FiO2 04/23/18 20:24 95 40 04/23/18 18:00 73 04/23/18 16:00 99.3 15 149/65 (93) Intake and Output 04/23/18 04/23/18 04/24/18 08:00 16:00 00:00 Intake Total 390 ml 428 ml Output Total 650.0 ml 0 ml 900 ml Balance -260.0 ml 0 ml -472 ml Result Diagram: 04/23/18 0547 04/23/18 0547 Imaging Last Impressions Chest X-Ray 04/15/18 0600 Signed Impressions: CONCLUSION: Increased bilateral perihilar pulmonary parenchymal opacity suggesting increase d pulmonary edema. Head CT 04/14/18 0000 Signed Impressions: CONCLUSION: 1. Interval improvement following drainage of a right orbital frontal hemorrha ge. 2. Ventricular size is appropriate. 3. No extra-axial fluid remains. Abdomen X-Ray 04/14/18 Signed Impressions: CONCLUSION: Unremarkable study. Lower Extremity Ultrasound 04/12/18 Signed Impressions: On the right, the common femoral vein, greater saphenous vein, popliteal and pe roneal veins are patent as well as the right iliac vein. The femoral vein is no t clearly visualized due to soft tissue swelling and body habitus. The posterio r tibial vein is also not clearly seen. On the left, the posterior tibial vein is not clearly visualized. The popliteal, peroneal, iliac, common femoral, grea ter saphenous vein, and femoral veins are patent. CONCLUSION: 1. Visualized veins are patent without evidence for DVT. 2. The right femoral and posterior tibial vein and the left posterior tibial v ein are not clearly visualized. Brain MRI 04/11/1803 Signed Impressions: CONCLUSION: 1. 4 cm intraparenchymal hemorrhage involving the right frontal lobe without u nderlying mass. 2. Tiny focus of blooming artifact involving the left frontal lobe likely rela ting to a small focus of intraparenchymal hemorrhage on that side. 3. Chronic small vessel ischemic change. 4. Fluid signal within the mastoid air cells bilaterally. Clinical evaluation for any signs of acute mastoiditis suggested. 5. Right maxillary sinusitis. Head Magnetic Resonance Angiography 04/11/18 Signed Impressions: CONCLUSION: Intracranial arterial vasculature has a normal appearance. Objective Remarks GENERAL: 73-year-old AA female, orotracheally intubated SKIN: Warm and dry. HEAD: bolt exits from head, wrapped in dry dressing. EYES: Pupils equal and round 2 mm bilaterally reactive to. Disconjugate gaze to left. No conjunctival icterus. No injection or drainage. ENT: No nasal bleeding or discharge. Mucous membranes pink and moist. NECK: Trachea midline. Orally intubated. CARDIOVASCULAR: Regular rate and rhythm. No JVD obvious but difficult to evaluate due to body habitus.. RESPIRATORY: Diminished in bases, symmetrical excursion. Scattered rhonchi persist. GASTROINTESTINAL: Abdomen soft, non-tender, obese. no guarding. MUSCULOSKELETAL: Extremities trace bilateral lower extremity nonpitting edema. No obvious deformities. NEUROLOGICAL: Spontaneous movement right and upper lower extremities. Withdrew to left and right lower extremity. Positive cough and gag. A/P Assessment and Plan Neuro/Psych: Acute right frontal intra-axial hemorrhage 3.1 cm at the right to left shift of 3 mm New onset seizure Status post right frontal craniotomy 04/11 with right bur hole with ICP monitor placement Currently on propofol/fentanyl drips for sedation/analgesia while intubated Goal of RASS -2 Daily sedation vacation Acetaminophen 650 mg by tube every 6 hours as needed fever brain CT in a.m. 04/11: slight increase in frontal hemorrhage. Brain CT 6 abdomen reveals improvement/status post evacuation hematoma Neurosurgery/Dr. Parson to follow Keep systolic blood pressure < 140 nacl tabs 1gm tid. No mannitol per neurosurgery Seizure with fosphenytoin 100 mg every 8 hours. Loaded in ED. phenytoin level 13. Currently discontinued Switch to levetiracetam 500 IV twice daily EEG 04/11 revealed moderate encephalopathy. No epileptiform activity CV: Hypertensive Emergency Hyperlipidemia As needed labetalol and nicardipine drip goal sbp < 140 On home metoprolol tartrate 25 mg twice daily, amlodipine 2.5 mg a day, hydrochlorthiazide 25 mg daily losartan 100 mg daily. amlodipine 2.5 mg daily and losartan 100 mg daily. Continue furosemide 40 mg daily Resp: Acute hypoxic and hypercarbic respiratory failure- becoming chronic. Ventilator bundle Albuterol/ipratropium aerosols every 6 hours with albuterol aerosols every 2 hours as needed dyspnea daily SBTs. hypoxia concerning, possible aspiration, although afebrile with normal wbc. will avoid abx. aggressive suctioning. slow weaning of mechanical ventilation. wean fio2 for goal spo2 > 90% Still requiring increased pressure support, may well require a tracheostomy GI: Gastroesophageal reflux disease Elevated AST bowel regimen. Currently on vital high-protein goal 70 cc an hour. Lansoprazole 30 mg daily for GI prophylaxis. On omeprazole 40 mg daily at home Docusate sodium/senna 1 tablet twice daily for bowel regimen. Add polythene glycol 17 g twice daily and lactulose 30 cc 4 times daily. consult GI for PEG placement. : does not require mayo catheter. Endo: Diabetes mellitus History of gout Holding metformin 1000mg twice daily/home medication Novulog medium protocol Accu-Cheks every 6 hours to maintain euglycemia Holding colchicine 0.6 mg. Resume clinically indicated Levemir to 24 units every 12 hours, Renal: Acute kidney injury? 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 Holding anticoagulation in light of acute brain hemorrhage ID: Monitor for signs and symptomatology of infection MSK: Elevated BMI PT evaluate and treat FEN: Hypernatremia Replace electrolytes as clinically indicated Access -Utilize peripheral IV. Prophylaxis -GI -lansoprazole -DVT -SCD/holding pharmacological prophylaxis light of acute right frontal intracranial hemorrhage Overall impression: Remains critically ill and ventilator dependent following surgical treatment for acute right frontal lobe hemorrhage. Glucose intolerance and fluid accumulation remain problematic. Unable to separate from ventilator. Requiring very aggressive antihypertensive therapy still and will need continue intravenous diuretic therapy. Anticipate need for prolonged ventilatory support via tracheostomy with daily weaning exercises and nighttime ventilator support. Will be best served probably at LTAC level care. Mulugeta Baer MD Apr 23, 2018 20:45
[2018-04-24] VITALS (19 sets, daily range): BP systolic 142–162; BP diastolic 64–94; PULSE 74–83; RESP 14–20; TEMP 99–100.1; O2SAT 92–99
[2018-04-24] MEDS: INSULIN ASPART SUPPLEMENTAL SCALE SQ SCH ×6 (00:26→20:00)
[2018-04-24] MEDS: LABETALOL HCL 100 MG/20 ML VIAL IV PUSH PRN ×5 (00:45→23:59)
[2018-04-24] MEDS: levETIRAcetam INJ 500 MG in SODIUM CHLORIDE 0.9% INJ 100 ML IV SCH ×2 (02:19→14:00)
[2018-04-24] MEDS: CHLORHEXIDINE GLUCONATE 2 % 1 PACK (2 CLOTHS) TOP SCH (04:00)
[2018-04-24] MEDS: SODIUM CHLORIDE 1 GRAM TAB PO SCH ×3 (05:00→20:09)
[2018-04-24 07:03] LABS: HEMOGLOBIN 9.3 GM/DL (11.6-15.3); MEAN CELL VOLUME 92.7 FL (80.0-100.0); MEAN CORPUSCULAR HEMOGLOBIN 29.7 PG (27.0-34.0); PLATELET COUNT 278 TH/MM3 (150-450); RED BLOOD COUNT 3.13 MIL/MM3 (4.00-5.30); RED CELL DISTRIBUTION WIDTH 14.3 % (11.6-17.2); WHITE BLOOD COUNT 9.5 TH/MM3 (4.0-11.0)
[2018-04-24 07:13] LABS: BICARBONATE 30.8 MEQ/L (21.0-32.0); CREATININE 0.95 MG/DL (0.50-1.00)
[2018-04-24] MEDS: FUROSEMIDE 40 MG TAB PO SCH ×2 (07:49→20:10)
[2018-04-24] MEDS: LOSARTAN 50 MG TAB PO SCH (07:49)
[2018-04-24] MEDS: amLODIPine BESYLATE 5 MG TAB PO SCH (07:49)
[2018-04-24] MEDS: LANSOPRAZOLE SOLUTAB 30 MG TAB G-TUBE SCH (07:49)
[2018-04-24] MEDS: BISACODYL 10 MG SUPP RECTAL SCH (07:49)
[2018-04-24] MEDS: DOCUSATE SODIUM 100 MG CAP PO SCH ×2 (07:50→20:09)
[2018-04-24] MEDS: ENOXAPARIN SODIUM 40 MG/0.4 ML SYRINGE SQ SCH (07:50)
[2018-04-24] MEDS: SODIUM CHLORIDE 0.9% FLUSH 10 ML FLUSH IV FLUSH SCH (07:50)
[2018-04-24] MEDS: ARTIFICIAL TEARS OPTH SOLN 15 ML BTL EACH EYE SCH ×3 (07:51→18:00)
[2018-04-24] MEDS: CHLORHEXIDINE 0.12% (ORAL KIT) 15 ML CUP MT SCH ×2 (07:51→20:09)
[2018-04-24] MEDS: INSULIN DETEMIR 100 UNITS/ML VIAL SQ SCH ×2 (07:52→20:10)
--- NOTE | 2018-04-24 11:27 | PD.CONS ---
HPI History of Present Illness This is a 73 year old F who was found unresponsive at home, according to medical record pt had witnessed seizure activity by EMS, on arrival she was found to have a right frontal intra-axial hemorrhage with left shift and is now S/P right frontal craniotomy for evacuation of hemorrhagic mass. She remains in ICU and is orally intubated, there are plans for tracheostomy today. Our service has been consulted to evaluate pt for PEG placement. According to records pts son Clint and daughter Dulce were hesitant about proceeding with PEG placements. Pts son Clint is the medical decision maker, I discussed with him over the phone the procedure and answered all questions and he is agreeable to pt having PEG placed. Pt currently has OG tube for nutrition. No previous EGD seen in pts medical record. (Lisa Israel) PFSH Past Medical History Chronic anticoagulation Essential hypertension Hyperlipidemia Gastroesophageal reflux disease Diabetes mellitus Elevated BMI Gout Past Surgical History IVC filter Total hip replacement 2 (Lisa Israel) Coded Allergies: Penicillins (Verified Allergy, Unknown, 04/10/18) Review of Systems Unable to obtain, pt orally intubated (Lisa Israel) GI Exam Vitals I&O Vital Signs Date Time Temp Pulse Resp B/P (MAP) Pulse Ox O2 Delivery O2 Flow Rate FiO2 04/24/18 10:00 78 04/24/18 08:07 94 40 04/24/18 08:00 78 04/24/18 08:00 50 04/24/18 08:00 99.9 75 14 161/77 (105) 94 04/24/18 06:00 78 04/24/18 04:26 97 40 04/24/18 04:00 100.0 76 18 157/73 (101) 97 04/24/18 04:00 50 04/24/18 04:00 76 04/24/18 02:00 80 04/24/18 00:00 82 04/24/18 00:00 50 04/24/18 00:00 100.1 82 18 142/64 (90) 93 04/23/18 22:00 78 04/23/18 20:24 95 40 04/23/18 20:00 50 04/23/18 20:00 81 04/23/18 20:00 99.2 81 18 150/67 (94) 94 04/23/18 18:00 73 04/23/18 16:22 95 40 04/23/18 16:00 99.3 72 15 149/65 (93) 100 04/23/18 16:00 50 04/23/18 16:00 72 04/23/18 14:00 74 04/23/18 12:00 99.7 81 28 144/65 (91) 92 04/23/18 12:00 40 04/23/18 12:00 81 I/O 04/23/18 04/23/18 04/23/18 04/24/18 04/24/18 04/24/18 07:00 15:00 23:00 07:00 15:00 23:00 Intake Total 390 ml 428 ml 543 ml Output Total 650 ml 0 ml 900.0 ml 1000 ml Balance -260 ml 0 ml -472.0 ml -457 ml IV Total 100 ml 100 ml Tube Feeding 330 ml 328 ml 383 ml Tube Irrigant 60 ml 60 ml Output Urine Total 650 ml 900 ml 1000 ml Tube Feeding Residual Discard 0 ml 0 ml 0 ml # Bowel Movements 1 1 2 Imaging Last Impressions Chest X-Ray 04/21/18 0400 Signed Impressions: CONCLUSION: Stable single view chest. Mild perihilar vascular congestion Head CT 04/14/18 0000 Signed Impressions: CONCLUSION: 1. Interval improvement following drainage of a right orbital frontal hemorrha ge. 2. Ventricular size is appropriate. 3. No extra-axial fluid remains. Abdomen X-Ray 04/14/18 0000 Signed Impressions: CONCLUSION: Unremarkable study. Lower Extremity Ultrasound 04/12/18 0000 Signed Impressions: On the right, the common femoral vein, greater saphenous vein, popliteal and pe roneal veins are patent as well as the right iliac vein. The femoral vein is no t clearly visualized due to soft tissue swelling and body habitus. The posterio r tibial vein is also not clearly seen. On the left, the posterior tibial vein is not clearly visualized. The popliteal, peroneal, iliac, common femoral, grea ter saphenous vein, and femoral veins are patent. CONCLUSION: 1. Visualized veins are patent without evidence for DVT. 2. The right femoral and posterior tibial vein and the left posterior tibial v ein are not clearly visualized. Brain MRI 04/11/18 0903 Signed Impressions: CONCLUSION: 1. 4 cm intraparenchymal hemorrhage involving the right frontal lobe without u nderlying mass. 2. Tiny focus of blooming artifact involving the left frontal lobe likely rela ting to a small focus of intraparenchymal hemorrhage on that side. 3. Chronic small vessel ischemic change. 4. Fluid signal within the mastoid air cells bilaterally. Clinical evaluation for any signs of acute mastoiditis suggested. 5. Right maxillary sinusitis. Head Magnetic Resonance Angiography 04/11/18 0000 Signed Impressions: CONCLUSION: Intracranial arterial vasculature has a normal appearance. Laboratory Test 04/24/18 06:01 White Blood Count 9.5 TH/MM3 Red Blood Count 3.13 MIL/MM3 Hemoglobin 9.3 GM/DL Hematocrit 29.0 % Mean Corpuscular Volume 92.7 FL Mean Corpuscular Hemoglobin 29.7 PG Mean Corpuscular Hemoglobin Concent 32.0 % Red Cell Distribution Width 14.3 % Platelet Count 278 TH/MM3 Mean Platelet Volume 10.0 FL Hematology Comments Blood Urea Nitrogen 22 MG/DL Creatinine 0.95 MG/DL Random Glucose 140 MG/DL Calcium Level 10.0 MG/DL Sodium Level 144 MEQ/L Potassium Level 3.8 MEQ/L Chloride Level 104 MEQ/L Carbon Dioxide Level 30.8 MEQ/L Anion Gap 9 MEQ/L Estimat Glomerular Filtration Rate 70 ML/MIN Physical Examination HEENT: Normocephalic CHEST: Respiration synchronized with vent CARDIAC: RRR ABDOMEN: Obese, soft, bowel sounds active SKIN: Normal; no rash; no jaundice. PROCESS CONTROL TECH: Awake, nonverbal due to ETT (Lisa Israel) Assessment and Plan Plan Assessment: - Consult for PEG placement- currently pt has OG tube for nutrition Planned for tracheostomy today. Initially pts son lCint, who is POA was hesitant about proceeding with PEG placement. I spoke with him on the phone ([phone]) regarding hesitations and answered all questions. 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 States he felt that placing a PEG was a very longwall machine operator helper thing. Explained to him that PEG can be discontinued when pt regains strength and ability for PO intake. Discussed complications of longwall machine operator helper nasogastric or orogastric feeding tubes. He is agreeable to proceed with PEG. Also discussed with pt who is able to shake her head yes and daughter Dulce at bedside. Plan: EGD with PEG tomorrow Obtain consent Hold TF after MN Hold Lovenox in AM Appreciate dietary recommendations- Vital high protein with goal rate 60 mL/hr Further recommendations pending PEG placement Pt has been seen and examined by myself and Dr. Sanz and this note is written on her behalf (Lisa Israel) Physician Comments seen, examined agree with above (Leilani Sanz MD) Lisa sIrael Apr 24, 2018 11:27 Leilani Sanz MD Apr 24, 2018 16:30
--- NOTE | 2018-04-24 13:28 | HHI.CCPN ---
Subjective Remarks/Hospital Course This is a 73-year-old AA female. Admission 04/10/2018. Please note no family is available and all information is obtained by reviewing the medical record from ED physician. Past medical history includes hypertension, hyperlipidemia, gastroesophageal disease, diabetes mellitus, elevated BMI and gout. 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 She presented to [facility] with the following history. At approximately 2:30 PM and patient was reportedly fine and daughter came to visit her mother. Then at approximately 5:20 PM found her sitting in the dark by the stair unresponsive. EMS upon faculty member arrival patient reportedly had approximately 4 generalized tonic-clonic seizures and then patient was transported from the house. Upon arrival here daughter states that patient was witnessed to have approximately 2 minute episode of seizure activity and patient did receive 2 mg of lorazepam IV. According to daughter patient has been compliant with her medications gives herself her medications low-salt by herself and is very independent. after being found home by daughter with new onset seizure. No prior history of seizure activity. Denies any trauma at home to the brain. CT brain revealed 3.1 cm right frontal intra-axial hemorrhage with a 3 mm right to left shift. She received 2 mg lorazepam IV 1 was loaded with fosphenytoin 1 g. Neurosurgery was consulted/Dr. Parson. Recommended blood pressure control with inpatient admission to ICU with consultation to neurosurgery. Patient was intubated in the ED by physician after receiving etomidate and rocuronium... 04/11: remains on the vent, in critical condition. hypoxic. 04/12: hypoxia somewhat improving. following commands on the vent. per nsgy, can wean to extubate soon. some edema likely contributing to poor neuro exam, although slow improvements. 04/13: following commands. however, remains hypoxic on 60% fio2. tube feeds initiated this AM and concern over aspiration of tube feeds out endotracheal tube. CXR demonstrates adequate placement of gastric tube and ETT. ICPs remain controlled, and appropriate hypernatremia. 04/14: Repeat CT brain today revealed improved right frontal intraparenchymal hemorrhage. Patient status post right bur hole for ICP monitoring. T-max 100.9. Currently 99. 04/15: TIFFANIE x 2 was removed today. Currently on propofol 50 mcg/kg an hour and fentanyl drip at 250 mcg an hour. Follows commands. Worsening oxygenation status today. Coarse breath sounds with thick greenish secretions noted. Sample will be sent today. 04/16: CXR with diffuse interstitial edema. Tolerating weaning of PEEP to 8 but increased MAP still required. No new seizures. 04/17: Good response to diuresis yesterday, need to increase to twice daily Lasix. Tolerating CPAP today on spontaneous breathing trial pressure 15/8. Osmolality acceptable but will not allow to decline any further. 04/18: Requiring increased pressure support to breathe spontaneously today. Tapering sedation. 04/19: Osmolality in a good range. Spontaneous breathing trials are requiring increased pressure support. We will try to progress to a trial extubation however this woman may well require a tracheostomy for a month or 2. 04/20: Poor progress in weaning from ventilator. We should probably proceed directly to tracheostomy. Will discuss with family and neurosurgical service. Subjective: 04/21: hypernatremic to 160 this AM. held hypertonic saline. this far out from insult, likely does not need active hypertonic saline and can manage with oral sodium load. will need trach to progress care. no neuro improvements. 04/22: long discussion with family: they are agreeable to trach, but would prefer not to have PEG tube. discussed that with her level of functioning, not likely to be able to eat on her own, and will likely need long-term PEG and long -term nasogastric enteral access has significant complications. 04/23: plan for trach/peg soon. no other changes. no improvements. 04/24: sedated, orally intubated on mech vent. Awaiting trach/ PEG Objective Vital Signs Date Time Temp Pulse Resp B/P (MAP) Pulse Ox O2 Delivery O2 Flow Rate FiO2 04/24/18 12:08 92 40 04/24/18 10:00 78 04/24/18 08:00 99.9 14 161/77 (105) Intake and Output 04/24/18 04/24/18 04/24/18 07:59 15:59 23:59 Intake Total 543 ml Output Total 1000 ml Balance -457 ml Result Diagram: 04/24/18 0604/24/18 06 Imaging Last Impressions Chest X-Ray 04/15/18 0600 Signed Impressions: CONCLUSION: Increased bilateral perihilar pulmonary parenchymal opacity suggesting increase d pulmonary edema. Head CT 6/11/18 0000 Signed Impressions: CONCLUSION: 1. Interval improvement following drainage of a right orbital frontal hemorrha ge. 2. Ventricular size is appropriate. 3. No extra-axial fluid remains. Abdomen X-Ray 04/14/18 Signed Impressions: CONCLUSION: Unremarkable study. Lower Extremity Ultrasound 04/12/18 Signed Impressions: On the right, the common femoral vein, greater saphenous vein, popliteal and pe roneal veins are patent as well as the right iliac vein. The femoral vein is no t clearly visualized due to soft tissue swelling and body habitus. The posterio r tibial vein is also not clearly seen. On the left, the posterior tibial vein is not clearly visualized. The popliteal, peroneal, iliac, common femoral, grea ter saphenous vein, and femoral veins are patent. CONCLUSION: 1. Visualized veins are patent without evidence for DVT. 2. The right femoral and posterior tibial vein and the left posterior tibial v ein are not clearly visualized. Brain MRI 04/11/18902 Signed Impressions: CONCLUSION: 1. 4 cm intraparenchymal hemorrhage involving the right frontal lobe without u nderlying mass. 2. Tiny focus of blooming artifact involving the left frontal lobe likely rela ting to a small focus of intraparenchymal hemorrhage on that side. 3. Chronic small vessel ischemic change. 4. Fluid signal within the mastoid air cells bilaterally. Clinical evaluation for any signs of acute mastoiditis suggested. 5. Right maxillary sinusitis. Head Magnetic Resonance Angiography 04/11/18 Signed Impressions: CONCLUSION: Intracranial arterial vasculature has a normal appearance. Objective Remarks GENERAL: 73-year-old AA female, orotracheally intubated SKIN: Warm and dry. HEAD: bolt exits from head, wrapped in dry dressing. EYES: Pupils equal and round 2 mm bilaterally reactive to. Disconjugate gaze to left. No conjunctival icterus. No injection or drainage. ENT: No nasal bleeding or discharge. Mucous membranes pink and moist. NECK: Trachea midline. Orally intubated. CARDIOVASCULAR: Regular rate and rhythm. No JVD obvious but difficult to evaluate due to body habitus.. RESPIRATORY: Diminished in bases, symmetrical excursion. Scattered rhonchi persist. GASTROINTESTINAL: Abdomen soft, non-tender, obese. no guarding. MUSCULOSKELETAL: Extremities trace bilateral lower extremity nonpitting edema. No obvious deformities. NEUROLOGICAL: Spontaneous movement right and upper lower extremities. Withdrew to left and right lower extremity. Positive cough and gag. A/P Assessment and Plan Neuro/Psych: Acute right frontal intra-axial hemorrhage 3.1 cm at the right to left shift of 3 mm New onset seizure Status post right frontal craniotomy 04/11 with right bur hole with ICP monitor placement Currently on propofol/fentanyl drips for sedation/analgesia while intubated Goal of RASS -2 Daily sedation vacation Acetaminophen 650 mg by tube every 6 hours as needed fever brain CT in a.m. 04/11: slight increase in frontal hemorrhage. Brain CT 6 abdomen reveals improvement/status post evacuation hematoma Neurosurgery/Dr. Parson to follow Keep systolic blood pressure < 140 nacl tabs 1gm tid. No mannitol per neurosurgery Seizure with fosphenytoin 100 mg every 8 hours. Loaded in ED. phenytoin level 13. Currently discontinued Switch to levetiracetam 500 IV twice daily EEG 04/11 revealed moderate encephalopathy. No epileptiform activity CV: Hypertensive Emergency Hyperlipidemia As needed labetalol and nicardipine drip goal sbp < 140 On home metoprolol tartrate 25 mg twice daily, amlodipine 2.5 mg a day, hydrochlorthiazide 25 mg daily losartan 100 mg daily. amlodipine 2.5 mg daily and losartan 100 mg daily. Continue furosemide 40 mg daily Resp: Acute hypoxic and hypercarbic respiratory failure- becoming chronic. Ventilator bundle Albuterol/ipratropium aerosols every 6 hours with albuterol aerosols every 2 hours as needed dyspnea daily SBTs. hypoxia concerning, possible aspiration, although afebrile with normal wbc. will avoid abx. aggressive suctioning. slow weaning of mechanical ventilation. wean fio2 for goal spo2 > 90% Still requiring increased pressure support, tracheostomy scheduled for 04/24 GI: Gastroesophageal reflux disease Elevated AST bowel regimen. Currently on vital high-protein goal 70 cc an hour. Lansoprazole 30 mg daily for GI prophylaxis. On omeprazole 40 mg daily at home Docusate sodium/senna 1 tablet twice daily for bowel regimen. Add polythene glycol 17 g twice daily and lactulose 30 cc 4 times daily. consulted GI for PEG placement. : does not require mayo catheter. Endo: Diabetes mellitus History of gout Holding metformin 1000mg twice daily/home medication Novulog medium protocol Accu-Cheks every 6 hours to maintain euglycemia Holding colchicine 0.6 mg. Resume clinically indicated Levemir to 24 units every 12 hours, Renal: Acute kidney injury? 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 Holding anticoagulation in light of acute brain hemorrhage ID: Monitor for signs and symptomatology of infection MSK: Elevated BMI PT evaluate and treat FEN: Hypernatremia Replace electrolytes as clinically indicated Access -Utilize peripheral IV. Prophylaxis -GI -lansoprazole -DVT -SCD/holding pharmacological prophylaxis light of acute right frontal intracranial hemorrhage Overall impression: Remains critically ill and ventilator dependent following surgical treatment for acute right frontal lobe hemorrhage. Glucose intolerance and fluid accumulation remain problematic. Unable to separate from ventilator. Requiring very aggressive antihypertensive therapy still and will need continue intravenous diuretic therapy. Anticipate need for prolonged ventilatory support via tracheostomy with daily weaning exercises and nighttime ventilator support. Will be best served probably at LTAC level care. Andrew Murphy MD Apr 24, 2018 13:28
[2018-04-24] MEDS ORDERED: MIDAZOLAM HCL 5 MG/5 ML VIAL IV ONE (14:15)
[2018-04-24] MEDS ORDERED: fentaNYL CITRATE 250 MCG/5 ML AMP IV ONE (14:15)
[2018-04-24] MEDS ORDERED: ROCURONIUM INJ 50 MG/5 ML VIAL IV ONE (14:15)
[2018-04-24] MEDS ORDERED: MIDAZOLAM HCL 5 MG/ML VIAL (1 ML) ONE (14:35)
--- NOTE | 2018-04-24 15:47 | PD.PROCEDR ---
Procedure Note Procedure Procedure: Percutaneous tracheostomy with bronchoscopic guidance Operators: Dr. Andrew Murphy for percutaneous tracheostomy, Dr. Ramos for bronchoscopy Informed consent obtained from family and documented on chart Preoperative diagnosis: ICH, encephalopathy, acute respiratory failure Postoperative diagnosis: Same Anesthesia used: Versed 11 mg IV, fentanyl 400 g IV, rocuronium 100 mg IV for neuromuscular blockade. 1% lidocaine for local infiltration anesthesia Procedure: After ensuring adequate sedation/analgesia neuromuscular blockade, patient was positioned appropriately. After sterile prepping and draping, 1% lidocaine was used for local infiltration anesthesia. Dr. Ramos proceeded bronchoscopy and withdrawing ET tube. Introducer needle was inserted into the trachea under bronchoscopic guidance and guidewire was advanced into the trachea and was visualized passing down into the trachea following which needle was removed. Punch dilator was used to dilate the tracheal ring following which tracheostomy dilator assembly was mounted over the guidewire and advanced to dilate the trachea with dilator being visualized via bronchoscopic guidance entering the trachea during dilation without injuring the posterior tracheal wall. Following this dilator assembly was removed and percutaneous tracheostomy mounted over dilator was advanced over the guidewire into the trachea under direct visualization following which guidewire/dilator were removed. Bronchoscope was inserted at this point by Dr. Ramos via newly inserted tracheostomy and appropriate placement was confirmed by visualizing tracheal rings following which bronchoscope was withdrawn and inner cannula was placed via tracheostomy. After inflating cuff patient was connected to mechanical ventilation via tracheostomy. 4 interrupted sutures were used to secure tracheostomy to neck. Patient tolerated the procedure well with no immediate complications noted. Good hemostasis was achieved at the end of procedure. Postprocedure chest x-ray was ordered and was pending at the time of this dictation and will be reviewed when available. Andrew Murphy MD Apr 24, 2018 15:47
--- NOTE | 2018-04-24 16:09 | RADRPT ---
EXAM DATE: 04/24/2018 4:05 PM EDT AGE/SEX: 73 years / Female INDICATIONS: S/p tracheostomy CLINICAL DATA: This is the patient's initial encounter. Patient reports that signs and symptoms have been present for 4 - 6 days and indicates a pain score of Nonresponsive. MEDICAL/SURGICAL HISTORY: Hypercholesterolemia. Hypertension. Diabetes mellitus type II. None . [place] [facility] [place]. . FINDINGS: There is a tracheostomy tube in place. An NG tube tip is directed into the stomach. The heart size is normal. The lungs are grossly clear. CONCLUSION: Tracheostomy tube in good position. Electronically signed by: David Walton MD 04/24/2018 4:08 PM EDT
--- NOTE | 2018-04-24 16:26 | PD.PROCEDR ---
Procedure Note Procedure Diagnosis: Hypoxemic respiratory failure Procedure: Therapeutic flexible bronchoscopy Operation: Timeout performed and patient suitably identified. Patient intubated the orotracheal route and mechanical ventilation and process. Through a side-port in the ventilatory circuit the flexible bronchoscope was delivered of the tracheobronchial tree. Branching anatomy on the left and right side were normal. The mucosa was normal-appearing without inflammation in the bronchial segments were clear. There was no significant sputum production. The bronchoscope and endotracheal tube were then removed to the level of the cricoid while maintaining ventilation. This area was used for visualization of the percutaneous tracheostomy performed and dictated by a separate team. Following completion of the tracheostomy the bronchoscope was delivered down the new tracheostomy tube and confirmed location of the new tracheostomy tube in good position, well above the tristan. The ventilatory circuit was rapidly switched over to the new tracheostomy tube and end-tidal CO2 was documented. Further chest wall motion was normal and ventilatory returns were normal. Oxygen saturation was maintained greater than 90% throughout the procedure. Jonathon Ramos MD Apr 24, 2018 16:26
[2018-04-24] MEDS: oxyCODONE/ACETAMINOPHEN 10 MG/325 MG TAB PO PRN ×3 (16:45→23:59)
[2018-04-25] VITALS (18 sets, daily range): BP systolic 152–167; BP diastolic 70–78; PULSE 73–93; RESP 17–25; TEMP 100.3–102.2; O2SAT 92–99
[2018-04-25] MEDS: LABETALOL HCL 100 MG/20 ML VIAL IV PUSH PRN ×3 (02:00→21:08)
[2018-04-25] MEDS: levETIRAcetam INJ 500 MG in SODIUM CHLORIDE 0.9% INJ 100 ML IV SCH ×2 (02:01→13:13)
[2018-04-25] MEDS: hydrALAZINE HCL 25 MG TAB PO PRN ×2 (03:52→18:30)
[2018-04-25] MEDS: CHLORHEXIDINE GLUCONATE 2 % 1 PACK (2 CLOTHS) TOP SCH (04:00)
[2018-04-25] MEDS: INSULIN ASPART SUPPLEMENTAL SCALE SQ SCH ×6 (04:33→20:00)
[2018-04-25] MEDS: SODIUM CHLORIDE 1 GRAM TAB PO SCH ×3 (04:33→21:05)
[2018-04-25 07:57] LABS: HEMATOCRIT 29.4 % (35.0-46.0); HEMOGLOBIN 9.5 GM/DL (11.6-15.3); MEAN CELL VOLUME 93.5 FL (80.0-100.0); MEAN CORPUSCULAR HEMOGLOBIN 30.1 PG (27.0-34.0); MEAN CORPUSCULAR HGB CONC 32.2 % (32.0-36.0); MEAN PLATELET VOLUME 9.4 FL (7.0-11.0); PLATELET COUNT 324 TH/MM3 (150-450); RED BLOOD COUNT 3.15 MIL/MM3 (4.00-5.30); RED CELL DISTRIBUTION WIDTH 14.5 % (11.6-17.2); WHITE BLOOD COUNT 11.8 TH/MM3 (4.0-11.0)
[2018-04-25 08:19] LABS: BICARBONATE 30.1 MEQ/L (21.0-32.0); CALCIUM 9.9 MG/DL (8.5-10.1); CREATININE 1.04 MG/DL (0.50-1.00)
[2018-04-25] MEDS: INSULIN DETEMIR 100 UNITS/ML VIAL SQ SCH ×2 (09:00→21:00)
[2018-04-25] MEDS: BISACODYL 10 MG SUPP RECTAL SCH (09:00)
[2018-04-25] MEDS: SODIUM CHLORIDE 0.9% FLUSH 10 ML FLUSH IV FLUSH SCH (09:00)
[2018-04-25] MEDS: ARTIFICIAL TEARS OPTH SOLN 15 ML BTL EACH EYE SCH ×3 (09:00→18:00)
[2018-04-25] MEDS: DOCUSATE SODIUM 100 MG CAP PO SCH ×2 (09:00→21:04)
[2018-04-25] MEDS: CHLORHEXIDINE 0.12% (ORAL KIT) 15 ML CUP MT SCH ×2 (09:44→20:00)
[2018-04-25] MEDS: LANSOPRAZOLE SOLUTAB 30 MG TAB G-TUBE SCH (09:45)
[2018-04-25] MEDS: FUROSEMIDE 40 MG TAB PO SCH ×2 (09:45→21:04)
[2018-04-25] MEDS: amLODIPine BESYLATE 5 MG TAB PO SCH (09:45)
[2018-04-25] MEDS: LOSARTAN 50 MG TAB PO SCH (09:47)
[2018-04-25] MEDS ORDERED: PROPOFOL 200 MG/20 ML AMP IV ONE (12:00)
--- NOTE | 2018-04-25 13:01 | GIPROC ---
[facility] [address] [facility]. [facility], [address] EGD WITH PEG PROCEDURE REPORT EXAM DATE: 04/25/2018 PATIENT NAME: Akiko Amaya MR#: [id number] BIRTHDATE: 1945 ATTENDING: Leilani Sanz MD ORDER #: [id number] BRIM GREASER OPERATOR: Jonathan Joe and Linda Mix STATUS: inpatient INDICATIONS: The patient is a 73 yr old female here for an EGD with PEG due to dysphagia PROCEDURE PERFORMED: EGD with biopsy EGD with PEG placement MEDICATIONS: Per Anesthesia and None. TOPICAL ANESTHETIC: none CONSENT: The patient understands the risks and benefits of the procedure and understands that these risks include, but are not limited to: sedation, allergic reaction, infection, perforation and/or bleeding. Alternative means of evaluation and treatment include, among others: physical exam, x-rays, and/or surgical intervention. The patient elects to proceed with this endoscopic procedure. medical equipment was checked for proper function. Hand hygiene and appropriate measures for infection prevention was taken. After the risks, benefits and alternatives of the procedure were thoroughly explained, Informed consent was verified, confirmed and timeout was successfully executed by the treatment team. The patient was anesthetized with topical anesthesia and the Pentax [id number] endoscope was introduced through the mouth and advanced to the second portion of the duodenum. The instrument was slowly withdrawn as the mucosa was fully examined. A nodule was found in the antrum. -biopsy s/p peg The stomach was then inflated with air, and by a combination of transillumination and manual palpation, the site for the gastrostomy tube placement was selected and marked on the anterior abdominal wall. The skin of the anterior abdomen was surgically prepped and draped with sterile towels. Utilizing strict sterile technique, the selected site was then anesthetized with 1% xylocaine by injection into the skin and subcutaneous tissue. A 1 cm incision was made through the skin and subcutaneous tissue, and the needle/cannula assembly was then passed through the abdominal wall and through the anterior wall of the stomach, maintaining visualization with the endoscope. A snare device previously placed through the instrument channel was then opened and placed around the cannula, the needle was removed, and the insertion wire was passed through the cannula and into the stomach lumen. The snare was then loosened from the cannula, and repositioned to snare the insertion wire. The snare was then pulled up to the endoscope distal tip, and the scope was then withdrawn bringing with it the snare and insertion wire. The insertion wire was then released from the snare, and then loop-attached to the gastrostomy tube. Using the "pull technique", the G-tube was then pulled into place by traction on the insertion wire at the abdominal wall end. The G-tube insertion site was then cleansed once again, and the external bolster was placed over the tube to secure it to the abdominal wall. A sterile dressing was then applied, and the procedure terminated. a hiatal hernia The gastroscope was then slowly withdrawn and removed. ADVERSE EVENT: There were no complications. IMPRESSIONS: 1. A nodule was found in the antrum 2. A hiatal hernia RECOMMENDATIONS: 1. Anti-reflux regimen 2. Continue PPI 3.fu biopsy 4.ok to use peg for medications today 5.tube feeding in am 6.abdominal binder REPEAT EXAM: Return 6 week(s) EGD Leilani Sanz MD eSigned: Leilani Sanz MD 04/25/2018 1:00 PM cc: PATIENT NAME: Akiko Amaya MR#: [id number]
[2018-04-25] MEDS: ACETAMINOPHEN 325 MG TAB PO PRN (13:37)
[2018-04-25] MEDS ORDERED: ACETAMINOPHEN 1000 MG/100 ML 100 ML IV ONE (13:45)
--- NOTE | 2018-04-25 14:28 | HHI.NSPN ---
(Mary Grace Roman) Note Status Status: Progress Note (Mary Grace Roman) Interval History Interval History This is a 73-year-old Black female. with history includes hypertension, hyperlipidemia, gastroesophageal disease, diabetes mellitus, elevated BMI and gout. 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 She presented to [facility] with altered mental status. At approximately 5:20 PM found her sitting in the dark by the stair unresponsive. EMS upon protein scientist arrival patient reportedly had approximately 4 generalized tonic-clonic seizures and then patient was transported from the house. Upon arrival here daughter states that patient was witnessed to have approximately 2 minute episode of seizure activity and patient did receive 2 mg of lorazepam IV. According to daughter patient has been compliant with her medications. No prior history of seizure activity. Denies any trauma at home to the brain. CT brain revealed 3.1 cm right frontal intra-axial hemorrhage with a 3 mm right to left shift. She received 2 mg lorazepam IV 1 was loaded with fosphenytoin 1 g. Neurosurgery consultation was requested. The patient was intubated in the ED by physician for airway protection and acute respiratory failure Ms. Amaya underwent a right frontal craniotomy for evacuation of hemorrhagic mass, and with placement of ICP monitor 04/11/18. 04/14: intubated, mildly sedated but opens eyes when stimulated, followed simple commands. ICPs controlled. 04/15: intubated, sedated. nrs reports blood pressure elevates when sedation lowered. continues to follow commands 04/17: remains intubated, sedated, undergoing CPAP trials. 04/18: no changes remains intubated and sedated. opening eyes, and followed simple commands. On CPAP. 04/21: intubated and sedated, withdraws minimally in lower extremities. 04/22: nursing reports following commands x 4 extremities, remains intubated. 04/23: doing well for trach/PEG today 04/25: Underwent tracheostomy yesterday. Awake, following commands. No new neurological complaints. (Mary Grace Roman) Labs, Micro, & Vital Signs Results Date Time Temp Pulse Resp B/P (MAP) Pulse Ox O2 Delivery O2 Flow Rate FiO2 04/25/18 12:00 82 04/25/18 12:00 101.2 82 17 165/76 (105) 95 04/25/18 12:00 60 04/25/18 11:44 94 60 04/25/18 10:00 80 04/25/18 08:30 92 60 04/25/18 08:00 73 04/25/18 08:00 60 04/25/18 08:00 100.9 73 23 157/73 (101) 97 04/25/18 06:00 88 04/25/18 04:26 98 70 04/25/18 04:00 60 04/25/18 04:00 80 04/25/18 04:00 100.3 80 18 152/70 (97) 97 04/25/18 02:00 76 04/25/18 00:00 100.4 79 25 152/72 (98) 96 04/25/18 00:00 81 04/25/18 00:00 70 04/24/18 23:08 94 70 04/24/18 22:00 83 04/24/18 20:44 96 70 04/24/18 20:00 80 04/24/18 20:00 99.0 80 20 162/78 (106) 97 04/24/18 20:00 70 04/24/18 18:00 76 04/24/18 16:27 94 70 04/24/18 16:00 99.0 82 18 149/94 (112) 94 04/24/18 16:00 70 04/24/18 16:00 74 04/24/18 15:00 99 100 04/26/18 07:00 Intake Total 25 ml Balance 25 ml Constitutional Vital Signs Date Time Temp Pulse Resp B/P (MAP) Pulse Ox O2 Delivery O2 Flow Rate FiO2 04/25/18 12:00 82 04/25/18 12:00 101.2 82 17 165/76 (105) 95 04/25/18 12:00 60 04/25/18 11:44 94 60 04/25/18 10:00 80 04/25/18 08:30 92 60 04/25/18 08:00 73 04/25/18 08:00 60 04/25/18 08:00 100.9 73 23 157/73 (101) 97 04/25/18 06:00 88 04/25/18 04:26 98 70 04/25/18 04:00 60 04/25/18 04:00 80 04/25/18 04:00 100.3 80 18 152/70 (97) 97 04/25/18 02:00 76 04/25/18 00:00 100.4 79 25 152/72 (98) 96 04/25/18 00:00 81 04/25/18 00:00 70 04/24/18 23:08 94 70 04/24/18 22:00 83 04/24/18 20:44 96 70 04/24/18 20:00 80 04/24/18 20:00 99.0 80 20 162/78 (106) 97 04/24/18 20:00 70 04/24/18 18:00 76 04/24/18 16:27 94 70 04/24/18 16:00 99.0 82 18 149/94 (112) 94 04/24/18 16:00 70 04/24/18 16:00 74 04/24/18 15:00 99 100 04/26/18 07:00 Intake Total 25 ml Balance 25 ml (Mary Grace Roman) Review of Systems ROS Limitations: Clinical Condition (Mary Grace Roman) Physical Exam General: Resting comfortably in bed Eyes: Pupils equal. Bilateral dark hemorrhagic conjunctiva. Lungs: clear Heart: regular rate rhythm Skin: SCDs in place. Incision is healing well. Muscle: Moves all 4 extremities to command. Neuro: Follows simple commands 4 extremities. Pupils 3 mm bilaterally reactive bilaterally. (Mary Grace Roman) Medications Current Medications Current Medications Medications (Trade) Dose Ordered Sig/J Carlos Route PRN Reason Start Time Stop Time Status Last Admin Dose Admin Lorazepam (Ativan Inj) 2 mg ONCE PRN IV PUSH SEIZURES 04/10/18 19:30 04/10/18 20:01 Nicardipine HCl 25 mg/Sodium Chloride 260 ml @ 52 mls/hr TITRATE PRN IV Blood pressure management 04/10/18 20:00 04/11/18 18:37 Lansoprazole (Prevacid Odt) 30 mg DAILY G-TUBE 04/11/18 09:00 04/25/18 09:45 Artificial Tears (Tears Naturale Opth Soln) 1 drop TID EACH EYE 04/11/18 09:00 04/25/18 13:00 Miscellaneous Information ([facility] Nursing Information) 1 [id number] XX 04/10/18 20:30 04/10/18 20:30 Chlorhexidine Gluconate (Chlorhexidine 2% Cloth) Taper DAILY@04 TOP 04/11/18 04:00 04/07/19 03:59 04/25/18 04:00 Chlorhexidine Gluconate (Chlorhexidine 2% Cloth) 3 pack UNSCH PRN TOP HYGIENIC CARE 04/10/18 20:30 Sennosides (Senokot) 17.2 mg Q12H PRN PO Moderate constipation 04/10/18 20:30 Bisacodyl (Dulcolax Supp) 10 mg DAILY PRN RECTAL SEVERE CONSITIPATION 04/10/18 20:30 Chlorhexidine Gluconate (Peridex 0.12% Liq) 15 ml BID@08,20 MT 04/11/18 08:00 04/25/18 09:44 Propofol 100 ml @ 3.6 mls/hr TITRATE PRN IV SEDATION 04/10/18 20:30 04/21/18 01:00 Fentanyl Citrate 250 ml @ 5 mls/hr TITRATE PRN IV SEDATION 04/10/18 20:30 04/19/18 17:59 Potassium Chloride 100 ml @ 50 mls/hr Q2H PRN IV For Potassium 2.8 - 3.2 mEq/L 04/10/18 20:30 Potassium Chloride 100 ml @ 50 mls/hr Q2H PRN IV For Potassium 2.8 - 3.2 mEq/L 04/10/18 20:30 Potassium Bicarb/ Potassium Chloride (K-Lyte Cl Eff) 50 meq UNSCH PRN PO For Potassium 3.3 - 3.5 mEq/L 04/10/18 20:30 Potassium Chloride 100 ml @ 25 mls/hr UNSCH PRN IV For Potassium 3.3 - 3.5 mEq/L 04/10/18 20:30 Potassium Chloride 100 ml @ 50 mls/hr Q2H PRN IV For Potassium 3.3 - 3.5 mEq/L 04/10/18 20:30 Magnesium Sulfate 4 gm/Sodium Chloride 100 ml @ 50 mls/hr UNSCH PRN IV For Magnesium 0.9 - 1.1 mg/dL 04/10/18 20:30 04/11/18 06:38 Magnesium Oxide (Mag-Ox) 800 mg UNSCH PRN PO For Magnesium 1.2 - 1.6 mg/dL 04/10/18 20:30 Magnesium Sulfate 2 gm/Sodium Chloride 100 ml @ 50 mls/hr UNSCH PRN IV For Magnesium 1.2 - 1.6 mg/dL 04/10/18 20:30 Potassium Phosphate (K-Phos) 2,000 mg Q4H PRN PO For Phosphorus < 2.5 mg/dL 04/10/18 20:30 Sodium Phosphate 30 mmol/Sodium Chloride 250 ml @ 42 mls/hr UNSCH PRN IV For Phosphorus < 2.5 mg/dL 04/10/18 20:30 Potassium Phosphate (K-Phos) 2,000 mg UNSCH PRN PO/TUBE SEE LABEL COMMENTS 04/10/18 20:30 Potassium Phosphate 30 mmol/ Sodium Chloride 260 ml @ 42 mls/hr UNSCH PRN IV SEE LABEL COMMENTS 04/10/18 20:30 04/11/18 06:38 Labetalol HCl (Trandate Inj) 10 mg Q1HR PRN IV PUSH SBP>140, DBP>90, HR>65 04/10/18 20:30 04/25/18 06:50 Amlodipine Besylate (Norvasc) 2.5 mg DAILY PO 04/11/18 09:00 04/25/18 09:45 Miscellaneous (Pill Splitter) 1 ea UNSCH PRN OTHER SEE LABEL COMMENTS 04/10/18 20:45 Sodium Chloride (NS Flush) DAILY IV FLUSH 04/11/18 09:00 04/25/18 09:00 Sodium Chloride (NS Flush) UNSCH PRN IV FLUSH SEE PROTOCOL 04/10/18 23:00 Norepinephrine Bitartrate 4 mg/ Sodium Chloride 250 ml @ 7.5 mls/hr TITRATE PRN IV Blood pressure management 04/10/18 23:00 04/12/18 18:23 Terbutaline Sulfate (Brethine Inj) 1 mg UNSCH PRN SQ For Extravasation 04/10/18 23:00 Levetriacetam 500 mg/Sodium Chloride 105 ml @ 400 mls/hr Q12H IV 04/12/18 02:00 04/25/18 13:13 Docusate Sodium (Colace) 100 mg BID PO 04/11/18 21:00 04/24/18 20:09 Ondansetron HCl (Zofran Odt) 4 mg Q6H PRN PO NAUSEA OR VOMITING 04/11/18 14:45 04/22/18 00:00 Calcium Gluconate (Calcium Gluconate Inj) 1 gm UNSCH PRN IV SEE LABEL COMMENTS 04/11/18 14:45 Potassium Chloride 100 ml @ 50 mls/hr UNSCH PRN IV POTASSIUM LESS THAN 4 04/11/18 14:45 Magnesium Sulfate 4 gm/Sodium Chloride 108 ml @ 108 mls/hr UNSCH PRN IV MAGNESIUM LESS THAN 2 04/11/18 14:45 Acetaminophen (Tylenol) 650 mg Q4H PRN PO TEMPERATURE > 101.5 F 04/11/18 14:45 04/25/18 13:37 Bisacodyl (Dulcolax Supp) 10 mg DAILY RECTAL 04/14/18 09:00 04/17/18 08:58 Albuterol Sulfate (Albuterol Neb) 2.5 mg Q2HR NEB PRN NEB dyspnea 04/14/18 17:00 04/23/18 08:06 Losartan Potassium (Cozaar) 100 mg DAILY PO 04/15/18 09:00 04/25/18 09:47 Enoxaparin Sodium (Lovenox Inj) 40 mg Q24H SQ 04/16/18 09:00 Future hold 04/23/18 07:50 Furosemide (Lasix) 40 mg Q12H PO 04/17/18 21:00 04/25/18 09:45 Dextrose (D50w (Vial) Inj) 50 ml UNSCH PRN IV PUSH HYPOGLYCEMIA-SEE COMMENTS 04/18/18 12:15 Glucagon (Glucagon Inj) 1 mg UNSCH PRN OTHER HYPOGLYCEMIA-SEE COMMENTS 04/18/18 12:15 Insulin Aspart (NovoLOG SUPPLEMENTAL SCALE) 1 Q4H SQ 04/18/18 12:00 04/25/18 04:33 Insulin Detemir (Levemir Inj) 24 units Q12HR SQ 04/19/18 21:00 04/23/18 20:17 Hyoscyamine Sulfate (Levsin) 0.125 mg Q4H PRN PO SECRETIONS 04/20/18 21:45 04/20/18 21:44 Sodium Chloride (Sodium Chloride) 1 gm Q8H PO 04/21/18 21:00 04/25/18 13:37 Oxycodone/ Acetaminophen (Percocet 10-325 Mg) 1 tab Q4H PRN PO PAIN SCALE 1 TO 10 04/24/18 16:15 04/24/18 23:59 Levofloxacin/ Dextrose 50 ml @ 50 mls/hr ONCE ONCE IV 04/25/18 16:45 04/25/18 17:44 Hydralazine HCl (Apresoline) 25 mg Q8HR PRN PO SBP> OR = 170, DBP> OR = 90 04/25/18 03:45 04/25/18 03:52 (Mary Grace Roman) Medical Decision Making MDM Remarks 73 y/o female presented with AMS and seizures, CT brain revealed 3.1 cm right frontal intra-axial hemorrhage with a 3 mm right to left shift. MRI Brain w/wo contrast showed no underlying mass, MRA Head unremarkable Ms. Amaya underwent a right frontal craniotomy for evacuation of hemorrhagic mass, and with placement of ICP monitor 04/11/18, ICP monitor removed 04/14/18 final pathology reports hematoma EEG 04/11/18 reports no epileptiform discharges, mild to moderate encephalopathy Head CT 04/14/18 Impressions: CONCLUSION: 1. Interval improvement following drainage of a right orbital frontal hemorrhage. 2. Ventricular size is appropriate. 3. No extra-axial fluid remains (Mary Grace Roman) Plan Plan Remarks cont neuro exam improving, cont AEDs, seizure precautions Continue with therapy, rehab efforts (Mary Grace Roman) Attending Statement The exam, history, and the medical decision-making described in the above note were completed with the assistance of the mid-level provider. I reviewed and agree with the findings presented. I attest that I had a [id number] encounter with the patient on the same day, and personally performed and documented my assessment and findings in the medical record. (Harrison Parson MD) Mary Grace Roman Apr 25, 2018 14:28 Harrison Parson MD Apr 26, 2018 16:18
[2018-04-25] MEDS ORDERED: LEVOFLOXACIN 250 MG PREMIX INJ 50 ML IV ONE (16:45)
--- NOTE | 2018-04-25 19:57 | HHI.CCPN ---
Subjective Remarks/Hospital Course This is a 73-year-old AA female. Admission 04/10/2018. Please note no family is available and all information is obtained by reviewing the medical record from ED physician. Past medical history includes hypertension, hyperlipidemia, gastroesophageal disease, diabetes mellitus, elevated BMI and gout. 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 She presented to [facility] [place] with the following history. At approximately 2:30 PM and patient was reportedly fine and daughter came to visit her mother. Then at approximately 5:20 PM found her sitting in the dark by the stair unresponsive. 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 Upon arrival here daughter states that patient was witnessed to have approximately 2 minute episode of seizure activity and patient did receive 2 mg of lorazepam IV. According to daughter patient has been compliant with her medications gives herself her medications low-salt by herself and is very independent. after being found home by daughter with new onset seizure. No prior history of seizure activity. Denies any trauma at home to the brain. CT brain revealed 3.1 cm right frontal intra-axial hemorrhage with a 3 mm right to left shift. She received 2 mg lorazepam IV 1 was loaded with fosphenytoin 1 g. Neurosurgery was consulted/Dr. Parson. Recommended blood pressure control with inpatient admission to ICU with consultation to neurosurgery. Patient was intubated in the ED by physician after receiving etomidate and rocuronium... 04/11: remains on the vent, in critical condition. hypoxic. 04/12: hypoxia somewhat improving. following commands on the vent. per nsgy, can wean to extubate soon. some edema likely contributing to poor neuro exam, although slow improvements. 04/13: following commands. however, remains hypoxic on 60% fio2. tube feeds initiated this AM and concern over aspiration of tube feeds out endotracheal tube. CXR demonstrates adequate placement of gastric tube and ETT. ICPs remain controlled, and appropriate hypernatremia. 04/14: Repeat CT brain today revealed improved right frontal intraparenchymal hemorrhage. Patient status post right bur hole for ICP monitoring. T-max 100.9. Currently 99. 04/15: TIFFANIE x 2 was removed today. Currently on propofol 50 mcg/kg an hour and fentanyl drip at 250 mcg an hour. Follows commands. Worsening oxygenation status today. Coarse breath sounds with thick greenish secretions noted. Sample will be sent today. 04/16: CXR with diffuse interstitial edema. Tolerating weaning of PEEP to 8 but increased MAP still required. No new seizures. 04/17: Good response to diuresis yesterday, need to increase to twice daily Lasix. Tolerating CPAP today on spontaneous breathing trial pressure 15/8. Osmolality acceptable but will not allow to decline any further. 04/18: Requiring increased pressure support to breathe spontaneously today. Tapering sedation. 04/19: Osmolality in a good range. Spontaneous breathing trials are requiring increased pressure support. We will try to progress to a trial extubation however this woman may well require a tracheostomy for a month or 2. 04/20: Poor progress in weaning from ventilator. We should probably proceed directly to tracheostomy. Will discuss with family and neurosurgical service. Subjective: 04/21: hypernatremic to 160 this AM. held hypertonic saline. this far out from insult, likely does not need active hypertonic saline and can manage with oral sodium load. will need trach to progress care. no neuro improvements. 04/22: long discussion with family: they are agreeable to trach, but would prefer not to have PEG tube. discussed that with her level of functioning, not likely to be able to eat on her own, and will likely need long-term PEG and long -term nasogastric enteral access has significant complications. 04/23: plan for trach/peg soon. no other changes. no improvements. 04/24: sedated, orally intubated on mech vent. Awaiting trach/ PEG 04/25: Drowsy, arousable, on mechanical ventilation via tracheostomy. Objective Vital Signs Date Time Temp Pulse Resp B/P (MAP) Pulse Ox O2 Delivery O2 Flow Rate FiO2 04/25/18 18:00 84 04/25/18 17:36 99 50 04/25/18 16:00 100.3 17 167/78 (107) Intake and Output 04/25/18 04/25/18 04/26/18 08:00 16:00 00:00 Intake Total 285 ml 25 ml 200 ml Output Total 1800 ml 1200 ml Balance -1515 ml 25 ml -1000 ml Result Diagram: 04/25/18 0717 04/25/18 07 Imaging Last Impressions Chest X-Ray 04/15/18 0600 Signed Impressions: CONCLUSION: Increased bilateral perihilar pulmonary parenchymal opacity suggesting increase d pulmonary edema. Head CT 04/14/18 Signed Impressions: CONCLUSION: 1. Interval improvement following drainage of a right orbital frontal hemorrha ge. 2. Ventricular size is appropriate. 3. No extra-axial fluid remains. Abdomen X-Ray 04/14/18 Signed Impressions: CONCLUSION: Unremarkable study. Lower Extremity Ultrasound 04/12/18 Signed Impressions: On the right, the common femoral vein, greater saphenous vein, popliteal and pe roneal veins are patent as well as the right iliac vein. The femoral vein is no t clearly visualized due to soft tissue swelling and body habitus. The posterio r tibial vein is also not clearly seen. On the left, the posterior tibial vein is not clearly visualized. The popliteal, peroneal, iliac, common femoral, grea ter saphenous vein, and femoral veins are patent. CONCLUSION: 1. Visualized veins are patent without evidence for DVT. 2. The right femoral and posterior tibial vein and the left posterior tibial v ein are not clearly visualized. Brain MRI 04/11/1803 Signed Impressions: CONCLUSION: 1. 4 cm intraparenchymal hemorrhage involving the right frontal lobe without u nderlying mass. 2. Tiny focus of blooming artifact involving the left frontal lobe likely rela ting to a small focus of intraparenchymal hemorrhage on that side. 3. Chronic small vessel ischemic change. 4. Fluid signal within the mastoid air cells bilaterally. Clinical evaluation for any signs of acute mastoiditis suggested. 5. Right maxillary sinusitis. Head Magnetic Resonance Angiography 04/11/18 Signed Impressions: CONCLUSION: Intracranial arterial vasculature has a normal appearance. Objective Remarks GENERAL: 73-year-old AA female, orotracheally intubated SKIN: Warm and dry. HEAD: bolt exits from head, wrapped in dry dressing. EYES: Pupils equal and round 2 mm bilaterally reactive to. Disconjugate gaze to left. No conjunctival icterus. No injection or drainage. ENT: No nasal bleeding or discharge. Mucous membranes pink and moist. NECK: Trachea midline. Orally intubated. CARDIOVASCULAR: Regular rate and rhythm. No JVD obvious but difficult to evaluate due to body habitus.. RESPIRATORY: Diminished in bases, symmetrical excursion. Scattered rhonchi persist. GASTROINTESTINAL: Abdomen soft, non-tender, obese. no guarding. MUSCULOSKELETAL: Extremities trace bilateral lower extremity nonpitting edema. No obvious deformities. NEUROLOGICAL: Spontaneous movement right and upper lower extremities. Withdrew to left and right lower extremity. Positive cough and gag. A/P Assessment and Plan Neuro/Psych: Acute right frontal intra-axial hemorrhage 3.1 cm at the right to left shift of 3 mm New onset seizure Status post right frontal craniotomy 04/11 with right bur hole with ICP monitor placement Currently on propofol/fentanyl drips for sedation/analgesia while intubated Goal of RASS -2 Daily sedation vacation Acetaminophen 650 mg by tube every 6 hours as needed fever brain CT in a.m. 04/11: slight increase in frontal hemorrhage. Brain CT 6 abdomen reveals improvement/status post evacuation hematoma Neurosurgery/Dr. Parson to follow Keep systolic blood pressure < 140 nacl tabs 1gm tid. No mannitol per neurosurgery Seizure with fosphenytoin 100 mg every 8 hours. Loaded in ED. phenytoin level 13. Currently discontinued Switch to levetiracetam 500 IV twice daily EEG 04/11 revealed moderate encephalopathy. No epileptiform activity CV: Hypertensive Emergency Hyperlipidemia As needed labetalol and nicardipine drip goal sbp < 140 On home metoprolol tartrate 25 mg twice daily, amlodipine 2.5 mg a day, hydrochlorthiazide 25 mg daily losartan 100 mg daily. amlodipine 2.5 mg daily and losartan 100 mg daily. Continue furosemide 40 mg daily Resp: Acute hypoxic and hypercarbic respiratory failure- becoming chronic. Ventilator bundle Albuterol/ipratropium aerosols every 6 hours with albuterol aerosols every 2 hours as needed dyspnea daily SBTs. hypoxia concerning, possible aspiration, although afebrile with normal wbc. will avoid abx. aggressive suctioning. slow weaning of mechanical ventilation. wean fio2 for goal spo2 > 90% Still requiring increased pressure support, status post tracheostomy 04/24 GI: Gastroesophageal reflux disease Elevated AST bowel regimen. Currently on vital high-protein goal 70 cc an hour. Lansoprazole 30 mg daily for GI prophylaxis. On omeprazole 40 mg daily at home Docusate sodium/senna 1 tablet twice daily for bowel regimen. Add polythene glycol 17 g twice daily and lactulose 30 cc 4 times daily. PICC placement by GI on 04/25 : does not require mayo catheter. Endo: Diabetes mellitus History of gout Holding metformin 1000mg twice daily/home medication Novolog medium protocol Accu-Cheks every 6 hours to maintain euglycemia Holding colchicine 0.6 mg. Resume clinically indicated Levemir to 24 units every 12 hours, Renal: Acute kidney injury? 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 Holding anticoagulation in light of acute brain hemorrhage ID: Monitor for signs and symptomatology of infection MSK: Elevated BMI PT evaluate and treat FEN: Hypernatremia Replace electrolytes as clinically indicated Access -Utilize peripheral IV. Prophylaxis -GI -lansoprazole -DVT -SCD/holding pharmacological prophylaxis light of acute right frontal intracranial hemorrhage Overall impression: Remains critically ill and ventilator dependent following surgical treatment for acute right frontal lobe hemorrhage. Glucose intolerance and fluid accumulation remain problematic. Unable to separate from ventilator. Requiring very aggressive antihypertensive therapy still and will need continue intravenous diuretic therapy. Anticipate need for prolonged ventilatory support via tracheostomy with daily weaning exercises and nighttime ventilator support. Will be best served probably at LTAC level care. Andrew Murphy MD Apr 25, 2018 19:57
[2018-04-26] VITALS (18 sets, daily range): BP systolic 142–181; BP diastolic 63–79; PULSE 80–92; RESP 16–26; TEMP 100–102.5; O2SAT 92–100
[2018-04-26] MEDS: LABETALOL HCL 100 MG/20 ML VIAL IV PUSH PRN ×3 (00:35→20:53)
[2018-04-26] MEDS: levETIRAcetam INJ 500 MG in SODIUM CHLORIDE 0.9% INJ 100 ML IV SCH ×2 (02:00→13:47)
[2018-04-26] MEDS: CHLORHEXIDINE GLUCONATE 2 % 1 PACK (2 CLOTHS) TOP SCH (04:00)
[2018-04-26] MEDS: INSULIN ASPART SUPPLEMENTAL SCALE SQ SCH ×7 (04:00→23:43)
[2018-04-26] MEDS: SODIUM CHLORIDE 1 GRAM TAB PO SCH ×3 (05:00→20:52)
[2018-04-26 05:32] LABS: HEMATOCRIT 30.1 % (35.0-46.0); HEMOGLOBIN 9.7 GM/DL (11.6-15.3); MEAN CELL VOLUME 92.8 FL (80.0-100.0); MEAN CORPUSCULAR HEMOGLOBIN 29.9 PG (27.0-34.0); MEAN CORPUSCULAR HGB CONC 32.2 % (32.0-36.0); MEAN PLATELET VOLUME 8.9 FL (7.0-11.0); PLATELET COUNT 357 TH/MM3 (150-450); RED BLOOD COUNT 3.24 MIL/MM3 (4.00-5.30); RED CELL DISTRIBUTION WIDTH 14.7 % (11.6-17.2)
[2018-04-26 05:58] LABS: BICARBONATE 27.6 MEQ/L (21.0-32.0); CALCIUM 9.9 MG/DL (8.5-10.1); CREATININE 1.2 MG/DL (0.50-1.00)
[2018-04-26] MEDS: CHLORHEXIDINE 0.12% (ORAL KIT) 15 ML CUP MT SCH ×2 (08:00→20:00)
[2018-04-26] MEDS: amLODIPine BESYLATE 5 MG TAB PO SCH (08:58)
[2018-04-26] MEDS: FUROSEMIDE 40 MG TAB PO SCH ×2 (08:58→20:52)
[2018-04-26] MEDS: LANSOPRAZOLE SOLUTAB 30 MG TAB G-TUBE SCH (08:58)
[2018-04-26] MEDS: LOSARTAN 50 MG TAB PO SCH (08:58)
[2018-04-26] MEDS: DOCUSATE SODIUM 100 MG CAP PO SCH ×2 (08:58→20:52)
[2018-04-26] MEDS: SODIUM CHLORIDE 0.9% FLUSH 10 ML FLUSH IV FLUSH SCH (08:59)
[2018-04-26] MEDS: INSULIN DETEMIR 100 UNITS/ML VIAL SQ SCH ×2 (08:59→20:52)
[2018-04-26] MEDS: ARTIFICIAL TEARS OPTH SOLN 15 ML BTL EACH EYE SCH ×3 (08:59→17:52)
[2018-04-26] MEDS: BISACODYL 10 MG SUPP RECTAL SCH (08:59)
--- NOTE | 2018-04-26 10:03 | HHI.CCPN ---
Subjective Remarks/Hospital Course This is a 73-year-old AA female. Admission 04/10/2018. Please note no family is available and all information is obtained by reviewing the medical record from ED physician. Past medical history includes hypertension, hyperlipidemia, gastroesophageal disease, diabetes mellitus, elevated BMI and gout. 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 She presented to [facility] with the following history. At approximately 2:30 PM and patient was reportedly fine and daughter came to visit her mother. Then at approximately 5:20 PM found her sitting in the dark by the stair unresponsive. 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 Upon arrival here daughter states that patient was witnessed to have approximately 2 minute episode of seizure activity and patient did receive 2 mg of lorazepam IV. According to daughter patient has been compliant with her medications gives herself her medications low-salt by herself and is very independent. after being found home by daughter with new onset seizure. No prior history of seizure activity. Denies any trauma at home to the brain. CT brain revealed 3.1 cm right frontal intra-axial hemorrhage with a 3 mm right to left shift. She received 2 mg lorazepam IV 1 was loaded with fosphenytoin 1 g. Neurosurgery was consulted/Dr. Parson. Recommended blood pressure control with inpatient admission to ICU with consultation to neurosurgery. Patient was intubated in the ED by physician after receiving etomidate and rocuronium... 04/11: remains on the vent, in critical condition. hypoxic. 04/12: hypoxia somewhat improving. following commands on the vent. per nsgy, can wean to extubate soon. some edema likely contributing to poor neuro exam, although slow improvements. 04/13: following commands. however, remains hypoxic on 60% fio2. tube feeds initiated this AM and concern over aspiration of tube feeds out endotracheal tube. CXR demonstrates adequate placement of gastric tube and ETT. ICPs remain controlled, and appropriate hypernatremia. 04/14: Repeat CT brain today revealed improved right frontal intraparenchymal hemorrhage. Patient status post right bur hole for ICP monitoring. T-max 100.9. Currently 99. 04/15: TIFFANIE x 2 was removed today. Currently on propofol 50 mcg/kg an hour and fentanyl drip at 250 mcg an hour. Follows commands. Worsening oxygenation status today. Coarse breath sounds with thick greenish secretions noted. Sample will be sent today. 04/16: CXR with diffuse interstitial edema. Tolerating weaning of PEEP to 8 but increased MAP still required. No new seizures. 04/17: Good response to diuresis yesterday, need to increase to twice daily Lasix. Tolerating CPAP today on spontaneous breathing trial pressure 15/8. Osmolality acceptable but will not allow to decline any further. 04/18: Requiring increased pressure support to breathe spontaneously today. Tapering sedation. 04/19: Osmolality in a good range. Spontaneous breathing trials are requiring increased pressure support. We will try to progress to a trial extubation however this woman may well require a tracheostomy for a month or 2. 04/20: Poor progress in weaning from ventilator. We should probably proceed directly to tracheostomy. Will discuss with family and neurosurgical service. Subjective: 04/21: hypernatremic to 160 this AM. held hypertonic saline. this far out from insult, likely does not need active hypertonic saline and can manage with oral sodium load. will need trach to progress care. no neuro improvements. 04/22: long discussion with family: they are agreeable to trach, but would prefer not to have PEG tube. discussed that with her level of functioning, not likely to be able to eat on her own, and will likely need long-term PEG and long -term nasogastric enteral access has significant complications. 04/23: plan for trach/peg soon. no other changes. no improvements. 04/24: sedated, orally intubated on mech vent. Awaiting trach/ PEG 04/25: Drowsy, arousable, on mechanical ventilation via tracheostomy. 04/26: Drowsy, arousable, on mechanical ventilation via tracheostomy. Objective Vital Signs Date Time Temp Pulse Resp B/P (MAP) Pulse Ox O2 Delivery O2 Flow Rate FiO2 04/26/18 08:19 96 50 04/26/18 08:00 86 04/26/18 04:00 100.1 19 181/79 (113) Intake and Output 04/26/18 04/26/18 04/27/18 08:00 16:00 00:00 Intake Total 305 ml Output Total 900 ml Balance -595 ml Result Diagram: 04/26/18 0511 04/26/18510 Imaging Last Impressions Chest X-Ray 04/15/18599 Signed Impressions: CONCLUSION: Increased bilateral perihilar pulmonary parenchymal opacity suggesting increase d pulmonary edema. Head CT 04/14/18 Signed Impressions: CONCLUSION: 1. Interval improvement following drainage of a right orbital frontal hemorrha ge. 2. Ventricular size is appropriate. 3. No extra-axial fluid remains. Abdomen X-Ray 04/14/18 Signed Impressions: CONCLUSION: Unremarkable study. Lower Extremity Ultrasound 04/12/18 Signed Impressions: On the right, the common femoral vein, greater saphenous vein, popliteal and pe roneal veins are patent as well as the right iliac vein. The femoral vein is no t clearly visualized due to soft tissue swelling and body habitus. The posterio r tibial vein is also not clearly seen. On the left, the posterior tibial vein is not clearly visualized. The popliteal, peroneal, iliac, common femoral, grea ter saphenous vein, and femoral veins are patent. CONCLUSION: 1. Visualized veins are patent without evidence for DVT. 2. The right femoral and posterior tibial vein and the left posterior tibial v ein are not clearly visualized. Brain MRI 04/11/18902 Signed Impressions: CONCLUSION: 1. 4 cm intraparenchymal hemorrhage involving the right frontal lobe without u nderlying mass. 2. Tiny focus of blooming artifact involving the left frontal lobe likely rela ting to a small focus of intraparenchymal hemorrhage on that side. 3. Chronic small vessel ischemic change. 4. Fluid signal within the mastoid air cells bilaterally. Clinical evaluation for any signs of acute mastoiditis suggested. 5. Right maxillary sinusitis. Head Magnetic Resonance Angiography 04/11/18 Signed Impressions: CONCLUSION: Intracranial arterial vasculature has a normal appearance. Objective Remarks GENERAL: 73-year-old AA female, orotracheally intubated SKIN: Warm and dry. HEAD: bolt exits from head, wrapped in dry dressing. EYES: Pupils equal and round 2 mm bilaterally reactive to. Disconjugate gaze to left. No conjunctival icterus. No injection or drainage. ENT: No nasal bleeding or discharge. Mucous membranes pink and moist. NECK: Trachea midline. Orally intubated. CARDIOVASCULAR: Regular rate and rhythm. No JVD obvious but difficult to evaluate due to body habitus.. RESPIRATORY: Diminished in bases, symmetrical excursion. Scattered rhonchi persist. GASTROINTESTINAL: Abdomen soft, non-tender, obese. no guarding. MUSCULOSKELETAL: Extremities trace bilateral lower extremity nonpitting edema. No obvious deformities. NEUROLOGICAL: Spontaneous movement right and upper lower extremities. Withdrew to left and right lower extremity. Positive cough and gag. A/P Assessment and Plan Neuro/Psych: Acute right frontal intra-axial hemorrhage 3.1 cm at the right to left shift of 3 mm New onset seizure Status post right frontal craniotomy 04/11 with right bur hole with ICP monitor placement Off all sedation Acetaminophen 650 mg by tube every 6 hours as needed fever brain CT in a.m. 04/11: slight increase in frontal hemorrhage. Brain CT 6 abdomen reveals improvement/status post evacuation hematoma Neurosurgery/Dr. Parson to follow Keep systolic blood pressure < 140 nacl tabs 1gm tid. No mannitol per neurosurgery Seizure with fosphenytoin 100 mg every 8 hours. Loaded in ED. phenytoin level 13. Currently discontinued Switch to levetiracetam 500 IV twice daily EEG 04/11 revealed moderate encephalopathy. No epileptiform activity CV: Hypertensive Emergency Hyperlipidemia As needed labetalol and nicardipine drip goal sbp < 140 On home metoprolol tartrate 25 mg twice daily, amlodipine 2.5 mg a day, hydrochlorthiazide 25 mg daily losartan 100 mg daily. amlodipine 2.5 mg daily and losartan 100 mg daily. Continue furosemide 40 mg daily Resp: Acute hypoxic and hypercarbic respiratory failure- becoming chronic. Ventilator bundle Albuterol/ipratropium aerosols every 6 hours with albuterol aerosols every 2 hours as needed dyspnea daily SBTs. hypoxia concerning, possible aspiration, although afebrile with normal wbc. will avoid abx. aggressive suctioning. slow weaning of mechanical ventilation. wean fio2 for goal spo2 > 90% Still requiring increased pressure support, status post tracheostomy 04/24 GI: Gastroesophageal reflux disease Elevated AST bowel regimen. Currently on vital high-protein goal 70 cc an hour. Lansoprazole 30 mg daily for GI prophylaxis. On omeprazole 40 mg daily at home Docusate sodium/senna 1 tablet twice daily for bowel regimen. Add polythene glycol 17 g twice daily and lactulose 30 cc 4 times daily. PICC placement by GI on 04/25 : does not require mayo catheter. Endo: Diabetes mellitus History of gout Holding metformin 1000mg twice daily/home medication Novolog medium protocol Accu-Cheks every 6 hours to maintain euglycemia Holding colchicine 0.6 mg. Resume clinically indicated Levemir to 24 units every 12 hours, Renal: Acute kidney injury? 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 Holding anticoagulation in light of acute brain hemorrhage ID: Monitor for signs and symptomatology of infection MSK: Elevated BMI PT evaluate and treat FEN: Hypernatremia Replace electrolytes as clinically indicated Access -Utilize peripheral IV. Prophylaxis -GI -lansoprazole -DVT -SCD/holding pharmacological prophylaxis light of acute right frontal intracranial hemorrhage Overall impression: Remains critically ill and ventilator dependent following surgical treatment for acute right frontal lobe hemorrhage. Glucose intolerance and fluid accumulation remain problematic. Unable to separate from ventilator. Requiring very aggressive antihypertensive therapy still and will need continue intravenous diuretic therapy. Anticipate need for prolonged ventilatory support via tracheostomy with daily weaning exercises and nighttime ventilator support. Will be best served probably at LTAC level care. Andrew Murphy MD Apr 26, 2018 10:03
[2018-04-26] MEDS: ENOXAPARIN SODIUM 40 MG/0.4 ML SYRINGE SQ SCH (10:24)
--- NOTE | 2018-04-26 11:15 | HHI.NSPN ---
(Mary Grace Roman) Note Status Status: Progress Note (Mary Grace Roman) Interval History Interval History This is a 73-year-old Black female. with history includes hypertension, hyperlipidemia, gastroesophageal disease, diabetes mellitus, elevated BMI and gout. 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 She presented to [facility] with altered mental status. At approximately 5:20 PM found her sitting in the dark by the stair unresponsive. 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 Upon arrival here daughter states that patient was witnessed to have approximately 2 minute episode of seizure activity and patient did receive 2 mg of lorazepam IV. According to daughter patient has been compliant with her medications. No prior history of seizure activity. Denies any trauma at home to the brain. CT brain revealed 3.1 cm right frontal intra-axial hemorrhage with a 3 mm right to left shift. She received 2 mg lorazepam IV 1 was loaded with fosphenytoin 1 g. Neurosurgery consultation was requested. The patient was intubated in the ED by physician for airway protection and acute respiratory failure Ms. Amaya underwent a right frontal craniotomy for evacuation of hemorrhagic mass, and with placement of ICP monitor 04/11/18. 04/14: intubated, mildly sedated but opens eyes when stimulated, followed simple commands. ICPs controlled. 04/15: intubated, sedated. nrs reports blood pressure elevates when sedation lowered. continues to follow commands 04/17: remains intubated, sedated, undergoing CPAP trials. 04/18: no changes remains intubated and sedated. opening eyes, and followed simple commands. On CPAP. 04/21: intubated and sedated, withdraws minimally in lower extremities. 04/22: nursing reports following commands x 4 extremities, remains intubated. 04/23: doing well for trach/PEG today 04/25: Underwent tracheostomy yesterday. Awake, following commands. No new neurological complaints. 04/26: no changes to neuro checks overnight, dc planning to [facility]. (Mary Grace Roman) Labs, Micro, & Vital Signs Results Date Time Temp Pulse Resp B/P (MAP) Pulse Ox O2 Delivery O2 Flow Rate FiO2 04/26/18 10:58 99 45 04/26/18 10:00 82 04/26/18 09:45 45 04/26/18 08:19 96 50 04/26/18 08:00 100.6 80 16 158/70 (99) 97 04/26/18 08:00 86 04/26/18 08:00 60 04/26/18 06:00 86 04/26/18 04:34 96 50 04/26/18 04:00 100.1 88 19 181/79 (113) 96 04/26/18 04:00 60 04/26/18 04:00 83 04/26/18 02:16 95 50 04/26/18 02:00 83 04/26/18 00:00 60 04/26/18 00:00 100.0 87 18 163/79 (107) 94 04/26/18 00:00 85 04/25/18 23:30 94 50 04/25/18 22:00 84 04/25/18 20:11 97 50 04/25/18 20:00 60 04/25/18 20:00 93 04/25/18 20:00 102.2 93 20 167/78 (107) 95 04/25/18 18:00 84 04/25/18 17:36 99 50 04/25/18 16:00 100.3 84 17 167/78 (107) 95 04/25/18 16:00 60 04/25/18 16:00 82 04/25/18 14:00 80 04/25/18 12:00 82 04/25/18 12:00 101.2 82 17 165/76 (105) 95 04/25/18 12:00 60 04/25/18 11:44 94 60 Constitutional Vital Signs Date Time Temp Pulse Resp B/P (MAP) Pulse Ox O2 Delivery O2 Flow Rate FiO2 04/26/18 10:58 99 45 04/26/18 10:00 82 04/26/18 09:45 45 04/26/18 08:19 96 50 04/26/18 08:00 100.6 80 16 158/70 (99) 97 6/23/18 08:00 86 04/26/18 08:00 60 04/26/18 06:00 86 04/26/18 04:34 96 50 04/26/18 04:00 100.1 88 19 181/79 (113) 96 04/26/18 04:00 60 04/26/18 04:00 83 04/26/18 02:16 95 50 04/26/18 02:00 83 04/26/18 00:00 60 04/26/18 00:00 100.0 87 18 163/79 (107) 94 04/26/18 00:00 85 04/25/18 23:30 94 50 04/25/18 22:00 84 04/25/18 20:11 97 50 04/25/18 20:00 60 04/25/18 20:00 93 04/25/18 20:00 102.2 93 20 167/78 (107) 95 04/25/18 18:00 84 04/25/18 17:36 99 50 04/25/18 16:00 100.3 84 17 167/78 (107) 95 04/25/18 16:00 60 04/25/18 16:00 82 04/25/18 14:00 80 04/25/18 12:00 82 04/25/18 12:00 101.2 82 17 165/76 (105) 95 04/25/18 12:00 60 04/25/18 11:44 94 60 (Mary Grace Roman) Review of Systems ROS Limitations: Clinical Condition, Speech Impaired (Mary Grace Roman) Physical Exam General: Resting comfortably in bed Eyes: Pupils equal. Lungs: clear Heart: regular rate rhythm Skin: SCDs in place. Incision is healing well. Muscle: Moves all 4 extremities to command. Neuro: Follows simple commands 4 extremities. Pupils 3 mm bilaterally reactive bilaterally. Nonverbal due to trach. Nods to questions. (Mary Grace Roman) Medical Decision Making MDM Remarks 73 y/o female presented with AMS and seizures, CT brain revealed 3.1 cm right frontal intra-axial hemorrhage with a 3 mm right to left shift. MRI Brain w/wo contrast showed no underlying mass, MRA Head unremarkable Ms. Amaya underwent a right frontal craniotomy for evacuation of hemorrhagic mass, and with placement of ICP monitor 04/11/18, ICP monitor removed 04/14/18 final pathology reports hematoma EEG 04/11/18 reports no epileptiform discharges, mild to moderate encephalopathy Head CT 04/14/18 Impressions: CONCLUSION: 1. Interval improvement following drainage of a right orbital frontal hemorrhage. 2. Ventricular size is appropriate. 3. No extra-axial fluid remains (Mary Grace Roman) Plan Plan Remarks cont current care continue with therapy, rehab efforts clear transfer to SNF (Mary Grace Roman) Attending Statement The exam, history, and the medical decision-making described in the above note were completed with the assistance of the mid-level provider. I reviewed and agree with the findings presented. I attest that I had a [id number] encounter with the patient on the same day, and personally performed and documented my assessment and findings in the medical record. (Harrison Parson MD) Mary Grace Roman Apr 26, 2018 11:15 Harrison Parson MD Apr 26, 2018 16:17
[2018-04-26] MEDS ORDERED: Vancomycin Consult Pharmacy 1 EA OTHER SCH (13:15)
[2018-04-26] MEDS: ACETAMINOPHEN 650 MG/20.3 ML UDC PO PRN (13:46)
[2018-04-26] MEDS ORDERED: LEVOFLOXACIN 750 MG PREMIX INJ 150 ML IV SCH (14:00)
[2018-04-26] MEDS ORDERED: VANCOMYCIN INJ 1,250 MG in SODIUM CHLOR 0.9% 250 ML INJ 250 ML IV SCH (15:00)
--- NOTE | 2018-04-26 15:01 | HHI.GIFU ---
Subjective Remarks Pt is resting in bed comfortably, family and nurses in the room, TF not started yet, awaiting mold chipper consult, PEG has been used for meds. (Maritza Cruz) Objective Vitals I&O Vital Signs Date Time Temp Pulse Resp B/P (MAP) Pulse Ox O2 Delivery O2 Flow Rate FiO2 04/26/18 12:00 89 04/26/18 12:00 60 04/26/18 12:00 102.5 89 20 142/63 (89) 95 04/26/18 10:58 99 45 04/26/18 10:00 82 04/26/18 09:45 45 04/26/18 08:19 96 50 04/26/18 08:00 100.6 80 16 158/70 (99) 97 04/26/18 08:00 86 04/26/18 08:00 60 04/26/18 06:00 86 04/26/18 04:34 96 50 04/26/18 04:00 100.1 88 19 181/79 (113) 96 04/26/18 04:00 60 04/26/18 04:00 83 04/26/18 02:16 95 50 04/26/18 02:00 83 04/26/18 00:00 60 04/26/18 00:00 100.0 87 18 163/79 (107) 94 04/26/18 00:00 85 04/25/18 23:30 94 50 04/25/18 22:00 84 04/25/18 20:11 97 50 04/25/18 20:00 60 04/25/18 20:00 93 04/25/18 20:00 102.2 93 20 167/78 (107) 95 04/25/18 18:00 84 04/25/18 17:36 99 50 04/25/18 16:00 100.3 84 17 167/78 (107) 95 04/25/18 16:00 60 04/25/18 16:00 82 I/O 04/25/18 04/25/18 04/25/18 04/26/18 04/26/18 04/26/18 07:00 15:00 23:00 07:00 15:00 23:00 Intake Total 285 ml 25 ml 300 ml 305 ml Output Total 1800 ml 1200 ml 900 ml Balance -1515 ml 25 ml -900 ml -595 ml IV Total 105 ml 100 ml 105 ml Other 180 ml 25 ml 200 ml 200 ml Output Urine Total 1800 ml 1200 ml 900 ml # Bowel Movements 0 0 0 Laboratory Laboratory Tests Test 04/26/18 05:11 White Blood Count 14.0 Red Blood Count 3.24 Hemoglobin 9.7 Hematocrit 30.1 Mean Corpuscular Volume 92.8 Mean Corpuscular Hemoglobin 29.9 Mean Corpuscular Hemoglobin Concent 32.2 Red Cell Distribution Width 14.7 Platelet Count 357 Mean Platelet Volume 8.9 Blood Urea Nitrogen 22 Creatinine 1.20 Random Glucose 179 Calcium Level 9.9 Sodium Level 137 Potassium Level 3.8 Chloride Level 99 Carbon Dioxide Level 27.6 Anion Gap 10 Estimat Glomerular Filtration Rate 54 Imaging Last Impressions Chest X-Ray 04/24/18 Signed Impressions: CONCLUSION: Tracheostomy tube in good position. Head CT 04/14/18 Signed Impressions: CONCLUSION: 1. Interval improvement following drainage of a right orbital frontal hemorrha ge. 2. Ventricular size is appropriate. 3. No extra-axial fluid remains. Abdomen X-Ray 04/14/18 Signed Impressions: CONCLUSION: Unremarkable study. Lower Extremity Ultrasound 04/12/18 Signed Impressions: On the right, the common femoral vein, greater saphenous vein, popliteal and pe roneal veins are patent as well as the right iliac vein. The femoral vein is no t clearly visualized due to soft tissue swelling and body habitus. The posterio r tibial vein is also not clearly seen. On the left, the posterior tibial vein is not clearly visualized. The popliteal, peroneal, iliac, common femoral, grea ter saphenous vein, and femoral veins are patent. CONCLUSION: 1. Visualized veins are patent without evidence for DVT. 2. The right femoral and posterior tibial vein and the left posterior tibial v ein are not clearly visualized. Brain MRI 04/11/18 0903 Signed Impressions: CONCLUSION: 1. 4 cm intraparenchymal hemorrhage involving the right frontal lobe without u nderlying mass. 2. Tiny focus of blooming artifact involving the left frontal lobe likely rela ting to a small focus of intraparenchymal hemorrhage on that side. 3. Chronic small vessel ischemic change. 4. Fluid signal within the mastoid air cells bilaterally. Clinical evaluation for any signs of acute mastoiditis suggested. 5. Right maxillary sinusitis. Head Magnetic Resonance Angiography 04/11/18 0000 Signed Impressions: CONCLUSION: Intracranial arterial vasculature has a normal appearance. Physical Exam HEENT: normocephalic; atraumatic; no jaundice. NECK:Trach CHEST: Chest is clear to auscultation and percussion. CARDIAC: Regular rate and rhythm with no murmur gallop or rubs. ABDOMEN: Soft, nondistended, nontender; bowel sounds are present in all four quadrants. PEG tube SPRING TESTER: Alert (Maritza Cruz) Assessment and Plan Plan Assessment: - Consult for PEG placement- currently pt has OG tube for nutrition Planned for tracheostomy today. Initially pts son Clint, who is POA was hesitant about proceeding with PEG placement. I spoke with him on the phone ([phone]) regarding hesitations and answered all questions. 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 States he felt that placing a PEG was a very market researcher thing. Explained to him that PEG can be discontinued when pt regains strength and ability for PO intake. Discussed complications of market researcher nasogastric or orogastric feeding tubes. He is agreeable to proceed with PEG. Also discussed with pt who is able to shake her head yes and daughter Dulce at bedside. 04/26/18- S/P EGD/PEG on 04/25/18 There were no complications. IMPRESSIONS: 1. A nodule was found in the antrum 2. A hiatal hernia Plan: TF per dietary recommendations Flush tube with 250 ml water every 8 hrs Await bx EGD in 6 weeks GI will sign off Pt has been seen and examined by myself and Dr. Sanz and this note is written on her behalf (Maritza Cruz) Physician Comments seen, examined agree with above (Leilani Sanz MD) Maritza Cruz Apr 26, 2018 15:01 Leilani Sanz MD Apr 26, 2018 20:31
[2018-04-26 16:40] LABS: BACTERIA, URINE MANY /hpf; BILIRUBIN, URINE NEG (NEG); BLOOD, URINE SMALL (NEG); GLUCOSE,URINE NEG (NEG); KETONE, URINE NEG (NEG); MUCUS URINE FEW /lpf (OCC); NITRITE,URINE POS (NEG); SQUAMOUS EPITHELIAL CELL URINE 2 /hpf (0-5); URINE COLOR YELLOW (YELLW/STRAW); URINE LEUKOCYTE ESTERASE NEG (NEG)
[2018-04-26] MEDS: metroNIDAZOLE 500 MG INJ 100 ML IV SCH ×2 (17:08→23:17)
[2018-04-26] MEDS: VANCOMYCIN INJ 1,750 MG in SODIUM CHLORID 0.9% 500 ML INJ 500 ML IV SCH (17:51)
[2018-04-26] MEDS: ACETAMINOPHEN 325 MG TAB PO PRN (20:52)
[2018-04-27] VITALS (18 sets, daily range): BP systolic 116–135; BP diastolic 55–80; PULSE 77–89; RESP 16–23; TEMP 99–101.8; O2SAT 92–100
[2018-04-27] MEDS: levETIRAcetam INJ 500 MG in SODIUM CHLORIDE 0.9% INJ 100 ML IV SCH ×2 (01:15→13:01)
[2018-04-27] MEDS: ACETAMINOPHEN 650 MG/20.3 ML UDC PO PRN ×2 (01:24→18:55)
[2018-04-27] MEDS: CHLORHEXIDINE GLUCONATE 2 % 1 PACK (2 CLOTHS) TOP SCH (03:16)
[2018-04-27] MEDS: INSULIN ASPART SUPPLEMENTAL SCALE SQ SCH ×5 (04:00→20:40)
[2018-04-27] MEDS: SODIUM CHLORIDE 1 GRAM TAB PO SCH ×3 (04:03→20:19)
[2018-04-27 04:48] LABS: HEMATOCRIT 29.9 % (35.0-46.0); HEMOGLOBIN 9.6 GM/DL (11.6-15.3); MEAN CELL VOLUME 93.5 FL (80.0-100.0); MEAN CORPUSCULAR HEMOGLOBIN 30.1 PG (27.0-34.0); MEAN CORPUSCULAR HGB CONC 32.2 % (32.0-36.0); MEAN PLATELET VOLUME 9.3 FL (7.0-11.0); PLATELET COUNT 308 TH/MM3 (150-450); RED CELL DISTRIBUTION WIDTH 14.4 % (11.6-17.2); WHITE BLOOD COUNT 16.1 TH/MM3 (4.0-11.0)
[2018-04-27 05:13] LABS: BICARBONATE 26.4 MEQ/L (21.0-32.0); CALCIUM 9.9 MG/DL (8.5-10.1); CREATININE 1.24 MG/DL (0.50-1.00)
[2018-04-27] MEDS: metroNIDAZOLE 500 MG INJ 100 ML IV SCH ×3 (06:12→15:15)
[2018-04-27] MEDS: CHLORHEXIDINE 0.12% (ORAL KIT) 15 ML CUP MT SCH ×2 (08:00→20:00)
[2018-04-27] MEDS: LANSOPRAZOLE SOLUTAB 30 MG TAB G-TUBE SCH (08:22)
[2018-04-27] MEDS: LOSARTAN 50 MG TAB PO SCH (08:23)
[2018-04-27] MEDS: amLODIPine BESYLATE 5 MG TAB PO SCH (08:23)
[2018-04-27] MEDS: DOCUSATE SODIUM 100 MG CAP PO SCH ×2 (08:23→20:19)
[2018-04-27] MEDS: ENOXAPARIN SODIUM 40 MG/0.4 ML SYRINGE SQ SCH (08:23)
[2018-04-27] MEDS: FUROSEMIDE 40 MG TAB PO SCH ×2 (08:23→20:19)
[2018-04-27] MEDS: SODIUM CHLORIDE 0.9% FLUSH 10 ML FLUSH IV FLUSH SCH (08:24)
[2018-04-27] MEDS: VANCOMYCIN INJ 1,750 MG in SODIUM CHLORID 0.9% 500 ML INJ 500 ML IV SCH (08:24)
[2018-04-27] MEDS: ARTIFICIAL TEARS OPTH SOLN 15 ML BTL EACH EYE SCH ×3 (08:24→18:00)
[2018-04-27] MEDS: INSULIN DETEMIR 100 UNITS/ML VIAL SQ SCH ×2 (08:25→20:20)
--- NOTE | 2018-04-27 08:46 | HHI.CCPN ---
Subjective Remarks/Hospital Course This is a 73-year-old AA female. Admission 04/10/2018. Please note no family is available and all information is obtained by reviewing the medical record from ED physician. Past medical history includes hypertension, hyperlipidemia, gastroesophageal disease, diabetes mellitus, elevated BMI and gout. 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 She presented to [facility] with the following history. At approximately 2:30 PM and patient was reportedly fine and daughter came to visit her mother. Then at approximately 5:20 PM found her sitting in the dark by the stair unresponsive. EMS upon [employer] arrival patient reportedly had approximately 4 generalized tonic-clonic seizures and then patient was transported from the house. Upon arrival here daughter states that patient was witnessed to have approximately 2 minute episode of seizure activity and patient did receive 2 mg of lorazepam IV. According to daughter patient has been compliant with her medications gives herself her medications low-salt by herself and is very independent. after being found home by daughter with new onset seizure. No prior history of seizure activity. Denies any trauma at home to the brain. CT brain revealed 3.1 cm right frontal intra-axial hemorrhage with a 3 mm right to left shift. She received 2 mg lorazepam IV 1 was loaded with fosphenytoin 1 g. Neurosurgery was consulted/Dr. Parson. Recommended blood pressure control with inpatient admission to ICU with consultation to neurosurgery. Patient was intubated in the ED by physician after receiving etomidate and rocuronium... 04/11: remains on the vent, in critical condition. hypoxic. 04/12: hypoxia somewhat improving. following commands on the vent. per nsgy, can wean to extubate soon. some edema likely contributing to poor neuro exam, although slow improvements. 04/13: following commands. however, remains hypoxic on 60% fio2. tube feeds initiated this AM and concern over aspiration of tube feeds out endotracheal tube. CXR demonstrates adequate placement of gastric tube and ETT. ICPs remain controlled, and appropriate hypernatremia. 04/14: Repeat CT brain today revealed improved right frontal intraparenchymal hemorrhage. Patient status post right bur hole for ICP monitoring. T-max 100.9. Currently 99. 04/15: TIFFANIE x 2 was removed today. Currently on propofol 50 mcg/kg an hour and fentanyl drip at 250 mcg an hour. Follows commands. Worsening oxygenation status today. Coarse breath sounds with thick greenish secretions noted. Sample will be sent today. 04/16: CXR with diffuse interstitial edema. Tolerating weaning of PEEP to 8 but increased MAP still required. No new seizures. 04/17: Good response to diuresis yesterday, need to increase to twice daily Lasix. Tolerating CPAP today on spontaneous breathing trial pressure 15/8. Osmolality acceptable but will not allow to decline any further. 04/18: Requiring increased pressure support to breathe spontaneously today. Tapering sedation. 04/19: Osmolality in a good range. Spontaneous breathing trials are requiring increased pressure support. We will try to progress to a trial extubation however this woman may well require a tracheostomy for a month or 2. 04/20: Poor progress in weaning from ventilator. We should probably proceed directly to tracheostomy. Will discuss with family and neurosurgical service. Subjective: 04/21: hypernatremic to 160 this AM. held hypertonic saline. this far out from insult, likely does not need active hypertonic saline and can manage with oral sodium load. will need trach to progress care. no neuro improvements. 04/22: long discussion with family: they are agreeable to trach, but would prefer not to have PEG tube. discussed that with her level of functioning, not likely to be able to eat on her own, and will likely need long-term PEG and long -term nasogastric enteral access has significant complications. 04/23: plan for trach/peg soon. no other changes. no improvements. 04/24: sedated, orally intubated on mech vent. Awaiting trach/ PEG 04/25: Drowsy, arousable, on mechanical ventilation via tracheostomy. 04/26: Drowsy, arousable, on mechanical ventilation via tracheostomy. 04/27: Drowsy, easily arousable, following commands. On mechanical ventilation via tracheostomy. Tolerating CPAP trials. PEEP remains at +8. Objective Vital Signs Date Time Temp Pulse Resp B/P (MAP) Pulse Ox O2 Delivery O2 Flow Rate FiO2 04/27/18 06:00 80 04/27/18 04:12 92 40 04/27/18 04:00 100.5 17 127/80 (96) Intake and Output 04/27/18 04/27/18 04/28/18 08:00 16:00 00:00 Intake Total 528 ml Output Total 600 ml Balance -72 ml Result Diagram: 04/27/187 04/27/18 034 Imaging Last Impressions Chest X-Ray 04/15/18 0600 Signed Impressions: CONCLUSION: Increased bilateral perihilar pulmonary parenchymal opacity suggesting increase d pulmonary edema. Head CT 04/14/18 Signed Impressions: CONCLUSION: 1. Interval improvement following drainage of a right orbital frontal hemorrha ge. 2. Ventricular size is appropriate. 3. No extra-axial fluid remains. Abdomen X-Ray 04/14/18 Signed Impressions: CONCLUSION: Unremarkable study. Lower Extremity Ultrasound 04/12/18 Signed Impressions: On the right, the common femoral vein, greater saphenous vein, popliteal and pe roneal veins are patent as well as the right iliac vein. The femoral vein is no t clearly visualized due to soft tissue swelling and body habitus. The posterio r tibial vein is also not clearly seen. On the left, the posterior tibial vein is not clearly visualized. The popliteal, peroneal, iliac, common femoral, grea ter saphenous vein, and femoral veins are patent. CONCLUSION: 1. Visualized veins are patent without evidence for DVT. 2. The right femoral and posterior tibial vein and the left posterior tibial v ein are not clearly visualized. Brain MRI 04/11/18 0903 Signed Impressions: CONCLUSION: 1. 4 cm intraparenchymal hemorrhage involving the right frontal lobe without u nderlying mass. 2. Tiny focus of blooming artifact involving the left frontal lobe likely rela ting to a small focus of intraparenchymal hemorrhage on that side. 3. Chronic small vessel ischemic change. 4. Fluid signal within the mastoid air cells bilaterally. Clinical evaluation for any signs of acute mastoiditis suggested. 5. Right maxillary sinusitis. Head Magnetic Resonance Angiography 04/11/18 Signed Impressions: CONCLUSION: Intracranial arterial vasculature has a normal appearance. Objective Remarks GENERAL: 73-year-old AA female, orotracheally intubated SKIN: Warm and dry. HEAD: bolt exits from head, wrapped in dry dressing. EYES: Pupils equal and round 2 mm bilaterally reactive to. Disconjugate gaze to left. No conjunctival icterus. No injection or drainage. ENT: No nasal bleeding or discharge. Mucous membranes pink and moist. NECK: Trachea midline. Orally intubated. CARDIOVASCULAR: Regular rate and rhythm. No JVD obvious but difficult to evaluate due to body habitus.. RESPIRATORY: Diminished in bases, symmetrical excursion. Scattered rhonchi persist. GASTROINTESTINAL: Abdomen soft, non-tender, obese. no guarding. MUSCULOSKELETAL: Extremities trace bilateral lower extremity nonpitting edema. No obvious deformities. NEUROLOGICAL: Spontaneous movement right and upper lower extremities. Withdrew to left and right lower extremity. Positive cough and gag. A/P Assessment and Plan Neuro/Psych: Acute right frontal intra-axial hemorrhage 3.1 cm at the right to left shift of 3 mm New onset seizure Status post right frontal craniotomy 04/11 with right bur hole with ICP monitor placement Off all sedation Acetaminophen 650 mg by tube every 6 hours as needed fever brain CT in a.m. 04/11: slight increase in frontal hemorrhage. Brain CT 6 abdomen reveals improvement/status post evacuation hematoma Neurosurgery/Dr. Parson to follow Keep systolic blood pressure < 140 nacl tabs 1gm tid. No mannitol per neurosurgery Seizure with fosphenytoin 100 mg every 8 hours. Loaded in ED. phenytoin level 13. Currently discontinued Switch to levetiracetam 500 IV twice daily EEG 04/11 revealed moderate encephalopathy. No epileptiform activity CV: Hypertensive Emergency Hyperlipidemia As needed labetalol and nicardipine drip goal sbp < 140 On home metoprolol tartrate 25 mg twice daily, amlodipine 2.5 mg a day, hydrochlorthiazide 25 mg daily losartan 100 mg daily. amlodipine 2.5 mg daily and losartan 100 mg daily. Continue furosemide 40 mg daily Resp: Acute hypoxic and hypercarbic respiratory failure- becoming chronic. Ventilator bundle Albuterol/ipratropium aerosols every 6 hours with albuterol aerosols every 2 hours as needed dyspnea daily SBTs. hypoxia concerning, possible aspiration, started on empiric antibiotics after reis cultures on 04/25. slow weaning of mechanical ventilation. wean fio2 for goal spo2 > 90% status post tracheostomy 04/24 GI: Gastroesophageal reflux disease Elevated AST bowel regimen. Currently on vital high-protein goal 70 cc an hour. Lansoprazole 30 mg daily for GI prophylaxis. On omeprazole 40 mg daily at home Docusate sodium/senna 1 tablet twice daily for bowel regimen. Add polythene glycol 17 g twice daily and lactulose 30 cc 4 times daily. PICC placement by GI on 04/25 : does not require mayo catheter. Endo: Diabetes mellitus History of gout Holding metformin 1000mg twice daily/home medication Novolog medium protocol Accu-Cheks every 6 hours to maintain euglycemia Holding colchicine 0.6 mg. Resume clinically indicated Levemir to 24 units every 12 hours, Renal: Acute kidney injury? 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 Holding anticoagulation in light of acute brain hemorrhage ID: Sepsis Empiric antibiotic coverage with IV vancomycin/Levaquin/Flagyl started on 04/26. Follow-up cultures. MSK: Elevated BMI PT evaluate and treat FEN: Hypernatremia Replace electrolytes as clinically indicated Access -Utilize peripheral IV. Prophylaxis -GI -lansoprazole -DVT -SCD/holding pharmacological prophylaxis light of acute right frontal intracranial hemorrhage Overall impression: Remains critically ill and ventilator dependent following surgical treatment for acute right frontal lobe hemorrhage. Glucose intolerance and fluid accumulation remain problematic. Unable to separate from ventilator. Requiring very aggressive antihypertensive therapy still and will need continue intravenous diuretic therapy. Anticipate need for prolonged ventilatory support via tracheostomy with daily weaning exercises and nighttime ventilator support. Will be best served probably at LTAC level care. Andrew Murphy MD Apr 27, 2018 08:46
[2018-04-27] MEDS: BISACODYL 10 MG SUPP RECTAL SCH (09:00)
[2018-04-28] VITALS (18 sets, daily range): BP systolic 97–137; BP diastolic 55–69; PULSE 67–84; RESP 16–38; TEMP 98.9–101.7; O2SAT 93–100
[2018-04-28] MEDS: levETIRAcetam INJ 500 MG in SODIUM CHLORIDE 0.9% INJ 100 ML IV SCH ×2 (02:15→13:54)
[2018-04-28] MEDS: VANCOMYCIN INJ 1,750 MG in SODIUM CHLORID 0.9% 500 ML INJ 500 ML IV SCH ×2 (04:00→21:06)
[2018-04-28] MEDS: CHLORHEXIDINE GLUCONATE 2 % 1 PACK (2 CLOTHS) TOP SCH (04:00)
[2018-04-28] MEDS: INSULIN ASPART SUPPLEMENTAL SCALE SQ SCH ×7 (04:00→23:53)
[2018-04-28] MEDS: SODIUM CHLORIDE 1 GRAM TAB PO SCH ×3 (04:23→20:22)
[2018-04-28] MEDS: metroNIDAZOLE 500 MG INJ 100 ML IV SCH ×3 (06:46→23:59)
[2018-04-28 07:23] LABS: BICARBONATE 23.5 MEQ/L (21.0-32.0); CALCIUM 9.4 MG/DL (8.5-10.1); CREATININE 0.99 MG/DL (0.50-1.00)
[2018-04-28] MEDS: CHLORHEXIDINE 0.12% (ORAL KIT) 15 ML CUP MT SCH ×2 (08:00→20:48)
[2018-04-28] MEDS: SODIUM CHLORIDE 0.9% FLUSH 10 ML FLUSH IV FLUSH SCH (09:00)
[2018-04-28] MEDS: ARTIFICIAL TEARS OPTH SOLN 15 ML BTL EACH EYE SCH ×3 (09:00→18:00)
[2018-04-28] MEDS: BISACODYL 10 MG SUPP RECTAL SCH (09:00)
[2018-04-28] MEDS: LANSOPRAZOLE SOLUTAB 30 MG TAB G-TUBE SCH (10:38)
[2018-04-28] MEDS: amLODIPine BESYLATE 5 MG TAB PO SCH (10:39)
[2018-04-28] MEDS: FUROSEMIDE 40 MG TAB PO SCH ×2 (10:39→20:21)
[2018-04-28] MEDS: DOCUSATE SODIUM 100 MG CAP PO SCH ×2 (10:39→20:21)
[2018-04-28] MEDS: LOSARTAN 50 MG TAB PO SCH (10:39)
[2018-04-28] MEDS: ENOXAPARIN SODIUM 40 MG/0.4 ML SYRINGE SQ SCH (10:40)
[2018-04-28] MEDS: INSULIN DETEMIR 100 UNITS/ML VIAL SQ SCH ×2 (10:40→21:06)
[2018-04-28] MEDS ORDERED: LEVOFLOXACIN 750 MG PREMIX INJ 150 ML IV SCH (15:00)
[2018-04-28] MEDS: NITROFURANTOIN MONOHYD MACROCR 100 MG CAP PO SCH ×2 (15:30→18:00)
[2018-04-28 15:46] LABS: HEMATOCRIT 29.7 % (35.0-46.0); HEMOGLOBIN 9.4 GM/DL (11.6-15.3); MEAN CELL VOLUME 92.6 FL (80.0-100.0); MEAN CORPUSCULAR HEMOGLOBIN 29.4 PG (27.0-34.0); MEAN CORPUSCULAR HGB CONC 31.8 % (32.0-36.0); MEAN PLATELET VOLUME 8.9 FL (7.0-11.0); PLATELET COUNT 388 TH/MM3 (150-450); RED BLOOD COUNT 3.21 MIL/MM3 (4.00-5.30); RED CELL DISTRIBUTION WIDTH 14.6 % (11.6-17.2); WHITE BLOOD COUNT 13.3 TH/MM3 (4.0-11.0)
[2018-04-28] MEDS: COLCHICINE 0.6 MG TAB PO SCH ×2 (16:45→22:32)
--- NOTE | 2018-04-28 17:02 | HHI.CCPN ---
Subjective Remarks/Hospital Course This is a 73-year-old AA female. Admission 04/10/2018. Please note no family is available and all information is obtained by reviewing the medical record from ED physician. Past medical history includes hypertension, hyperlipidemia, gastroesophageal disease, diabetes mellitus, elevated BMI and gout. 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 She presented to [facility] with the following history. At approximately 2:30 PM and patient was reportedly fine and daughter came to visit her mother. Then at approximately 5:20 PM found her sitting in the dark by the stair unresponsive. EMS upon [employer] arrival patient reportedly had approximately 4 generalized tonic-clonic seizures and then patient was transported from the house. Upon arrival here daughter states that patient was witnessed to have approximately 2 minute episode of seizure activity and patient did receive 2 mg of lorazepam IV. According to daughter patient has been compliant with her medications gives herself her medications low-salt by herself and is very independent. after being found home by daughter with new onset seizure. No prior history of seizure activity. Denies any trauma at home to the brain. CT brain revealed 3.1 cm right frontal intra-axial hemorrhage with a 3 mm right to left shift. She received 2 mg lorazepam IV 1 was loaded with fosphenytoin 1 g. Neurosurgery was consulted/Dr. Parson. Recommended blood pressure control with inpatient admission to ICU with consultation to neurosurgery. Patient was intubated in the ED by physician after receiving etomidate and rocuronium... 04/11: remains on the vent, in critical condition. hypoxic. 04/12: hypoxia somewhat improving. following commands on the vent. per nsgy, can wean to extubate soon. some edema likely contributing to poor neuro exam, although slow improvements. 04/13: following commands. however, remains hypoxic on 60% fio2. tube feeds initiated this AM and concern over aspiration of tube feeds out endotracheal tube. CXR demonstrates adequate placement of gastric tube and ETT. ICPs remain controlled, and appropriate hypernatremia. 04/14: Repeat CT brain today revealed improved right frontal intraparenchymal hemorrhage. Patient status post right bur hole for ICP monitoring. T-max 100.9. Currently 99. 04/15: TIFFANIE x 2 was removed today. Currently on propofol 50 mcg/kg an hour and fentanyl drip at 250 mcg an hour. Follows commands. Worsening oxygenation status today. Coarse breath sounds with thick greenish secretions noted. Sample will be sent today. 04/16: CXR with diffuse interstitial edema. Tolerating weaning of PEEP to 8 but increased MAP still required. No new seizures. 04/17: Good response to diuresis yesterday, need to increase to twice daily Lasix. Tolerating CPAP today on spontaneous breathing trial pressure 15/8. Osmolality acceptable but will not allow to decline any further. 04/18: Requiring increased pressure support to breathe spontaneously today. Tapering sedation. 04/19: Osmolality in a good range. Spontaneous breathing trials are requiring increased pressure support. We will try to progress to a trial extubation however this woman may well require a tracheostomy for a month or 2. 04/20: Poor progress in weaning from ventilator. We should probably proceed directly to tracheostomy. Will discuss with family and neurosurgical service. Subjective: 04/21: hypernatremic to 160 this AM. held hypertonic saline. this far out from insult, likely does not need active hypertonic saline and can manage with oral sodium load. will need trach to progress care. no neuro improvements. 04/22: long discussion with family: they are agreeable to trach, but would prefer not to have PEG tube. discussed that with her level of functioning, not likely to be able to eat on her own, and will likely need long-term PEG and long -term nasogastric enteral access has significant complications. 04/23: plan for trach/peg soon. no other changes. no improvements. 04/24: sedated, orally intubated on mech vent. Awaiting trach/ PEG 04/25: Drowsy, arousable, on mechanical ventilation via tracheostomy. 04/26: Drowsy, arousable, on mechanical ventilation via tracheostomy. 04/27: Drowsy, easily arousable, following commands. On mechanical ventilation via tracheostomy. Tolerating CPAP trials. PEEP remains at +8. 04/28: Awake and alert, following commands. Moving all 4 extremities. Remains on mechanical ventilation via tracheostomy. Complaining of left elbow pain. Has a known history of gout involving left elbow per family. Objective Vital Signs Date Time Temp Pulse Resp B/P (MAP) Pulse Ox O2 Delivery O2 Flow Rate FiO2 04/28/18 16:40 97 40 04/28/18 14:00 82 04/28/18 12:00 100.3 23 137/55 (82) Intake and Output 04/28/18 04/28/18 04/29/18 08:00 16:00 00:00 Intake Total 360 ml Output Total 450 ml Balance -90 ml Result Diagram: 04/28/18 1525 04/28/18 0522 Other Results Microbiology Date/Time Source Procedure Growth Status 04/26/18 16:30 Sputum Endotracheal Gram Stain - Final Complete 04/26/18 16:30 Sputum Culture - Final S. Aureus Mrsa Complete 04/26/18 16:00 Urine Catheterized Urine Urine Culture - Final Escherichia Coli Complete Imaging Last Impressions Chest X-Ray 04/15/18 0600 Signed Impressions: CONCLUSION: Increased bilateral perihilar pulmonary parenchymal opacity suggesting increase d pulmonary edema. Head CT 04/14/18 Signed Impressions: CONCLUSION: 1. Interval improvement following drainage of a right orbital frontal hemorrha ge. 2. Ventricular size is appropriate. 3. No extra-axial fluid remains. Abdomen X-Ray 04/14/18 Signed Impressions: CONCLUSION: Unremarkable study. Lower Extremity Ultrasound 04/12/18 Signed Impressions: On the right, the common femoral vein, greater saphenous vein, popliteal and pe roneal veins are patent as well as the right iliac vein. The femoral vein is no t clearly visualized due to soft tissue swelling and body habitus. The posterio r tibial vein is also not clearly seen. On the left, the posterior tibial vein is not clearly visualized. The popliteal, peroneal, iliac, common femoral, grea ter saphenous vein, and femoral veins are patent. CONCLUSION: 1. Visualized veins are patent without evidence for DVT. 2. The right femoral and posterior tibial vein and the left posterior tibial v ein are not clearly visualized. Brain MRI 04/11/18 0903 Signed Impressions: CONCLUSION: 1. 4 cm intraparenchymal hemorrhage involving the right frontal lobe without u nderlying mass. 2. Tiny focus of blooming artifact involving the left frontal lobe likely rela ting to a small focus of intraparenchymal hemorrhage on that side. 3. Chronic small vessel ischemic change. 4. Fluid signal within the mastoid air cells bilaterally. Clinical evaluation for any signs of acute mastoiditis suggested. 5. Right maxillary sinusitis. Head Magnetic Resonance Angiography 6/8/18 0000 Signed Impressions: CONCLUSION: Intracranial arterial vasculature has a normal appearance. Objective Remarks GENERAL: 73-year-old AA female, on mechanical ventilation via tracheostomy SKIN: Warm and dry. HEAD: Sutures over incision site clean dry and intact. EYES: Pupils equal and round 2 mm bilaterally reactive to. Disconjugate gaze to left. No conjunctival icterus. No injection or drainage. ENT: No nasal bleeding or discharge. Mucous membranes pink and moist. NECK: Tracheostomy in place CARDIOVASCULAR: Regular rate and rhythm. No JVD obvious but difficult to evaluate due to body habitus.. RESPIRATORY: Diminished in bases, symmetrical excursion. Scattered rhonchi persist. GASTROINTESTINAL: Abdomen soft, non-tender, obese. no guarding. PEG tube in place MUSCULOSKELETAL: Extremities trace bilateral lower extremity nonpitting edema. No obvious deformities. Left elbow pain with active and passive motion with tenderness on palpation. NEUROLOGICAL: Awake, alert, following commands. Moving all 4 extremities. A/P Assessment and Plan Neuro/Psych: Acute right frontal intra-axial hemorrhage 3.1 cm at the right to left shift of 3 mm New onset seizure Status post right frontal craniotomy 04/11 with right bur hole with ICP monitor placement Off all sedation Acetaminophen 650 mg by tube every 6 hours as needed fever brain CT in a.m. 04/11: slight increase in frontal hemorrhage. Brain CT 6 abdomen reveals improvement/status post evacuation hematoma Neurosurgery/Dr. Parson to follow Keep systolic blood pressure < 140 nacl tabs 1gm tid. Seizure with fosphenytoin 100 mg every 8 hours. Loaded in ED. phenytoin level 13. Currently discontinued Switch to levetiracetam 500 IV twice daily EEG 04/11 revealed moderate encephalopathy. No epileptiform activity CV: Hypertensive Emergency Hyperlipidemia goal sbp < 140 On home metoprolol tartrate 25 mg twice daily, amlodipine 2.5 mg a day, hydrochlorthiazide 25 mg daily losartan 100 mg daily. amlodipine 2.5 mg daily and losartan 100 mg daily. Continue furosemide 40 mg daily Resp: Acute hypoxic and hypercarbic respiratory failure- becoming chronic. Ventilator bundle Albuterol/ipratropium aerosols every 6 hours with albuterol aerosols every 2 hours as needed dyspnea daily SBTs. hypoxia concerning, possible aspiration, started on empiric antibiotics after reis cultures on 04/25. slow weaning of mechanical ventilation. wean fio2 for goal spo2 > 90% status post tracheostomy 04/24 GI: Gastroesophageal reflux disease Elevated AST bowel regimen. Currently on vital high-protein goal 70 cc an hour. Lansoprazole 30 mg daily for GI prophylaxis. On omeprazole 40 mg daily at home Docusate sodium/senna 1 tablet twice daily for bowel regimen. Add polythene glycol 17 g twice daily and lactulose 30 cc 4 times daily. PICC placement by GI on 04/25 : does not require mayo catheter. Endo: Diabetes mellitus History of gout Holding metformin 1000mg twice daily/home medication Novolog medium protocol Accu-Cheks every 6 hours to maintain euglycemia Resuming colchicine 0.6 mg p.o. twice daily on 04/28 for left elbow pain secondary to gout Levemir to 24 units every 12 hours, Renal: Acute kidney injury? 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 Holding anticoagulation in light of acute brain hemorrhage ID: Sepsis Empiric antibiotic coverage with IV vancomycin/Levaquin/Flagyl started on 04/26. Levaquin switched to Macrobid on 04/28 as E. coli in urine resistant to Cipro. Stop IV Flagyl Urine cultures growing E. coli resistant to Cipro Sputum cultures growing MRSA MSK: Elevated BMI PT evaluate and treat FEN: Hypernatremia Replace electrolytes as clinically indicated Access -Utilize peripheral IV. Prophylaxis -GI -lansoprazole -DVT -SCD/Lovenox Overall impression: Anticipate need for prolonged ventilatory support via tracheostomy with daily weaning exercises and nighttime ventilator support. Will be best served probably at LTAC level care. Andrew Murphy MD Apr 28, 2018 17:02
[2018-04-28] MEDS: ACETAMINOPHEN 650 MG/20.3 ML UDC PO PRN (18:55)
[2018-04-28] MEDS ORDERED: PHARMACY ORDERED LAB ONE (20:45)
[2018-04-29] VITALS (18 sets, daily range): BP systolic 110–157; BP diastolic 56–70; PULSE 70–97; RESP 16–28; TEMP 98.6–100; O2SAT 95–100
[2018-04-29] MEDS: oxyCODONE/ACETAMINOPHEN 10 MG/325 MG TAB PO PRN (00:05)
[2018-04-29] MEDS: levETIRAcetam INJ 500 MG in SODIUM CHLORIDE 0.9% INJ 100 ML IV SCH ×2 (02:02→14:00)
[2018-04-29] MEDS: CHLORHEXIDINE GLUCONATE 2 % 1 PACK (2 CLOTHS) TOP SCH (03:47)
[2018-04-29] MEDS: INSULIN ASPART SUPPLEMENTAL SCALE SQ SCH ×5 (03:56→21:16)
[2018-04-29] MEDS: SODIUM CHLORIDE 1 GRAM TAB PO SCH ×3 (05:22→21:16)
[2018-04-29] MEDS: metroNIDAZOLE 500 MG INJ 100 ML IV SCH ×2 (05:24→14:12)
[2018-04-29 07:03] LABS: ALBUMIN 2.2 GM/DL (3.4-5.0); ALT (GPT) 16 U/L (10-53); AST (GOT) 45 U/L (15-37); BICARBONATE 25.4 MEQ/L (21.0-32.0); BLOOD UREA NITROGEN 22 MG/DL (7-18); CALCIUM 9.4 MG/DL (8.5-10.1); CHLORIDE 108 MEQ/L (98-107); CREATININE 0.91 MG/DL (0.50-1.00); GLOMERULAR FILTRATION RATE 74 ML/MIN (>89); GLUCOSE,RANDOM 159 MG/DL (74-106); SODIUM (NA) 144 MEQ/L (136-145)
[2018-04-29 07:05] LABS: ALKALINE PHOSPHATASE 131 U/L (45-117); TOTAL BILIRUBIN ADULT 0.2 MG/DL (0.2-1.0)
[2018-04-29 07:33] LABS: AUTOMATED NEUTROPHIL # 8.9 TH/MM3 (1.8-7.7); BASOPHIL % 0.4 % (0.0-2.0); EOSINOPHIL # 0.8 TH/MM3 (0-0.4); EOSINOPHIL % 7.1 % (0.0-4.0); HEMATOCRIT 27.3 % (35.0-46.0); HEMOGLOBIN 8.8 GM/DL (11.6-15.3); LYMPH % 9.3 % (9.0-44.0); LYMPHOCYTE # 1.1 TH/MM3 (1.0-4.8); MEAN CELL VOLUME 93.5 FL (80.0-100.0); MEAN CORPUSCULAR HEMOGLOBIN 30.2 PG (27.0-34.0); MEAN CORPUSCULAR HGB CONC 32.3 % (32.0-36.0); MEAN PLATELET VOLUME 9.2 FL (7.0-11.0); MONO % 7.7 % (0.0-8.0); MONOCYTE # 0.9 TH/MM3 (0-0.9); NEUT % 75.5 % (16.0-70.0); PLATELET COUNT 363 TH/MM3 (150-450); RED BLOOD COUNT 2.92 MIL/MM3 (4.00-5.30); RED CELL DISTRIBUTION WIDTH 14.8 % (11.6-17.2); WHITE BLOOD COUNT 11.7 TH/MM3 (4.0-11.0)
[2018-04-29] MEDS: CHLORHEXIDINE 0.12% (ORAL KIT) 15 ML CUP MT SCH ×2 (08:00→20:48)
[2018-04-29] MEDS: SODIUM CHLORIDE 0.9% FLUSH 10 ML FLUSH IV FLUSH SCH (09:00)
[2018-04-29] MEDS: BISACODYL 10 MG SUPP RECTAL SCH (09:00)
[2018-04-29] MEDS: ARTIFICIAL TEARS OPTH SOLN 15 ML BTL EACH EYE SCH ×3 (09:00→17:53)
[2018-04-29] MEDS: INSULIN DETEMIR 100 UNITS/ML VIAL SQ SCH ×2 (09:00→21:17)
[2018-04-29] MEDS: ENOXAPARIN SODIUM 40 MG/0.4 ML SYRINGE SQ SCH (09:54)
[2018-04-29] MEDS: DOCUSATE SODIUM 100 MG CAP PO SCH ×2 (09:55→21:00)
[2018-04-29] MEDS: FUROSEMIDE 40 MG TAB PO SCH ×2 (09:55→21:16)
[2018-04-29] MEDS: LOSARTAN 50 MG TAB PO SCH (09:55)
[2018-04-29] MEDS: COLCHICINE 0.6 MG TAB PO SCH ×2 (09:55→21:21)
[2018-04-29] MEDS: LANSOPRAZOLE SOLUTAB 30 MG TAB G-TUBE SCH (09:55)
[2018-04-29] MEDS: NITROFURANTOIN MONOHYD MACROCR 100 MG CAP PO SCH ×2 (09:55→17:53)
[2018-04-29] MEDS: amLODIPine BESYLATE 5 MG TAB PO SCH (09:55)
[2018-04-29] MEDS: ACETAMINOPHEN 650 MG/20.3 ML UDC PO PRN (11:53)
[2018-04-29] MEDS: VANCOMYCIN INJ 1,750 MG in SODIUM CHLORID 0.9% 500 ML INJ 500 ML IV SCH (15:00)
[2018-04-30] VITALS (10 sets, daily range): BP systolic 132–143; BP diastolic 61–79; PULSE 78–86; RESP 16–22; TEMP 99.9–100; O2SAT 96–100
[2018-04-30] MEDS: metroNIDAZOLE 500 MG INJ 100 ML IV SCH ×2 (00:38→06:49)
[2018-04-30] MEDS: INSULIN ASPART SUPPLEMENTAL SCALE SQ SCH ×5 (01:38→16:00)
[2018-04-30] MEDS: levETIRAcetam INJ 500 MG in SODIUM CHLORIDE 0.9% INJ 100 ML IV SCH (02:00)
[2018-04-30] MEDS: CHLORHEXIDINE GLUCONATE 2 % 1 PACK (2 CLOTHS) TOP SCH (04:11)
[2018-04-30] MEDS: SODIUM CHLORIDE 1 GRAM TAB PO SCH ×2 (05:00→12:52)
[2018-04-30] MEDS: CHLORHEXIDINE 0.12% (ORAL KIT) 15 ML CUP MT SCH (08:00)
[2018-04-30] MEDS: ENOXAPARIN SODIUM 40 MG/0.4 ML SYRINGE SQ SCH (08:22)
[2018-04-30] MEDS: amLODIPine BESYLATE 5 MG TAB PO SCH (08:23)
[2018-04-30] MEDS: oxyCODONE/ACETAMINOPHEN 10 MG/325 MG TAB PO PRN (08:23)
[2018-04-30] MEDS: NITROFURANTOIN MONOHYD MACROCR 100 MG CAP PO SCH (08:23)
[2018-04-30] MEDS: LOSARTAN 50 MG TAB PO SCH (08:23)
[2018-04-30] MEDS: COLCHICINE 0.6 MG TAB PO SCH (08:23)
[2018-04-30] MEDS: BISACODYL 10 MG SUPP RECTAL SCH (08:23)
[2018-04-30] MEDS: FUROSEMIDE 40 MG TAB PO SCH (08:23)
[2018-04-30] MEDS: ARTIFICIAL TEARS OPTH SOLN 15 ML BTL EACH EYE SCH ×3 (08:24→17:49)
[2018-04-30] MEDS: DOCUSATE SODIUM 100 MG CAP PO SCH (08:24)
[2018-04-30] MEDS: INSULIN DETEMIR 100 UNITS/ML VIAL SQ SCH (08:24)
--- NOTE | 2018-04-30 08:31 | HHI.CCPN ---
Subjective Remarks/Hospital Course late entry for patient encounter on 04/29/18 This is a 73-year-old AA female. Admission 04/10/2018. Please note no family is available and all information is obtained by reviewing the medical record from ED physician. Past medical history includes hypertension, hyperlipidemia, gastroesophageal disease, diabetes mellitus, elevated BMI and gout. 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 She presented to [facility] with the following history. At approximately 2:30 PM and patient was reportedly fine and daughter came to visit her mother. Then at approximately 5:20 PM found her sitting in the dark by the stair unresponsive. 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 Upon arrival here daughter states that patient was witnessed to have approximately 2 minute episode of seizure activity and patient did receive 2 mg of lorazepam IV. According to daughter patient has been compliant with her medications gives herself her medications low-salt by herself and is very independent. after being found home by daughter with new onset seizure. No prior history of seizure activity. Denies any trauma at home to the brain. CT brain revealed 3.1 cm right frontal intra-axial hemorrhage with a 3 mm right to left shift. She received 2 mg lorazepam IV 1 was loaded with fosphenytoin 1 g. Neurosurgery was consulted/Dr. Parson. Recommended blood pressure control with inpatient admission to ICU with consultation to neurosurgery. Patient was intubated in the ED by physician after receiving etomidate and rocuronium... 04/11: remains on the vent, in critical condition. hypoxic. 04/12: hypoxia somewhat improving. following commands on the vent. per nsgy, can wean to extubate soon. some edema likely contributing to poor neuro exam, although slow improvements. 04/13: following commands. however, remains hypoxic on 60% fio2. tube feeds initiated this AM and concern over aspiration of tube feeds out endotracheal tube. CXR demonstrates adequate placement of gastric tube and ETT. ICPs remain controlled, and appropriate hypernatremia. 04/14: Repeat CT brain today revealed improved right frontal intraparenchymal hemorrhage. Patient status post right bur hole for ICP monitoring. T-max 100.9. Currently 99. 6/12: TIFFANIE x 2 was removed today. Currently on propofol 50 mcg/kg an hour and fentanyl drip at 250 mcg an hour. Follows commands. Worsening oxygenation status today. Coarse breath sounds with thick greenish secretions noted. Sample will be sent today. 04/16: CXR with diffuse interstitial edema. Tolerating weaning of PEEP to 8 but increased MAP still required. No new seizures. 04/17: Good response to diuresis yesterday, need to increase to twice daily Lasix. Tolerating CPAP today on spontaneous breathing trial pressure 15/8. Osmolality acceptable but will not allow to decline any further. 04/18: Requiring increased pressure support to breathe spontaneously today. Tapering sedation. 04/19: Osmolality in a good range. Spontaneous breathing trials are requiring increased pressure support. We will try to progress to a trial extubation however this woman may well require a tracheostomy for a month or 2. 04/20: Poor progress in weaning from ventilator. We should probably proceed directly to tracheostomy. Will discuss with family and neurosurgical service. Subjective: 04/21: hypernatremic to 160 this AM. held hypertonic saline. this far out from insult, likely does not need active hypertonic saline and can manage with oral sodium load. will need trach to progress care. no neuro improvements. 04/22: long discussion with family: they are agreeable to trach, but would prefer not to have PEG tube. discussed that with her level of functioning, not likely to be able to eat on her own, and will likely need long-term PEG and long -term nasogastric enteral access has significant complications. 04/23: plan for trach/peg soon. no other changes. no improvements. 04/24: sedated, orally intubated on mech vent. Awaiting trach/ PEG 04/25: Drowsy, arousable, on mechanical ventilation via tracheostomy. 04/26: Drowsy, arousable, on mechanical ventilation via tracheostomy. 04/27: Drowsy, easily arousable, following commands. On mechanical ventilation via tracheostomy. Tolerating CPAP trials. PEEP remains at +8. 04/28: Awake and alert, following commands. Moving all 4 extremities. Remains on mechanical ventilation via tracheostomy. Complaining of left elbow pain. Has a known history of gout involving left elbow per family. 04/29: Waiting for transfer to LTAC. Remains on mech vent via trach. Objective Vital Signs Date Time Temp Pulse Resp B/P (MAP) Pulse Ox O2 Delivery O2 Flow Rate FiO2 04/30/18 06:00 82 04/30/18 04:17 98 30 04/30/18 04:00 100.0 16 143/79 (100) Intake and Output 04/30/18 04/30/18 05/01/18 08:00 16:00 00:00 Output Total 100 ml Balance -100 ml Result Diagram: 04/29/1836 04/29/18635 Imaging Last Impressions Chest X-Ray 04/15/18 06 Signed Impressions: CONCLUSION: Increased bilateral perihilar pulmonary parenchymal opacity suggesting increase d pulmonary edema. Head CT 04/14/18 Signed Impressions: CONCLUSION: 1. Interval improvement following drainage of a right orbital frontal hemorrha ge. 2. Ventricular size is appropriate. 3. No extra-axial fluid remains. Abdomen X-Ray 04/14/18 Signed Impressions: CONCLUSION: Unremarkable study. Lower Extremity Ultrasound 04/12/18 Signed Impressions: On the right, the common femoral vein, greater saphenous vein, popliteal and pe roneal veins are patent as well as the right iliac vein. The femoral vein is no t clearly visualized due to soft tissue swelling and body habitus. The posterio r tibial vein is also not clearly seen. On the left, the posterior tibial vein is not clearly visualized. The popliteal, peroneal, iliac, common femoral, grea ter saphenous vein, and femoral veins are patent. CONCLUSION: 1. Visualized veins are patent without evidence for DVT. 2. The right femoral and posterior tibial vein and the left posterior tibial v ein are not clearly visualized. Brain MRI 04/11/18 0903 Signed Impressions: CONCLUSION: 1. 4 cm intraparenchymal hemorrhage involving the right frontal lobe without u nderlying mass. 2. Tiny focus of blooming artifact involving the left frontal lobe likely rela ting to a small focus of intraparenchymal hemorrhage on that side. 3. Chronic small vessel ischemic change. 4. Fluid signal within the mastoid air cells bilaterally. Clinical evaluation for any signs of acute mastoiditis suggested. 5. Right maxillary sinusitis. Head Magnetic Resonance Angiography 04/11/18 Signed Impressions: CONCLUSION: Intracranial arterial vasculature has a normal appearance. Objective Remarks GENERAL: 73-year-old AA female, on mechanical ventilation via tracheostomy SKIN: Warm and dry. HEAD: Sutures over incision site clean dry and intact. EYES: Pupils equal and round 2 mm bilaterally reactive to. Disconjugate gaze to left. No conjunctival icterus. No injection or drainage. ENT: No nasal bleeding or discharge. Mucous membranes pink and moist. NECK: Tracheostomy in place CARDIOVASCULAR: Regular rate and rhythm. No JVD obvious but difficult to evaluate due to body habitus.. RESPIRATORY: Diminished in bases, symmetrical excursion. Scattered rhonchi persist. GASTROINTESTINAL: Abdomen soft, non-tender, obese. no guarding. PEG tube in place MUSCULOSKELETAL: Extremities trace bilateral lower extremity nonpitting edema. No obvious deformities. Left elbow pain with active and passive motion with tenderness on palpation. NEUROLOGICAL: Awake, alert, following commands. Moving all 4 extremities. A/P Assessment and Plan Neuro/Psych: Acute right frontal intra-axial hemorrhage 3.1 cm at the right to left shift of 3 mm New onset seizure Status post right frontal craniotomy 04/11 with right bur hole with ICP monitor placement Off all sedation Acetaminophen 650 mg by tube every 6 hours as needed fever brain CT in a.m. 04/11: slight increase in frontal hemorrhage. Brain CT 6 abdomen reveals improvement/status post evacuation hematoma Neurosurgery/Dr. Parson to follow Keep systolic blood pressure < 140 nacl tabs 1gm tid. Seizure with fosphenytoin 100 mg every 8 hours. Loaded in ED. phenytoin level 13. Currently discontinued Switch to levetiracetam 500 IV twice daily EEG 04/11 revealed moderate encephalopathy. No epileptiform activity CV: Hypertensive Emergency Hyperlipidemia goal sbp < 140 On home metoprolol tartrate 25 mg twice daily, amlodipine 2.5 mg a day, hydrochlorthiazide 25 mg daily losartan 100 mg daily. amlodipine 2.5 mg daily and losartan 100 mg daily. Continue furosemide 40 mg daily Resp: Acute hypoxic and hypercarbic respiratory failure- becoming chronic. Ventilator bundle Albuterol/ipratropium aerosols every 6 hours with albuterol aerosols every 2 hours as needed dyspnea daily SBTs. hypoxia concerning, possible aspiration, started on empiric antibiotics after reis cultures on 04/25. slow weaning of mechanical ventilation. wean fio2 for goal spo2 > 90% status post tracheostomy 04/24 GI: Gastroesophageal reflux disease Elevated AST bowel regimen. Currently on vital high-protein goal 70 cc an hour. Lansoprazole 30 mg daily for GI prophylaxis. On omeprazole 40 mg daily at home Docusate sodium/senna 1 tablet twice daily for bowel regimen. Add polythene glycol 17 g twice daily and lactulose 30 cc 4 times daily. PICC placement by GI on 04/25 : does not require mayo catheter. Endo: Diabetes mellitus History of gout Holding metformin 1000mg twice daily/home medication Novolog medium protocol Accu-Cheks every 6 hours to maintain euglycemia Resuming colchicine 0.6 mg p.o. twice daily on 04/28 for left elbow pain secondary to gout Levemir to 24 units every 12 hours, Renal: Acute kidney injury? 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 Holding anticoagulation in light of acute brain hemorrhage ID: Sepsis Empiric antibiotic coverage with IV vancomycin/Levaquin/Flagyl started on 04/26. Levaquin switched to Macrobid on 04/28 as E. coli in urine resistant to Cipro. Stop IV Flagyl Urine cultures growing E. coli resistant to Cipro Sputum cultures growing MRSA MSK: Elevated BMI PT evaluate and treat FEN: Hypernatremia Replace electrolytes as clinically indicated Access -Utilize peripheral IV. Prophylaxis -GI -lansoprazole -DVT -SCD/Lovenox Overall impression: Anticipate need for prolonged ventilatory support via tracheostomy with daily weaning exercises and nighttime ventilator support. Will be best served probably at LTAC level care. Andrew Murphy MD Apr 30, 2018 08:31
[2018-04-30] MEDS ORDERED: PHARMACY ORDERED LAB ONE (08:45)
--- NOTE | 2018-04-30 08:46 | HHI.CCPN ---
Subjective Remarks/Hospital Course This is a 73-year-old AA female. Admission 04/10/2018. Please note no family is available and all information is obtained by reviewing the medical record from ED physician. Past medical history includes hypertension, hyperlipidemia, gastroesophageal disease, diabetes mellitus, elevated BMI and gout. 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 She presented to [facility] with the following history. At approximately 2:30 PM and patient was reportedly fine and daughter came to visit her mother. Then at approximately 5:20 PM found her sitting in the dark by the stair unresponsive. EMS upon electrotyper helper arrival patient reportedly had approximately 4 generalized tonic-clonic seizures and then patient was transported from the house. Upon arrival here daughter states that patient was witnessed to have approximately 2 minute episode of seizure activity and patient did receive 2 mg of lorazepam IV. According to daughter patient has been compliant with her medications gives herself her medications low-salt by herself and is very independent. after being found home by daughter with new onset seizure. No prior history of seizure activity. Denies any trauma at home to the brain. CT brain revealed 3.1 cm right frontal intra-axial hemorrhage with a 3 mm right to left shift. She received 2 mg lorazepam IV 1 was loaded with fosphenytoin 1 g. Neurosurgery was consulted/Dr. Parson. Recommended blood pressure control with inpatient admission to ICU with consultation to neurosurgery. Patient was intubated in the ED by physician after receiving etomidate and rocuronium... 04/11: remains on the vent, in critical condition. hypoxic. 04/12: hypoxia somewhat improving. following commands on the vent. per nsgy, can wean to extubate soon. some edema likely contributing to poor neuro exam, although slow improvements. 04/13: following commands. however, remains hypoxic on 60% fio2. tube feeds initiated this AM and concern over aspiration of tube feeds out endotracheal tube. CXR demonstrates adequate placement of gastric tube and ETT. ICPs remain controlled, and appropriate hypernatremia. 04/14: Repeat CT brain today revealed improved right frontal intraparenchymal hemorrhage. Patient status post right bur hole for ICP monitoring. T-max 100.9. Currently 99. 04/15: TIFFANIE x 2 was removed today. Currently on propofol 50 mcg/kg an hour and fentanyl drip at 250 mcg an hour. Follows commands. Worsening oxygenation status today. Coarse breath sounds with thick greenish secretions noted. Sample will be sent today. 04/16: CXR with diffuse interstitial edema. Tolerating weaning of PEEP to 8 but increased MAP still required. No new seizures. 04/17: Good response to diuresis yesterday, need to increase to twice daily Lasix. Tolerating CPAP today on spontaneous breathing trial pressure 15/8. Osmolality acceptable but will not allow to decline any further. 04/18: Requiring increased pressure support to breathe spontaneously today. Tapering sedation. 04/19: Osmolality in a good range. Spontaneous breathing trials are requiring increased pressure support. We will try to progress to a trial extubation however this woman may well require a tracheostomy for a month or 2. 04/20: Poor progress in weaning from ventilator. We should probably proceed directly to tracheostomy. Will discuss with family and neurosurgical service. Subjective: 04/21: hypernatremic to 160 this AM. held hypertonic saline. this far out from insult, likely does not need active hypertonic saline and can manage with oral sodium load. will need trach to progress care. no neuro improvements. 04/22: long discussion with family: they are agreeable to trach, but would prefer not to have PEG tube. discussed that with her level of functioning, not likely to be able to eat on her own, and will likely need long-term PEG and long -term nasogastric enteral access has significant complications. 04/23: plan for trach/peg soon. no other changes. no improvements. 04/24: sedated, orally intubated on mech vent. Awaiting trach/ PEG 04/25: Drowsy, arousable, on mechanical ventilation via tracheostomy. 04/26: Drowsy, arousable, on mechanical ventilation via tracheostomy. 04/27: Drowsy, easily arousable, following commands. On mechanical ventilation via tracheostomy. Tolerating CPAP trials. PEEP remains at +8. 04/28: Awake and alert, following commands. Moving all 4 extremities. Remains on mechanical ventilation via tracheostomy. Complaining of left elbow pain. Has a known history of gout involving left elbow per family. 04/29: Waiting for transfer to LTAC. Remains on mech vent via trach. 04/30: Remains on mechanical ventilation via tracheostomy. Switching from IV vancomycin to p.o. Zyvox. Stopping IV Flagyl. Will switch Keppra to p.o. Objective Vital Signs Date Time Temp Pulse Resp B/P (MAP) Pulse Ox O2 Delivery O2 Flow Rate FiO2 04/30/18 06:00 82 04/30/18 04:17 98 30 04/30/18 04:00 100.0 16 143/79 (100) Intake and Output 04/30/18 04/30/18 05/01/18 08:00 16:00 00:00 Output Total 100 ml Balance -100 ml Result Diagram: 04/29/1863504/29/18635 Imaging Last Impressions Chest X-Ray 04/15/18599 Signed Impressions: CONCLUSION: Increased bilateral perihilar pulmonary parenchymal opacity suggesting increase d pulmonary edema. Head CT 04/14/18 Signed Impressions: CONCLUSION: 1. Interval improvement following drainage of a right orbital frontal hemorrha ge. 2. Ventricular size is appropriate. 3. No extra-axial fluid remains. Abdomen X-Ray 04/14/18 Signed Impressions: CONCLUSION: Unremarkable study. Lower Extremity Ultrasound 04/12/18 Signed Impressions: On the right, the common femoral vein, greater saphenous vein, popliteal and pe roneal veins are patent as well as the right iliac vein. The femoral vein is no t clearly visualized due to soft tissue swelling and body habitus. The posterio r tibial vein is also not clearly seen. On the left, the posterior tibial vein is not clearly visualized. The popliteal, peroneal, iliac, common femoral, grea ter saphenous vein, and femoral veins are patent. CONCLUSION: 1. Visualized veins are patent without evidence for DVT. 2. The right femoral and posterior tibial vein and the left posterior tibial v ein are not clearly visualized. Brain MRI 04/11/18902 Signed Impressions: CONCLUSION: 1. 4 cm intraparenchymal hemorrhage involving the right frontal lobe without u nderlying mass. 2. Tiny focus of blooming artifact involving the left frontal lobe likely rela ting to a small focus of intraparenchymal hemorrhage on that side. 3. Chronic small vessel ischemic change. 4. Fluid signal within the mastoid air cells bilaterally. Clinical evaluation for any signs of acute mastoiditis suggested. 5. Right maxillary sinusitis. Head Magnetic Resonance Angiography 04/11/18 Signed Impressions: CONCLUSION: Intracranial arterial vasculature has a normal appearance. Objective Remarks GENERAL: 73-year-old AA female, on mechanical ventilation via tracheostomy SKIN: Warm and dry. HEAD: Sutures over incision site clean dry and intact. EYES: Pupils equal and round 2 mm bilaterally reactive to. Disconjugate gaze to left. No conjunctival icterus. No injection or drainage. ENT: No nasal bleeding or discharge. Mucous membranes pink and moist. NECK: Tracheostomy in place CARDIOVASCULAR: Regular rate and rhythm. No JVD obvious but difficult to evaluate due to body habitus.. RESPIRATORY: Diminished in bases, symmetrical excursion. Scattered rhonchi persist. GASTROINTESTINAL: Abdomen soft, non-tender, obese. no guarding. PEG tube in place MUSCULOSKELETAL: Extremities trace bilateral lower extremity nonpitting edema. No obvious deformities. Left elbow pain with active and passive motion with tenderness on palpation. NEUROLOGICAL: Awake, alert, following commands. Moving all 4 extremities. A/P Assessment and Plan Neuro/Psych: Acute right frontal intra-axial hemorrhage 3.1 cm at the right to left shift of 3 mm New onset seizure Status post right frontal craniotomy 04/11 with right bur hole with ICP monitor placement Switch Keppra to p.o. on 04/30 Acetaminophen 650 mg by tube every 6 hours as needed fever brain CT in a.m. 04/11: slight increase in frontal hemorrhage. Brain CT 6 abdomen reveals improvement/status post evacuation hematoma Neurosurgery/Dr. Parson to follow Keep systolic blood pressure < 140 nacl tabs 1gm tid. Seizure with fosphenytoin 100 mg every 8 hours. Loaded in ED. phenytoin level 13. Currently discontinued Switch to levetiracetam 500 IV twice daily EEG 04/11 revealed moderate encephalopathy. No epileptiform activity CV: Hypertensive Emergency Hyperlipidemia goal sbp < 140 On home metoprolol tartrate 25 mg twice daily, amlodipine 2.5 mg a day, hydrochlorthiazide 25 mg daily losartan 100 mg daily. amlodipine 2.5 mg daily and losartan 100 mg daily. Continue furosemide 40 mg daily Resp: Acute hypoxic and hypercarbic respiratory failure- becoming chronic. Ventilator bundle Albuterol/ipratropium aerosols every 6 hours with albuterol aerosols every 2 hours as needed dyspnea daily SBTs. hypoxia concerning, possible aspiration, started on empiric antibiotics after reis cultures on 04/25. slow weaning of mechanical ventilation. wean fio2 for goal spo2 > 90% status post tracheostomy 04/24 GI: Gastroesophageal reflux disease Elevated AST bowel regimen. Currently on vital high-protein goal 70 cc an hour. Lansoprazole 30 mg daily for GI prophylaxis. On omeprazole 40 mg daily at home Docusate sodium/senna 1 tablet twice daily for bowel regimen. Add polythene glycol 17 g twice daily and lactulose 30 cc 4 times daily. PICC placement by GI on 04/25 : does not require mayo catheter. Endo: Diabetes mellitus History of gout Holding metformin 1000mg twice daily/home medication Novolog medium protocol Accu-Cheks every 6 hours to maintain euglycemia Resuming colchicine 0.6 mg p.o. twice daily on 04/28 for left elbow pain secondary to gout Levemir to 24 units every 12 hours, Renal: Acute kidney injury? 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 Holding anticoagulation in light of acute brain hemorrhage ID: Sepsis Empiric antibiotic coverage with IV vancomycin/Levaquin/Flagyl started on 04/26. Levaquin switched to Macrobid on 04/28 as E. coli in urine resistant to Cipro. Stop IV Flagyl and IV Levaquin on 04/30 and starting p.o. Zyvox Urine cultures growing E. coli resistant to Cipro Sputum cultures growing MRSA MSK: Elevated BMI PT evaluate and treat FEN: Hypernatremia Replace electrolytes as clinically indicated Access -Utilize peripheral IV. Prophylaxis -GI -lansoprazole -DVT -SCD/Lovenox Overall impression: Anticipate need for prolonged ventilatory support via tracheostomy with daily weaning exercises and nighttime ventilator support. Will be best served probably at LTAC level care. Andrew Murphy MD Apr 30, 2018 08:46
[2018-04-30] MEDS ORDERED: LINEZOLID 600 MG TAB PEG SCH (09:00)
[2018-04-30] MEDS: LANSOPRAZOLE SOLUTAB 30 MG TAB G-TUBE SCH (09:00)
[2018-04-30] MEDS ORDERED: levETIRAcetam 500 MG/5 ML UDC PEG SCH (09:00)
[2018-04-30] MEDS: SODIUM CHLORIDE 0.9% FLUSH 10 ML FLUSH IV FLUSH SCH (09:00)
--- NOTE | 2018-04-30 09:59 | PD.PROCEDR ---
Jonathon Ramos MD Apr 30, 2018 09:59
--- NOTE | 2018-04-30 10:19 | PD.PROCEDR ---
Procedure Note Procedure Procedure: Percutaneous tracheostomy with bronchoscopic guidance Operators: Dr. Andrew Murphy for percutaneous tracheostomy, Dr. Ramos for bronchoscopy Informed consent obtained from family and documented on chart Preoperative diagnosis: ICH, encephalopathy, acute respiratory failure Postoperative diagnosis: Same Anesthesia used: Versed 10 mg IV, fentanyl 200 g IV, propofol 40 mg IV rocuronium 100 mg IV for neuromuscular blockade. 1% lidocaine for local infiltration anesthesia Procedure: After ensuring adequate sedation/analgesia neuromuscular blockade, patient was positioned appropriately. After sterile prepping and draping, 1% lidocaine was used for local infiltration anesthesia. Dr. Ramos proceeded with bronchoscopy and withdrawing ET tube. ETT was dislodged while withdrawing for procedure and patient required reintubation by Dr. Ramos following which he proceeded with bronchoscopy and adjusting ETT position. Introducer needle was inserted into the trachea under bronchoscopic guidance. A guidewire was passed via the introducer needle and was visualized passing down the trachea following which needle was then removed. Punch dilator was used to dilate the tracheal ring following which tracheostomy dilator assembly was mounted over the guidewire and advanced to dilate the trachea with dilator being visualized via bronchoscopic guidance entering the trachea during dilation without injuring the posterior tracheal wall. Following this dilator assembly was removed and percutaneous tracheostomy mounted over dilator was advanced over the guidewire into the trachea under direct visualization following which guidewire/dilator were removed. Bronchoscope was inserted subsequently via newly inserted tracheostomy and appropriate placement was confirmed by visualizing tracheal rings following which bronchoscope was withdrawn and inner cannula was placed via tracheostomy. After inflating cuff patient was connected to mechanical ventilation via tracheostomy. 4 interrupted sutures were used to secure tracheostomy to neck. Patient tolerated the procedure well. Good hemostasis was achieved at the end of procedure. Postprocedure chest x-ray was ordered and was pending at the time of this dictation and will be reviewed when available. Please see Dr. Ramos's note for bronchoscopy part of procedure. Andrew Murphy MD Apr 30, 2018 10:19
--- NOTE | 2018-04-30 10:40 | RADRPT ---
EXAM DATE: 04/30/2018 10:33 AM EDT AGE/SEX: 73 years / Female INDICATIONS: Post tracheostomy. CLINICAL DATA: This is the patient's subsequent encounter. Patient reports that signs and symptoms h ave been present for 1 day and indicates a pain score of Nonresponsive. MEDICAL/SURGICAL HISTORY: . Hypercholesterolemia. Hypertension. Diabetes mellitus type II. Non e. COMPARISON: [facility] – [place], CHEST SINGLE AP, 04/24/2018. . FINDINGS: A single AP view of the chest demonstrates cardiomegaly with mild interstitial prominence which could represent some degree of vascular congestion or volume overload. Some tubing and a ringlike structur e project over the right chest/heart and are presumably overlying the patient. Tracheostomy tube is in good position CONCLUSION: 1. Cardiomegaly with some interstitial prominence likely related to low lung volumes. Some degree of vascular congestion cannot be excluded, however. 2. Tracheostomy tube remains in good position. Nasogastric tube has been removed. Electronically signed by: Praneeth Cochran MD 04/30/2018 10:39 AM EDT
== END 2018-04-30 20:35 | DRG 3 ==
LOC: NEPC 17:54 → NEDA 20:23 → N03B 22:05
PROVIDERS: ADMIT Internal Medicine Critical Care Medicine; ATTEND Internal Medicine Critical Care Medicine
PROC: 5A1955Z Respiratory Ventilation, Greater than 96 Consecutive Hours (ICD-10-PCS; 2018-04-10)
PROC: 0BH17EZ Insertion of Endotracheal Airway into Trachea, Via Natural or Artificial Opening (ICD-10-PCS; 2018-04-10)
PROC: 02HV33Z Insertion of Infusion Device into Superior Vena Cava, Percutaneous Approach (ICD-10-PCS; 2018-04-10)
PROC: 00C00ZZ Extirpation of Matter from Brain, Open Approach (ICD-10-PCS; 2018-04-11)
PROC: 4A103BD Monitoring of Intracranial Pressure, Percutaneous Approach (ICD-10-PCS; 2018-04-11)
PROC: 0T9B70Z Drainage of Bladder with Drainage Device, Via Natural or Artificial Opening (ICD-10-PCS; 2018-04-11)
PROC: 00H032Z Insertion of Monitoring Device into Brain, Percutaneous Approach (ICD-10-PCS; principal; 2018-04-11 12:44)
PROC: 0B113F4 Bypass Trachea to Cutaneous with Tracheostomy Device, Percutaneous Approach (ICD-10-PCS; 2018-04-24)
PROC: 0BJ08ZZ Inspection of Tracheobronchial Tree, Via Natural or Artificial Opening Endoscopic (ICD-10-PCS; 2018-04-24)
PROC: 0DB68ZX Excision of Stomach, Via Natural or Artificial Opening Endoscopic, Diagnostic (ICD-10-PCS; 2018-04-25)
PROC: 0DH63UZ Insertion of Feeding Device into Stomach, Percutaneous Approach (ICD-10-PCS; 2018-04-25)
DX: I61.1 Nontraumatic intracerebral hemorrhage in hemisphere, cortical (principal); N17.9 Acute kidney failure, unspecified; G93.40 Encephalopathy, unspecified; J96.01 Acute respiratory failure with hypoxia; J96.02 Acute respiratory failure with hypercapnia; Z68.41 Body mass index [BMI] 40.0-44.9, adult; I16.1 Hypertensive emergency; E87.0 Hyperosmolality and hypernatremia; Z99.11 Dependence on respirator [ventilator] status; G40.409 Other generalized epilepsy and epileptic syndromes, not intractable, without status epilepticus; Z78.1 Physical restraint status; E66.9 Obesity, unspecified; E78.5 Hyperlipidemia, unspecified; K21.9 Gastro-esophageal reflux disease without esophagitis; M10.9 Gout, unspecified; N18.3 Chronic kidney disease, stage 3 (moderate); E11.22 Type 2 diabetes mellitus with diabetic chronic kidney disease; I12.9 Hypertensive chronic kidney disease with stage 1 through stage 4 chronic kidney disease, or unspecified chronic kidney disease; Z96.649 Presence of unspecified artificial hip joint; Z86.718 Personal history of other venous thrombosis and embolism; Z86.711 Personal history of pulmonary embolism; Z79.01 Long term (current) use of anticoagulants; H11.33 Conjunctival hemorrhage, bilateral
CPT/HCPCS: 31500; 36430; 36556; 36600; 70450; 70544; 70553; 71045; 74018; 76937; 80048; 80053; 80061; 80185; 80202; 80307; 81001; 82140; 82150; 82550; 82552; 82805; 82948; 83036; 83605; 83615; 83735; 83930; 84100; 84295; 84443; 84484; 85025; 85027; 85384; 85610; 85730; 86403; 86850; 86900; 86901; 86920; 87040; 87070; 87077; 87086; 87147; 87186; 87205; 87641; 88304; 88305; 88312; 93005; 93970; 94002; 94003; 94640; 94664; 95819; 96374; 96375; A9579; C1713; C9113; J0131; J0330; J0690; J1100; J1205; J1580; J1650; J1815; J1940; J1953; J1956; J2060; J2150; J2212; J2250; J2270; J2370; J2720; J3010; J3370; J3475; J3480; J7030; J7040; J7050; J7613; P9016; Q2009